=== PATIENT | female | born 1935 | race Caucasian/White ===

== ENCOUNTER 2017-04-27 21:58 | Emergency (ER) | payer MEDICARE, BC ==
[2017-04-27] MEDS ORDERED: Lidocaine 1% 20 ML MDV ONE (22:03)
[2017-04-27] MEDS ORDERED: Lidocaine 1% 20 ML MDV INJECT ONE (22:06)
[2017-04-27] MEDS ORDERED: Bacitracin Oint 1 GM U/D Packet TOP ONE (22:06)
[2017-04-27] MEDS ORDERED: Diphtheria,Pertussis(Acell),Tetanus Vaccine 0.5 ML Syringe IM ONE (22:08)
--- NOTE | 2017-04-27 22:13 | EDM.PDOC ---
ED HPI GENERAL MEDICAL PROBLEM - General Chief Complaint: Laceration Stated Complaint: LACERATION/BLEEDING RT INDEX FINGER Time Seen by Provider: 04/27/17 22:09 - History of Present Illness INITIAL COMMENTS - FREE TEXT/NARRATIVE: HISTORY AND PHYSICAL: History of present illness: Patient's age 82-year-old white female sensory concern of lacerations of the second digit of her right hand that occurred when she is washing dishes and a glass broke she denies update tetanus denies any other concern Review of systems: As per history of present illness and below otherwise all systems reviewed and negative. Past medical history: As per history of present illness and as reviewed below otherwise noncontributory. Surgical history: As per history of present illness and as reviewed below otherwise noncontributory. Social history: No reported history of drug or alcohol abuse. Family history: As per history of present illness and as reviewed below otherwise noncontributory. Physical exam: HEENT: Atraumatic, normocephalic, pupils reactive, negative for conjunctival pallor or scleral icterus, mucous membranes moist, throat clear, neck supple, nontender, trachea midline. Lungs: Clear to auscultation, breath sounds equal bilaterally, chest nontender. Heart: S1S2, regular, negative for clicks, rubs, or JVD. Abdomen: Soft, nondistended, nontender. Negative for masses or hepatosplenomegaly. Negative for costovertebral tenderness. Pelvis: Stable nontender. Genitourinary: Deferred. Rectal: Deferred. Extremities: Patient has approximately 2.5 cm moderate of laceration over the dorsal aspect of the second digit of her right hand is no tendon involvement CMS neurovascular is unremarkable Neuro: Awake, alert, oriented. Cranial nerves II through XII unremarkable. Cerebellum unremarkable. Motor and sensory unremarkable throughout. Exam nonfocal. Diagnostics: None Therapeutics: Patient was anesthetized 1% lidocaine without epinephrine irrigated Ori-Soft 0.9 normal saline prepped and draped in sterile manner her 2.5 cm laceration was closed with 4-0 nylon interrupted sutures bacitracin Tubegauz dressing was applied Impression: #1 acute right hand injury second digit ( laceration) Definitive disposition and diagnosis as appropriate pending reevaluation and review of above. ED ROS GENERAL - Review of Systems Review Of Systems: ROS reveals no pertinent complaints other than HPI. ED EXAM, SKIN/RASH Exam: See Below (Dictation) Course - Orders/Labs/Meds Orders: Active Orders 24 hr Category Date Time Status Vaccines to be Administered [RC] PER UNIT ROUTINE Care 04/27/17 22:08 Active Meds: Medications Discontinued Medications Generic Name Dose Route Start Last Admin Trade Name Skylar PRN Reason Stop Dose Admin Bacitracin 1 dose 04/27/17 22:06 Bacitracin Oint 1 Gm TOP 04/27/17 22:07 ONETIME ONE Diphtheria/Tetanus/Acell Pertussis 0.5 ml 04/27/17 22:08 Adacel IM 04/27/17 22:09 .ONCE ONE Lidocaine HCl Confirm 04/27/17 22:03 Xylocaine 1% Administered 04/27/17 22:04 Dose 20 ml .ROUTE .STK-MED ONE Lidocaine HCl 20 ml 04/27/17 22:06 Xylocaine 1% INJECT 04/27/17 22:07 ONETIME ONE Departure - Departure Time of Disposition: 22:12 Disposition: Home, Self-Care 01 Condition: Good Clinical Impression: Laceration - Discharge Information Referrals: PCP,None [Primary Care Provider] - Additional Instructions: The following information is given to patients seen in the emergency department who are being discharged to home. This information is to outline your options for follow-up care. We provide all patients seen in our emergency department with a follow-up referral. The need for follow-up, as well as the timing and circumstances, are variable depending upon the specifics of your emergency department visit. If you don't have a primary care physician on staff, we will provide you with a referral. We always advise you to contact your personal physician following an emergency department visit to inform them of the circumstance of the visit and for follow-up with them and/or the need for any referrals to a consulting specialist. The emergency department will also refer you to a specialist when appropriate. This referral assures that you have the opportunity for followup care with a specialist. All of these measure are taken in an effort to provide you with optimal care, which includes your followup. Under all circumstances we always encourage you to contact your private physician who remains a resource for coordinating your care. When calling for followup care, please make the office aware that this follow-up is from your recent emergency room visit. If for any reason you are refused follow-up, please contact the [facility] emergency department at and asked to speak to the emergency department charge nurse. Follow-up primary medical doctor 1-2 days for wound check and blood pressure recheck suture removal 10-14 days return as needed as discussed - My Orders Last 24 Hours: My Active Orders 04/27/17 22:08 Vaccines to be Administered [RC] PER UNIT ROUTINE - Assessment/Plan Last 24 Hours: My Active Orders 04/27/17 22:08 Vaccines to be Administered [RC] PER UNIT ROUTINE
[2017-04-27 22:48] VITALS: BP 190/79
== END 2017-04-27 22:44 | disposition home or self-care (01) ==
LOC: MW.ED 21:58
DX: S61.210A Laceration without foreign body of right index finger without damage to nail, initial encounter (principal); W25.XXXA Contact with sharp glass, initial encounter; Z23 Encounter for immunization
CPT/HCPCS: 12001; 90471; 90715; 99282; 99283-25

== ENCOUNTER 2017-05-12 11:13 | Emergency (ER) | payer MEDICARE, BC ==
[2017-05-12 11:28] VITALS: BP 115/70
--- NOTE | 2017-05-12 19:35 | EDM.PDOC ---
ED HPI GENERAL MEDICAL PROBLEM - General Stated Complaint: STITCHES REMOVED Time Seen by Provider: 05/12/17 11:17 - History of Present Illness INITIAL COMMENTS - FREE TEXT/NARRATIVE: HISTORY AND PHYSICAL: Patient is a nursing encounter seen for suture removal did not want medical evaluation so I did not see this patient. No further documentation is indicated - Related Data Allergies Allergy/AdvReac Type Severity Reaction Status Date / Time No Known Allergies Allergy Verified 04/27/17 22:15 Home Meds: Home Meds Aspirin [[place] Aspirin] 81 mg PO DAILY 04/27/17 [History] Calcium Carbonate [Calcium] 1,200 mg PO DAILY 04/27/17 [History] Clopidogrel [Plavix] 75 mg PO DAILY 04/27/17 [History] Fish Oil/[place]-3 Fatty Acids [Fish Oil 1,000 MG] 1 cap PO DAILY 04/27/17 [ History] Levothyroxine [Synthroid] 100 mcg PO DAILY 04/27/17 [History] Lutein 20 mg PO DAILY 04/27/17 [History] Metoprolol Succinate 100 mg PO DAILY 04/27/17 [History] Multivitamin/Iron/Folic Acid [Centrum Adults Tablet] 1 tab PO DAILY 04/27/17 [ History] Potassium Chloride [Klor-Con 8] 24 meq PO DAILY 04/27/17 [History] Rosuvastatin [Crestor] 20 mg PO ASDIRECTED 04/27/17 [History] Simvastatin [Zocor] 20 mg PO DAILY 04/27/17 [History] Triamterene/Hydrochlorothiazid [Triamterene-HCTZ 37.5-25 MG] 1 tab PO DAILY 07/03 [History] amLODIPine [Norvasc] 5 mg PO DAILY 04/27/17 [History] traMADol HCl [Tramadol HCl] 50 mg PO ASDIRECTED PRN 04/27/17 [History] Past Medical History 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 History: 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, 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, Hypertension Endocrine/Metabolic History: Reports: Hypothyroidism - Infectious Disease History Infectious Disease History: Reports: Chicken Pox, Measles, Mumps Social & Family History - Family History Family Medical History: Noncontributory - Tobacco Use Smoking Status *Q: Never Smoker - Caffeine Use Caffeine Use: Reports: None - Recreational Drug Use Recreational Drug Use: No ED ROS GENERAL - Review of Systems Review Of Systems: See Below (History of present illness) ED EXAM, GENERAL - Physical Exam Exam: See Below (History of present illness) Course - Vital Signs Last Recorded V/S: Last Vital Signs Temp 36.8 C 05/12/17 11:24 Pulse 78 05/12/17 11:24 Resp 16 05/12/17 11:24 BP 115/70 05/12/17 11:24 Pulse Ox 98 05/12/17 11:24 Departure - Departure Time of Disposition: 11:25 Disposition: Home, Self-Care 01 Clinical Impression: Visit for suture removal - Discharge Information Referrals: PCP,Unknown [Primary Care Provider] -
== END 2017-05-12 11:28 | disposition home or self-care (01) ==
LOC: MW.ED 11:13
DX: Z53.21 Procedure and treatment not carried out due to patient leaving prior to being seen by health care provider (principal)

== ENCOUNTER 2017-12-05 17:08 | Emergency (ER) | payer MEDICARE, BC ==
--- NOTE | 2017-12-05 17:23 | EDM.PDOC ---
ED HPI GENERAL MEDICAL PROBLEM - General Chief Complaint: Lower Extremity Injury/Pain Stated Complaint: PT HAS BLOOD CLOT IN LT LEG Time Seen by Provider: 12/05/17 17:21 - History of Present Illness INITIAL COMMENTS - FREE TEXT/NARRATIVE: HISTORY AND PHYSICAL: History of present illness: Patient's 82-year-old female with history of prior venous thromboembolism who presents with a concern of left leg discomfort and possible DVT she denies trauma shortness of breath nausea vomiting or any other complaint. Review of systems: As per history of present illness and below otherwise all systems reviewed and negative. Past medical history: As per history of present illness and as reviewed below otherwise noncontributory. Surgical history: As per history of present illness and as reviewed below otherwise noncontributory. Social history: No reported history of drug or alcohol abuse. Family history: As per history of present illness and as reviewed below otherwise noncontributory. Physical exam: HEENT: Atraumatic, normocephalic, pupils reactive, negative for conjunctival pallor or scleral icterus, mucous membranes moist, throat clear, neck supple, nontender, trachea midline. Lungs: Clear to auscultation, breath sounds equal bilaterally, chest nontender. Heart: S1S2, regular, negative for clicks, rubs, or JVD. Abdomen: Soft, nondistended, nontender. Negative for masses or hepatosplenomegaly. Negative for costovertebral tenderness. Pelvis: Stable nontender. Genitourinary: Deferred. Rectal: Deferred. Extremities: Atraumatic, negative for cords or calf pain. Neurovascular unremarkable. Neuro: Awake, alert, oriented. Cranial nerves II through XII unremarkable. Cerebellum unremarkable. Motor and sensory unremarkable throughout. Exam nonfocal. Diagnostics: Venous Doppler left lower extremity Therapeutics: None Impression: #1 medical screening exam rule out deep venous thrombosis Definitive disposition and diagnosis as appropriate pending reevaluation and review of above. - Related Data Allergies Allergy/AdvReac Type Severity Reaction Status Date / Time No Known Allergies Allergy Verified 12/05/17 17:22 Home Meds: Home Meds Aspirin [[place] Aspirin] 81 mg PO DAILY 04/27/17 [History] Calcium Carbonate [Calcium] 1,200 mg PO DAILY 04/27/17 [History] Clopidogrel [Plavix] 75 mg PO DAILY 04/27/17 [History] Fish Oil/[place]-3 Fatty Acids [Fish Oil 1,000 MG] 1 cap PO DAILY 04/27/17 [ History] Levothyroxine [Synthroid] 100 mcg PO DAILY 04/27/17 [History] Lutein 20 mg PO DAILY 04/27/17 [History] Metoprolol Succinate 100 mg PO DAILY 04/27/17 [History] Multivitamin/Iron/Folic Acid [Centrum Adults Tablet] 1 tab PO DAILY 04/27/17 [ History] Potassium Chloride [Klor-Con 8] 24 meq PO DAILY 04/27/17 [History] Rosuvastatin [Crestor] 20 mg PO ASDIRECTED 04/27/17 [History] Simvastatin [Zocor] 20 mg PO DAILY 04/27/17 [History] Triamterene/Hydrochlorothiazid [Triamterene-HCTZ 37.5-25 MG] 1 tab PO DAILY 07/03 [History] amLODIPine [Norvasc] 5 mg PO DAILY 04/27/17 [History] traMADol HCl [Tramadol HCl] 50 mg PO ASDIRECTED PRN 04/27/17 [History] Past Medical History 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 History: 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, 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, Hypertension Endocrine/Metabolic History: Reports: Hypothyroidism - Infectious Disease History Infectious Disease History: Reports: Chicken Pox, Measles, Mumps Social & Family History - Family History Family Medical History: Noncontributory - Tobacco Use Smoking Status *Q: Never Smoker - Caffeine Use Caffeine Use: Reports: None - Recreational Drug Use Recreational Drug Use: No Review of Systems - Review of Systems Review Of Systems: ROS reveals no pertinent complaints other than HPI. ED EXAM, GENERAL - Physical Exam Exam: See Below (See dictation) Course - Vital Signs Last Recorded V/S: Last Vital Signs Temp 36.8 C 12/05/17 17:18 Pulse 66 12/05/17 17:18 Resp 18 12/05/17 17:18 BP 171/90 H 12/05/17 17:18 Pulse Ox 95 12/05/17 17:18 - Orders/Labs/Meds Orders: Active Orders 24 hr Category Date Time Status Venous Doppler Lwr Ext Lt [US] Stat Exams 12/05/17 17:23 Taken Departure - Departure Time of Disposition: 18:22 Disposition: Home, Self-Care 01 Condition: Good Clinical Impression: Leg pain - Discharge Information Referrals: PCP,None [Primary Care Provider] - Forms: ED Department Discharge Additional Instructions: The following information is given to patients seen in the emergency department who are being discharged to home. This information is to outline your options for follow-up care. We provide all patients seen in our emergency department with a follow-up referral. The need for follow-up, as well as the timing and circumstances, are variable depending upon the specifics of your emergency department visit. If you don't have a primary care physician on staff, we will provide you with a referral. We always advise you to contact your personal physician following an emergency department visit to inform them of the circumstance of the visit and for follow-up with them and/or the need for any referrals to a consulting specialist. The emergency department will also refer you to a specialist when appropriate. This referral assures that you have the opportunity for followup care with a specialist. All of these measure are taken in an effort to provide you with optimal care, which includes your followup. Under all circumstances we always encourage you to contact your private physician who remains a resource for coordinating your care. When calling for followup care, please make the office aware that this follow-up is from your recent emergency room visit. If for any reason you are refused follow-up, please contact the [facility] emergency department at and asked to speak to the emergency department charge nurse. Follow-up private medical doctor Thursday continue current medications return as needed as discussed - My Orders Last 24 Hours: My Active Orders 12/05/17 17:23 Venous Doppler Lwr Ext Lt [US] Stat - Assessment/Plan Last 24 Hours: My Active Orders 12/05/17 17:23 Venous Doppler Lwr Ext Lt [US] Stat
[2017-12-05 20:35] VITALS: BP 162/97
--- NOTE | 2017-12-07 13:00 | US ---
EXAM DATE: 12/05/17 PATIENT'S AGE: 82 Patient: CESAR FELIZ Facility: [place], [place] Site . Site : [id number] Study: US Extremity Left [id number] 6:18:29 PM Ordering Physician: Doctor Kumar Final Report: INDICATION: PAIN LEFT KNEE AREA TECHNIQUE: Left lower extremity venous ultrasound with grayscale, color and spectral Doppler, and compression views. Duplex images of the contralateral common femoral vein were also obtained. FINDINGS: The left common femoral, femoral, proximal deep femoral, greater saphenous, and visualized calf veins are patent and negative for DVT. IMPRESSION: Left leg negative for DVT. Dictated by: Saroj David MD @ 12/05/2017 18:29:54 (Electronic Signature) Report Signed by Proxy. [email or web address]
== END 2017-12-05 18:40 | disposition home or self-care (01) ==
LOC: MW.ED 17:08
DX: M79.605 Pain in left leg (principal); I10 Essential (primary) hypertension; E78.00 Pure hypercholesterolemia, unspecified; E03.9 Hypothyroidism, unspecified; Z79.899 Other long term (current) drug therapy; Z79.82 Long term (current) use of aspirin
CPT/HCPCS: 93971-26-LT; 93971-LT; 99283-25

== ENCOUNTER 2018-08-26 07:06 | Emergency (ER) | payer MEDICARE, BC ==
[2018-08-26] MEDS ORDERED: Albuterol/Ipratropium 3.0-0.5 MG/3 ML Neb Soln NEB ONE (07:13)
[2018-08-26] MEDS ORDERED: Sodium Chloride 0.9% 10 ML Syringe FLUSH PRN (07:13)
[2018-08-26] MEDS ORDERED: Sodium Chloride 0.9% 2.5 ML Syringe FLUSH PRN (07:13)
--- NOTE | 2018-08-26 07:20 | EDM.PDOC ---
ED HPI GENERAL MEDICAL PROBLEM - General Chief Complaint: Respiratory Problem Stated Complaint: HARD TIME BREATHING Time Seen by Provider: 08/26/18 07:06 Source of Information: Reports: Patient History Limitations: Reports: No Limitations - History of Present Illness INITIAL COMMENTS - FREE TEXT/NARRATIVE: History of present illness: []Patient has had difficulty breathing for a week and a half, she denies any chest pain, cough, fevers, chills or recent flu symptoms. Patient had a blood clot in November of last year is currently on blood thinners. Patient complains of bilateral chronic leg pain with no new symptoms or swelling. Patient had an ultrasound-guided breast biopsy done 3 days ago[address] Patient saw Dr. Bender yesterday and she states she had a chest x-ray but did not need any medications or prescriptions. He scheduled her for pulmonary function tests next week. Review of systems: As per history of present illness and below otherwise all systems reviewed and negative. Past medical history: As per history of present illness and as reviewed below otherwise noncontributory. Surgical history: As per history of present illness and as reviewed below otherwise noncontributory. Social history: No reported history of drug or alcohol abuse. Family history: As per history of present illness and as reviewed below otherwise noncontributory. Physical exam: General: Well developed, well nourished in mild respiratory distress HEENT: Atraumatic, normocephalic, pupils reactive, negative for conjunctival pallor or scleral icterus, mucous membranes moist, throat clear, neck supple, nontender, trachea midline. Lungs: Rhonchi bilaterally to auscultation, breath sounds equal bilaterally, chest nontender. Heart: S1S2, regular, negative for clicks, rubs, or JVD. Peripheral edema Abdomen: NABS, Soft, nondistended, nontender. Negative for masses or hepatosplenomegaly. Negative for costovertebral tenderness. Pelvis: Stable nontender. Genitourinary: Deferred. Rectal: Deferred. Extremities: Atraumatic, negative for cords or calf pain. Neurovascular unremarkable. Neuro: Awake, alert, oriented. Cranial nerves II through XII unremarkable. Cerebellum unremarkable. Motor and sensory unremarkable throughout. Exam nonfocal. Skin:warm and dry Diagnostics: EKG, chest x-ray, CBC, comp, troponin, BNP, coags him a blood cultures, influenza Therapeutics: O2, Diltiazem bolus 2 followed by drip, aspirin ED Course: Symptoms improved with oxygen Dr. Nascimento accepts patient [facility] Impression: Atrial fibrillation with RVR right sided pneumonia and bilateral pleural effusions, positive troponin Prescriptions: None Plan: Transfer to [facility] Definitive disposition and diagnosis as appropriate pending reevaluation and review of above. generalized body aches Pain Score (Numeric/FACES): 6 - Related Data Allergies Allergy/AdvReac Type Severity Reaction Status Date / Time No Known Allergies Allergy Verified 08/26/18 07:14 Home Meds: Home Meds Calcium Carbonate [Calcium] 1,200 mg PO DAILY 04/27/17 [History] Clopidogrel [Plavix] 75 mg PO DAILY 04/27/17 [History] Levothyroxine [Synthroid] 100 mcg PO DAILY 04/27/17 [History] Lutein 20 mg PO DAILY 04/27/17 [History] Metoprolol Succinate 100 mg PO DAILY 04/27/17 [History] Multivitamin/Iron/Folic Acid [Centrum Adults Tablet] 1 tab PO DAILY 04/27/17 [ History] Potassium Chloride [Klor-Con 8] 24 meq PO DAILY 04/27/17 [History] Rosuvastatin [Crestor] 20 mg PO DAILY 04/27/17 [History] Simvastatin [Zocor] 20 mg PO DAILY 04/27/17 [History] Triamterene/Hydrochlorothiazid [Triamterene-HCTZ 37.5-25 MG] 1 tab PO DAILY 07/03 [History] amLODIPine [Norvasc] 5 mg PO DAILY 04/27/17 [History] Acetaminophen with Codeine [Tylenol with Codeine #3 Tablet] 1 tab PO BID PRN 06/04 [History] Past Medical History 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 History: 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, 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 ED EXAM, GENERAL - Physical Exam Exam: See Below (History of present illness) Course - Vital Signs Last Recorded V/S: Last Vital Signs Temp 98.5 F 08/26/18 08:23 Pulse 115 H 08/26/18 08:23 Resp 20 08/26/18 08:23 BP 137/57 L 08/26/18 08:23 Pulse Ox 90 L 08/26/18 08:23 - Orders/Labs/Meds Orders: Active Orders 24 hr Category Date Time Status Cardiac Monitoring [RC] . DIRECTED Care 08/26/18 07:41 Active EKG Documentation Completion [RC] STAT Care 08/26/18 07:12 Active Oxygen Therapy, ED [RC] ASDIRECTED Care 08/26/18 07:41 Active RT Aerosol Therapy [RC] ASDIRECTED Care 08/26/18 07:13 Inactive Chest 1V Frontal [CR] Stat Exams 08/26/18 07:12 Taken CULTURE BLOOD [BC] Stat Lab 08/26/18 08:12 Received CULTURE BLOOD [BC] Stat Lab 08/26/18 08:22 Received INFLUENZA A+B AG SCREEN [RM] Stat Lab 08/26/18 08:07 Received Aspirin Med 08/26/18 08:45 Once 324 mg PO ONETIME ONE Diltiazem [Cardizem] 100 mg Med 08/26/18 08:45 Active Sodium Chloride 0.9% [Normal Saline] 100 ml IV ONETIME Sodium Chloride 0.9% [Saline Flush] Med 08/26/18 07:13 Active 10 ml FLUSH ASDIRECTED PRN Sodium Chloride 0.9% [Saline Flush] Med 08/26/18 07:13 Active 2.5 ml FLUSH ASDIRECTED PRN Blood Culture x2 Reflex Set [OM.PC] Stat Oth 08/26/18 08:01 Ordered Saline Lock Insert [OM.PC] Stat Oth 08/26/18 07:12 Ordered Medication Orders Diltiazem HCl 100 mg/ Sodium (Chloride) 100 mls @ 5 mls/hr IV ONETIME YAKELIN; Protocol Sodium Chloride (Saline Flush) 10 ml FLUSH ASDIRECTED PRN PRN Reason: Keep Vein Open Last Admin: 08/26/18 07:54 Dose: 10 ml Sodium Chloride (Saline Flush) 2.5 ml FLUSH ASDIRECTED PRN PRN Reason: Keep Vein Open Last Admin: 08/26/18 07:55 Dose: 2.5 ml Labs: Laboratory Tests 0108/26/18 08/26/18 Range/Units 07:25 07:25 07:25 WBC 17.28 H (4.0-11.0) K/uL RBC 4.12 L (4.30-5.90) M/uL Hgb 12.3 (12.0-16.0) g/dL Hct 38.5 (36.0-46.0) % MCV 93.4 (80.0-98.0) fL MCH 29.9 (27.0-32.0) pg MCHC 31.9 (31.0-37.0) g/dL RDW Std Deviation 43.6 (28.0-62.0) fl RDW Coeff of Erickson 13 (11.0-15.0) % Plt Count 259 (150-400) K/uL MPV 10.60 (7.40-12.00) fL Neut % (Auto) 89.0 H (48.0-80.0) % Lymph % (Auto) 5.2 L (16.0-40.0) % [place] % (Auto) 5.6 (0.0-15.0) % Eos % (Auto) 0.1 (0.0-7.0) % Baso % (Auto) 0.1 (0.0-1.5) % Neut # (Auto) 15.4 H (1.4-5.7) K/uL Lymph # (Auto) 0.9 (0.6-2.4) K/uL [place] # (Auto) 1.0 H (0.0-0.8) K/uL Eos # (Auto) 0.0 (0.0-0.7) K/uL Baso # (Auto) 0.0 (0.0-0.1) K/uL Nucleated RBC % 0.0 /100WBC Nucleated RBCs # 0 K/uL INR APTT (18.6-31.3) SEC Sodium 139 (136-145) mmol/L Potassium 3.6 (3.5-5.1) mmol/L Chloride 104 (98-107) mmol/L Carbon Dioxide 22.6 (21.0-32.0) mmol/L BUN 34 H (7.0-18.0) mg/dL Creatinine 1.4 H (0.6-1.0) mg/dL Est Cr Clr Drug Dosing 25.83 mL/min Estimated GFR (MDRD) 35.8 ml/min Glucose 195 H (74-106) mg/dL Calcium 9.5 (8.5-10.1) mg/dL Total Bilirubin 0.9 (0.2-1.0) mg/dL AST 31 (15-37) IU/L ALT 43 (14-63) IU/L Alkaline Phosphatase 77 (46-116) U/L Troponin I 2.358 H* (0.000-0.056) ng/mL B-Natriuretic Peptide (<100) PG/ML Total Protein 7.6 (6.4-8.2) g/dL Albumin 3.2 L (3.4-5.0) g/dL Globulin 4.4 H (2.6-4.0) g/dL Albumin/Globulin Ratio 0.7 L (0.9-1.6) 08/26/18 08/26/18 Range/Units 07:25 07:25 WBC (4.0-11.0) K/uL RBC (4.30-5.90) M/uL Hgb (12.0-16.0) g/dL Hct (36.0-46.0) % MCV (80.0-98.0) fL MCH (27.0-32.0) pg MCHC (31.0-37.0) g/dL RDW Std Deviation (28.0-62.0) fl RDW Coeff of Erickson (11.0-15.0) % Plt Count (150-400) K/uL MPV (7.40-12.00) fL Neut % (Auto) (48.0-80.0) % Lymph % (Auto) (16.0-40.0) % [place] % (Auto) (0.0-15.0) % Eos % (Auto) (0.0-7.0) % Baso % (Auto) (0.0-1.5) % Neut # (Auto) (1.4-5.7) K/uL Lymph # (Auto) (0.6-2.4) K/uL Sharkey # (Auto) (0.0-0.8) K/uL Eos # (Auto) (0.0-0.7) K/uL Baso # (Auto) (0.0-0.1) K/uL Nucleated RBC % /100WBC Nucleated RBCs # K/uL INR 1.14 APTT 22.6 (18.6-31.3) SEC Sodium (136-145) mmol/L Potassium (3.5-5.1) mmol/L Chloride (98-107) mmol/L Carbon Dioxide (21.0-32.0) mmol/L BUN (7.0-18.0) mg/dL Creatinine (0.6-1.0) mg/dL Est Cr Clr Drug Dosing mL/min Estimated GFR (MDRD) ml/min Glucose (74-106) mg/dL Calcium (8.5-10.1) mg/dL Total Bilirubin (0.2-1.0) mg/dL AST (15-37) IU/L ALT (14-63) IU/L Alkaline Phosphatase (46-116) U/L Troponin I (0.000-0.056) ng/mL B-Natriuretic Peptide 1408 H (<100) PG/ML Total Protein (6.4-8.2) g/dL Albumin (3.4-5.0) g/dL Globulin (2.6-4.0) g/dL Albumin/Globulin Ratio (0.9-1.6) Meds: Medications Generic Name Dose Route Start Last Admin Trade Name Freq PRN Reason Stop Dose Admin Diltiazem HCl 100 mg/ Sodium 100 mls @ 5 mls/hr 08/26/18 08:45 Chloride IV ONETIME YAKELIN Protocol 5 MG/HR Sodium Chloride 10 ml 08/26/18 07:13 08/26/18 07:54 Saline Flush FLUSH 10 ml ASDIRECTED PRN Administration Keep Vein Open Sodium Chloride 2.5 ml 08/26/18 07:13 08/26/18 07:55 Saline Flush FLUSH 2.5 ml ASDIRECTED PRN Administration Keep Vein Open Discontinued Medications Generic Name Dose Route Start Last Admin Trade Name Freq PRN Reason Stop Dose Admin Albuterol/Ipratropium 3 ml 08/26/18 07:13 Duoneb 3.0-0.5 Mg/3 Ml NEB 08/26/18 07:14 ONETIME ONE Diltiazem HCl 20 mg 08/26/18 07:26 08/26/18 07:29 Diltiazem IVPUSH 08/26/18 07:27 20 mg ONETIME ONE Administration Diltiazem HCl 20 mg 08/26/18 07:48 08/26/18 07:54 Diltiazem IVPUSH 08/26/18 07:49 20 mg ONETIME ONE Administration Diltiazem HCl Confirm 08/26/18 07:51 08/26/18 07:54 Diltiazem Administered 08/26/18 07:52 Not Given Dose 25 mg .ROUTE .STK-MED ONE Ceftriaxone Sodium/Dextrose 1 50 mls @ 100 mls/hr 08/26/18 08:02 gm/ Premix IV 08/26/18 08:31 ONETIME ONE Diltiazem HCl 125 mg/ Sodium 125 mls @ 5 mls/hr 08/26/18 08:45 Chloride IV NOW YAKELIN Protocol 5 MG/HR Departure - Departure Time of Disposition: 08:49 Disposition: DC/Tfer to Acute Hospital 02 Condition: Good Clinical Impression: Atrial fibrillation with RVR, Non-STEMI (non-ST elevated myocardial infarction) , Bilateral pleural effusion - Discharge Information Referrals: Kali Bender MD [Primary Care Provider] - Forms: ED Department Discharge - My Orders Last 24 Hours: My Active Orders 08/26/18 07:12 EKG Documentation Completion [RC] STAT Chest 1V Frontal [CR] Stat Saline Lock Insert [OM.PC] Stat 08/26/18 07:13 RT Aerosol Therapy [RC] ASDIRECTED Sodium Chloride 0.9% [Saline Flush] 10 ml FLUSH ASDIRECTED PRN Sodium Chloride 0.9% [Saline Flush] 2.5 ml FLUSH ASDIRECTED PRN 08/26/18 07:41 Cardiac Monitoring [RC] . DIRECTED Oxygen Therapy, ED [RC] ASDIRECTED 08/26/18 08:01 Blood Culture x2 Reflex Set [OM.PC] Stat 08/26/18 08:07 INFLUENZA A+B AG SCREEN [RM] Stat 08/26/18 08:12 CULTURE BLOOD [BC] Stat 08/26/18 08:22 CULTURE BLOOD [BC] Stat 08/26/18 08:45 Aspirin 324 mg PO ONETIME ONE Diltiazem [Cardizem] 100 mg Sodium Chloride 0.9% [Normal Saline] 100 ml IV ONETIME - Assessment/Plan Last 24 Hours: My Active Orders 08/26/18 07:12 EKG Documentation Completion [RC] STAT Chest 1V Frontal [CR] Stat Saline Lock Insert [OM.PC] Stat 08/26/18 07:13 RT Aerosol Therapy [RC] ASDIRECTED Sodium Chloride 0.9% [Saline Flush] 10 ml FLUSH ASDIRECTED PRN Sodium Chloride 0.9% [Saline Flush] 2.5 ml FLUSH ASDIRECTED PRN 08/26/18 07:41 Cardiac Monitoring [RC] . DIRECTED Oxygen Therapy, ED [RC] ASDIRECTED 08/26/18 08:01 Blood Culture x2 Reflex Set [OM.PC] Stat 08/26/18 08:07 INFLUENZA A+B AG SCREEN [RM] Stat 08/26/18 08:12 CULTURE BLOOD [BC] Stat 08/26/18 08:22 CULTURE BLOOD [BC] Stat 08/26/18 08:45 Aspirin 324 mg PO ONETIME ONE Diltiazem [Cardizem] 100 mg Sodium Chloride 0.9% [Normal Saline] 100 ml IV ONETIME
[2018-08-26] MEDS ORDERED: Diltiazem 25 MG/5 ML SDV IVPUSH ONE ×2 (07:26→07:48)
[2018-08-26] MEDS ORDERED: Diltiazem 25 MG/5 ML SDV ONE (07:51)
[2018-08-26] MEDS ORDERED: cefTRIAXone 1 GM in Premix Bag 1 BAG IV ONE (08:02)
[2018-08-26] MEDS ORDERED: Diltiazem 100 MG in Sodium Chloride 0.9% 100 ML IV SCH (08:45)
[2018-08-26] MEDS ORDERED: Aspirin 81 MG Tab.Chew PO ONE (08:45)
[2018-08-26] MEDS ORDERED: Diltiazem 125 MG in Sodium Chloride 0.9% 100 ML IV SCH (08:45)
[2018-08-26 09:12] VITALS: BP 132/81
--- NOTE | 2018-08-26 14:21 | CR ---
EXAM DATE: 08/26/18 PATIENT'S AGE: 83 Patient: CESAR FELIZ Facility: [place], [place] Site . Site : [id number] Study: XRay Chest [id number]/10/2019 7:29:48 AM Ordering Physician: Pedro Banerjee Final Report: INDICATION: Chest pain. TECHNIQUE: AP portable chest x-ray. FINDINGS: Heart size is normal. The thoracic aorta is densely calcified. The distal aortic arch appears ectatic or dilated. Patient rotated markedly to the left. Small bilateral pleural effusions. Patchy infiltrates and opacity in the right lung varies from hazy to nodular. Mild infiltrate and atelectasis in the left lower lung. Chest otherwise unremarkable. Dictated by Braden Morelnad MD @ Aug 26 2018 7:56AM (Electronic Signature) Report Signed by Proxy. [facility]
== END 2018-08-26 09:40 ==
LOC: MW.ED 07:06
DX: I21.4 Non-ST elevation (NSTEMI) myocardial infarction (principal); J18.9 Pneumonia, unspecified organism; I48.91 Unspecified atrial fibrillation; I10 Essential (primary) hypertension; J90 Pleural effusion, not elsewhere classified; I25.10 Atherosclerotic heart disease of native coronary artery without angina pectoris; E03.9 Hypothyroidism, unspecified; Z79.899 Other long term (current) drug therapy
CPT/HCPCS: 71045; 80053; 83880; 84484; 85025; 85610; 85730; 87040; 87804; 93005; 96365; 96376; 99285; A9270; J0696; J3490; J7030

== ENCOUNTER 2018-09-16 20:45 | Inpatient (IN) | payer MEDICARE, BC ==
--- NOTE | 2018-09-16 20:52 | EDM.PDOC ---
ED HPI GENERAL MEDICAL PROBLEM - General Stated Complaint: PT HAS DIFFICULTY BREATHING Time Seen by Provider: 09/16/18 20:51 Source of Information: Reports: Patient - History of Present Illness INITIAL COMMENTS - FREE TEXT/NARRATIVE: HISTORY AND PHYSICAL: History of present illness: [Patient with COPD home oxygen dependent presents with shortness of breath dyspnea Generally requires 2 L of nasal cannula oxygen or she is hypoxic in the 80s on 2 L requires 4 L to maintain 90% No fever nausea vomiting chills sweats no chest pain headache dizziness palpitation no bowel or urine symptoms ] Review of systems: As per history of present illness and below otherwise all systems reviewed and negative. Past medical history: As per history of present illness and as reviewed below otherwise noncontributory. Surgical history: As per history of present illness and as reviewed below otherwise noncontributory. Social history: No reported history of drug or alcohol abuse. Family history: As per history of present illness and as reviewed below otherwise noncontributory. Physical exam: HEENT: Atraumatic, normocephalic, pupils reactive, negative for conjunctival pallor or scleral icterus, mucous membranes moist, throat clear, neck supple, nontender, trachea midline. Lungs: Clear to auscultation, breath sounds equal bilaterally, chest nontender. Heart: S1S2, regular, negative for clicks, rubs, or JVD. Abdomen: Soft, nondistended, nontender. Negative for masses or hepatosplenomegaly. Negative for costovertebral tenderness. Pelvis: Stable nontender. Genitourinary: Deferred. Rectal: Deferred. Extremities: Atraumatic, negative for cords or calf pain. Neurovascular unremarkable. Neuro: Awake, alert, oriented. Cranial nerves II through XII unremarkable. Cerebellum unremarkable. Motor and sensory unremarkable throughout. Exam nonfocal. Diagnostics: []CBC CMP UA troponin BN peptide EKG Chest 1 view Therapeutics: [] normal saline Solu-Medrol 125 mg IV DuoNeb 1 g Rocephin 500 mg azithromycin Patient admitted to Dr. Power Impression: Hypoxia Pneumonia Bilateral pleural effusions [] short of breath Definitive disposition and diagnosis as appropriate pending reevaluation and review of above. generalized Pain Score (Numeric/FACES): 7 - Related Data Allergies Allergy/AdvReac Type Severity Reaction Status Date / Time No Known Allergies Allergy Verified 09/16/18 21:01 Home Meds: Home Meds Calcium Carbonate [Calcium] 1,200 mg PO DAILY 04/27/17 [History] Clopidogrel [Plavix] 75 mg PO QAM 04/27/17 [History] Levothyroxine [Synthroid] 100 mcg PO QAM 04/27/17 [History] Lutein 20 mg PO DAILY 04/27/17 [History] Metoprolol Succinate 100 mg PO DAILY 04/27/17 [History] Multivitamin/Iron/Folic Acid [Centrum Adults Tablet] 1 tab PO DAILY 04/27/17 [ History] Potassium Chloride [Klor-Con 8] 8 meq PO TID 04/27/17 [History] Rosuvastatin [Crestor] 20 mg PO DAILY 04/27/17 [History] Triamterene/Hydrochlorothiazid [Triamterene-HCTZ 37.5-25 MG] 25 - 37.5 mg PO QPM 04/27/17 [History] amLODIPine [Norvasc] 5 mg PO QPM 04/27/17 [History] Acetaminophen with Codeine [Tylenol with Codeine #3 Tablet] 1 tab PO BID PRN 06/04 [History] Apixaban [Eliquis] 2.5 mg PO QAM 09/16/18 [History] Diltiazem HCl [Cartia Xt] 180 mg PO DAILY 09/16/18 [History] Furosemide 20 mg PO BID 09/16/18 [History] Lisinopril 10 mg PO DAILY 09/16/18 [History] Past Medical History 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 History: 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, 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, 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: Musculoskeletal History: Reports: Arthritis Psychiatric History: Reports: Anxiety, Depression Endocrine/Metabolic History: Reports: Hypothyroidism - Infectious Disease History Infectious Disease History: Reports: Chicken Pox, Measles, Mumps - Past Surgical History Oncologic Surgical History: Reports: Biopsy of Breast Social & Family History - Family History Family Medical History: Noncontributory - Caffeine Use Caffeine Use: Reports: None ED ROS GENERAL - Review of Systems Review Of Systems: See Below ED EXAM, GENERAL - Physical Exam Exam: See Below Course - Vital Signs Last Recorded V/S: Last Vital Signs Temp 97 F 09/16/18 20:49 Pulse 74 09/16/18 21:53 Resp 20 09/16/18 21:53 BP 139/54 L 09/16/18 21:53 Pulse Ox 94 L 09/16/18 21:53 - Orders/Labs/Meds Orders: Active Orders 24 hr Category Date Time Status EKG Documentation Completion [RC] STAT Care 09/16/18 20:53 Active RT Aerosol Therapy [RC] ASDIRECTED Care 09/16/18 20:53 Active Chest 1V Frontal [CR] Stat Exams 09/16/18 20:53 Taken B-TYPE NATRIURETIC PEPTIDE,BNP [CHEM] Stat Lab 09/16/18 21:20 Received UA RFX MIHAELA AND CULT IF INDIC [URIN] Stat Lab 09/16/18 20:53 Ordered Azithromycin [Zithromax] 500 mg Med 09/16/18 22:04 Active Sodium Chloride 0.9% [Normal Saline] 250 ml IV ONETIME Sodium Chloride 0.9% [Normal Saline] 1,000 ml Med 09/16/18 21:00 Active IV STAT Medication Orders Sodium Chloride (Normal Saline) 1,000 mls @ 125 mls/hr IV STAT YAKELIN Last Admin: 09/16/18 21:21 Dose: 125 mls/hr Azithromycin 500 mg/ Sodium (Chloride) 250 mls @ 250 mls/hr IV ONETIME ONE Stop: 09/16/18 23:03 Labs: Laboratory Tests 09/16/18 09/16/18 09/16/18 Range/Units 21:20 21:20 21:20 WBC 13.90 H (4.0-11.0) K/uL RBC 3.75 L (4.30-5.90) M/uL Hgb 11.4 L (12.0-16.0) g/dL Hct 35.8 L (36.0-46.0) % MCV 95.5 (80.0-98.0) fL MCH 30.4 (27.0-32.0) pg MCHC 31.8 (31.0-37.0) g/dL RDW Std Deviation 51.2 (28.0-62.0) fl RDW Coeff of Erickson 15 (11.0-15.0) % Plt Count 304 (150-400) K/uL MPV 10.60 (7.40-12.00) fL Neut % (Auto) 82.0 H (48.0-80.0) % Lymph % (Auto) 10.1 L (16.0-40.0) % [place] % (Auto) 6.9 (0.0-15.0) % Eos % (Auto) 0.6 (0.0-7.0) % Baso % (Auto) 0.4 (0.0-1.5) % Neut # (Auto) 11.4 H (1.4-5.7) K/uL Lymph # (Auto) 1.4 (0.6-2.4) K/uL [place] # (Auto) 1.0 H (0.0-0.8) K/uL Eos # (Auto) 0.1 (0.0-0.7) K/uL Baso # (Auto) 0.1 (0.0-0.1) K/uL Nucleated RBC % 0.0 /100WBC Nucleated RBCs # 0 K/uL INR 1.12 Sodium 141 (136-145) mmol/L Potassium 4.5 (3.5-5.1) mmol/L Chloride 104 (98-107) mmol/L Carbon Dioxide 26.6 (21.0-32.0) mmol/L BUN 37 H (7.0-18.0) mg/dL Creatinine 2.0 H (0.6-1.0) mg/dL Est Cr Clr Drug Dosing 18.08 mL/min Estimated GFR (MDRD) 23.7 ml/min Glucose 152 H (74-106) mg/dL Calcium 9.6 (8.5-10.1) mg/dL Total Bilirubin 0.7 (0.2-1.0) mg/dL AST 26 (15-37) IU/L ALT 30 (14-63) IU/L Alkaline Phosphatase 86 (46-116) U/L Troponin I 0.066 H* (0.000-0.056) ng/mL Total Protein 7.4 (6.4-8.2) g/dL Albumin 3.1 L (3.4-5.0) g/dL Globulin 4.3 H (2.6-4.0) g/dL Albumin/Globulin Ratio 0.7 L (0.9-1.6) Meds: Medications Generic Name Dose Route Start Last Admin Trade Name Freq PRN Reason Stop Dose Admin Sodium Chloride 1,000 mls @ 125 mls/hr 09/16/18 21:00 09/16/18 21:21 Normal Saline IV 125 mls/hr STAT YAKELIN Administration Azithromycin 500 mg/ Sodium 250 mls @ 250 mls/hr 09/16/18 22:04 Chloride IV 09/16/18 23:03 ONETIME ONE Discontinued Medications Generic Name Dose Route Start Last Admin Trade Name Skylar PRN Reason Stop Dose Admin Albuterol/Ipratropium 3 ml 09/16/18 20:53 09/16/18 21:06 Duoneb 3.0-0.5 Mg/3 Ml NEB 09/16/18 20:54 3 ml ONETIME ONE Administration Ceftriaxone Sodium 1 gm 09/16/18 22:04 Rocephin IM 09/16/18 22:05 ONETIME ONE Methylprednisolone Sodium Succinate 125 mg 09/16/18 20:53 09/16/18 21:22 Solu-Medrol IVPUSH 09/16/18 20:54 125 mg ONETIME ONE Administration Departure - Departure Time of Disposition: 22:10 Disposition: Admitted As Inpatient 65 Condition: Fair Clinical Impression: Pneumonia - Discharge Information - My Orders Last 24 Hours: My Active Orders 09/16/18 20:53 EKG Documentation Completion [RC] STAT RT Aerosol Therapy [RC] ASDIRECTED Chest 1V Frontal [CR] Stat UA RFX MIHAELA AND CULT IF INDIC [URIN] Stat 09/16/18 21:00 Sodium Chloride 0.9% [Normal Saline] 1,000 ml IV STAT 09/16/18 21:20 B-TYPE NATRIURETIC PEPTIDE,BNP [CHEM] Stat 09/16/18 22:04 Azithromycin [Zithromax] 500 mg Sodium Chloride 0.9% [Normal Saline] 250 ml IV ONETIME - Assessment/Plan Last 24 Hours: My Active Orders 09/16/18 20:53 EKG Documentation Completion [RC] STAT RT Aerosol Therapy [RC] ASDIRECTED Chest 1V Frontal [CR] Stat UA RFX MIHAELA AND CULT IF INDIC [URIN] Stat 09/16/18 21:00 Sodium Chloride 0.9% [Normal Saline] 1,000 ml IV STAT 09/16/18 21:20 B-TYPE NATRIURETIC PEPTIDE,BNP [CHEM] Stat 09/16/18 22:04 Azithromycin [Zithromax] 500 mg Sodium Chloride 0.9% [Normal Saline] 250 ml IV ONETIME
[2018-09-16] MEDS ORDERED: methylPREDNISolone Sodium Succinate 125 MG/2 ML SDV IVPUSH ONE (20:53)
[2018-09-16] MEDS ORDERED: Albuterol/Ipratropium 3.0-0.5 MG/3 ML Neb Soln NEB ONE (20:53)
[2018-09-16] MEDS ORDERED: Sodium Chloride 0.9% 1,000 ML IV SCH (21:00)
[2018-09-16] MEDS ORDERED: Azithromycin 500 MG in Sodium Chloride 0.9% 250 ML IV ONE (22:04)
[2018-09-16] MEDS ORDERED: cefTRIAXone 1 GM Vial IM ONE (22:04)
--- NOTE | 2018-09-16 22:11 | CR ---
Indication: SOB Technique: Chest 1 view Comparison: 08/26/2018 Findings/Impression: 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 and mediastinum: Stable cardiomediastinal silhouette. Lungs and pleural space: Persistent pleural effusions, increased on the left. Increased left basilar consolidation. Persistent interstitial opacities, right greater than left, with interval decrease in the right perihilar region and focal increased in the right upper lobe. Bones and soft tissues: An ovoid density projecting over the left abdomen. Stable osseous structures. Dictated by Shakir Vasquez MD @ 09/16/2018 10:10:34 PM Dictated by: Shakir Vasquez MD @ 09/16/2018 22:10:42 (Electronically Signed)
[2018-09-16] MEDS ORDERED: cefTRIAXone 1 GM in Sodium Chloride 0.9% 50 ML IV ONE (22:14)
[2018-09-16] MEDS ORDERED: Levofloxacin/Dextrose 5%-Water 500 MG in Premix Bag 1 BAG IV ONE (22:31)
[2018-09-16] MEDS ORDERED: oxyCODONE 5 MG Tab PO PRN (22:55)
[2018-09-16] MEDS ORDERED: Acetaminophen 325 MG Tab PO PRN (22:55)
[2018-09-17] MEDS ORDERED: Morphine 2 MG/ML Syringe IVPUSH PRN (03:54)
[2018-09-17] MEDS: Nitroglycerin 0.2 MG/HR Transdermal Patch TRDERM ONE ×2 (04:00→04:11)
[2018-09-17] MEDS: methylPREDNISolone Sodium Succinate 125 MG/2 ML SDV IVPUSH SCH ×3 (04:01→20:04)
[2018-09-17] MEDS ORDERED: Nitroglycerin 2% Oint 1 GM UD Packet TOP ONE (04:10)
--- NOTE | 2018-09-17 07:27 | PCM.HP ---
H&P History of Present Illness - General Date of Service: 09/17/18 Admit Problem/Dx: Admission Diagnosis/Problem Admission Diagnosis/Problem Pneumonia Source of Information: Patient, Family, Old Records History Limitations: Reports: No Limitations - History of Present Illness Initial Comments - Free Text/Narative: The patient is an 83-year-old lady who presented to the emergency department late yesterday evening secondary to worsening shortness of breath. The patient is oxygen dependent and she uses 2 L of oxygen during the daytime and 3 L of oxygen at night. The patient also had last week been discharged from [facility] secondary to pneumonia with pleural effusion. The patient says that she has not been feeling well for at least the past month. In the emergency department the patient had been on high-dose oxygen via nasal cannula and had been unable to keep her saturations above 90%. The patient has denied any pain. She has no cough and has not been productive of sputum. The patient reports that when she was last in the hospital she had approximately 200 mL of fluid withdrawn from her left lung field. The patient also has denied fever or chills. She's had no nausea or vomiting. The patient also has denied any chest pain however, she said that last night she was having an episode of squeezing feeling in her heart. No radiation of pain. She's had no specific aggravating or relieving factors. The patient also has been complaining of weakness and fatigue for the past month. Onset of Symptoms: Reports: Gradual Duration of Symptoms: Reports: Week(s): Location: Reports: Chest Quality: Reports: Ache Severity: Mild Improves with: Reports: None Worsens with: Reports: None Context: Reports: Other (Previous hospitalization within 1 month) generalized Pain Score (Numeric/FACES): 7 - Related Data Allergies/Adverse Reactions: Allergies Allergy/AdvReac Type Severity Reaction Status Date / Time No Known Allergies Allergy Verified 09/16/18 21:01 Home Medications: Home Meds Calcium Carbonate [Calcium] 1,200 mg PO DAILY 04/27/17 [History] Clopidogrel [Plavix] 75 mg PO QAM 04/27/17 [History] Levothyroxine [Synthroid] 100 mcg PO QAM 04/27/17 [History] Lutein 20 mg PO DAILY 04/27/17 [History] Metoprolol Succinate 100 mg PO DAILY 04/27/17 [History] Multivitamin/Iron/Folic Acid [Centrum Adults Tablet] 1 tab PO DAILY 04/27/17 [ History] Potassium Chloride [Klor-Con 8] 8 meq PO TID 04/27/17 [History] Rosuvastatin [Crestor] 20 mg PO DAILY 04/27/17 [History] Triamterene/Hydrochlorothiazid [Triamterene-HCTZ 37.5-25 MG] 25 - 37.5 mg PO QPM 04/27/17 [History] amLODIPine [Norvasc] 5 mg PO QPM 04/27/17 [History] Acetaminophen with Codeine [Tylenol with Codeine #3 Tablet] 1 tab PO BID PRN 06/04 [History] Apixaban [Eliquis] 2.5 mg PO QAM 09/16/18 [History] Diltiazem HCl [Cartia Xt] 180 mg PO DAILY 09/16/18 [History] Furosemide 20 mg PO BID 09/16/18 [History] Lisinopril 10 mg PO DAILY 09/16/18 [History] Past Medical History HEENT History: Reports: Impaired Vision, Other (See Below) Other HEENT History: wears glasses 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 History: 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, Heart Failure, 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, Hypertension, Stents Other 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 History: leaky valve, clogged arteries Respiratory History: Reports: COPD, Other (See Below) Other Respiratory History: on 02 at home (2liters in AM, 3liters in pm); pneumonia 3 weeks ago Gastrointestinal History: Reports: None Genitourinary History: Reports: None 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: Musculoskeletal History: Reports: Arthritis Neurological History: Reports: Other (See Below) Other Neuro History: small stroke 3 weeks ago Psychiatric History: Reports: None Endocrine/Metabolic History: Reports: Hypothyroidism Hematologic History: Reports: None Immunologic History: Reports: None Oncologic (Cancer) History: Reports: None Dermatologic History: Reports: None - Infectious Disease History Infectious Disease History: Reports: Chicken Pox, Measles, Mumps, Shingles - Past Surgical History HEENT Surgical History: Reports: Cataract Surgery 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 Surgical History: Reports: None Respiratory Surgical History: Reports: Thoracentesis GI Surgical History: Reports: Appendectomy Female Surgical History: Reports: None Endocrine Surgical History: Reports: None Neurological Surgical History: Reports: None Musculoskeletal Surgical History: Reports: None Oncologic Surgical History: Reports: Biopsy of Breast Social & Family History - Family History Family Medical History: Noncontributory - Tobacco Use Smoking Status *Q: Former Smoker Years of Tobacco use: 40 Used Tobacco, but Quit: Yes Month/Year Tobacco Last Used: 20 yrs ago Second Hand Smoke Exposure: No - Caffeine Use Caffeine Use: Reports: Coffee - Recreational Drug Use Recreational Drug Use: No - Living Situation & Occupation Living situation: Reports: , with Significant Other Occupation: Retired H&P Review of Systems - Review of Systems: Review Of Systems: See Below General: Reports: No Symptoms HEENT: Reports: Glasses Pulmonary: Reports: Shortness of Breath, Wheezing 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: Reports: Chest Pain, Dyspnea on Exertion Gastrointestinal: Reports: No Symptoms Genitourinary: Reports: No Symptoms Musculoskeletal: Reports: No Symptoms Psychiatric: Reports: No Symptoms Neurological: Reports: No Symptoms Hematologic/Lymphatic: Reports: No Symptoms Immunologic: Reports: No Symptoms Exam - Exam Exam: See Below - Vital Signs Vital Signs: Last Vital Signs Temp 36.1 C 09/16/18 20:49 Pulse 78 09/17/18 04:00 Resp 20 09/17/18 04:00 BP 127/56 L 09/17/18 04:00 Pulse Ox 89 L 09/17/18 04:00 Weight: 58.377 kg - Exam Quality Assessment: Supplemental Oxygen General: Alert, Oriented, Cooperative HEENT: Conjunctiva Clear, EACs Clear, EOMI, Nares Patent, PERRLA. No: Mucosa Moist & [place] (Dry) Neck: Supple, Trachea Midline Lungs: Normal Respiratory Effort, Decreased Breath Sounds (Left lower lobe), Crackles (Predominantly left lower lobe). No: Clear to Auscultation 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: Regular Rate, Irregular Rhythm, Diastolic Murmur (History of mitral regurgitation). No: Regular Rhythm GI/Abdominal Exam: Normal Bowel Sounds, Soft, Non-Tender, No Distention. No: Guarding, Rigid, Rebound (Female) Exam: Deferred Rectal (Female) Exam: Deferred Back Exam: No: Normal Inspection (Kyphosis) Extremities: Normal Inspection, Non-Tender, No Pedal Edema. No: Normal Range of Motion (Age-related changes) Skin: Warm, Dry, Intact Neurological: Cranial Nerves Intact Psychiatric: Alert, Normal Affect, Normal Mood - Patient Data Lab Results Last 24 hrs: Laboratory Results - last 24 hr 0109/16/18 09/16/18 Range/Units 21:20 21:20 21:20 WBC 13.90 H (4.0-11.0) K/uL RBC 3.75 L (4.30-5.90) M/uL Hgb 11.4 L (12.0-16.0) g/dL Hct 35.8 L (36.0-46.0) % MCV 95.5 (80.0-98.0) fL MCH 30.4 (27.0-32.0) pg MCHC 31.8 (31.0-37.0) g/dL RDW Std Deviation 51.2 (28.0-62.0) fl RDW Coeff of Erickson 15 (11.0-15.0) % Plt Count 304 (150-400) K/uL MPV 10.60 (7.40-12.00) fL Neut % (Auto) 82.0 H (48.0-80.0) % Lymph % (Auto) 10.1 L (16.0-40.0) % [place] % (Auto) 6.9 (0.0-15.0) % Eos % (Auto) 0.6 (0.0-7.0) % Baso % (Auto) 0.4 (0.0-1.5) % Neut # (Auto) 11.4 H (1.4-5.7) K/uL Lymph # (Auto) 1.4 (0.6-2.4) K/uL [place] # (Auto) 1.0 H (0.0-0.8) K/uL Eos # (Auto) 0.1 (0.0-0.7) K/uL Baso # (Auto) 0.1 (0.0-0.1) K/uL Nucleated RBC % 0.0 /100WBC Nucleated RBCs # 0 K/uL INR 1.12 Sodium 141 (136-145) mmol/L Potassium 4.5 (3.5-5.1) mmol/L Chloride 104 (98-107) mmol/L Carbon Dioxide 26.6 (21.0-32.0) mmol/L BUN 37 H (7.0-18.0) mg/dL Creatinine 2.0 H (0.6-1.0) mg/dL Est Cr Clr Drug Dosing 18.08 mL/min Estimated GFR (MDRD) 23.7 ml/min Glucose 152 H (74-106) mg/dL Calcium 9.6 (8.5-10.1) mg/dL Total Bilirubin 0.7 (0.2-1.0) mg/dL AST 26 (15-37) IU/L ALT 30 (14-63) IU/L Alkaline Phosphatase 86 (46-116) U/L Troponin I 0.066 H* (0.000-0.056) ng/mL B-Natriuretic Peptide (<100) PG/ML Total Protein 7.4 (6.4-8.2) g/dL Albumin 3.1 L (3.4-5.0) g/dL Globulin 4.3 H (2.6-4.0) g/dL Albumin/Globulin Ratio 0.7 L (0.9-1.6) Urine Color Urine Appearance Urine pH (5.0-8.0) Ur Specific [place] (1.001-1.035) Urine Protein (NEGATIVE) mg/dL Urine Glucose (UA) (NEGATIVE) mg/dL Urine Ketones (NEGATIVE) mg/dL Urine Occult Blood (NEGATIVE) Urine Nitrite (NEGATIVE) Urine Bilirubin (NEGATIVE) Urine Urobilinogen (<2.0) EU/dL Ur Leukocyte Esterase (NEGATIVE) Urine RBC (0-2/HPF) Urine WBC (0-5/HPF) Ur Epithelial Cells (NONE-FEW) Urine Bacteria (NEGATIVE) Urine Mucus (NONE-MOD) Urine Yeast 09/16/18 09/17/18 09/17/18 Range/Units 21:20 03:05 03:30 WBC (4.0-11.0) K/uL RBC (4.30-5.90) M/uL Hgb (12.0-16.0) g/dL Hct (36.0-46.0) % MCV (80.0-98.0) fL MCH (27.0-32.0) pg MCHC (31.0-37.0) g/dL RDW Std Deviation (28.0-62.0) fl RDW Coeff of Erickson (11.0-15.0) % Plt Count (150-400) K/uL MPV (7.40-12.00) fL Neut % (Auto) (48.0-80.0) % Lymph % (Auto) (16.0-40.0) % [place] % (Auto) (0.0-15.0) % Eos % (Auto) (0.0-7.0) % Baso % (Auto) (0.0-1.5) % Neut # (Auto) (1.4-5.7) K/uL Lymph # (Auto) (0.6-2.4) K/uL [place] # (Auto) (0.0-0.8) K/uL Eos # (Auto) (0.0-0.7) K/uL Baso # (Auto) (0.0-0.1) K/uL Nucleated RBC % /100WBC Nucleated RBCs # K/uL INR Sodium (136-145) mmol/L Potassium (3.5-5.1) mmol/L Chloride (98-107) mmol/L Carbon Dioxide (21.0-32.0) mmol/L BUN (7.0-18.0) mg/dL Creatinine (0.6-1.0) mg/dL Est Cr Clr Drug Dosing mL/min Estimated GFR (MDRD) ml/min Glucose (74-106) mg/dL Calcium (8.5-10.1) mg/dL Total Bilirubin (0.2-1.0) mg/dL AST (15-37) IU/L ALT (14-63) IU/L Alkaline Phosphatase (46-116) U/L Troponin I 0.066 H* (0.000-0.056) ng/mL B-Natriuretic Peptide 854 H (<100) PG/ML Total Protein (6.4-8.2) g/dL Albumin (3.4-5.0) g/dL Globulin (2.6-4.0) g/dL Albumin/Globulin Ratio (0.9-1.6) Urine Color YELLOW Urine Appearance CLEAR Urine pH 5.5 (5.0-8.0) Ur Specific [place] 1.025 (1.001-1.035) Urine Protein NEGATIVE (NEGATIVE) mg/dL Urine Glucose (UA) NEGATIVE (NEGATIVE) mg/dL Urine Ketones NEGATIVE (NEGATIVE) mg/dL Urine Occult Blood NEGATIVE (NEGATIVE) Urine Nitrite NEGATIVE (NEGATIVE) Urine Bilirubin NEGATIVE (NEGATIVE) Urine Urobilinogen 0.2 (<2.0) EU/dL Ur Leukocyte Esterase TRACE H (NEGATIVE) Urine RBC NONE SEEN (0-2/HPF) Urine WBC 8-11 (0-5/HPF) Ur Epithelial Cells FEW (NONE-FEW) Urine Bacteria RARE (NEGATIVE) Urine Mucus LIGHT (NONE-MOD) Urine Yeast FEW 09/17/18 09/17/18 Range/Units 05:10 05:10 WBC 9.57 (4.0-11.0) K/uL RBC 3.74 L (4.30-5.90) M/uL Hgb 11.0 L (12.0-16.0) g/dL Hct 35.6 L (36.0-46.0) % MCV 95.2 (80.0-98.0) fL MCH 29.4 (27.0-32.0) pg MCHC 30.9 L (31.0-37.0) g/dL RDW Std Deviation 50.6 (28.0-62.0) fl RDW Coeff of Erickson 15 (11.0-15.0) % Plt Count 285 (150-400) K/uL MPV 10.90 (7.40-12.00) fL Neut % (Auto) 96.6 H (48.0-80.0) % Lymph % (Auto) 2.7 L (16.0-40.0) % [place] % (Auto) 0.6 (0.0-15.0) % Eos % (Auto) 0.0 (0.0-7.0) % Baso % (Auto) 0.1 (0.0-1.5) % Neut # (Auto) 9.2 H (1.4-5.7) K/uL Lymph # (Auto) 0.3 L (0.6-2.4) K/uL [place] # (Auto) 0.1 (0.0-0.8) K/uL Eos # (Auto) 0.0 (0.0-0.7) K/uL Baso # (Auto) 0.0 (0.0-0.1) K/uL Nucleated RBC % 0.0 /100WBC Nucleated RBCs # 0 K/uL INR Sodium 142 (136-145) mmol/L Potassium 4.4 (3.5-5.1) mmol/L Chloride 105 (98-107) mmol/L Carbon Dioxide 27.2 (21.0-32.0) mmol/L BUN 37 H (7.0-18.0) mg/dL Creatinine 1.8 H (0.6-1.0) mg/dL Est Cr Clr Drug Dosing 20.09 mL/min Estimated GFR (MDRD) 26.8 ml/min Glucose 176 H (74-106) mg/dL Calcium 9.1 (8.5-10.1) mg/dL Total Bilirubin (0.2-1.0) mg/dL AST (15-37) IU/L ALT (14-63) IU/L Alkaline Phosphatase (46-116) U/L Troponin I (0.000-0.056) ng/mL B-Natriuretic Peptide (<100) PG/ML Total Protein (6.4-8.2) g/dL Albumin (3.4-5.0) g/dL Globulin (2.6-4.0) g/dL Albumin/Globulin Ratio (0.9-1.6) Urine Color Urine Appearance Urine pH (5.0-8.0) Ur Specific [place] (1.001-1.035) Urine Protein (NEGATIVE) mg/dL Urine Glucose (UA) (NEGATIVE) mg/dL Urine Ketones (NEGATIVE) mg/dL Urine Occult Blood (NEGATIVE) Urine Nitrite (NEGATIVE) Urine Bilirubin (NEGATIVE) Urine Urobilinogen (<2.0) EU/dL Ur Leukocyte Esterase (NEGATIVE) Urine RBC (0-2/HPF) Urine WBC (0-5/HPF) Ur Epithelial Cells (NONE-FEW) Urine Bacteria (NEGATIVE) Urine Mucus (NONE-MOD) Urine Yeast Result Diagrams: 09/17/18 05:10 09/17/18 05:10 Barry Results Last 24 hrs: Microbiology 09/16/18 21:15 Influenza Type A Antigen Screen - Final Nasopharyngeal Swab NEGATIVE INFLUENZA A VIRUS AG Influenza Type B Antigen Screen - Final NEGATIVE INFLUENZA B VIRUS AG - Problem List (1) Pneumonia SNOMED Code(s): 855391579 ICD Code: J18.9 - PNEUMONIA, UNSPECIFIED ORGANISM Status: Acute Priority : High Current Visit: Yes Qualifiers: Pneumonia type: due to unspecified organism Laterality: left Lung location: lower lobe of lung Qualified Code(s): J18.1 - Lobar pneumonia, unspecified organism (2) Chronic anticoagulation SNOMED Code(s): 169868378 ICD Code: Z79.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 ANTICOAGULANTS Status: Chronic Priority: High Current Visit: Yes (3) Chronic kidney disease (CKD), stage III (moderate) SNOMED Code(s): 634119370 ICD Code: N18.3 - CHRONIC KIDNEY DISEASE, STAGE 3 (MODERATE) Status: Chronic Priority: High Current Visit: Yes (4) Fatigue SNOMED Code(s): 78317508 ICD Code: R53.83 - OTHER FATIGUE Status: Chronic Priority: Medium Current Visit: Yes Qualifiers: Fatigue type: due to excessive exertion Encounter type: initial encounter Qualified Code(s): T73.3XXA - Exhaustion due to excessive exertion, initial encounter (5) Mitral valve regurgitation SNOMED Code(s): 82936298 ICD Code: I34.0 - NONRHEUMATIC MITRAL (VALVE) INSUFFICIENCY Status: Chronic Priority: High Current Visit: Yes Qualifiers: Cardiac valve disease etiology: nonrheumatic Qualified Code(s): I34.0 - Nonrheumatic mitral (valve) insufficiency (6) Troponin level elevated SNOMED Code(s): 456212741, 735234879, 979214449 ICD Code: R74.8 - ABNORMAL LEVELS OF OTHER SERUM ENZYMES Status: Acute Priority: High Current Visit: Yes (7) Atrial fibrillation with RVR SNOMED Code(s): 572677609219393 ICD Code: I48.91 - UNSPECIFIED ATRIAL FIBRILLATION Status: Chronic Priority: High Current Visit: Yes Problem List Initiated/Reviewed/Updated: Yes Orders Last 24hrs: Active Orders 24 hr Category Date Time Status Admission Status [Patient Status] [ADT] Stat ADT 09/16/18 22:11 Active RT Aerosol Therapy [RC] ASDIRECTED Care 09/16/18 20:53 Active RT Aerosol Therapy [RC] ASDIRECTED Care 09/16/18 22:54 Active Telemetry Monitoring [Cardiac Monitoring] [RC] Q8H Care 09/16/18 23:02 Active Regular Diet [DIET] Diet 09/17/18 Breakfast Active CULTURE BLOOD [BC] Stat Lab 09/16/18 22:30 Received CULTURE BLOOD [BC] Stat Lab 09/16/18 22:43 Received CULTURE URINE [RM] Stat Lab 09/17/18 03:30 Received TROPONIN I [CHEM] Routine Lab 09/17/18 09:20 Ordered Acetaminophen [Tylenol] Med 09/16/18 22:55 Active 650 mg PO Q4H PRN Albuterol/Ipratropium [DuoNeb 3.0-0.5 MG/3 ML] Med 09/16/18 22:54 Active 3 ml NEB Q4HRRT PRN Morphine Med 09/17/18 03:54 Active 1 mg IVPUSH Q2H PRN Sodium Chloride 0.9% [Normal Saline] 1,000 ml Med 09/16/18 23:00 Active IV ASDIRECTED methylPREDNISolone Sod Succ [Solu-MEDROL] Med 09/17/18 04:00 Active 125 mg IVPUSH Q8H oxyCODONE Med 09/16/18 22:55 Active 5 mg PO Q4H PRN Blood Culture x2 Reflex Set [OM.PC] Stat Oth 09/16/18 22:17 Ordered Medication Orders Acetaminophen (Tylenol) 650 mg PO Q4H PRN PRN Reason: Pain (mild 1-3) Albuterol/Ipratropium (Duoneb 3.0-0.5 Mg/3 Ml) 3 ml NEB Q4HRRT PRN PRN Reason: Shortness of Breath Sodium Chloride (Normal Saline) 1,000 mls @ 75 mls/hr IV ASDIRECTED YAKELIN Methylprednisolone Sodium Succinate (Solu-Medrol) 125 mg IVPUSH Q8H [facility] Last Admin: 09/17/18 04:01 Dose: 125 mg Morphine Sulfate (Morphine) 1 mg IVPUSH Q2H PRN PRN Reason: Pain (severe 7-10) Oxycodone HCl (Oxycodone) 5 mg PO Q4H PRN PRN Reason: Pain (severe 7-10) Assessment/Plan Comment:: The patient is an 83-year-old lady who had been admitted to acute hospitalization secondary to left lower lobe pneumonia with left-sided pleural effusion. I have requested for the records from [facility] with regards to her CT scan as well as analysis of the pleural fluid. The pleural fluid is likely parapneumonic however neoplastic process should be excluded. Also because of the patient's history of recent hospitalization for pneumonia the patient will be treated as hospital-acquired pneumonia. I've ordered Zosyn and vancomycin with pharmacy to dose considering the patient's stage III chronic kidney disease. The patient will have her renal function monitored closely. The patient also has been encouraged to ambulate. I've ordered repeat chest x-ray in 2 days to ascertain the chronicity of the left-sided pleural effusion. The patient does not need to have DVT prophylaxis at this time as she has been chronically taking Xarleto and this will be continued. The patient has been encouraged to ambulate. A review of records from her previous hospitalization will reveal if a another CT scan of her chest is indicated. The patient will be watched very closely for contrast nephropathy. I suspect that the patient will be appropriate for discharge home in 1-2 days. The patient has refused any idea of rehabilitation and she does have a good support system at home. Home health will be a consideration secondary to her deconditioned status. Repeat laboratory studies have been ordered for the morning.
[2018-09-17] MEDS ORDERED: Acetaminophen/Codeine 300-30 MG Tab PO PRN (08:10)
[2018-09-17] MEDS ORDERED: Docusate Sodium 100 MG Cap PO PRN (08:14)
[2018-09-17] MEDS: Furosemide 20 MG Tab PO SCH ×2 (09:29→20:05)
[2018-09-17] MEDS: Diltiazem 180 MG Cap.CD PO SCH (09:29)
[2018-09-17] MEDS: Lisinopril 10 MG Tab PO SCH (09:29)
[2018-09-17] MEDS: Metoprolol Succinate 100 MG Tab.ER PO SCH (09:30)
[2018-09-17] MEDS: Clopidogrel 75 MG Tab PO SCH (09:36)
[2018-09-17] MEDS: Apixaban 2.5 MG Tab PO SCH (09:36)
[2018-09-17] MEDS: Rosuvastatin 10 MG Tab PO SCH (09:36)
[2018-09-17] MEDS: Levothyroxine 100 MCG Tab PO SCH (09:46)
[2018-09-17] MEDS: Piperacillin/Tazobactam 2.25 GM in Sodium Chloride 0.9% 50 ML IV SCH ×2 (09:47→17:32)
[2018-09-17] MEDS: Sodium Chloride 0.9% 1,000 ML IV SCH (10:30)
[2018-09-17] MEDS ORDERED: Potassium Chloride 8 MEQ Tab.ER PO SCH (14:00)
[2018-09-17] MEDS: Potassium Chloride 8 MEQ Tab.ER PO SCH (17:33)
[2018-09-17] MEDS: Hydrochlorothiazide/Triamterene 25-37.5 Tab PO SCH (17:37)
[2018-09-17] MEDS: amLODIPine 5 MG Tab PO SCH (17:37)
[2018-09-17] MEDS: Albuterol/Ipratropium 3.0-0.5 MG/3 ML Neb Soln NEB PRN (21:27)
[2018-09-18] MEDS: Temazepam 15 MG Cap PO PRN ×2 (01:57→22:21)
[2018-09-18] MEDS: Piperacillin/Tazobactam 2.25 GM in Sodium Chloride 0.9% 50 ML IV SCH ×3 (01:58→17:34)
[2018-09-18] MEDS: Sodium Chloride 0.9% 1,000 ML IV SCH (01:58)
[2018-09-18] MEDS: methylPREDNISolone Sodium Succinate 125 MG/2 ML SDV IVPUSH SCH ×3 (03:47→20:48)
[2018-09-18] MEDS: Levothyroxine 100 MCG Tab PO SCH (06:40)
--- NOTE | 2018-09-18 07:49 | PCM.PN ---
- General Info Date of Service: 09/18/18 Admission Dx/Problem (Free Text): Admission Diagnosis/Problem Admission Diagnosis/Problem Pneumonia Subjective Update: The patient is a 83-year-old lady who had been admitted yesterday secondary to worsening shortness of breath. The patient had also been within the last week discharged from [facility] in [place] secondary to pneumonia. The patient says that she is doing somewhat better today. Her blood pressure has remained on the low side and her antihypertensive medications have been held. The patient has no pain. She had been tolerating diet. She has no other complaints today. She does however feels that she is too weak to go home. Functional Status: Reports: Pain Controlled, Tolerating Diet - Review of Systems General: Reports: Weakness, Fatigue HEENT: Reports: No Symptoms Pulmonary: Reports: Shortness of Breath 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: Reports: No Symptoms Gastrointestinal: Reports: No Symptoms Genitourinary: Reports: No Symptoms Musculoskeletal: Reports: No Symptoms Skin: Reports: No Symptoms Neurological: Reports: No Symptoms Psychiatric: Reports: No Symptoms - Patient Data Vitals - Most Recent: Last Vital Signs Temp 36.2 C 09/18/18 07:42 Pulse 99 09/18/18 07:42 Resp 20 09/18/18 07:42 BP 92/55 L 09/18/18 07:42 Pulse Ox 93 L 09/18/18 07:42 Weight - Most Recent: 58.377 kg I&O - Last 24 Hours: Intake & Output 09/17/18 09/18/18 09/18/18 22:59 06:59 14:59 Intake Total 500 400 Output Total 325 750 Balance 175 -350 Lab Results Last 24 Hours: Laboratory Results - last 24 hr 09/17/18 09/18/18 09/18/18 Range/Units 09:20 05:42 05:42 WBC 15.91 H (4.0-11.0) K/uL RBC 3.22 L (4.30-5.90) M/uL Hgb 9.6 L (12.0-16.0) g/dL Hct 30.6 L (36.0-46.0) % MCV 95.0 (80.0-98.0) fL MCH 29.8 (27.0-32.0) pg MCHC 31.4 (31.0-37.0) g/dL RDW Std Deviation 51.4 (28.0-62.0) fl RDW Coeff of Erickson 15 (11.0-15.0) % Plt Count 234 (150-400) K/uL MPV 10.50 (7.40-12.00) fL Neut % (Auto) 95.0 H (48.0-80.0) % Lymph % (Auto) 1.9 L (16.0-40.0) % [place] % (Auto) 3.0 (0.0-15.0) % Eos % (Auto) 0.0 (0.0-7.0) % Baso % (Auto) 0.1 (0.0-1.5) % Neut # (Auto) 15.1 H (1.4-5.7) K/uL Lymph # (Auto) 0.3 L (0.6-2.4) K/uL [place] # (Auto) 0.5 (0.0-0.8) K/uL Eos # (Auto) 0.0 (0.0-0.7) K/uL Baso # (Auto) 0.0 (0.0-0.1) K/uL Nucleated RBC % 0.0 /100WBC Nucleated RBCs # 0 K/uL Sodium 145 (136-145) mmol/L Potassium 3.9 (3.5-5.1) mmol/L Chloride 109 H (98-107) mmol/L Carbon Dioxide 24.3 (21.0-32.0) mmol/L BUN 38 H (7.0-18.0) mg/dL Creatinine 1.9 H (0.6-1.0) mg/dL Est Cr Clr Drug Dosing 19.03 mL/min Estimated GFR (MDRD) 25.2 ml/min Glucose 188 H (74-106) mg/dL Calcium 8.5 (8.5-10.1) mg/dL Troponin I 0.057 H (0.000-0.056) ng/mL Barry Results Last 24 Hours: Microbiology 09/16/18 22:43 Aerobic Blood Culture - Preliminary Blood - Venous - Lab Draw NO GROWTH AFTER 1 DAY Anaerobic Blood Culture - Preliminary NO GROWTH AFTER 1 DAY 09/16/18 22:30 Aerobic Blood Culture - Preliminary Blood - Venous NO GROWTH AFTER 1 DAY Anaerobic Blood Culture - Preliminary NO GROWTH AFTER 1 DAY Med Orders - Current: Current Medications Acetaminophen (Tylenol) 650 mg PO Q4H PRN PRN Reason: Pain (mild 1-3) Acetaminophen/Codeine Phosphate (Tylenol With Codeine No.3 300mg/30mg) 1 tab PO BID PRN PRN Reason: Pain Albuterol/Ipratropium (Duoneb 3.0-0.5 Mg/3 Ml) 3 ml NEB Q4HRRT PRN PRN Reason: Shortness of Breath Last Admin: 09/17/18 21:27 Dose: 3 ml Amlodipine Besylate (Norvasc) 5 mg PO QPM [facility] Last Admin: 09/17/18 17:37 Dose: Not Given Apixaban (Eliquis) 2.5 mg PO QAM [facility] Last Admin: 09/17/18 09:36 Dose: 2.5 mg Clopidogrel Bisulfate (Plavix) 75 mg PO QAM [facility] Last Admin: 09/17/18 09:36 Dose: 75 mg Diltiazem HCl (Cardizem Cd) 180 mg PO DAILY [facility] Last Admin: 09/17/18 09:29 Dose: Not Given Docusate Sodium (Colace) 100 mg PO BID PRN PRN Reason: Constipation Furosemide (Lasix) 20 mg PO BID [facility] Last Admin: 09/17/18 20:05 Dose: Not Given Sodium Chloride (Normal Saline) 1,000 mls @ 75 mls/hr IV ASDIRECTED [facility] Last Admin: 09/18/18 01:58 Dose: 75 mls/hr Piperacillin Sod/Tazobactam (Sod 2.25 gm/ Sodium Chloride) 50 mls @ 100 mls/hr IV Q8H [facility] Last Admin: 09/18/18 01:58 Dose: 100 mls/hr Vancomycin HCl 0.75 gm/ Sodium (Chloride) 250 mls @ 166.667 mls/hr IV Q24H [facility] Last Admin: 09/17/18 10:28 Dose: 166.667 mls/hr Levothyroxine Sodium (Synthroid) 100 mcg PO ACBREAKFAST [facility] Last Admin: 09/18/18 06:40 Dose: 100 mcg Lisinopril (Prinivil) 10 mg PO DAILY [facility] Last Admin: 09/17/18 09:29 Dose: Not Given Methylprednisolone Sodium Succinate (Solu-Medrol) 125 mg IVPUSH Q8H [facility] Last Admin: 09/18/18 03:47 Dose: 125 mg Metoprolol Succinate (Toprol Xl) 100 mg PO DAILY [facility] Last Admin: 09/17/18 09:30 Dose: Not Given Morphine Sulfate (Morphine) 1 mg IVPUSH Q2H PRN PRN Reason: Pain (severe 7-10) Oxycodone HCl (Oxycodone) 5 mg PO Q4H PRN PRN Reason: Pain (severe 7-10) Potassium Chloride (Klor-Con 8) 8 meq PO TIDMEALS [facility] Last Admin: 09/17/18 17:33 Dose: 8 meq Rosuvastatin Calcium (Crestor) 20 mg PO DAILY [facility] Last Admin: 09/17/18 09:36 Dose: 20 mg Temazepam (Restoril) 15 mg PO BEDTIME PRN PRN Reason: Sleep Last Admin: 09/18/18 01:57 Dose: 15 mg Triamterene/HCTZ (Maxzide 25-37.5 Mg) 1 each PO QPM [facility] Last Admin: 09/17/18 17:37 Dose: Not Given Discontinued Medications Albuterol/Ipratropium (Duoneb 3.0-0.5 Mg/3 Ml) 3 ml NEB ONETIME ONE Stop: 09/16/18 20:54 Last Admin: 09/16/18 21:06 Dose: 3 ml Ceftriaxone Sodium (Rocephin) 1 gm IM ONETIME ONE Stop: 09/16/18 22:05 Last Admin: 09/16/18 22:16 Dose: Not Given Sodium Chloride (Normal Saline) 1,000 mls @ 125 mls/hr IV STAT [facility] Last Admin: 09/16/18 21:21 Dose: 125 mls/hr Azithromycin 500 mg/ Sodium (Chloride) 250 mls @ 250 mls/hr IV ONETIME ONE Stop: 09/16/18 23:03 Last Admin: 09/16/18 22:34 Dose: Not Given Ceftriaxone Sodium 1 gm/ (Sodium Chloride) 50 mls @ 100 mls/hr IV ONETIME ONE Stop: 09/16/18 22:43 Last Admin: 09/16/18 22:34 Dose: Not Given Levofloxacin/Dextrose 500 mg/ (Premix) 100 mls @ 100 mls/hr IV ONETIME ONE Stop: 09/16/18 23:30 Last Admin: 09/16/18 22:51 Dose: 100 mls/hr Methylprednisolone Sodium Succinate (Solu-Medrol) 125 mg IVPUSH ONETIME ONE Stop: 09/16/18 20:54 Last Admin: 09/16/18 21:22 Dose: 125 mg Nitroglycerin (Nitro-Dur 0.2 Mg/Hr) 0.2 mg TRDERM ONETIME ONE Stop: 09/17/18 03:55 Last Admin: 09/17/18 04:11 Dose: Not Given Nitroglycerin (Nitro-Bid 2%) 1 gm TOP ONETIME ONE Stop: 09/17/18 04:11 Last Admin: 09/17/18 04:18 Dose: 1 gm Potassium Chloride (Klor-Con 8) 8 meq PO TID [facility]AK[facility]IN Last Admin: 09/17/18 13:54 Dose: Not Given Vancomycin HCl (Pharmacy To Dose - Vancomycin) 1 dose .XX ASDIRECTED ONE Stop: 09/17/18 09:16 Last Admin: 09/17/18 09:49 Dose: Not Given - Exam Quality Assessment: Supplemental Oxygen General: Alert, Oriented, Cooperative, No Acute Distress HEENT: Pupils Equal, Pupils Reactive, EOMI Neck: Supple, Trachea Midline, No JVD Lungs: Decreased Breath Sounds, Rales (Bibasilar) 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: Regular Rate, Regular Rhythm GI/Abdominal Exam: Normal Bowel Sounds, Soft, Non-Tender, No Distention (Female) Exam: Deferred Back Exam: Normal Inspection (Kyphosis) Extremities: Normal Inspection, No Pedal Edema Skin: Warm, Dry, Ecchymosis (Bilateral lower extremity ecchymosis and chronic skin changes) Neurological: No New Focal Deficit Psy/Mental Status: Alert, Normal Affect, Normal Mood - Problem List & Annotations (1) Pneumonia SNOMED Code(s): 069242127 Code(s): J18.9 - PNEUMONIA, UNSPECIFIED ORGANISM Status: Acute Priority: High Current Visit: Yes Qualifiers: Pneumonia type: due to unspecified organism Laterality: left Lung location: lower lobe of lung Qualified Code(s): J18.1 - Lobar pneumonia, unspecified organism (2) Chronic anticoagulation SNOMED Code(s): 729458931 Code(s): Z79.01 - 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 SUPERINTENDENT (CURRENT) USE OF ANTICOAGULANTS Status: Chronic Priority: High Current Visit: Yes (3) Chronic kidney disease (CKD), stage III (moderate) SNOMED Code(s): 406327233 Code(s): N18.3 - CHRONIC KIDNEY DISEASE, STAGE 3 (MODERATE) Status: Chronic Priority: High Current Visit: Yes (4) Fatigue SNOMED Code(s): 13727373 Code(s): R53.83 - OTHER FATIGUE Status: Chronic Priority: Medium Current Visit: Yes Qualifiers: Fatigue type: due to excessive exertion Encounter type: initial encounter Qualified Code(s): T73.3XXA - Exhaustion due to excessive exertion, initial encounter (5) Mitral valve regurgitation SNOMED Code(s): 41663373 Code(s): I34.0 - NONRHEUMATIC MITRAL (VALVE) INSUFFICIENCY Status: Chronic Priority: High Current Visit: Yes Qualifiers: Cardiac valve disease etiology: nonrheumatic Qualified Code(s): I34.0 - Nonrheumatic mitral (valve) insufficiency (6) Troponin level elevated SNOMED Code(s): 200150574, 627778610, 577703882 Code(s): R74.8 - ABNORMAL LEVELS OF OTHER SERUM ENZYMES Status: Acute Priority: High Current Visit: Yes (7) Atrial fibrillation with RVR SNOMED Code(s): 521446488680270 Code(s): I48.91 - UNSPECIFIED ATRIAL FIBRILLATION Status: Chronic Priority: High Current Visit: Yes - Problem List Review Problem List Initiated/Reviewed/Updated: Yes - My Orders Last 24 Hours: My Active Orders 09/17/18 07:39 Communication Order [RC] Q12H 09/17/18 08:10 Acetaminophen/Codeine [Tylenol with Codeine No.3 300MG/30MG] 1 tab PO BID PRN 09/17/18 08:14 Oxygen Therapy [RC] PRN Up With Assistance [RC] ASDIRECTED Vital Signs [RC] Q4H Docusate Sodium [Colace] 100 mg PO BID PRN Temazepam [Restoril] 15 mg PO BEDTIME PRN VTE Mechanical Contraindications [AST] Per Unit Routine VTE Pharmacological Contraindications [AST] Per Unit Routine Resuscitation Status Routine 09/17/18 09:00 Apixaban [Eliquis] 2.5 mg PO QAM Clopidogrel [Plavix] 75 mg PO QAM Diltiazem [Cardizem CD] 180 mg PO DAILY Furosemide [Lasix] 20 mg PO BID Lisinopril [Prinivil] 10 mg PO DAILY Metoprolol Succinate [Toprol XL] 100 mg PO DAILY Rosuvastatin [Crestor] 20 mg PO DAILY 09/17/18 09:15 Piperacillin/Tazobactam [Zosyn] 2.25 gm Sodium Chloride 0.9% [Normal Saline] 50 ml IV Q8H 09/17/18 09:30 Consult to Home Health [CONS] Routine Consult to Occupational Therapy [OT Evaluation and Treatment] [CONS] Routine PT Evaluation and Treatment [CONS] Routine 09/17/18 09:35 Levothyroxine [Synthroid] 100 mcg PO ACBREAKFAST 09/17/18 10:30 Vancomycin 0.75 gm Sodium Chloride 0.9% [Normal Saline] 250 ml IV Q24H 09/17/18 17:30 Potassium Chloride [Klor-Con 8] 8 meq PO TIDMEALS 09/17/18 18:00 HCTZ/Triamterene [Maxzide 25-37.5 MG] 1 each PO QPM amLODIPine [Norvasc] 5 mg PO QPM 09/19/18 08:14 Chest 1V Frontal [CR] Routine 09/20/18 09:30 VANCOMYCIN TROUGH [CHEM] Timed - Plan Plan:: The patient is an 83-year-old lady who had been admitted to acute hospitalization secondary to left lower lobe pneumonia with left-sided pleural effusion. I have requested for the records from [place] with regards to her CT scan as well as analysis of the pleural fluid. The pleural fluid is likely parapneumonic however neoplastic process should be excluded. Also because of the patient's history of recent hospitalization for pneumonia the patient will be treated as hospital-acquired pneumonia. I've ordered Zosyn and vancomycin with pharmacy to dose considering the patient's stage III chronic kidney disease. The patient will have her renal function monitored closely. The patient also has been encouraged to ambulate. I've ordered repeat chest x-ray in 2 days to ascertain the chronicity of the left-sided pleural effusion. The patient does not need to have DVT prophylaxis at this time as she has been chronically taking Xarleto and this will be continued. The patient has been encouraged to ambulate. A review of records from her previous hospitalization will reveal if a another CT scan of her chest is indicated. The patient will be watched very closely for contrast nephropathy. I suspect that the patient will be appropriate for discharge home in 1-2 days. The patient has refused any idea of rehabilitation and she does have a good support system at home. Home health will be a consideration secondary to her deconditioned status. Repeat laboratory studies have been ordered for the morning. The patient is an 83-year-old lady who had been admitted to acute hospitalization. She does have remaining left-sided pulmonary effusion records were requested from [facility] and they have not been received as yet. We' ll continue to treat the patient aggressively with dual antibiotic coverage for hospital-acquired pneumonia as the patient was discharged last week from acute hospitalization. The patient Zosyn and vancomycin have been renally dosed secondary to her known chronic kidney disease. I've ordered repeat laboratory studies in the morning. The patient has been recommended to continue to ambulate as tolerated. She should be appropriate for discharge in 1-2 days.
[2018-09-18] MEDS: Potassium Chloride 8 MEQ Tab.ER PO SCH ×3 (08:48→18:56)
[2018-09-18] MEDS: Rosuvastatin 10 MG Tab PO SCH (08:48)
[2018-09-18] MEDS: Apixaban 2.5 MG Tab PO SCH (08:48)
[2018-09-18] MEDS: Clopidogrel 75 MG Tab PO SCH (08:48)
[2018-09-18] MEDS: Diltiazem 180 MG Cap.CD PO SCH (08:48)
[2018-09-18] MEDS: Furosemide 20 MG Tab PO SCH ×2 (08:54→20:51)
[2018-09-18] MEDS: Metoprolol Succinate 100 MG Tab.ER PO SCH (08:54)
[2018-09-18] MEDS: Lisinopril 10 MG Tab PO SCH (08:54)
[2018-09-18] MEDS: amLODIPine 5 MG Tab PO SCH (17:39)
[2018-09-18] MEDS: Hydrochlorothiazide/Triamterene 25-37.5 Tab PO SCH (17:39)
[2018-09-19] MEDS: Piperacillin/Tazobactam 2.25 GM in Sodium Chloride 0.9% 50 ML IV SCH ×3 (01:07→17:19)
[2018-09-19] MEDS: methylPREDNISolone Sodium Succinate 125 MG/2 ML SDV IVPUSH SCH ×3 (03:05→20:49)
[2018-09-19] MEDS: Albuterol/Ipratropium 3.0-0.5 MG/3 ML Neb Soln NEB PRN ×2 (04:18→22:59)
[2018-09-19] MEDS: Levothyroxine 100 MCG Tab PO SCH (06:30)
--- NOTE | 2018-09-19 06:45 | PCM.PN ---
- General Info Date of Service: 09/19/18 Admission Dx/Problem (Free Text): Admission Diagnosis/Problem Admission Diagnosis/Problem Pneumonia Subjective Update: The patient is an 83-year-old lady who was admitted initially secondary to hypoxia, pneumonia and shortness of breath. Today says that her breathing is somewhat worse today. She however has had been tolerating diet. The patient has denied any fever or chills. Cultures are currently pending. Influenza was negative. Functional Status: Reports: Pain Controlled, Tolerating Diet - Review of Systems General: Reports: Weakness, Fatigue HEENT: Reports: No Symptoms Pulmonary: Reports: Shortness of Breath, Wheezing 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: Reports: No Symptoms Gastrointestinal: Reports: No Symptoms Genitourinary: Reports: No Symptoms Musculoskeletal: Reports: No Symptoms Skin: Reports: No Symptoms Neurological: Reports: No Symptoms Psychiatric: Reports: No Symptoms - Patient Data Vitals - Most Recent: Last Vital Signs Temp 36.1 C 09/19/18 04:00 Pulse 110 H 09/19/18 04:00 Resp 18 09/19/18 04:00 BP 125/76 09/19/18 04:00 Pulse Ox 92 L 09/19/18 06:00 Weight - Most Recent: 58.377 kg I&O - Last 24 Hours: Intake & Output 09/18/18 09/18/18 09/19/18 14:59 22:59 06:59 Intake Total 1579 Output Total 600 Balance 979 Barry Results Last 24 Hours: Microbiology 09/16/18 22:43 Aerobic Blood Culture - Preliminary Blood - Venous - Lab Draw NO GROWTH AFTER 2 DAYS Anaerobic Blood Culture - Preliminary NO GROWTH AFTER 2 DAYS 09/16/18 22:30 Aerobic Blood Culture - Preliminary Blood - Venous NO GROWTH AFTER 2 DAYS Anaerobic Blood Culture - Preliminary NO GROWTH AFTER 2 DAYS Med Orders - Current: Current Medications Acetaminophen (Tylenol) 650 mg PO Q4H PRN PRN Reason: Pain (mild 1-3) Acetaminophen/Codeine Phosphate (Tylenol With Codeine No.3 300mg/30mg) 1 tab PO BID PRN PRN Reason: Pain Albuterol/Ipratropium (Duoneb 3.0-0.5 Mg/3 Ml) 3 ml NEB Q4HRRT PRN PRN Reason: Shortness of Breath Last Admin: 09/19/18 04:18 Dose: 3 ml Amlodipine Besylate (Norvasc) 5 mg PO QPM [facility] Last Admin: 09/18/18 17:39 Dose: Not Given Apixaban (Eliquis) 2.5 mg PO QAM [facility] Last Admin: 09/18/18 08:48 Dose: 2.5 mg Clopidogrel Bisulfate (Plavix) 75 mg PO QAM [facility] Last Admin: 09/18/18 08:48 Dose: 75 mg Diltiazem HCl (Cardizem Cd) 180 mg PO DAILY [facility] Last Admin: 09/18/18 08:48 Dose: 180 mg Docusate Sodium (Colace) 100 mg PO BID PRN PRN Reason: Constipation Furosemide (Lasix) 20 mg PO BID [facility] Last Admin: 09/18/18 20:51 Dose: Not Given Sodium Chloride (Normal Saline) 1,000 mls @ 75 mls/hr IV ASDIRECTED [facility] Last Admin: 09/18/18 01:58 Dose: 75 mls/hr Piperacillin Sod/Tazobactam (Sod 2.25 gm/ Sodium Chloride) 50 mls @ 100 mls/hr IV Q8H [facility] Last Admin: 09/19/18 01:07 Dose: 100 mls/hr Vancomycin HCl 0.75 gm/ Sodium (Chloride) 250 mls @ 166.667 mls/hr IV Q24H [facility] Last Admin: 09/18/18 11:54 Dose: 166.667 mls/hr Levothyroxine Sodium (Synthroid) 100 mcg PO ACBREAKFAST [facility] Last Admin: 09/19/18 06:30 Dose: 100 mcg Lisinopril (Prinivil) 10 mg PO DAILY [facility] Last Admin: 09/18/18 08:54 Dose: Not Given Methylprednisolone Sodium Succinate (Solu-Medrol) 125 mg IVPUSH Q8H [facility] Last Admin: 09/19/18 03:05 Dose: 125 mg Metoprolol Succinate (Toprol Xl) 100 mg PO DAILY [facility] Last Admin: 09/18/18 08:54 Dose: Not Given Morphine Sulfate (Morphine) 1 mg IVPUSH Q2H PRN PRN Reason: Pain (severe 7-10) Oxycodone HCl (Oxycodone) 5 mg PO Q4H PRN PRN Reason: Pain (severe 7-10) Potassium Chloride (Klor-Con 8) 8 meq PO TIDMEALS [facility] Last Admin: 09/18/18 18:56 Dose: 8 meq Rosuvastatin Calcium (Crestor) 20 mg PO DAILY [facility] Last Admin: 09/18/18 08:48 Dose: 20 mg Temazepam (Restoril) 15 mg PO BEDTIME PRN PRN Reason: Sleep Last Admin: 09/18/18 22:21 Dose: 15 mg Triamterene/HCTZ (Maxzide 25-37.5 Mg) 1 each PO QPM [facility] Last Admin: 09/18/18 17:39 Dose: Not Given Discontinued Medications Albuterol/Ipratropium (Duoneb 3.0-0.5 Mg/3 Ml) 3 ml NEB ONETIME ONE Stop: 09/16/18 20:54 Last Admin: 09/16/18 21:06 Dose: 3 ml Ceftriaxone Sodium (Rocephin) 1 gm IM ONETIME ONE Stop: 09/16/18 22:05 Last Admin: 09/16/18 22:16 Dose: Not Given Sodium Chloride (Normal Saline) 1,000 mls @ 125 mls/hr IV STAT [facility]AK[facility]IN Last Admin: 09/16/18 21:21 Dose: 125 mls/hr Azithromycin 500 mg/ Sodium (Chloride) 250 mls @ 250 mls/hr IV ONETIME ONE Stop: 09/16/18 23:03 Last Admin: 09/16/18 22:34 Dose: Not Given Ceftriaxone Sodium 1 gm/ (Sodium Chloride) 50 mls @ 100 mls/hr IV ONETIME ONE Stop: 09/16/18 22:43 Last Admin: 09/16/18 22:34 Dose: Not Given Levofloxacin/Dextrose 500 mg/ (Premix) 100 mls @ 100 mls/hr IV ONETIME ONE Stop: 09/16/18 23:30 Last Admin: 09/16/18 22:51 Dose: 100 mls/hr Methylprednisolone Sodium Succinate (Solu-Medrol) 125 mg IVPUSH ONETIME ONE Stop: 09/16/18 20:54 Last Admin: 09/16/18 21:22 Dose: 125 mg Nitroglycerin (Nitro-Dur 0.2 Mg/Hr) 0.2 mg TRDERM ONETIME ONE Stop: 09/17/18 03:55 Last Admin: 09/17/18 04:11 Dose: Not Given Nitroglycerin (Nitro-Bid 2%) 1 gm TOP ONETIME ONE Stop: 09/17/18 04:11 Last Admin: 09/17/18 04:18 Dose: 1 gm Potassium Chloride (Klor-Con 8) 8 meq PO TID YAKELIN Last Admin: 09/17/18 13:54 Dose: Not Given Vancomycin HCl (Pharmacy To Dose - Vancomycin) 1 dose .XX ASDIRECTED ONE Stop: 09/17/18 09:16 Last Admin: 09/17/18 09:49 Dose: Not Given - Exam Quality Assessment: Supplemental Oxygen General: Alert, Oriented, Cooperative HEENT: Pupils Equal, Pupils Reactive Neck: Supple, Trachea Midline Lungs: Decreased Breath Sounds, Crackles, Rales. No: Clear to Auscultation 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: Regular Rate, Irregular Rhythm, Murmurs GI/Abdominal Exam: Normal Bowel Sounds, Soft, Non-Tender, No Distention (Female) Exam: Deferred Back Exam: Normal Inspection (Kyphosis) Extremities: Normal Inspection, No Pedal Edema Skin: Warm, Dry, Intact Neurological: No New Focal Deficit Psy/Mental Status: Alert, Normal Affect, Normal Mood - Problem List & Annotations (1) Pneumonia SNOMED Code(s): 317032371 Code(s): J18.9 - PNEUMONIA, UNSPECIFIED ORGANISM Status: Acute Priority: High Current Visit: Yes Qualifiers: Pneumonia type: due to unspecified organism Laterality: left Lung location: lower lobe of lung Qualified Code(s): J18.1 - Lobar pneumonia, unspecified organism (2) Chronic anticoagulation SNOMED Code(s): 328919914 Code(s): Z79.01 - CORRECTION (CURRENT) USE OF ANTICOAGULANTS Status: Chronic Priority: High Current Visit: Yes (3) Chronic kidney disease (CKD), stage III (moderate) SNOMED Code(s): 873887985 Code(s): N18.3 - CHRONIC KIDNEY DISEASE, STAGE 3 (MODERATE) Status: Chronic Priority: High Current Visit: Yes (4) Fatigue SNOMED Code(s): 20685387 Code(s): R53.83 - OTHER FATIGUE Status: Chronic Priority: Medium Current Visit: Yes Qualifiers: Fatigue type: due to excessive exertion Encounter type: initial encounter Qualified Code(s): T73.3XXA - Exhaustion due to excessive exertion, initial encounter (5) Mitral valve regurgitation SNOMED Code(s): 00015608 Code(s): I34.0 - NONRHEUMATIC MITRAL (VALVE) INSUFFICIENCY Status: Chronic Priority: High Current Visit: Yes Qualifiers: Cardiac valve disease etiology: nonrheumatic Qualified Code(s): I34.0 - Nonrheumatic mitral (valve) insufficiency (6) Troponin level elevated SNOMED Code(s): 828081589, 419677543, 089876717 Code(s): R74.8 - ABNORMAL LEVELS OF OTHER SERUM ENZYMES Status: Acute Priority: High Current Visit: Yes (7) Atrial fibrillation with RVR SNOMED Code(s): 931993265442447 Code(s): I48.91 - UNSPECIFIED ATRIAL FIBRILLATION Status: Chronic Priority: High Current Visit: Yes - Problem List Review Problem List Initiated/Reviewed/Updated: Yes - My Orders Last 24 Hours: My Active Orders 09/19/18 08:14 Chest 1V Frontal [CR] Routine 09/20/18 09:30 VANCOMYCIN TROUGH [CHEM] Timed - Plan Plan:: The patient is an 83-year-old lady who had been admitted to acute hospitalization secondary to left lower lobe pneumonia with left-sided pleural effusion. I have requested for the records from [place] with regards to her CT scan as well as analysis of the pleural fluid. The pleural fluid is likely parapneumonic however neoplastic process should be excluded. Also because of the patient's history of recent hospitalization for pneumonia the patient will be treated as hospital-acquired pneumonia. I've ordered Zosyn and vancomycin with pharmacy to dose considering the patient's stage III chronic kidney disease. The patient will have her renal function monitored closely. The patient also has been encouraged to ambulate. I've ordered repeat chest x-ray in 2 days to ascertain the chronicity of the left-sided pleural effusion. The patient does not need to have DVT prophylaxis at this time as she has been chronically taking Xarleto and this will be continued. The patient has been encouraged to ambulate. A review of records from her previous hospitalization will reveal if a another CT scan of her chest is indicated. The patient will be watched very closely for contrast nephropathy. I suspect that the patient will be appropriate for discharge home in 1-2 days. The patient has refused any idea of rehabilitation and she does have a good support system at home. Home health will be a consideration secondary to her deconditioned status. Repeat laboratory studies have been ordered for the morning. The patient is an 83-year-old lady who had been admitted to acute hospitalization. She does have remaining left-sided pulmonary effusion records were requested from [facility] and they have not been received as yet. We' ll continue to treat the patient aggressively with dual antibiotic coverage for hospital-acquired pneumonia as the patient was discharged last week from acute hospitalization. The patient Zosyn and vancomycin have been renally dosed secondary to her known chronic kidney disease. I've ordered repeat laboratory studies in the morning. The patient has been recommended to continue to ambulate as tolerated. She should be appropriate for discharge in 1-2 days. The patient is an 83-year-old lady who had been admitted to acute hospitalization after her discharge from acute hospitalization last week. She has had left-sided pleural effusion. The patient has not required at this time thoracentesis. Because of her recent hospitalization at a tertiary care center she will be treated for hospital-acquired pneumonia. Her Zosyn and vancomycin will continue to be renally dosed. This is secondary to her chronic kidney disease. She is also anticoagulated chronically with Xarelto secondary to her atrial fibrillation. This will be continued. She does not need DVT prophylaxis. The patient has been recommended to continue to ambulate as she can. Repeat laboratory studies have been ordered. The patient should be appropriate for discharge in 1-2 days. A repeat chest x-ray have been ordered and this did show some signs of pulmonary congestion and she had been given one-time dose of Lasix 20 mg IV and her normal saline has been discontinued secondary to her oral consumption and this is been saline locked.
--- NOTE | 2018-09-19 08:36 | CR ---
Indication: Pleural effusion/pneumonia. Technique: A single AP portable view of the chest was obtained. Comparison: September 16, 2018. Findings: The heart is enlarged. A left lower lobe atelectasis and or infiltrate is identified. Small bilateral pleural effusions are identified, greater on the right than the left. No pneumothorax is seen. Impression: Essentially stable chest x-ray Dictated by Hodan Malloy MD @ Sep 19 2018 8:33AM Signed by Dr. Hodan Malloy @ Sep 19 2018 8:33AM
[2018-09-19] MEDS: Lisinopril 10 MG Tab PO SCH (08:40)
[2018-09-19] MEDS: Potassium Chloride 8 MEQ Tab.ER PO SCH ×3 (08:40→17:21)
[2018-09-19] MEDS: Rosuvastatin 10 MG Tab PO SCH (08:40)
[2018-09-19] MEDS: Apixaban 2.5 MG Tab PO SCH (08:40)
[2018-09-19] MEDS: Metoprolol Succinate 100 MG Tab.ER PO SCH (08:41)
[2018-09-19] MEDS: Diltiazem 180 MG Cap.CD PO SCH (08:41)
[2018-09-19] MEDS: Furosemide 20 MG Tab PO SCH ×2 (08:41→20:49)
[2018-09-19] MEDS: Clopidogrel 75 MG Tab PO SCH (08:41)
[2018-09-19] MEDS: Sodium Chloride 0.9% 1,000 ML IV SCH (08:54)
[2018-09-19] MEDS ORDERED: Furosemide 40 MG/4 ML VIAL IVPUSH ONE (10:00)
[2018-09-19] MEDS: Hydrochlorothiazide/Triamterene 25-37.5 Tab PO SCH (17:19)
[2018-09-19] MEDS: amLODIPine 5 MG Tab PO SCH (17:19)
[2018-09-19] MEDS: Temazepam 15 MG Cap PO PRN (22:59)
[2018-09-20] MEDS: Piperacillin/Tazobactam 2.25 GM in Sodium Chloride 0.9% 50 ML IV SCH ×3 (00:36→18:17)
--- NOTE | 2018-09-20 01:25 | CR ---
INDICATION: Hypoxia TECHNIQUE: Chest 1 views COMPARISON: Chest x-ray 09/19/2018 FINDINGS: 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 and mediastinum: Cardiomegaly with atherosclerotic calcification. Lungs and pleural spaces: Small bilateral pleural effusions with pulmonary cephalization and bilateral interstitial and alveolar opacities, greater centrally. Bones and soft tissues: No significant findings. IMPRESSION: Cardiomegaly with bilateral interstitial and alveolar opacities consistent with pulmonary edema with small bilateral pleural effusions. Compared to the study of 1 day prior, the pulmonary edema pattern is moderately worsened. Dictated by Frank Farris MD @ Sep 20 2018 1:22AM Signed by Dr. Frank Farris @ Sep 20 2018 1:24AM
[2018-09-20] MEDS ORDERED: Furosemide 20 MG/2 ML VIAL IVPUSH ONE ×2 (01:29→16:10)
[2018-09-20] MEDS ORDERED: Furosemide 20 MG/2 ML VIAL ONE (01:31)
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
[2018-09-20] MEDS: Albuterol/Ipratropium 3.0-0.5 MG/3 ML Neb Soln NEB SCH ×5 (06:01→21:24)
--- NOTE | 2018-09-20 06:37 | PCM.PN ---
- General Info Date of Service: 09/20/18 Admission Dx/Problem (Free Text): Admission Diagnosis/Problem Admission Diagnosis/Problem Pneumonia Subjective Update: The patient is an 83-year-old lady originally was admitted for pneumonia and she went into respiratory distress several hours ago and had been placed on BiPAP and transition to intensive care unit. The patient had been given 20 mg of Lasix. Today she appears to be more comfortable. Her family is with her. Functional Status: Reports: Pain Controlled - Review of Systems General: Reports: Weakness, Fatigue HEENT: Reports: No Symptoms Pulmonary: Reports: Shortness of Breath, Wheezing 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: Reports: No Symptoms Gastrointestinal: Reports: No Symptoms Genitourinary: Reports: No Symptoms Musculoskeletal: Reports: No Symptoms Skin: Reports: No Symptoms Neurological: Reports: Confusion Psychiatric: Reports: No Symptoms - Patient Data Vitals - Most Recent: Last Vital Signs Temp 36.9 C 09/20/18 04:00 Pulse 95 09/20/18 06:00 Resp 32 H 09/20/18 06:00 BP 112/63 09/20/18 06:00 Pulse Ox 91 L 09/20/18 06:20 Weight - Most Recent: 58.377 kg I&O - Last 24 Hours: Intake & Output 09/19/18 09/19/18 09/20/18 14:59 22:59 06:59 Intake Total 900 150 Output Total 1350 600 Balance -450 -450 Lab Results Last 24 Hours: Laboratory Results - last 24 hr 09/20/18 09/20/18 09/20/18 Range/Units 01:45 02:45 03:28 WBC 20.50 H (4.0-11.0) K/uL RBC 3.60 L (4.30-5.90) M/uL Hgb 10.9 L (12.0-16.0) g/dL Hct 35.9 L (36.0-46.0) % MCV 99.7 H (80.0-98.0) fL MCH 30.3 (27.0-32.0) pg MCHC 30.4 L (31.0-37.0) g/dL RDW Std Deviation 56.7 (28.0-62.0) fl RDW Coeff of Erickson 16 H (11.0-15.0) % Plt Count 324 (150-400) K/uL MPV 10.90 (7.40-12.00) fL Neut % (Auto) 94.6 H (48.0-80.0) % Lymph % (Auto) 4.5 L (16.0-40.0) % Ellis % (Auto) 0.9 (0.0-15.0) % Eos % (Auto) 0.0 (0.0-7.0) % Baso % (Auto) 0.0 (0.0-1.5) % Neut # (Auto) 19.4 H (1.4-5.7) K/uL Lymph # (Auto) 0.9 (0.6-2.4) K/uL Ellis # (Auto) 0.2 (0.0-0.8) K/uL Eos # (Auto) 0.0 (0.0-0.7) K/uL Baso # (Auto) 0.0 (0.0-0.1) K/uL Nucleated RBC % 0.0 /100WBC Nucleated RBCs # 0 K/uL ABG pH 7.038 L* 7.143 L* (7.35-7.45) ABG pCO2 82 H 61 H (35-45) mmHG ABG pO2 47 L 71 L (75-100) mmHG ABG HCO3 22 21 L (22-26) mEq/L ABG Total CO2 22.4 20.5 ABG Base Excess -9.6 L -8.4 L (-2.0-2.0) Sodium (136-145) mmol/L Potassium (3.5-5.1) mmol/L Chloride (98-107) mmol/L Carbon Dioxide (21.0-32.0) mmol/L BUN (7.0-18.0) mg/dL Creatinine (0.6-1.0) mg/dL Est Cr Clr Drug Dosing mL/min Estimated GFR (MDRD) ml/min Glucose (74-106) mg/dL Calcium (8.5-10.1) mg/dL Troponin I (0.000-0.056) ng/mL 09/20/18 09/20/18 09/20/18 Range/Units 03:28 03:28 06:18 WBC (4.0-11.0) K/uL RBC (4.30-5.90) M/uL Hgb (12.0-16.0) g/dL Hct (36.0-46.0) % MCV (80.0-98.0) fL MCH (27.0-32.0) pg MCHC (31.0-37.0) g/dL RDW Std Deviation (28.0-62.0) fl RDW Coeff of Erickson (11.0-15.0) % Plt Count (150-400) K/uL MPV (7.40-12.00) fL Neut % (Auto) (48.0-80.0) % Lymph % (Auto) (16.0-40.0) % Ellis % (Auto) (0.0-15.0) % Eos % (Auto) (0.0-7.0) % Baso % (Auto) (0.0-1.5) % Neut # (Auto) (1.4-5.7) K/uL Lymph # (Auto) (0.6-2.4) K/uL Ellis # (Auto) (0.0-0.8) K/uL Eos # (Auto) (0.0-0.7) K/uL Baso # (Auto) (0.0-0.1) K/uL Nucleated RBC % /100WBC Nucleated RBCs # K/uL ABG pH 7.314 L (7.35-7.45) ABG pCO2 43 (35-45) mmHG ABG pO2 69 L (75-100) mmHG ABG HCO3 22 (22-26) mEq/L ABG Total CO2 20.6 ABG Base Excess -4.2 L (-2.0-2.0) Sodium 144 (136-145) mmol/L Potassium 4.8 (3.5-5.1) mmol/L Chloride 108 H (98-107) mmol/L Carbon Dioxide 21.1 (21.0-32.0) mmol/L BUN 48 H (7.0-18.0) mg/dL Creatinine 2.2 H (0.6-1.0) mg/dL Est Cr Clr Drug Dosing 16.44 mL/min Estimated GFR (MDRD) 21.3 ml/min Glucose 405 H (74-106) mg/dL Calcium 8.4 L (8.5-10.1) mg/dL Troponin I 0.189 H* (0.000-0.056) ng/mL Barry Results Last 24 Hours: Microbiology 09/16/18 22:43 Aerobic Blood Culture - Preliminary Blood - Venous - Lab Draw NO GROWTH AFTER 3 DAYS Anaerobic Blood Culture - Preliminary NO GROWTH AFTER 3 DAYS 09/16/18 22:30 Aerobic Blood Culture - Preliminary Blood - Venous NO GROWTH AFTER 3 DAYS Anaerobic Blood Culture - Preliminary NO GROWTH AFTER 3 DAYS 09/17/18 03:30 Urine Culture - Final Urine, Clean Catch MIXED JAN >100,000 CFU/ML Med Orders - Current: Current Medications Acetaminophen (Tylenol) 650 mg PO Q4H PRN PRN Reason: Pain (mild 1-3) Acetaminophen/Codeine Phosphate (Tylenol With Codeine No.3 300mg/30mg) 1 tab PO BID PRN PRN Reason: Pain Albuterol/Ipratropium (Duoneb 3.0-0.5 Mg/3 Ml) 3 ml NEB Q4HRRT [facility] Last Admin: 09/20/18 06:01 Dose: 3 ml Amlodipine Besylate (Norvasc) 5 mg PO QPM [facility] Last Admin: 09/19/18 17:19 Dose: 5 mg Apixaban (Eliquis) 2.5 mg PO QAM [facility] Last Admin: 09/19/18 08:40 Dose: 2.5 mg Clopidogrel Bisulfate (Plavix) 75 mg PO QAM [facility] Last Admin: 09/19/18 08:41 Dose: 75 mg Diltiazem HCl (Cardizem Cd) 180 mg PO DAILY [facility] Last Admin: 09/19/18 08:41 Dose: 180 mg Docusate Sodium (Colace) 100 mg PO BID PRN PRN Reason: Constipation Furosemide (Lasix) 20 mg IVPUSH BIDDIURETIC [facility] Piperacillin Sod/Tazobactam (Sod 2.25 gm/ Sodium Chloride) 50 mls @ 100 mls/hr IV Q8H [facility] Last Admin: 09/20/18 00:36 Dose: 100 mls/hr Vancomycin HCl 0.75 gm/ Sodium (Chloride) 250 mls @ 166.667 mls/hr IV Q24H [facility] Last Admin: 09/19/18 09:49 Dose: 166.667 mls/hr Insulin Aspart (Novolog) 0 unit SUBCUT Q4H [facility]; Protocol Levothyroxine Sodium (Synthroid) 100 mcg PO ACBREAKFAST [facility] Last Admin: 09/19/18 06:30 Dose: 100 mcg Methylprednisolone Sodium Succinate (Solu-Medrol) 60 mg IVPUSH Q8H [facility] Metoprolol Succinate (Toprol Xl) 100 mg PO DAILY [facility] Last Admin: 09/19/18 08:41 Dose: 100 mg Morphine Sulfate (Morphine) 1 mg IVPUSH Q2H PRN PRN Reason: Pain (severe 7-10) Oxycodone HCl (Oxycodone) 5 mg PO Q4H PRN PRN Reason: Pain (severe 7-10) Potassium Chloride (Klor-Con 8) 8 meq PO TIDMEALS [facility] Last Admin: 09/19/18 17:21 Dose: 8 meq Rosuvastatin Calcium (Crestor) 20 mg PO DAILY [facility] Last Admin: 09/19/18 08:40 Dose: 20 mg Temazepam (Restoril) 15 mg PO BEDTIME PRN PRN Reason: Sleep Last Admin: 09/19/18 22:59 Dose: 15 mg Discontinued Medications Albuterol/Ipratropium (Duoneb 3.0-0.5 Mg/3 Ml) 3 ml NEB ONETIME ONE Stop: 09/16/18 20:54 Last Admin: 09/16/18 21:06 Dose: 3 ml Albuterol/Ipratropium (Duoneb 3.0-0.5 Mg/3 Ml) 3 ml NEB Q4HRRT PRN PRN Reason: Shortness of Breath Last Admin: 09/19/18 22:59 Dose: 3 ml Ceftriaxone Sodium (Rocephin) 1 gm IM ONETIME ONE Stop: 09/16/18 22:05 Last Admin: 09/16/18 22:16 Dose: Not Given Furosemide (Lasix) 20 mg PO BID [facility] Last Admin: 09/19/18 20:49 Dose: 20 mg Furosemide (Lasix) 20 mg IVPUSH NOW ONE Stop: 09/19/18 10:01 Last Admin: 09/19/18 09:49 Dose: 20 mg Furosemide (Lasix) 20 mg IVPUSH NOW ONE Stop: 09/20/18 01:30 Last Admin: 09/20/18 02:06 Dose: Not Given Furosemide (Lasix) Confirm Administered Dose 20 mg .ROUTE .STK-MED ONE Stop: 09/20/18 01:32 Last Admin: 09/20/18 01:37 Dose: 20 mg Sodium Chloride (Normal Saline) 1,000 mls @ 125 mls/hr IV STAT [facility] Last Admin: 09/16/18 21:21 Dose: 125 mls/hr Azithromycin 500 mg/ Sodium (Chloride) 250 mls @ 250 mls/hr IV ONETIME ONE Stop: 09/16/18 23:03 Last Admin: 09/16/18 22:34 Dose: Not Given Ceftriaxone Sodium 1 gm/ (Sodium Chloride) 50 mls @ 100 mls/hr IV ONETIME ONE Stop: 09/16/18 22:43 Last Admin: 09/16/18 22:34 Dose: Not Given Levofloxacin/Dextrose 500 mg/ (Premix) 100 mls @ 100 mls/hr IV ONETIME ONE Stop: 09/16/18 23:30 Last Admin: 09/16/18 22:51 Dose: 100 mls/hr Sodium Chloride (Normal Saline) 1,000 mls @ 75 mls/hr IV ASDIRECTED [facility] Last Admin: 09/19/18 08:54 Dose: 75 mls/hr Lisinopril (Prinivil) 10 mg PO DAILY [facility] Last Admin: 09/19/18 08:40 Dose: 10 mg Methylprednisolone Sodium Succinate (Solu-Medrol) 125 mg IVPUSH ONETIME ONE Stop: 09/16/18 20:54 Last Admin: 09/16/18 21:22 Dose: 125 mg Methylprednisolone Sodium Succinate (Solu-Medrol) 125 mg IVPUSH Q8H [facility] Last Admin: 09/19/18 20:49 Dose: 125 mg Nitroglycerin (Nitro-Dur 0.2 Mg/Hr) 0.2 mg TRDERM ONETIME ONE Stop: 09/17/18 03:55 Last Admin: 09/17/18 04:11 Dose: Not Given Nitroglycerin (Nitro-Bid 2%) 1 gm TOP ONETIME ONE Stop: 09/17/18 04:11 Last Admin: 09/17/18 04:18 Dose: 1 gm Potassium Chloride (Klor-Con 8) 8 meq PO TID [facility] Last Admin: 09/17/18 13:54 Dose: Not Given Triamterene/HCTZ (Maxzide 25-37.5 Mg) 1 each PO QPM [facility] Last Admin: 09/19/18 17:19 Dose: 1 each Vancomycin HCl (Pharmacy To Dose - Vancomycin) 1 dose .XX ASDIRECTED ONE Stop: 09/17/18 09:16 Last Admin: 09/17/18 09:49 Dose: Not Given - Exam Quality Assessment: Supplemental Oxygen (Currently on BiPAP, FiO2 of 75) General: Alert, Cooperative. No: Oriented HEENT: Pupils Equal, Pupils Reactive Neck: Supple, Trachea Midline Lungs: Decreased Breath Sounds, Crackles, Rales (Scattered throughout). No: Normal Respiratory Effort (Hyperventilation, improved) 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: Regular Rate. No: Regular Rhythm GI/Abdominal Exam: Normal Bowel Sounds, Soft, No Distention (Female) Exam: Deferred Back Exam: Normal Inspection (Kyphosis) Extremities: Normal Inspection, No Pedal Edema. No: Normal Range of Motion (Age -related changes) Skin: Warm, Dry, Intact Neurological: No New Focal Deficit Psy/Mental Status: Alert - Problem List & Annotations (1) Acute respiratory failure with hypoxia SNOMED Code(s): 73323771, 640704475 Code(s): J96.01 - ACUTE RESPIRATORY FAILURE WITH HYPOXIA Status: Acute Priority: High Current Visit: Yes (2) Pneumonia SNOMED Code(s): 027237032 Code(s): J18.9 - PNEUMONIA, UNSPECIFIED ORGANISM Status: Acute Priority: High Current Visit: Yes Qualifiers: Pneumonia type: due to unspecified organism Laterality: left Lung location: lower lobe of lung Qualified Code(s): J18.1 - Lobar pneumonia, unspecified organism (3) Chronic anticoagulation SNOMED Code(s): 120599166 Code(s): Z79.01 - [employer] (CURRENT) USE OF ANTICOAGULANTS Status: Chronic Priority: High Current Visit: Yes (4) Chronic kidney disease (CKD), stage III (moderate) SNOMED Code(s): 077494037 Code(s): N18.3 - CHRONIC KIDNEY DISEASE, STAGE 3 (MODERATE) Status: Chronic Priority: High Current Visit: Yes (5) Fatigue SNOMED Code(s): 95206138 Code(s): R53.83 - OTHER FATIGUE Status: Chronic Priority: Medium Current Visit: Yes Qualifiers: Fatigue type: due to excessive exertion Encounter type: initial encounter Qualified Code(s): T73.3XXA - Exhaustion due to excessive exertion, initial encounter (6) Mitral valve regurgitation SNOMED Code(s): 51934879 Code(s): I34.0 - NONRHEUMATIC MITRAL (VALVE) INSUFFICIENCY Status: Chronic Priority: High Current Visit: Yes Qualifiers: Cardiac valve disease etiology: nonrheumatic Qualified Code(s): I34.0 - Nonrheumatic mitral (valve) insufficiency (7) Troponin level elevated SNOMED Code(s): 666107506, 823327921, 798789302 Code(s): R74.8 - ABNORMAL LEVELS OF OTHER SERUM ENZYMES Status: Acute Priority: High Current Visit: Yes (8) Atrial fibrillation with RVR SNOMED Code(s): 488962606879880 Code(s): I48.91 - UNSPECIFIED ATRIAL FIBRILLATION Status: Chronic Priority: High Current Visit: Yes - Problem List Review Problem List Initiated/Reviewed/Updated: Yes - My Orders Last 24 Hours: My Active Orders 09/20/18 02:28 Urinary Catheter Assessment [RC] ASDIRECTED 09/20/18 02:30 Perez Catheter Insertion [Insert Urinary Catheter] [OM.PC] Q24H 09/20/18 03:30 Transfer Patient (Change bed) [ADT] Routine 09/20/18 09:30 VANCOMYCIN TROUGH [CHEM] Routine - Plan Plan:: The patient is an 83-year-old lady who had been admitted to acute hospitalization secondary to left lower lobe pneumonia with left-sided pleural effusion. I have requested for the records from [facility] with regards to her CT scan as well as analysis of the pleural fluid. The pleural fluid is likely parapneumonic however neoplastic process should be excluded. Also because of the patient's history of recent hospitalization for pneumonia the patient will be treated as hospital-acquired pneumonia. I've ordered Zosyn and vancomycin with pharmacy to dose considering the patient's stage III chronic kidney disease. The patient will have her renal function monitored closely. The patient also has been encouraged to ambulate. I've ordered repeat chest x-ray in 2 days to ascertain the chronicity of the left-sided pleural effusion. The patient does not need to have DVT prophylaxis at this time as she has been chronically taking Xarleto and this will be continued. The patient has been encouraged to ambulate. A review of records from her previous hospitalization will reveal if a another CT scan of her chest is indicated. The patient will be watched very closely for contrast nephropathy. I suspect that the patient will be appropriate for discharge home in 1-2 days. The patient has refused any idea of rehabilitation and she does have a good support system at home. Home health will be a consideration secondary to her deconditioned status. Repeat laboratory studies have been ordered for the morning. The patient is an 83-year-old lady who had been admitted to acute hospitalization. She does have remaining left-sided pulmonary effusion records were requested from [facility] and they have not been received as yet. We' ll continue to treat the patient aggressively with dual antibiotic coverage for hospital-acquired pneumonia as the patient was discharged last week from acute hospitalization. The patient Zosyn and vancomycin have been renally dosed secondary to her known chronic kidney disease. I've ordered repeat laboratory studies in the morning. The patient has been recommended to continue to ambulate as tolerated. She should be appropriate for discharge in 1-2 days. The patient is an 83-year-old lady who had been admitted to acute hospitalization after her discharge from acute hospitalization last week. She has had left-sided pleural effusion. The patient has not required at this time thoracentesis. Because of her recent hospitalization at a tertiary care center she will be treated for hospital-acquired pneumonia. Her Zosyn and vancomycin will continue to be renally dosed. This is secondary to her chronic kidney disease. She is also anticoagulated chronically with Xarelto secondary to her atrial fibrillation. This will be continued. She does not need DVT prophylaxis. The patient has been recommended to continue to ambulate as she can. Repeat laboratory studies have been ordered. The patient should be appropriate for discharge in 1-2 days. A repeat chest x-ray have been ordered and this did show some signs of pulmonary congestion and she had been given one-time dose of Lasix 20 mg IV and her normal saline has been discontinued secondary to her oral consumption and this is been saline locked. The patient is a 83-year-old lady who had worsening of her symptoms yesterday evening which had resulted in her transfer to ICU and placed on BiPAP. The patient has been tolerating her BiPAP mask and has improved her oxygenation with an FiO2 of 75. Reported that the patient continue on the current settings and keep her oxygen saturations between 90 and 92%. The patient will also be continued on Zosyn and vancomycin to be renally dosed secondary to her chronic kidney disease. She is being currently treated as hospital-acquired pneumonia secondary to her recent discharge from tertiary care center. The patient will be weaned from BiPAP as soon as possible. She is currently on Xarelto secondary to her atrial fibrillation and this will be continued. She does not require DVT prophylaxis. A single troponin was also ordered and this came back elevated at 0.189 and 2.477 respectively. This indicates an increase in her previous numbers. This is likely secondary to her tachycardia as well as her respiratory event. Regardless we'll continue to follow. The patient's blood gases also improved her pH from 7.1 up to 7.3 and her PaO2 has remained stable but low. Repeat blood gases a been ordered.
[2018-09-20] MEDS: Insulin Aspart 100 Units/ML 3 ML Pen SUBCUT SCH ×5 (06:53→21:45)
[2018-09-20] MEDS: methylPREDNISolone Sodium Succinate 125 MG/2 ML SDV IVPUSH SCH ×3 (06:54→21:45)
[2018-09-20] MEDS: Diltiazem 180 MG Cap.CD PO SCH (08:45)
[2018-09-20] MEDS: Furosemide 20 MG/2 ML VIAL IVPUSH SCH ×2 (08:45→13:38)
[2018-09-20] MEDS: Clopidogrel 75 MG Tab PO SCH (08:45)
[2018-09-20] MEDS: Rosuvastatin 10 MG Tab PO SCH (08:45)
[2018-09-20] MEDS: Apixaban 2.5 MG Tab PO SCH (08:45)
[2018-09-20] MEDS: Levothyroxine 100 MCG Tab PO SCH (08:45)
[2018-09-20] MEDS: Metoprolol Succinate 100 MG Tab.ER PO SCH (08:46)
[2018-09-20] MEDS: Potassium Chloride 8 MEQ Tab.ER PO SCH ×3 (08:47→18:32)
[2018-09-20] MEDS: amLODIPine 5 MG Tab PO SCH (18:15)
[2018-09-21] MEDS: Piperacillin/Tazobactam 2.25 GM in Sodium Chloride 0.9% 50 ML IV SCH ×3 (00:25→17:09)
[2018-09-21] MEDS: Albuterol/Ipratropium 3.0-0.5 MG/3 ML Neb Soln NEB SCH ×6 (02:09→21:51)
[2018-09-21] MEDS: Insulin Aspart 100 Units/ML 3 ML Pen SUBCUT SCH ×6 (02:12→22:36)
[2018-09-21] MEDS: methylPREDNISolone Sodium Succinate 125 MG/2 ML SDV IVPUSH SCH ×3 (06:05→22:32)
[2018-09-21] MEDS: Levothyroxine 100 MCG Tab PO SCH (06:34)
[2018-09-21] MEDS: Furosemide 20 MG/2 ML VIAL IVPUSH SCH ×2 (08:05→13:30)
[2018-09-21] MEDS: Potassium Chloride 8 MEQ Tab.ER PO SCH ×3 (08:05→17:10)
--- NOTE | 2018-09-21 08:20 | PCM.PN ---
- General Info Date of Service: 09/21/18 Admission Dx/Problem (Free Text): Admission Diagnosis/Problem Admission Diagnosis/Problem Pneumonia Subjective Update: The patient is an 83-year-old lady who was originally admitted to acute hospitalization secondary to hospital-acquired pneumonia. The patient had been moved to the intensive care unit secondary to acute respiratory failure. The patient required BiPAP treatment in order to help maintain oxygen saturations. Today the patient is off of BiPAP and she has improved and she feels better today. The patient has denied any fever or chills. She's had no nausea or vomiting. Functional Status: Reports: Pain Controlled, Tolerating Diet - Review of Systems General: Reports: Weakness, Fatigue HEENT: Reports: No Symptoms Pulmonary: Reports: Shortness of Breath 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: Reports: No Symptoms Gastrointestinal: Reports: No Symptoms Genitourinary: Reports: No Symptoms Musculoskeletal: Reports: No Symptoms Skin: Reports: No Symptoms Neurological: Reports: No Symptoms Psychiatric: Reports: No Symptoms - Patient Data Vitals - Most Recent: Last Vital Signs Temp 37 C 09/21/18 08:00 Pulse 112 H 09/21/18 08:00 Resp 20 09/21/18 08:00 BP 137/79 09/21/18 08:00 Pulse Ox 94 L 09/21/18 08:00 Weight - Most Recent: 61.099 kg I&O - Last 24 Hours: Intake & Output 09/20/18 09/21/18 09/21/18 22:59 06:59 14:59 Intake Total 1000 300 Output Total 1175 650 Balance -175 -350 Lab Results Last 24 Hours: Laboratory Results - last 24 hr 09/20/18 09/20/18 09/20/18 Range/Units 06:43 07:44 09:55 WBC (4.0-11.0) K/uL RBC (4.30-5.90) M/uL Hgb (12.0-16.0) g/dL Hct (36.0-46.0) % MCV (80.0-98.0) fL MCH (27.0-32.0) pg MCHC (31.0-37.0) g/dL RDW Std Deviation (28.0-62.0) fl RDW Coeff of Erickson (11.0-15.0) % Plt Count (150-400) K/uL MPV (7.40-12.00) fL Neut % (Auto) (48.0-80.0) % Lymph % (Auto) (16.0-40.0) % [place] % (Auto) (0.0-15.0) % Eos % (Auto) (0.0-7.0) % Baso % (Auto) (0.0-1.5) % Neut # (Auto) (1.4-5.7) K/uL Lymph # (Auto) (0.6-2.4) K/uL [place] # (Auto) (0.0-0.8) K/uL Eos # (Auto) (0.0-0.7) K/uL Baso # (Auto) (0.0-0.1) K/uL Nucleated RBC % /100WBC Nucleated RBCs # K/uL Sodium (136-145) mmol/L Potassium (3.5-5.1) mmol/L Chloride (98-107) mmol/L Carbon Dioxide (21.0-32.0) mmol/L BUN (7.0-18.0) mg/dL Creatinine (0.6-1.0) mg/dL Est Cr Clr Drug Dosing mL/min Estimated GFR (MDRD) ml/min Glucose (74-106) mg/dL POC Glucose 245 H 174 H (60-110) mg/dL Calcium (8.5-10.1) mg/dL Total Bilirubin (0.2-1.0) mg/dL AST (15-37) IU/L ALT (14-63) IU/L Alkaline Phosphatase (46-116) U/L Troponin I 0.477 H* (0.000-0.056) ng/mL Total Protein (6.4-8.2) g/dL Albumin (3.4-5.0) g/dL Globulin (2.6-4.0) g/dL Albumin/Globulin Ratio (0.9-1.6) Vancomycin Trough (5.0-10.0) ug/mL 09/20/18 09/20/18 09/20/18 Range/Units 10:00 12:16 13:33 WBC (4.0-11.0) K/uL RBC (4.30-5.90) M/uL Hgb (12.0-16.0) g/dL Hct (36.0-46.0) % MCV (80.0-98.0) fL MCH (27.0-32.0) pg MCHC (31.0-37.0) g/dL RDW Std Deviation (28.0-62.0) fl RDW Coeff of Erickson (11.0-15.0) % Plt Count (150-400) K/uL MPV (7.40-12.00) fL Neut % (Auto) (48.0-80.0) % Lymph % (Auto) (16.0-40.0) % [place] % (Auto) (0.0-15.0) % Eos % (Auto) (0.0-7.0) % Baso % (Auto) (0.0-1.5) % Neut # (Auto) (1.4-5.7) K/uL Lymph # (Auto) (0.6-2.4) K/uL [place] # (Auto) (0.0-0.8) K/uL Eos # (Auto) (0.0-0.7) K/uL Baso # (Auto) (0.0-0.1) K/uL Nucleated RBC % /100WBC Nucleated RBCs # K/uL Sodium (136-145) mmol/L Potassium (3.5-5.1) mmol/L Chloride (98-107) mmol/L Carbon Dioxide (21.0-32.0) mmol/L BUN (7.0-18.0) mg/dL Creatinine (0.6-1.0) mg/dL Est Cr Clr Drug Dosing mL/min Estimated GFR (MDRD) ml/min Glucose (74-106) mg/dL POC Glucose 188 H (60-110) mg/dL Calcium (8.5-10.1) mg/dL Total Bilirubin (0.2-1.0) mg/dL AST (15-37) IU/L ALT (14-63) IU/L Alkaline Phosphatase (46-116) U/L Troponin I 0.530 H* (0.000-0.056) ng/mL Total Protein (6.4-8.2) g/dL Albumin (3.4-5.0) g/dL Globulin (2.6-4.0) g/dL Albumin/Globulin Ratio (0.9-1.6) Vancomycin Trough 13.3 H (5.0-10.0) ug/mL 09/20/18 09/20/18 09/21/18 Range/Units 18:27 21:43 02:12 WBC (4.0-11.0) K/uL RBC (4.30-5.90) M/uL Hgb (12.0-16.0) g/dL Hct (36.0-46.0) % MCV (80.0-98.0) fL MCH (27.0-32.0) pg MCHC (31.0-37.0) g/dL RDW Std Deviation (28.0-62.0) fl RDW Coeff of Erickson (11.0-15.0) % Plt Count (150-400) K/uL MPV (7.40-12.00) fL Neut % (Auto) (48.0-80.0) % Lymph % (Auto) (16.0-40.0) % [place] % (Auto) (0.0-15.0) % Eos % (Auto) (0.0-7.0) % Baso % (Auto) (0.0-1.5) % Neut # (Auto) (1.4-5.7) K/uL Lymph # (Auto) (0.6-2.4) K/uL [place] # (Auto) (0.0-0.8) K/uL Eos # (Auto) (0.0-0.7) K/uL Baso # (Auto) (0.0-0.1) K/uL Nucleated RBC % /100WBC Nucleated RBCs # K/uL Sodium (136-145) mmol/L Potassium (3.5-5.1) mmol/L Chloride (98-107) mmol/L Carbon Dioxide (21.0-32.0) mmol/L BUN (7.0-18.0) mg/dL Creatinine (0.6-1.0) mg/dL Est Cr Clr Drug Dosing mL/min Estimated GFR (MDRD) ml/min Glucose (74-106) mg/dL POC Glucose 223 H 188 H 188 H (60-110) mg/dL Calcium (8.5-10.1) mg/dL Total Bilirubin (0.2-1.0) mg/dL AST (15-37) IU/L ALT (14-63) IU/L Alkaline Phosphatase (46-116) U/L Troponin I (0.000-0.056) ng/mL Total Protein (6.4-8.2) g/dL Albumin (3.4-5.0) g/dL Globulin (2.6-4.0) g/dL Albumin/Globulin Ratio (0.9-1.6) Vancomycin Trough (5.0-10.0) ug/mL 09/21/18 09/21/18 09/21/18 Range/Units 04:53 04:53 06:03 WBC 10.71 (4.0-11.0) K/uL RBC 3.23 L (4.30-5.90) M/uL Hgb 9.7 L (12.0-16.0) g/dL Hct 30.7 L (36.0-46.0) % MCV 95.0 (80.0-98.0) fL MCH 30.0 (27.0-32.0) pg MCHC 31.6 (31.0-37.0) g/dL RDW Std Deviation 52.2 (28.0-62.0) fl RDW Coeff of Erickson 15 (11.0-15.0) % Plt Count 213 (150-400) K/uL MPV 10.80 (7.40-12.00) fL Neut % (Auto) 94.3 H (48.0-80.0) % Lymph % (Auto) 2.2 L (16.0-40.0) % [place] % (Auto) 3.5 (0.0-15.0) % Eos % (Auto) 0.0 (0.0-7.0) % Baso % (Auto) 0.0 (0.0-1.5) % Neut # (Auto) 10.1 H (1.4-5.7) K/uL Lymph # (Auto) 0.2 L (0.6-2.4) K/uL [place] # (Auto) 0.4 (0.0-0.8) K/uL Eos # (Auto) 0.0 (0.0-0.7) K/uL Baso # (Auto) 0.0 (0.0-0.1) K/uL Nucleated RBC % 0.2 /100WBC Nucleated RBCs # 0 K/uL Sodium 147 H (136-145) mmol/L Potassium 3.2 L (3.5-5.1) mmol/L Chloride 110 H (98-107) mmol/L Carbon Dioxide 26.9 (21.0-32.0) mmol/L BUN 53 H (7.0-18.0) mg/dL Creatinine 2.1 H (0.6-1.0) mg/dL Est Cr Clr Drug Dosing 17.22 mL/min Estimated GFR (MDRD) 22.4 ml/min Glucose 205 H (74-106) mg/dL POC Glucose 187 H (60-110) mg/dL Calcium 8.5 (8.5-10.1) mg/dL Total Bilirubin 0.6 (0.2-1.0) mg/dL AST 33 (15-37) IU/L ALT 58 (14-63) IU/L Alkaline Phosphatase 74 (46-116) U/L Troponin I (0.000-0.056) ng/mL Total Protein 5.6 L (6.4-8.2) g/dL Albumin 2.5 L (3.4-5.0) g/dL Globulin 3.1 (2.6-4.0) g/dL Albumin/Globulin Ratio 0.8 L (0.9-1.6) Vancomycin Trough (5.0-10.0) ug/mL Barry Results Last 24 Hours: Microbiology 09/16/18 22:43 Aerobic Blood Culture - Preliminary Blood - Venous - Lab Draw NO GROWTH AFTER 4 DAYS Anaerobic Blood Culture - Preliminary NO GROWTH AFTER 4 DAYS 09/16/18 22:30 Aerobic Blood Culture - Preliminary Blood - Venous NO GROWTH AFTER 4 DAYS Anaerobic Blood Culture - Preliminary NO GROWTH AFTER 4 DAYS Med Orders - Current: Current Medications Acetaminophen (Tylenol) 650 mg PO Q4H PRN PRN Reason: Pain (mild 1-3) Acetaminophen/Codeine Phosphate (Tylenol With Codeine No.3 300mg/30mg) 1 tab PO BID PRN PRN Reason: Pain Albuterol/Ipratropium (Duoneb 3.0-0.5 Mg/3 Ml) 3 ml NEB Q4HRRT YAKELIN Last Admin: 09/21/18 06:12 Dose: 3 ml Amlodipine Besylate (Norvasc) 5 mg PO QPM [facility] Last Admin: 09/20/18 18:15 Dose: 5 mg Apixaban (Eliquis) 2.5 mg PO QAM [facility] Last Admin: 09/20/18 08:45 Dose: 2.5 mg Clopidogrel Bisulfate (Plavix) 75 mg PO QAM [facility] Last Admin: 09/20/18 08:45 Dose: 75 mg Diltiazem HCl (Cardizem Cd) 180 mg PO DAILY [facility] Last Admin: 09/20/18 08:45 Dose: 180 mg Docusate Sodium (Colace) 100 mg PO BID PRN PRN Reason: Constipation Furosemide (Lasix) 20 mg IVPUSH BIDDIURETIC [facility] Last Admin: 09/21/18 08:05 Dose: 20 mg Piperacillin Sod/Tazobactam (Sod 2.25 gm/ Sodium Chloride) 50 mls @ 100 mls/hr IV Q8H [facility] Last Admin: 09/21/18 00:25 Dose: 100 mls/hr Vancomycin HCl 1 gm/ Sodium (Chloride) 250 mls @ 166.667 mls/hr IV Q24H [facility] Last Admin: 09/20/18 11:09 Dose: 166.667 mls/hr Insulin Aspart (Novolog) 0 unit SUBCUT Q4H [facility]; Protocol Last Admin: 09/21/18 06:09 Dose: 1 unit Levothyroxine Sodium (Synthroid) 100 mcg PO ACBREAKFAST [facility] Last Admin: 09/21/18 06:34 Dose: 100 mcg Methylprednisolone Sodium Succinate (Solu-Medrol) 60 mg IVPUSH Q8H [facility] Last Admin: 09/21/18 06:05 Dose: 60 mg Metoprolol Succinate (Toprol Xl) 100 mg PO DAILY [facility] Last Admin: 09/20/18 08:46 Dose: 100 mg Morphine Sulfate (Morphine) 1 mg IVPUSH Q2H PRN PRN Reason: Pain (severe 7-10) Oxycodone HCl (Oxycodone) 5 mg PO Q4H PRN PRN Reason: Pain (severe 7-10) Potassium Chloride (Klor-Con 8) 8 meq PO TIDMEALS [facility] Last Admin: 09/21/18 08:05 Dose: 8 meq Rosuvastatin Calcium (Crestor) 20 mg PO DAILY [facility] Last Admin: 09/20/18 08:45 Dose: 20 mg Temazepam (Restoril) 15 mg PO BEDTIME PRN PRN Reason: Sleep Last Admin: 09/19/18 22:59 Dose: 15 mg Discontinued Medications Albuterol/Ipratropium (Duoneb 3.0-0.5 Mg/3 Ml) 3 ml NEB ONETIME ONE Stop: 09/16/18 20:54 Last Admin: 09/16/18 21:06 Dose: 3 ml Albuterol/Ipratropium (Duoneb 3.0-0.5 Mg/3 Ml) 3 ml NEB Q4HRRT PRN PRN Reason: Shortness of Breath Last Admin: 09/19/18 22:59 Dose: 3 ml Ceftriaxone Sodium (Rocephin) 1 gm IM ONETIME ONE Stop: 09/16/18 22:05 Last Admin: 09/16/18 22:16 Dose: Not Given Furosemide (Lasix) 20 mg PO BID [facility] Last Admin: 09/19/18 20:49 Dose: 20 mg Furosemide (Lasix) 20 mg IVPUSH NOW ONE Stop: 09/19/18 10:01 Last Admin: 09/19/18 09:49 Dose: 20 mg Furosemide (Lasix) 20 mg IVPUSH NOW ONE Stop: 09/20/18 01:30 Last Admin: 09/20/18 02:06 Dose: Not Given Furosemide (Lasix) Confirm Administered Dose 20 mg .ROUTE .STK-MED ONE Stop: 09/20/18 01:32 Last Admin: 09/20/18 01:37 Dose: 20 mg Sodium Chloride (Normal Saline) 1,000 mls @ 125 mls/hr IV STAT [facility] Last Admin: 09/16/18 21:21 Dose: 125 mls/hr Azithromycin 500 mg/ Sodium (Chloride) 250 mls @ 250 mls/hr IV ONETIME ONE Stop: 09/16/18 23:03 Last Admin: 09/16/18 22:34 Dose: Not Given Ceftriaxone Sodium 1 gm/ (Sodium Chloride) 50 mls @ 100 mls/hr IV ONETIME ONE Stop: 09/16/18 22:43 Last Admin: 09/16/18 22:34 Dose: Not Given Levofloxacin/Dextrose 500 mg/ (Premix) 100 mls @ 100 mls/hr IV ONETIME ONE Stop: 09/16/18 23:30 Last Admin: 09/16/18 22:51 Dose: 100 mls/hr Sodium Chloride (Normal Saline) 1,000 mls @ 75 mls/hr IV ASDIRECTED [facility] Last Admin: 09/19/18 08:54 Dose: 75 mls/hr Vancomycin HCl 0.75 gm/ Sodium (Chloride) 250 mls @ 166.667 mls/hr IV Q24H [facility] Last Admin: 09/20/18 10:55 Dose: Not Given Lisinopril (Prinivil) 10 mg PO DAILY [facility] Last Admin: 09/19/18 08:40 Dose: 10 mg Methylprednisolone Sodium Succinate (Solu-Medrol) 125 mg IVPUSH ONETIME ONE Stop: 09/16/18 20:54 Last Admin: 09/16/18 21:22 Dose: 125 mg Methylprednisolone Sodium Succinate (Solu-Medrol) 125 mg IVPUSH Q8H [facility] Last Admin: 09/19/18 20:49 Dose: 125 mg Nitroglycerin (Nitro-Dur 0.2 Mg/Hr) 0.2 mg TRDERM ONETIME ONE Stop: 09/17/18 03:55 Last Admin: 09/17/18 04:11 Dose: Not Given Nitroglycerin (Nitro-Bid 2%) 1 gm TOP ONETIME ONE Stop: 09/17/18 04:11 Last Admin: 09/17/18 04:18 Dose: 1 gm Potassium Chloride (Klor-Con 8) 8 meq PO TID [facility] Last Admin: 09/17/18 13:54 Dose: Not Given Triamterene/HCTZ (Maxzide 25-37.5 Mg) 1 each PO QPM [facility] Last Admin: 09/19/18 17:19 Dose: 1 each Vancomycin HCl (Pharmacy To Dose - Vancomycin) 1 dose .XX ASDIRECTED ONE Stop: 09/17/18 09:16 Last Admin: 09/17/18 09:49 Dose: Not Given - Exam Quality Assessment: Supplemental Oxygen General: Alert, Oriented, Cooperative HEENT: Pupils Equal, Pupils Reactive Neck: Supple, Trachea Midline Lungs: Normal Respiratory Effort, Rales (Bibasilar) 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: Regular Rate, Irregular Rhythm, Murmurs GI/Abdominal Exam: Normal Bowel Sounds, Soft, Non-Tender, No Distention (Female) Exam: Deferred Back Exam: Normal Inspection (for given age), Full Range of Motion Extremities: Normal Inspection, No Pedal Edema Skin: Warm, Dry, Intact Neurological: No New Focal Deficit Psy/Mental Status: Alert, Normal Affect, Normal Mood - Problem List & Annotations (1) Acute respiratory failure with hypoxia SNOMED Code(s): 33419207, 135135949 Code(s): J96.01 - ACUTE RESPIRATORY FAILURE WITH HYPOXIA Status: Acute Priority: High Current Visit: Yes (2) Pneumonia SNOMED Code(s): 457568199 Code(s): J18.9 - PNEUMONIA, UNSPECIFIED ORGANISM Status: Acute Priority: High Current Visit: Yes Qualifiers: Pneumonia type: due to unspecified organism Laterality: left Lung location: lower lobe of lung Qualified Code(s): J18.1 - Lobar pneumonia, unspecified organism (3) Chronic anticoagulation SNOMED Code(s): 150711000 Code(s): Z79.01 - SLURRY BLENDER (CURRENT) USE OF ANTICOAGULANTS Status: Chronic Priority: High Current Visit: Yes (4) Chronic kidney disease (CKD), stage III (moderate) SNOMED Code(s): 445279481 Code(s): N18.3 - CHRONIC KIDNEY DISEASE, STAGE 3 (MODERATE) Status: Chronic Priority: High Current Visit: Yes (5) Fatigue SNOMED Code(s): 98844811 Code(s): R53.83 - OTHER FATIGUE Status: Chronic Priority: Medium Current Visit: Yes Qualifiers: Fatigue type: due to excessive exertion Encounter type: initial encounter Qualified Code(s): T73.3XXA - Exhaustion due to excessive exertion, initial encounter (6) Mitral valve regurgitation SNOMED Code(s): 64246771 Code(s): I34.0 - NONRHEUMATIC MITRAL (VALVE) INSUFFICIENCY Status: Chronic Priority: High Current Visit: Yes Qualifiers: Cardiac valve disease etiology: nonrheumatic Qualified Code(s): I34.0 - Nonrheumatic mitral (valve) insufficiency (7) Troponin level elevated SNOMED Code(s): 722043908, 528011589, 354078675 Code(s): R74.8 - ABNORMAL LEVELS OF OTHER SERUM ENZYMES Status: Acute Priority: High Current Visit: Yes (8) Atrial fibrillation with RVR SNOMED Code(s): 713760846159231 Code(s): I48.91 - UNSPECIFIED ATRIAL FIBRILLATION Status: Chronic Priority: High Current Visit: Yes - Problem List Review Problem List Initiated/Reviewed/Updated: Yes - My Orders Last 24 Hours: My Active Orders 09/20/18 11:00 Vancomycin [Vancocin] 1 gm Sodium Chloride 0.9% [Normal Saline] 250 ml IV Q24H 09/23/18 10:00 VANCOMYCIN TROUGH [CHEM] Timed - Plan Plan:: The patient is an 83-year-old lady who had been admitted to acute hospitalization secondary to left lower lobe pneumonia with left-sided pleural effusion. I have requested for the records from [place] with regards to her CT scan as well as analysis of the pleural fluid. The pleural fluid is likely parapneumonic however neoplastic process should be excluded. Also because of the patient's history of recent hospitalization for pneumonia the patient will be treated as hospital-acquired pneumonia. I've ordered Zosyn and vancomycin with pharmacy to dose considering the patient's stage III chronic kidney disease. The patient will have her renal function monitored closely. The patient also has been encouraged to ambulate. I've ordered repeat chest x-ray in 2 days to ascertain the chronicity of the left-sided pleural effusion. The patient does not need to have DVT prophylaxis at this time as she has been chronically taking Xarleto and this will be continued. The patient has been encouraged to ambulate. A review of records from her previous hospitalization will reveal if a another CT scan of her chest is indicated. The patient will be watched very closely for contrast nephropathy. I suspect that the patient will be appropriate for discharge home in 1-2 days. The patient has refused any idea of rehabilitation and she does have a good support system at home. Home health will be a consideration secondary to her deconditioned status. Repeat laboratory studies have been ordered for the morning. The patient is an 83-year-old lady who had been admitted to acute hospitalization. She does have remaining left-sided pulmonary effusion records were requested from [facility] and they have not been received as yet. We' ll continue to treat the patient aggressively with dual antibiotic coverage for hospital-acquired pneumonia as the patient was discharged last week from acute hospitalization. The patient Zosyn and vancomycin have been renally dosed secondary to her known chronic kidney disease. I've ordered repeat laboratory studies in the morning. The patient has been recommended to continue to ambulate as tolerated. She should be appropriate for discharge in 1-2 days. The patient is an 83-year-old lady who had been admitted to acute hospitalization after her discharge from acute hospitalization last week. She has had left-sided pleural effusion. The patient has not required at this time thoracentesis. Because of her recent hospitalization at a tertiary care center she will be treated for hospital-acquired pneumonia. Her Zosyn and vancomycin will continue to be renally dosed. This is secondary to her chronic kidney disease. She is also anticoagulated chronically with Xarelto secondary to her atrial fibrillation. This will be continued. She does not need DVT prophylaxis. The patient has been recommended to continue to ambulate as she can. Repeat laboratory studies have been ordered. The patient should be appropriate for discharge in 1-2 days. A repeat chest x-ray have been ordered and this did show some signs of pulmonary congestion and she had been given one-time dose of Lasix 20 mg IV and her normal saline has been discontinued secondary to her oral consumption and this is been saline locked. The patient is a 83-year-old lady who had worsening of her symptoms yesterday evening which had resulted in her transfer to ICU and placed on BiPAP. The patient has been tolerating her BiPAP mask and has improved her oxygenation with an FiO2 of 75. Reported that the patient continue on the current settings and keep her oxygen saturations between 90 and 92%. The patient will also be continued on Zosyn and vancomycin to be renally dosed secondary to her chronic kidney disease. She is being currently treated as hospital-acquired pneumonia secondary to her recent discharge from tertiary care center. The patient will be weaned from BiPAP as soon as possible. She is currently on Xarelto secondary to her atrial fibrillation and this will be continued. She does not require DVT prophylaxis. A single troponin was also ordered and this came back elevated at 0.189 and 2.477 respectively. This indicates an increase in her previous numbers. This is likely secondary to her tachycardia as well as her respiratory event. Regardless we'll continue to follow. The patient's blood gases also improved her pH from 7.1 up to 7.3 and her PaO2 has remained stable but low. Repeat blood gases a been ordered. The patient is an 83-year-old lady who is still in ICU secondary to acute respiratory failure. This is improved. She is currently on nasal cannula for delivery of oxygen to keep her saturations between 90 and 92%. The patient is also being followed by eICU physician with regards to her antibiotics and chronic kidney disease. The patient's electrolytes have indicated that the patient is somewhat dehydrated but this needs to be carefully balance between her respiratory status and her renal function. The patient did have an increase in her overall troponins likely secondary to her respiratory failure. She is currently on Xarelto secondary to atrial fibrillation and this will be continued. It should also be noted that yesterday plan had indicated that she had a rise in her troponins up to 2.477. This was an error. The result was 0.477. I've ordered repeat troponin. The patient has been encouraged to ambulate. I've ordered repeat laboratory testing for the morning.
[2018-09-21] MEDS: Apixaban 2.5 MG Tab PO SCH (08:33)
[2018-09-21] MEDS: Metoprolol Succinate 100 MG Tab.ER PO SCH (08:33)
[2018-09-21] MEDS: Clopidogrel 75 MG Tab PO SCH (08:33)
[2018-09-21] MEDS: Rosuvastatin 10 MG Tab PO SCH (08:33)
[2018-09-21] MEDS: Diltiazem 180 MG Cap.CD PO SCH (08:34)
[2018-09-21] MEDS: amLODIPine 5 MG Tab PO SCH (17:11)
[2018-09-22] MEDS: Insulin Aspart 100 Units/ML 3 ML Pen SUBCUT SCH ×5 (02:00→18:41)
[2018-09-22] MEDS: Albuterol/Ipratropium 3.0-0.5 MG/3 ML Neb Soln NEB SCH ×3 (02:00→10:51)
[2018-09-22] MEDS: Piperacillin/Tazobactam 2.25 GM in Sodium Chloride 0.9% 50 ML IV SCH ×3 (02:00→18:33)
[2018-09-22] MEDS: methylPREDNISolone Sodium Succinate 125 MG/2 ML SDV IVPUSH SCH ×3 (06:26→21:04)
[2018-09-22] MEDS: Levothyroxine 100 MCG Tab PO SCH (06:30)
[2018-09-22] MEDS: Metoprolol Succinate 100 MG Tab.ER PO SCH (09:22)
[2018-09-22] MEDS: Clopidogrel 75 MG Tab PO SCH (09:23)
[2018-09-22] MEDS: Diltiazem 180 MG Cap.CD PO SCH (09:23)
[2018-09-22] MEDS: Apixaban 2.5 MG Tab PO SCH (09:24)
[2018-09-22] MEDS: Rosuvastatin 10 MG Tab PO SCH (09:24)
[2018-09-22] MEDS: Potassium Chloride 8 MEQ Tab.ER PO SCH ×3 (09:24→18:32)
--- NOTE | 2018-09-22 09:58 | PCM.PN ---
- General Info Date of Service: 09/22/18 Admission Dx/Problem (Free Text): Admission Diagnosis/Problem Admission Diagnosis/Problem Pneumonia Subjective Update: The patient is an 83-year-old lady who had been admitted to acute hospitalization on September 17, 2018. This is secondary to hospital-acquired pneumonia. The patient had been recently downgraded from the intensive care unit secondary to respiratory distress. The patient says that she is doing well. She has no pain. No chest pain. He has been eating breakfast. The patient says that her breathing has improved. The patient has denied any dizziness or lightheadedness. Functional Status: Reports: Pain Controlled, Tolerating Diet - Review of Systems General: Reports: No Symptoms HEENT: Reports: No Symptoms Pulmonary: Reports: Shortness of Breath 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: Reports: No Symptoms Gastrointestinal: Reports: No Symptoms Genitourinary: Reports: No Symptoms Musculoskeletal: Reports: No Symptoms Skin: Reports: No Symptoms Neurological: Reports: No Symptoms Psychiatric: Reports: No Symptoms - Patient Data Vitals - Most Recent: Last Vital Signs Temp 37 C 09/22/18 09:00 Pulse 123 H 09/22/18 09:22 Resp 20 09/22/18 09:00 BP 140/63 09/22/18 09:22 Pulse Ox 97 09/22/18 09:00 Weight - Most Recent: 61.2 kg I&O - Last 24 Hours: Intake & Output 09/21/18 09/22/18 09/22/18 22:59 06:59 14:59 Intake Total 100 320 Output Total 350 700 Balance -250 -380 Lab Results Last 24 Hours: Laboratory Results - last 24 hr 09/21/18 09/21/18 09/21/18 Range/Units 10:05 10:26 14:52 POC Glucose 280 H 199 H (60-110) mg/dL Troponin I 0.322 H* (0.000-0.056) ng/mL 09/21/18 09/21/18 09/21/18 Range/Units 17:20 18:32 22:36 POC Glucose 220 H 271 H 199 H (60-110) mg/dL Troponin I (0.000-0.056) ng/mL 09/22/18 Range/Units 02:08 POC Glucose 187 H (60-110) mg/dL Troponin I (0.000-0.056) ng/mL Barry Results Last 24 Hours: Microbiology 09/16/18 22:43 Aerobic Blood Culture - Final Blood - Venous - Lab Draw NO GROWTH AFTER 5 DAYS Anaerobic Blood Culture - Final NO GROWTH AFTER 5 DAYS 09/16/18 22:30 Aerobic Blood Culture - Final Blood - Venous NO GROWTH AFTER 5 DAYS Anaerobic Blood Culture - Final NO GROWTH AFTER 5 DAYS Med Orders - Current: Current Medications Acetaminophen (Tylenol) 650 mg PO Q4H PRN PRN Reason: Pain (mild 1-3) Acetaminophen/Codeine Phosphate (Tylenol With Codeine No.3 300mg/30mg) 1 tab PO BID PRN PRN Reason: Pain Albuterol/Ipratropium (Duoneb 3.0-0.5 Mg/3 Ml) 3 ml NEB Q4HRRT [facility] Last Admin: 09/22/18 06:33 Dose: 3 ml Amlodipine Besylate (Norvasc) 5 mg PO QPM [facility] Last Admin: 09/21/18 17:11 Dose: 5 mg Apixaban (Eliquis) 2.5 mg PO QAM [facility] Last Admin: 09/22/18 09:24 Dose: 2.5 mg Clopidogrel Bisulfate (Plavix) 75 mg PO QAM [facility] Last Admin: 09/22/18 09:23 Dose: 75 mg Diltiazem HCl (Cardizem Cd) 180 mg PO DAILY [facility] Last Admin: 09/22/18 09:23 Dose: 180 mg Docusate Sodium (Colace) 100 mg PO BID PRN PRN Reason: Constipation Furosemide (Lasix) 20 mg IVPUSH BIDDIURETIC [facility] Last Admin: 09/21/18 13:30 Dose: 20 mg Piperacillin Sod/Tazobactam (Sod 2.25 gm/ Sodium Chloride) 50 mls @ 100 mls/hr IV Q8H [facility] Last Admin: 09/22/18 02:00 Dose: 100 mls/hr Vancomycin HCl 1 gm/ Sodium (Chloride) 250 mls @ 166.667 mls/hr IV Q24H [facility] Last Admin: 09/21/18 10:46 Dose: 166.667 mls/hr Insulin Aspart (Novolog) 0 unit SUBCUT Q4H [facility]; Protocol Last Admin: 09/22/18 06:30 Dose: 2 unit Levothyroxine Sodium (Synthroid) 100 mcg PO ACBREAKFAST [facility] Last Admin: 09/22/18 06:30 Dose: 100 mcg Methylprednisolone Sodium Succinate (Solu-Medrol) 60 mg IVPUSH Q8H [facility] Last Admin: 09/22/18 06:26 Dose: 60 mg Metoprolol Succinate (Toprol Xl) 100 mg PO DAILY [facility] Last Admin: 09/22/18 09:22 Dose: 100 mg Morphine Sulfate (Morphine) 1 mg IVPUSH Q2H PRN PRN Reason: Pain (severe 7-10) Oxycodone HCl (Oxycodone) 5 mg PO Q4H PRN PRN Reason: Pain (severe 7-10) Potassium Chloride (Klor-Con 8) 8 meq PO TIDMEALS [facility] Last Admin: 09/22/18 09:24 Dose: 8 meq Rosuvastatin Calcium (Crestor) 20 mg PO DAILY [facility] Last Admin: 09/22/18 09:24 Dose: 20 mg Temazepam (Restoril) 15 mg PO BEDTIME PRN PRN Reason: Sleep Last Admin: 09/19/18 22:59 Dose: 15 mg Discontinued Medications Albuterol/Ipratropium (Duoneb 3.0-0.5 Mg/3 Ml) 3 ml NEB ONETIME ONE Stop: 09/16/18 20:54 Last Admin: 09/16/18 21:06 Dose: 3 ml Albuterol/Ipratropium (Duoneb 3.0-0.5 Mg/3 Ml) 3 ml NEB Q4HRRT PRN PRN Reason: Shortness of Breath Last Admin: 09/19/18 22:59 Dose: 3 ml Ceftriaxone Sodium (Rocephin) 1 gm IM ONETIME ONE Stop: 09/16/18 22:05 Last Admin: 09/16/18 22:16 Dose: Not Given Furosemide (Lasix) 20 mg PO BID [facility] Last Admin: 09/19/18 20:49 Dose: 20 mg Furosemide (Lasix) 20 mg IVPUSH NOW ONE Stop: 09/19/18 10:01 Last Admin: 09/19/18 09:49 Dose: 20 mg Furosemide (Lasix) 20 mg IVPUSH NOW ONE Stop: 09/20/18 01:30 Last Admin: 09/20/18 02:06 Dose: Not Given Furosemide (Lasix) Confirm Administered Dose 20 mg .ROUTE .STK-MED ONE Stop: 09/20/18 01:32 Last Admin: 09/20/18 01:37 Dose: 20 mg Sodium Chloride (Normal Saline) 1,000 mls @ 125 mls/hr IV STAT [facility] Last Admin: 09/16/18 21:21 Dose: 125 mls/hr Azithromycin 500 mg/ Sodium (Chloride) 250 mls @ 250 mls/hr IV ONETIME ONE Stop: 09/16/18 23:03 Last Admin: 09/16/18 22:34 Dose: Not Given Ceftriaxone Sodium 1 gm/ (Sodium Chloride) 50 mls @ 100 mls/hr IV ONETIME ONE Stop: 09/16/18 22:43 Last Admin: 09/16/18 22:34 Dose: Not Given Levofloxacin/Dextrose 500 mg/ (Premix) 100 mls @ 100 mls/hr IV ONETIME ONE Stop: 09/16/18 23:30 Last Admin: 09/16/18 22:51 Dose: 100 mls/hr Sodium Chloride (Normal Saline) 1,000 mls @ 75 mls/hr IV ASDIRECTED [facility] Last Admin: 09/19/18 08:54 Dose: 75 mls/hr Vancomycin HCl 0.75 gm/ Sodium (Chloride) 250 mls @ 166.667 mls/hr IV Q24H [facility] Last Admin: 09/20/18 10:55 Dose: Not Given Lisinopril (Prinivil) 10 mg PO DAILY [facility] Last Admin: 09/19/18 08:40 Dose: 10 mg Methylprednisolone Sodium Succinate (Solu-Medrol) 125 mg IVPUSH ONETIME ONE Stop: 09/16/18 20:54 Last Admin: 09/16/18 21:22 Dose: 125 mg Methylprednisolone Sodium Succinate (Solu-Medrol) 125 mg IVPUSH Q8H [facility] Last Admin: 09/19/18 20:49 Dose: 125 mg Nitroglycerin (Nitro-Dur 0.2 Mg/Hr) 0.2 mg TRDERM ONETIME ONE Stop: 09/17/18 03:55 Last Admin: 09/17/18 04:11 Dose: Not Given Nitroglycerin (Nitro-Bid 2%) 1 gm TOP ONETIME ONE Stop: 09/17/18 04:11 Last Admin: 09/17/18 04:18 Dose: 1 gm Potassium Chloride (Klor-Con 8) 8 meq PO TID [facility] Last Admin: 09/17/18 13:54 Dose: Not Given Triamterene/HCTZ (Maxzide 25-37.5 Mg) 1 each PO QPM [facility] Last Admin: 09/19/18 17:19 Dose: 1 each Vancomycin HCl (Pharmacy To Dose - Vancomycin) 1 dose .XX ASDIRECTED ONE Stop: 09/17/18 09:16 Last Admin: 09/17/18 09:49 Dose: Not Given - Exam Quality Assessment: Supplemental Oxygen General: Alert, Oriented, Cooperative, No Acute Distress HEENT: Pupils Equal, Pupils Reactive, EOMI Neck: Supple, Trachea Midline, JVD Lungs: Crackles (Bibasilar) 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: Regular Rate, Irregular Rhythm, Murmurs (Grade 3/6 holosystolic) GI/Abdominal Exam: Normal Bowel Sounds, Soft, No Distention (Female) Exam: Deferred Back Exam: Normal Inspection (Kyphosis, appropriate for age), Full Range of Motion Extremities: Normal Inspection, No Pedal Edema Skin: Warm, Dry, Intact Neurological: No New Focal Deficit Psy/Mental Status: Alert, Normal Affect, Normal Mood - Problem List & Annotations (1) Acute respiratory failure with hypoxia SNOMED Code(s): 23031429, 839791344 Code(s): J96.01 - ACUTE RESPIRATORY FAILURE WITH HYPOXIA Status: Acute Priority: High Current Visit: Yes Annotation/Comment:: Improved (2) Pneumonia SNOMED Code(s): 812900352 Code(s): J18.9 - PNEUMONIA, UNSPECIFIED ORGANISM Status: Acute Priority: High Current Visit: Yes Qualifiers: Pneumonia type: due to unspecified organism Laterality: left Lung location: lower lobe of lung Qualified Code(s): J18.1 - Lobar pneumonia, unspecified organism (3) Chronic anticoagulation SNOMED Code(s): 317941892 Code(s): Z79.01 - PHOTOGRAPHIC REPRODUCTION TECHNICIAN (CURRENT) USE OF ANTICOAGULANTS Status: Chronic Priority: High Current Visit: Yes (4) Chronic kidney disease (CKD), stage III (moderate) SNOMED Code(s): 834758564 Code(s): N18.3 - CHRONIC KIDNEY DISEASE, STAGE 3 (MODERATE) Status: Chronic Priority: High Current Visit: Yes (5) Fatigue SNOMED Code(s): 10157937 Code(s): R53.83 - OTHER FATIGUE Status: Chronic Priority: Medium Current Visit: Yes Qualifiers: Fatigue type: due to excessive exertion Encounter type: initial encounter Qualified Code(s): T73.3XXA - Exhaustion due to excessive exertion, initial encounter (6) Mitral valve regurgitation SNOMED Code(s): 50026665 Code(s): I34.0 - NONRHEUMATIC MITRAL (VALVE) INSUFFICIENCY Status: Chronic Priority: High Current Visit: Yes Qualifiers: Cardiac valve disease etiology: nonrheumatic Qualified Code(s): I34.0 - Nonrheumatic mitral (valve) insufficiency (7) Troponin level elevated SNOMED Code(s): 650193020, 723510515, 313669689 Code(s): R74.8 - ABNORMAL LEVELS OF OTHER SERUM ENZYMES Status: Acute Priority: High Current Visit: Yes (8) Atrial fibrillation with RVR SNOMED Code(s): 805346142292662 Code(s): I48.91 - UNSPECIFIED ATRIAL FIBRILLATION Status: Chronic Priority: High Current Visit: Yes - Problem List Review Problem List Initiated/Reviewed/Updated: Yes - My Orders Last 24 Hours: My Active Orders 09/21/18 13:24 Transfer Patient (Change bed) [ADT] Routine 09/21/18 13:48 Telemetry Monitoring [Cardiac Monitoring] [RC] Q8H 09/22/18 07:45 Consult to Occupational Therapy [OT Evaluation and Treatment] [CONS] Routine PT Evaluation and Treatment [CONS] Routine 09/22/18 09:31 Consult to Physician [CONS] Routine 09/22/18 09:32 Notify Provider Consults [RC] ASDIRECTED 09/23/18 10:00 VANCOMYCIN TROUGH [CHEM] Timed - Plan Plan:: The patient is an 83-year-old lady who had been admitted to acute hospitalization and she has been treated for hospital-acquired pneumonia secondary [facility]. The patient has been recently out of ICU. She's been on nasal cannula and her oxygen replacement will be continued at his current rate to help keep her saturations above 90%. I did submit a consult for cardiology, , and have discussed case with him with regards to the patient's elevated troponins. Secondary to the patient's pneumonia as well as her respiratory distress is felt that this was likely due to demand ischemia. He also has reviewed her 2-D echocardiogram. The patient has also been advised to follow-up with assessment services manager upon discharge for now. The patient's Lasix has been increased to 40 mg secondary to her chronic kidney disease. Overall the patient has improved somewhat today. She has been encouraged to ambulate. The patient will have laboratory studies done tomorrow. The patient is also currently taking Xarelto and this will be continued. The patient should be appropriate for discharge and perhaps 1-2 days. She also has been continued on her current diet.
[2018-09-22] MEDS: Furosemide 20 MG/2 ML VIAL IVPUSH SCH ×2 (10:33→13:22)
[2018-09-22] MEDS ORDERED: LORazepam 0.5 MG Tab PO ONE (15:05)
[2018-09-22] MEDS ORDERED: Furosemide 40 MG/4 ML VIAL IVPUSH ONE (15:56)
[2018-09-22] MEDS ORDERED: Furosemide 20 MG/2 ML VIAL IVPUSH ONE (16:30)
[2018-09-22] MEDS: amLODIPine 5 MG Tab PO SCH (18:32)
[2018-09-23] MEDS: Piperacillin/Tazobactam 2.25 GM in Sodium Chloride 0.9% 50 ML IV SCH ×3 (00:39→17:22)
[2018-09-23] MEDS: methylPREDNISolone Sodium Succinate 125 MG/2 ML SDV IVPUSH SCH ×3 (06:43→22:30)
[2018-09-23] MEDS: Levothyroxine 100 MCG Tab PO SCH (06:43)
[2018-09-23] MEDS: Insulin Aspart 100 Units/ML 3 ML Pen SUBCUT SCH ×3 (06:52→17:43)
[2018-09-23] MEDS ORDERED: LORazepam 0.5 MG Tab PO PRN (07:59)
[2018-09-23] MEDS: Potassium Chloride 8 MEQ Tab.ER PO SCH ×3 (08:21→17:57)
[2018-09-23] MEDS: Metoprolol Succinate 100 MG Tab.ER PO SCH (08:22)
[2018-09-23] MEDS: Rosuvastatin 10 MG Tab PO SCH (08:22)
[2018-09-23] MEDS: Clopidogrel 75 MG Tab PO SCH (08:23)
[2018-09-23] MEDS: Diltiazem 180 MG Cap.CD PO SCH (08:23)
--- NOTE | 2018-09-23 08:48 | CONS ---
DATE OF CONSULTATION: 09/22/2018 DATE OF : 1935 PRIMARY CARE PHYSICIAN: Kali Bender M.D. REASON FOR CONSULTATION: Troponin elevation. HISTORY OF PRESENT ILLNESS: This is an 83-year-old female with an extensive cardiac history with a history of CAD, status post remote LAD PCI, history of peripheral vascular disease with bilateral occlusion of SFA and history of rt femoral-popliteal bypass in the past, dyslipidemia, and hypertension. She presented to the hospital at this time because of her shortness of breath. She came into the emergency room on August 26, 2018, because of increasing shortness of breath, but no chest pain, no palpitation, no fever, no coughing, and at that time in the emergency room, she was found to have an atrial fibrillation RVR with a heart rate of 130s, and there was ST depression noted in V4 to V6. Troponin, was elevated 2.3 with Cr of 1.4. There was also pneumonia on the right side and with a high white count, leukocytosis. With multiple problems at that time and troponin elevation and given the history of CAD, she was transferred out to [place] for further management. At [facility] (120 miles away from our hospital, patient home [facility]), she was noted to have bilateral pneumonia with impending sepsis, and then she was admitted in the ICU and she was requiring the BiPAP treatment and the pressor. IV antibiotic was started. However, the first troponin was 2.35 and then trending down to 1.9 and cardiology service was consulted. Initially it was thought due to severe sepsis with hypoxic respiratory failure and bilateral pneumonia, possibly demand ischemia. Echocardiogram also was done over there on August 26, 2018, which shows severe LV diastolic dysfunction with restrictive filling pattern, as well as ejection fraction at the low normal range, like 45-50%chava , and with inferior basal wall hypokinesis, as well as severe eccentric mitral valve regurgitation, moderate to severe tricuspid regurgitation, estimated RVSP of 55 mmHg, and moderate aortic regurgitation. Due to the multiple valve problems, she had a transesophageal echocardiogram done on September 06, 2018 during the same admission. At that time, it was also done with left heart catheterization as well. The ANGEL showed possibly mildly reduced LV systolic dysfunction at 45% to 50% with mild concentric hypertrophy, and also the tricuspid valve showed [id number] tricuspid regurg and mitral valve noted to be severe posterior/central directed eccentric, with wide vena contracta, indicative of severe MR. with the severe dilated left atrium, and it was thought possibly chronic severe mitral valve regurgitation, possibly from ischemic etiology from history of CAD. She also had the left heart catheterization and right heart catheterization done at the same time noted. The left heart catheterization did show mild ostial stenosis, 20% of left main and the left anterior descending arteries. The proximal stent LAD is patent and the left circumflex is small, nondominant with a 30% mid circumflex lesion, and the RCA large dominant with mild luminal irregularity. No significant stenosis at that time. They also checked LVEDP, which is 9 mm, which is normal. The final conclusion was that the patient needed to be discussed with a thoracic surgeon, who thought that she may not be a good surgical candidate, so the mitral valve clip was introduced to them, but the patient wanted to recover and to be stronger before she can travel to a larger facility like [facility] or [facility] in [place] for the mitral valve clip consideration. Due to the large pleural effusion, she got therapeutic thoracentesis as well, and it was noted the cell count was not concerning. However, one of the pleural fluid culture came back showing gram-positive cocci, possibly Strep viridans. There was a conversation with the Infectious doctor, and they thought it could be the contamination, so she was discharged home. SHe was noted to have PAfib, MRI brain was doen showed subacute stroke even though she is not symtpomatic. She was discharged home on September 11. However, she came back to the hospital because of increasing shortness of breath again on September 16. Initially she was started with BiPAP, however, finally she was downgraded to the nasal cannula and she clinically looked improved. She has still been treated for healthcare-associated pneumonia with IV antibiotics though. When she was discharged from [place], her creatinine was around 1.2 to 1.6, but when she got admitted here again on the , her creatinine came back to 2.0 and currently is hanging between 1.8 to 2.2. She was also found to have mild leukocytosis with a white count of 13 as well. Her platelet count is still normal, but currently her white count seems to be improving, and today her white count is 10. The only symptom that she expresses is only shortness of breath. She cannot really lie flat, but she denies fever, coughing, or any mucus. She was also was found to have possibly subacute infarct from MRI brain when she was there in [place], and she also was found to have an atrial fibrillation which seemed to be intermittent or paroxysmal atrial fibrillation as well. MEDICATIONS: Upon reviewing her current medication when she was in the hospital now, she is on: 1. Eliquis 2.5. 2. Amlodipine 5. 3. Diltiazem 180 once a day. 4. Levothyroxine 100 mcg p.o. once a day. 5. Toprol-XL 100 mg once a day. 6. She also was started on prednisone 60 mg IV q.8 hours. 7. Crestor 20 mg once a day. 8. She also was given the Lasix 20 mg this morning. 9. Vancomycin also IV. 10.Zosyn. 11.She was also on Plavix 75 mg once a day. I did not have the complete discharge summary from the [facility]. The information that I found is from the [facility] website, which is only partial record that was available for me to review. PAST MEDICAL HISTORY: Includin. Peripheral vascular disease and claudication. 2. CAD, status post LAD stent, unknown duration. 3. Hypothyroidism. 4. Hypertension. 5. Polymyalgia rheumatica. PAST SURGICAL HISTORY: 1. Cardiac surgery. 2. Left breast mole removal. 3. LAD with PCI. 4. Right femoral-popliteal bypass x2. FAMILY HISTORY: Mother had a history of pancreatic cancer. Father had a history of dementia. SOCIAL HISTORY: Former smoker. Denied drinking alcohol. Does not do any recreational drugs. CURRENT MEDICATIONS: While at the current hospitalization, as mentioned above. ALLERGIES: She is allergic to Lipitor and Levaquin. CURRENT PHYSICAL EXAMINATION: VITAL SIGNS: Her blood pressure was running around 90/50 to 140/60, the heart rate is about like 60 to 109, O2 saturation is currently around 95% on 0.5 to 1 L, and respirations are 18 to 20, but the temperature was 36.6. HEENT: Mouth is dry. No jaundice. JVD is positive while sitting. HEART: Pansystolic murmur, totally irregular. LUNGS: Crackles bilaterally, decreased breath sounds bilaterally. ABDOMEN: Soft, nontender. Bowel sounds present. No hepatosplenomegaly. No rebound tenderness. EXTREMITIES: Legs have trace edema, very trace. LABORATORY INVESTIGATION: Current CBC shows white count is 10.71 and hematocrit of 30, hemoglobin of 9.7, platelets 213,000. Chemistry: Sodium 147, potassium 3.2, chloride 110, bicarb 26, BUN 53, creatinine is 2. Her creatinine level when she was discharged from [place] was 1.2 to 1.6, and troponin was 0.3. BNP when she was coming here was 854, as compared to the last number was 1400, which is improving. Echocardiogram showed LV ejection fraction possibly of 58%, and she does have mild to moderate tricuspid regurgitation, mild aortic regurgitation, and moderate to severe mitral regurgitation. EKG on September 17, 2018, shows sinus rhythm, heart rate of 78, QRS duration 95, but on September 20, 2018, showed atrial fibrillation, heart rate is ranging between 96 to 113, QRS duration still ranging between 90 to 135. Chest x-ray on September 20 is severe bilateral pulmonary congestion. ASSESSMENT AND PLAN: This is an 83-year-old female with history of coronary artery disease, LAD PCI stent, bilateral peripheral vascular disease, status post right femoral- popliteal bypass, history of hyperlipidemia, former smoker, and hypertension, who presented to the hospital at this time with shortness of breath, possibly from decompensated heart failure, as well as healthcare-associated pneumonia. She is being treated for both conditions, as well as severe mitral regurgitation and paroxysmal atrial fibrillation, acute on top of chronic kidney disease. I would increase the Lasix to 40 IV twice a day. I think partly she probably is in decompensated heart failure, possibly from severe mitral valve regurgitation. It seems she had a pretty extensive workup when she was admitted in [place] and seems like she already had an MRI done, which showed possible subacute stroke in the past, and PFT also was done and a coronary angiogram also was done that showed [id number] CAD. No stent was placed, and a transesophageal echocardiogram confirmed severe mitral regurgitation. All of these finding I got from the website of [facility], but the whole discharge summary and information we are still waiting from the [facility]. Most likely, she would need the mitral valve intervention eventually, but currently I would probably treat her for healthcare-associated pneumonia for now, as well as the heart failure. I will do the Lasix 40 IV in the morning and 60 IV in the evening, and see how she does with the urine output, and we need to follow her creatinine closely. We will also check her BMP again in the morning. I do not think the troponin elevation was from acute coronary syndrome. She does not appear to have significant coronary artery disease from the recent coronary angiogram. I will try to get the images to be pushed to our hospital to review for the transesophageal echocardiogram and transthoracic echocardiogram, as well as the coronary angiogram. Her atrial fibrillation seemed to be valvular atrial fibrillation. I would recommend to transition from the Eliquis to the warfarin. We will continue aspirin and Plavix for now, as I do not know when was the last stent, and she is also on amlodipine 5 mg, diltiazem 180, Toprol-XL 100 mg once a day, Crestor 20 mg once a day, and I do not have the discharge medication from [facility], so it is very difficult to know what she was discharged with when she was discharged from the [facility]. GREY PINEDA /[id number]
--- NOTE | 2018-09-23 09:24 | PCM.PN ---
- General Info Date of Service: 09/23/18 Admission Dx/Problem (Free Text): Admission Diagnosis/Problem Admission Diagnosis/Problem Pneumonia, HAP Subjective Update: The patient is an 83-year-old lady who had been admitted to acute hospitalization on September 17, 2018. The patient had been recently downgraded from the intensive care unit secondary to respiratory distress. She has improved overall. The patient says that she is doing well. She has no pain. No chest pain. She has been eating breakfast. The patient says that her breathing has improved. She says that she still feels weak and fatigued. Functional Status: Reports: Pain Controlled, Tolerating Diet - Review of Systems General: Reports: Weakness, Fatigue HEENT: Reports: No Symptoms Pulmonary: Reports: Shortness of Breath 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: Reports: No Symptoms Gastrointestinal: Reports: No Symptoms Genitourinary: Reports: No Symptoms Musculoskeletal: Reports: No Symptoms Skin: Reports: No Symptoms Neurological: Reports: No Symptoms Psychiatric: Reports: No Symptoms - Patient Data Vitals - Most Recent: Last Vital Signs Temp 37.1 C 09/23/18 08:00 Pulse 97 09/23/18 08:22 Resp 20 09/23/18 08:00 BP 123/63 09/23/18 08:22 Pulse Ox 98 09/23/18 08:00 Weight - Most Recent: 58.377 kg I&O - Last 24 Hours: Intake & Output 09/22/18 09/23/18 09/23/18 22:59 06:59 14:59 Intake Total 450 50 Output Total 1400 Balance -950 50 Lab Results Last 24 Hours: Laboratory Results - last 24 hr 09/22/18 09/22/18 09/22/18 Range/Units 06:23 10:42 17:12 WBC (4.0-11.0) K/uL RBC (4.30-5.90) M/uL Hgb (12.0-16.0) g/dL Hct (36.0-46.0) % MCV (80.0-98.0) fL MCH (27.0-32.0) pg MCHC (31.0-37.0) g/dL RDW Std Deviation (28.0-62.0) fl RDW Coeff of [place]ks[place] (11.0-15.0) % Plt Count (150-400) K/uL MPV (7.40-12.00) fL Neut % (Auto) (48.0-80.0) % Lymph % (Auto) (16.0-40.0) % [place] % (Auto) (0.0-15.0) % Eos % (Auto) (0.0-7.0) % Baso % (Auto) (0.0-1.5) % Neut # (Auto) (1.4-5.7) K/uL Lymph # (Auto) (0.6-2.4) K/uL [place] # (Auto) (0.0-0.8) K/uL Eos # (Auto) (0.0-0.7) K/uL Baso # (Auto) (0.0-0.1) K/uL Nucleated RBC % /100WBC Nucleated RBCs # K/uL INR Sodium (136-145) mmol/L Potassium (3.5-5.1) mmol/L Chloride (98-107) mmol/L Carbon Dioxide (21.0-32.0) mmol/L BUN (7.0-18.0) mg/dL Creatinine (0.6-1.0) mg/dL Est Cr Clr Drug Dosing mL/min Estimated GFR (MDRD) ml/min Glucose (74-106) mg/dL POC Glucose 206 H 264 H 219 H (60-110) mg/dL Calcium (8.5-10.1) mg/dL B-Natriuretic Peptide (<100) PG/ML 09/22/18 09/23/18 09/23/18 Range/Units 21:00 05:05 05:05 WBC 11.73 H (4.0-11.0) K/uL RBC 3.43 L (4.30-5.90) M/uL Hgb 10.1 L (12.0-16.0) g/dL Hct 32.3 L (36.0-46.0) % MCV 94.2 (80.0-98.0) fL MCH 29.4 (27.0-32.0) pg MCHC 31.3 (31.0-37.0) g/dL RDW Std Deviation 51.7 (28.0-62.0) fl RDW Coeff of Ericks[place] 15 (11.0-15.0) % Plt Count 235 (150-400) K/uL MPV 11.10 (7.40-12.00) fL Neut % (Auto) 93.7 H (48.0-80.0) % Lymph % (Auto) 2.0 L (16.0-40.0) % [place] % (Auto) 4.2 (0.0-15.0) % Eos % (Auto) 0.0 (0.0-7.0) % Baso % (Auto) 0.1 (0.0-1.5) % Neut # (Auto) 11.0 H (1.4-5.7) K/uL Lymph # (Auto) 0.2 L (0.6-2.4) K/uL [place] # (Auto) 0.5 (0.0-0.8) K/uL Eos # (Auto) 0.0 (0.0-0.7) K/uL Baso # (Auto) 0.0 (0.0-0.1) K/uL Nucleated RBC % 0.4 /100WBC Nucleated RBCs # 0 K/uL INR Sodium (136-145) mmol/L Potassium (3.5-5.1) mmol/L Chloride (98-107) mmol/L Carbon Dioxide (21.0-32.0) mmol/L BUN (7.0-18.0) mg/dL Creatinine (0.6-1.0) mg/dL Est Cr Clr Drug Dosing mL/min Estimated GFR (MDRD) ml/min Glucose (74-106) mg/dL POC Glucose 176 H (60-110) mg/dL Calcium (8.5-10.1) mg/dL B-Natriuretic Peptide 1650 H (<100) PG/ML 09/23/18 09/23/18 Range/Units 05:05 07:50 WBC (4.0-11.0) K/uL RBC (4.30-5.90) M/uL Hgb (12.0-16.0) g/dL Hct (36.0-46.0) % MCV (80.0-98.0) fL MCH (27.0-32.0) pg MCHC (31.0-37.0) g/dL RDW Std Deviation (28.0-62.0) fl RDW Coeff of Ericks[place] (11.0-15.0) % Plt Count (150-400) K/uL MPV (7.40-12.00) fL Neut % (Auto) (48.0-80.0) % Lymph % (Auto) (16.0-40.0) % [place] % (Auto) (0.0-15.0) % Eos % (Auto) (0.0-7.0) % Baso % (Auto) (0.0-1.5) % Neut # (Auto) (1.4-5.7) K/uL Lymph # (Auto) (0.6-2.4) K/uL [place] # (Auto) (0.0-0.8) K/uL Eos # (Auto) (0.0-0.7) K/uL Baso # (Auto) (0.0-0.1) K/uL Nucleated RBC % /100WBC Nucleated RBCs # K/uL INR 1.22 Sodium 146 H (136-145) mmol/L Potassium 2.4 L* (3.5-5.1) mmol/L Chloride 103 (98-107) mmol/L Carbon Dioxide 30.2 (21.0-32.0) mmol/L BUN 54 H (7.0-18.0) mg/dL Creatinine 1.8 H (0.6-1.0) mg/dL Est Cr Clr Drug Dosing 20.24 mL/min Estimated GFR (MDRD) 26.8 ml/min Glucose 201 H (74-106) mg/dL POC Glucose (60-110) mg/dL Calcium 8.6 (8.5-10.1) mg/dL B-Natriuretic Peptide (<100) PG/ML Med Orders - Current: Current Medications Acetaminophen (Tylenol) 650 mg PO Q4H PRN PRN Reason: Pain (mild 1-3) Acetaminophen/Codeine Phosphate (Tylenol With Codeine No.3 300mg/30mg) 1 tab PO BID PRN PRN Reason: Pain Last Admin: 09/22/18 21:06 Dose: 1 tab Albuterol/Ipratropium (Duoneb 3.0-0.5 Mg/3 Ml) 3 ml NEB Q4HRRT PRN PRN Reason: Shortness of Breath Clopidogrel Bisulfate (Plavix) 75 mg PO QAM [facility] Last Admin: 09/23/18 08:23 Dose: 75 mg Diltiazem HCl (Cardizem Cd) 180 mg PO DAILY [facility] Last Admin: 09/23/18 08:23 Dose: 180 mg Docusate Sodium (Colace) 100 mg PO BID PRN PRN Reason: Constipation Last Admin: 09/22/18 21:06 Dose: 100 mg Piperacillin Sod/Tazobactam (Sod 2.25 gm/ Sodium Chloride) 50 mls @ 100 mls/hr IV Q8H [facility] Last Admin: 09/23/18 08:25 Dose: 100 mls/hr Vancomycin HCl 1 gm/ Sodium (Chloride) 250 mls @ 166.667 mls/hr IV Q24H [facility] Last Admin: 09/22/18 11:23 Dose: 166.667 mls/hr Potassium Chloride/Dextrose/Sod Cl (D5 1/2 Ns W/ 40 Meq/L Kcl) 1,000 mls @ 75 mls/hr IV ASDIRECTED [facility] Insulin Aspart (Novolog) 0 unit SUBCUT TIDAC [facility]; Protocol Last Admin: 09/23/18 06:52 Dose: 2 units Levothyroxine Sodium (Synthroid) 100 mcg PO ACBREAKFAST [facility] Last Admin: 09/23/18 06:43 Dose: 100 mcg Lorazepam (Ativan) 0.5 mg PO Q6H PRN PRN Reason: Anxiety Methylprednisolone Sodium Succinate (Solu-Medrol) 60 mg IVPUSH Q8H [facility] Last Admin: 09/23/18 06:43 Dose: 60 mg Metoprolol Succinate (Toprol Xl) 100 mg PO DAILY [facility] Last Admin: 09/23/18 08:22 Dose: 100 mg Morphine Sulfate (Morphine) 1 mg IVPUSH Q2H PRN PRN Reason: Pain (severe 7-10) Oxycodone HCl (Oxycodone) 5 mg PO Q4H PRN PRN Reason: Pain (severe 7-10) Potassium Chloride (Klor-Con 8) 8 meq PO TIDMEALS [facility] Last Admin: 09/23/18 08:21 Dose: 8 meq Rosuvastatin Calcium (Crestor) 20 mg PO DAILY [facility] Last Admin: 09/23/18 08:22 Dose: 20 mg Temazepam (Restoril) 15 mg PO BEDTIME PRN PRN Reason: Sleep Last Admin: 09/19/18 22:59 Dose: 15 mg Discontinued Medications Albuterol/Ipratropium (Duoneb 3.0-0.5 Mg/3 Ml) 3 ml NEB ONETIME ONE Stop: 09/16/18 20:54 Last Admin: 09/16/18 21:06 Dose: 3 ml Albuterol/Ipratropium (Duoneb 3.0-0.5 Mg/3 Ml) 3 ml NEB Q4HRRT PRN PRN Reason: Shortness of Breath Last Admin: 09/19/18 22:59 Dose: 3 ml Albuterol/Ipratropium (Duoneb 3.0-0.5 Mg/3 Ml) 3 ml NEB Q4HRRT [facility] Last Admin: 09/22/18 10:51 Dose: Not Given Amlodipine Besylate (Norvasc) 5 mg PO QPM [facility] Last Admin: 09/22/18 18:32 Dose: 5 mg Apixaban (Eliquis) 2.5 mg PO QAM [facility] Last Admin: 09/22/18 09:24 Dose: 2.5 mg Ceftriaxone Sodium (Rocephin) 1 gm IM ONETIME ONE Stop: 09/16/18 22:05 Last Admin: 09/16/18 22:16 Dose: Not Given Furosemide (Lasix) 20 mg PO BID [facility] Last Admin: 09/19/18 20:49 Dose: 20 mg Furosemide (Lasix) 20 mg IVPUSH NOW ONE Stop: 09/19/18 10:01 Last Admin: 09/19/18 09:49 Dose: 20 mg Furosemide (Lasix) 20 mg IVPUSH NOW ONE Stop: 09/20/18 01:30 Last Admin: 09/20/18 02:06 Dose: Not Given Furosemide (Lasix) Confirm Administered Dose 20 mg .ROUTE .STK-MED ONE Stop: 09/20/18 01:32 Last Admin: 09/20/18 01:37 Dose: 20 mg Furosemide (Lasix) 20 mg IVPUSH BIDDIURETIC [facility] Last Admin: 09/22/18 13:22 Dose: 20 mg Furosemide (Lasix) 40 mg IVPUSH NOW ONE Stop: 09/22/18 15:57 Last Admin: 09/22/18 16:07 Dose: Not Given Furosemide (Lasix) 60 mg IVPUSH ONETIME ONE Stop: 09/20/18 16:11 Furosemide (Lasix) 60 mg IVPUSH ONETIME ONE Stop: 09/22/18 16:31 Last Admin: 09/22/18 16:41 Dose: 60 mg Sodium Chloride (Normal Saline) 1,000 mls @ 125 mls/hr IV STAT [facility] Last Admin: 09/16/18 21:21 Dose: 125 mls/hr Azithromycin 500 mg/ Sodium (Chloride) 250 mls @ 250 mls/hr IV ONETIME ONE Stop: 09/16/18 23:03 Last Admin: 09/16/18 22:34 Dose: Not Given Ceftriaxone Sodium 1 gm/ (Sodium Chloride) 50 mls @ 100 mls/hr IV ONETIME ONE Stop: 09/16/18 22:43 Last Admin: 09/16/18 22:34 Dose: Not Given Levofloxacin/Dextrose 500 mg/ (Premix) 100 mls @ 100 mls/hr IV ONETIME ONE Stop: 09/16/18 23:30 Last Admin: 09/16/18 22:51 Dose: 100 mls/hr Sodium Chloride (Normal Saline) 1,000 mls @ 75 mls/hr IV ASDIRECTED [facility] Last Admin: 09/19/18 08:54 Dose: 75 mls/hr Vancomycin HCl 0.75 gm/ Sodium (Chloride) 250 mls @ 166.667 mls/hr IV Q24H [facility] Last Admin: 09/20/18 10:55 Dose: Not Given Insulin Aspart (Novolog) 0 unit SUBCUT Q4H [facility]; Protocol Last Admin: 09/22/18 10:46 Dose: 3 unit Lisinopril (Prinivil) 10 mg PO DAILY [facility] Last Admin: 09/19/18 08:40 Dose: 10 mg Lorazepam (Ativan) 0.5 mg PO ONETIME ONE Stop: 09/22/18 15:06 Methylprednisolone Sodium Succinate (Solu-Medrol) 125 mg IVPUSH ONETIME ONE Stop: 09/16/18 20:54 Last Admin: 09/16/18 21:22 Dose: 125 mg Methylprednisolone Sodium Succinate (Solu-Medrol) 125 mg IVPUSH Q8H [facility] Last Admin: 09/19/18 20:49 Dose: 125 mg Nitroglycerin (Nitro-Dur 0.2 Mg/Hr) 0.2 mg TRDERM ONETIME ONE Stop: 09/17/18 03:55 Last Admin: 09/17/18 04:11 Dose: Not Given Nitroglycerin (Nitro-Bid 2%) 1 gm TOP ONETIME ONE Stop: 09/17/18 04:11 Last Admin: 09/17/18 04:18 Dose: 1 gm Potassium Chloride (Klor-Con 8) 8 meq PO TID [facility] Last Admin: 09/17/18 13:54 Dose: Not Given Triamterene/HCTZ (Maxzide 25-37.5 Mg) 1 each PO QPM [facility] Last Admin: 09/19/18 17:19 Dose: 1 each Vancomycin HCl (Pharmacy To Dose - Vancomycin) 1 dose .XX ASDIRECTED ONE Stop: 09/17/18 09:16 Last Admin: 09/17/18 09:49 Dose: Not Given - Exam Quality Assessment: Supplemental Oxygen General: Alert, Oriented, Cooperative, No Acute Distress HEENT: Pupils Equal, Pupils Reactive, EOMI Neck: Supple, Trachea Midline, JVD Lungs: Normal Respiratory Effort, Decreased Breath Sounds, Rales 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: Regular Rate, Irregular Rhythm, Murmurs (3-6 holosystolic) GI/Abdominal Exam: Normal Bowel Sounds, Soft, No Distention (Female) Exam: Deferred Back Exam: Normal Inspection (Appropriate for age, kyphosis), Full Range of Motion Extremities: Normal Inspection, Normal Range of Motion, No Pedal Edema Skin: Warm, Dry, Intact, Ecchymosis (Bilateral shins) Neurological: No New Focal Deficit Psy/Mental Status: Alert, Normal Affect, Normal Mood - Problem List & Annotations (1) Acute respiratory failure with hypoxia SNOMED Code(s): 98936753, 140438903 Code(s): J96.01 - ACUTE RESPIRATORY FAILURE WITH HYPOXIA Status: Acute Priority: High Current Visit: Yes Annotation/Comment:: Improved (2) Pneumonia SNOMED Code(s): 051127683 Code(s): J18.9 - PNEUMONIA, UNSPECIFIED ORGANISM Status: Acute Priority: High Current Visit: Yes Qualifiers: Pneumonia type: due to unspecified organism Laterality: left Lung location: lower lobe of lung Qualified Code(s): J18.1 - Lobar pneumonia, unspecified organism (3) Chronic anticoagulation SNOMED Code(s): 200309354 Code(s): Z79.01 - SHELTER (CURRENT) USE OF ANTICOAGULANTS Status: Chronic Priority: High Current Visit: Yes (4) Chronic kidney disease (CKD), stage III (moderate) SNOMED Code(s): 177508002 Code(s): N18.3 - CHRONIC KIDNEY DISEASE, STAGE 3 (MODERATE) Status: Chronic Priority: High Current Visit: Yes (5) Fatigue SNOMED Code(s): 27949991 Code(s): R53.83 - OTHER FATIGUE Status: Chronic Priority: Medium Current Visit: Yes Qualifiers: Fatigue type: due to excessive exertion Encounter type: initial encounter Qualified Code(s): T73.3XXA - Exhaustion due to excessive exertion, initial encounter (6) Mitral valve regurgitation SNOMED Code(s): 07236163 Code(s): I34.0 - NONRHEUMATIC MITRAL (VALVE) INSUFFICIENCY Status: Chronic Priority: High Current Visit: Yes Qualifiers: Cardiac valve disease etiology: nonrheumatic Qualified Code(s): I34.0 - Nonrheumatic mitral (valve) insufficiency (7) Troponin level elevated SNOMED Code(s): 520669681, 872100309, 772564270 Code(s): R74.8 - ABNORMAL LEVELS OF OTHER SERUM ENZYMES Status: Acute Priority: High Current Visit: Yes (8) Atrial fibrillation with RVR SNOMED Code(s): 397504327868151 Code(s): I48.91 - UNSPECIFIED ATRIAL FIBRILLATION Status: Chronic Priority: High Current Visit: Yes - Problem List Review Problem List Initiated/Reviewed/Updated: Yes - My Orders Last 24 Hours: My Active Orders 09/22/18 09:31 Consult to Physician [CONS] Routine 09/22/18 09:32 Notify Provider Consults [RC] ASDIRECTED 09/22/18 10:45 Blood Glucose Check, Bedside [RC] TIDAC 09/22/18 11:30 Insulin Aspart [NovoLOG] See Protocol SUBCUT TIDAC 09/23/18 06:30 D5 1/2 NS w/ 40 mEq/L KCl 1,000 ml IV ASDIRECTED 09/23/18 07:59 LORazepam [Ativan] 0.5 mg PO Q6H PRN 09/23/18 10:00 VANCOMYCIN TROUGH [CHEM] Routine - Plan Plan:: The patient is an 83-year-old lady who was doing much better today. She originally had been admitted to acute hospitalization secondary to hospital- acquired pneumonia. The patient also has been followed by breakfast supervisor, , and it was felt that her troponins elevated do not require further follow-up. The patient has also been noted to have severe mitral valve regurgitation and is has been evident in her physical examination. The patient will be kept on telemetry to monitor her heart rate and rhythm. The patient will also be kept on oxygen to keep her saturations above 90%. We'll continue with patient on her current antibiotics for at least 1-2 days. Lasix will also be continued to help with pulmonary edema. We'll monitor her creatinine for signs of dehydration associated with the use of Lasix. Patient was also noted to be hypokalemic this morning and this was replaced with 40 mEq of potassium IV. Repeat laboratory studies have been ordered for this patient.
--- NOTE | 2018-09-23 09:52 | CR ---
EXAMINATION: Two-view chest (PA and Lateral views). HISTORY: CHF. Comparison: 09/20/2018. FINDINGS: The trachea is midline. The cardiomediastinal silhouette is within normal limits. Small left pleural effusion and likely a minimal right pleural effusion. Chronic interstitial prominence. Aortic calcifications are noted. Osseous structures appear osteopenic. IMPRESSION: 1. Small left and minimal right pleural effusion. 2. Chronic interstitial prominence.
[2018-09-23] MEDS: D5 1/2 NS w/ 40 mEq/L KCl 1,000 ML IV SCH (10:11)
[2018-09-23] MEDS ORDERED: Furosemide 40 MG/4 ML VIAL IVPUSH ONE (10:12)
--- NOTE | 2018-09-23 13:20 | ECHO ---
EXAM DATE: 09/16/18 PATIENT'S AGE: 83 The echocardiogram report can be seen in this patient's EMR (Electronic Medical Record) in the Reports section. The report has also been scanned into PACs. AJ
[2018-09-23] MEDS ORDERED: Potassium Chloride 20 MEQ Tab.ER PO ONE (16:11)
[2018-09-23] MEDS ORDERED: Furosemide 100 MG/10 ML SDV IVPUSH ONE (17:15)
[2018-09-23] MEDS: Temazepam 15 MG Cap PO PRN (22:28)
[2018-09-24] MEDS: Piperacillin/Tazobactam 2.25 GM in Sodium Chloride 0.9% 50 ML IV SCH ×3 (01:11→18:31)
[2018-09-24] MEDS: Levothyroxine 100 MCG Tab PO SCH (06:34)
[2018-09-24] MEDS: methylPREDNISolone Sodium Succinate 125 MG/2 ML SDV IVPUSH SCH ×3 (06:34→22:35)
[2018-09-24] MEDS: D5 1/2 NS w/ 40 mEq/L KCl 1,000 ML IV SCH (07:00)
[2018-09-24] MEDS: Insulin Aspart 100 Units/ML 3 ML Pen SUBCUT SCH ×3 (08:16→18:24)
[2018-09-24] MEDS: Rosuvastatin 10 MG Tab PO SCH (08:29)
[2018-09-24] MEDS: Metoprolol Succinate 100 MG Tab.ER PO SCH (08:29)
[2018-09-24] MEDS: Potassium Chloride 8 MEQ Tab.ER PO SCH ×2 (08:29→12:28)
[2018-09-24] MEDS: Diltiazem 180 MG Cap.CD PO SCH (08:30)
[2018-09-24] MEDS: Clopidogrel 75 MG Tab PO SCH (08:30)
[2018-09-24] MEDS ORDERED: Furosemide 100 MG/10 ML SDV IVPUSH ONE (09:14)
--- NOTE | 2018-09-24 12:03 | PCM.PN ---
- General Info Date of Service: 09/24/18 Admission Dx/Problem (Free Text): Admission Diagnosis/Problem Admission Diagnosis/Problem Pneumonia, HAP Subjective Update: The patient is an 83-year-old lady who had been admitted to hospitalization secondary to concern for hospital-acquired pneumonia. Prior to admission the patient was discharged from [facility] with a diagnosis of pneumonia. The patient had several days in the intensive care unit on BiPAP and today the patient is doing better. She says that she has been feeling weak and fatigued and she is very concerned about going home to early. Her breathing is improved. She has been tolerating her diet. She has no other complaints today. Functional Status: Reports: Pain Controlled, Tolerating Diet - Review of Systems General: Reports: Weakness, Fatigue HEENT: Reports: No Symptoms Pulmonary: Reports: No Symptoms 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: Reports: No Symptoms Gastrointestinal: Reports: No Symptoms Genitourinary: Reports: No Symptoms Musculoskeletal: Reports: No Symptoms Skin: Reports: No Symptoms Neurological: Reports: No Symptoms Psychiatric: Reports: No Symptoms - Patient Data Vitals - Most Recent: Last Vital Signs Temp 36.8 C 09/24/18 08:00 Pulse 103 H 09/24/18 08:29 Resp 19 09/24/18 08:00 BP 121/65 09/24/18 08:29 Pulse Ox 99 09/24/18 08:00 Weight - Most Recent: 59.602 kg I&O - Last 24 Hours: Intake & Output 09/23/18 09/24/18 09/24/18 22:59 06:59 14:59 Intake Total 1184 250 50 Output Total 1300 900 Balance -116 -650 50 Lab Results Last 24 Hours: Laboratory Results - last 24 hr 09/23/18 09/23/18 09/24/18 Range/Units 13:08 17:09 04:40 WBC 12.24 H (4.0-11.0) K/uL RBC 3.34 L (4.30-5.90) M/uL Hgb 9.7 L (12.0-16.0) g/dL Hct 31.6 L (36.0-46.0) % MCV 94.6 (80.0-98.0) fL MCH 29.0 (27.0-32.0) pg MCHC 30.7 L (31.0-37.0) g/dL RDW Std Deviation 51.3 (28.0-62.0) fl RDW Coeff of Erickson 15 (11.0-15.0) % Plt Count 220 (150-400) K/uL MPV 10.90 (7.40-12.00) fL Neut % (Auto) 94.7 H (48.0-80.0) % Lymph % (Auto) 1.6 L (16.0-40.0) % [place] % (Auto) 3.7 (0.0-15.0) % Eos % (Auto) 0.0 (0.0-7.0) % Baso % (Auto) 0.0 (0.0-1.5) % Neut # (Auto) 11.6 H (1.4-5.7) K/uL Lymph # (Auto) 0.2 L (0.6-2.4) K/uL [place] # (Auto) 0.5 (0.0-0.8) K/uL Eos # (Auto) 0.0 (0.0-0.7) K/uL Baso # (Auto) 0.0 (0.0-0.1) K/uL Nucleated RBC % 0.2 /100WBC Nucleated RBCs # 0 K/uL INR Sodium (136-145) mmol/L Potassium 2.6 L (3.5-5.1) mmol/L Chloride (98-107) mmol/L Carbon Dioxide (21.0-32.0) mmol/L BUN (7.0-18.0) mg/dL Creatinine (0.6-1.0) mg/dL Est Cr Clr Drug Dosing mL/min Estimated GFR (MDRD) ml/min Glucose (74-106) mg/dL POC Glucose 199 H (60-110) mg/dL Calcium (8.5-10.1) mg/dL 09/24/18 09/24/18 09/24/18 Range/Units 04:40 06:45 09:31 WBC (4.0-11.0) K/uL RBC (4.30-5.90) M/uL Hgb (12.0-16.0) g/dL Hct (36.0-46.0) % MCV (80.0-98.0) fL MCH (27.0-32.0) pg MCHC (31.0-37.0) g/dL RDW Std Deviation (28.0-62.0) fl RDW Coeff of Erickson (11.0-15.0) % Plt Count (150-400) K/uL MPV (7.40-12.00) fL Neut % (Auto) (48.0-80.0) % Lymph % (Auto) (16.0-40.0) % [place] % (Auto) (0.0-15.0) % Eos % (Auto) (0.0-7.0) % Baso % (Auto) (0.0-1.5) % Neut # (Auto) (1.4-5.7) K/uL Lymph # (Auto) (0.6-2.4) K/uL [place] # (Auto) (0.0-0.8) K/uL Eos # (Auto) (0.0-0.7) K/uL Baso # (Auto) (0.0-0.1) K/uL Nucleated RBC % /100WBC Nucleated RBCs # K/uL INR 1.20 Sodium 143 (136-145) mmol/L Potassium 2.6 L (3.5-5.1) mmol/L Chloride 102 (98-107) mmol/L Carbon Dioxide 33.9 H (21.0-32.0) mmol/L BUN 52 H (7.0-18.0) mg/dL Creatinine 1.8 H (0.6-1.0) mg/dL Est Cr Clr Drug Dosing 20.24 mL/min Estimated GFR (MDRD) 26.8 ml/min Glucose 252 H (74-106) mg/dL POC Glucose 259 H (60-110) mg/dL Calcium 8.0 L (8.5-10.1) mg/dL 09/24/18 Range/Units 11:32 WBC (4.0-11.0) K/uL RBC (4.30-5.90) M/uL Hgb (12.0-16.0) g/dL Hct (36.0-46.0) % MCV (80.0-98.0) fL MCH (27.0-32.0) pg MCHC (31.0-37.0) g/dL RDW Std Deviation (28.0-62.0) fl RDW Coeff of Erickson (11.0-15.0) % Plt Count (150-400) K/uL MPV (7.40-12.00) fL Neut % (Auto) (48.0-80.0) % Lymph % (Auto) (16.0-40.0) % [place] % (Auto) (0.0-15.0) % Eos % (Auto) (0.0-7.0) % Baso % (Auto) (0.0-1.5) % Neut # (Auto) (1.4-5.7) K/uL Lymph # (Auto) (0.6-2.4) K/uL [place] # (Auto) (0.0-0.8) K/uL Eos # (Auto) (0.0-0.7) K/uL Baso # (Auto) (0.0-0.1) K/uL Nucleated RBC % /100WBC Nucleated RBCs # K/uL INR Sodium (136-145) mmol/L Potassium (3.5-5.1) mmol/L Chloride (98-107) mmol/L Carbon Dioxide (21.0-32.0) mmol/L BUN (7.0-18.0) mg/dL Creatinine (0.6-1.0) mg/dL Est Cr Clr Drug Dosing mL/min Estimated GFR (MDRD) ml/min Glucose (74-106) mg/dL POC Glucose 230 H (60-110) mg/dL Calcium (8.5-10.1) mg/dL Med Orders - Current: Current Medications Acetaminophen (Tylenol) 650 mg PO Q4H PRN PRN Reason: Pain (mild 1-3) Acetaminophen/Codeine Phosphate (Tylenol With Codeine No.3 300mg/30mg) 1 tab PO BID PRN PRN Reason: Pain Last Admin: 09/22/18 21:06 Dose: 1 tab Albuterol/Ipratropium (Duoneb 3.0-0.5 Mg/3 Ml) 3 ml NEB Q4HRRT PRN PRN Reason: Shortness of Breath Diltiazem HCl (Cardizem Cd) 180 mg PO DAILY YAKELIN Last Admin: 09/24/18 08:30 Dose: 180 mg Docusate Sodium (Colace) 100 mg PO BID PRN PRN Reason: Constipation Last Admin: 09/22/18 21:06 Dose: 100 mg Piperacillin Sod/Tazobactam (Sod 2.25 gm/ Sodium Chloride) 50 mls @ 100 mls/hr IV Q8H [facility] Last Admin: 09/24/18 08:35 Dose: 100 mls/hr Vancomycin HCl 1 gm/ Sodium (Chloride) 250 mls @ 166.667 mls/hr IV Q24H [facility] Last Admin: 09/22/18 11:23 Dose: 166.667 mls/hr Potassium Chloride/Dextrose/Sod Cl (D5 1/2 Ns W/ 40 Meq/L Kcl) 1,000 mls @ 75 mls/hr IV ASDIRECTED [facility] Last Admin: 09/24/18 07:00 Dose: 75 mls/hr Vancomycin HCl 0.75 gm/ Sodium (Chloride) 250 mls @ 166.667 mls/hr IV Q24H [facility] Last Admin: 09/23/18 12:03 Dose: 166.667 mls/hr Insulin Aspart (Novolog) 0 unit SUBCUT TIDAC [facility]; Protocol Last Admin: 09/24/18 08:16 Dose: 3 units Levothyroxine Sodium (Synthroid) 100 mcg PO ACBREAKFAST [facility] Last Admin: 09/24/18 06:34 Dose: 100 mcg Lorazepam (Ativan) 0.5 mg PO Q6H PRN PRN Reason: Anxiety Methylprednisolone Sodium Succinate (Solu-Medrol) 60 mg IVPUSH Q8H [facility] Last Admin: 09/24/18 06:34 Dose: 60 mg Metoprolol Succinate (Toprol Xl) 100 mg PO DAILY [facility] Last Admin: 09/24/18 08:29 Dose: 100 mg Morphine Sulfate (Morphine) 1 mg IVPUSH Q2H PRN PRN Reason: Pain (severe 7-10) Oxycodone HCl (Oxycodone) 5 mg PO Q4H PRN PRN Reason: Pain (severe 7-10) Potassium Chloride (Klor-Con 8) 8 meq PO TIDMEALS [facility] Last Admin: 09/24/18 08:29 Dose: 8 meq Rosuvastatin Calcium (Crestor) 20 mg PO DAILY [facility] Last Admin: 09/24/18 08:29 Dose: 20 mg Temazepam (Restoril) 15 mg PO BEDTIME PRN PRN Reason: Sleep Last Admin: 09/23/18 22:28 Dose: 15 mg Warfarin Sodium (Coumadin) 5 mg PO DAILY@1400 [facility] Discontinued Medications Albuterol/Ipratropium (Duoneb 3.0-0.5 Mg/3 Ml) 3 ml NEB ONETIME ONE Stop: 09/16/18 20:54 Last Admin: 09/16/18 21:06 Dose: 3 ml Albuterol/Ipratropium (Duoneb 3.0-0.5 Mg/3 Ml) 3 ml NEB Q4HRRT PRN PRN Reason: Shortness of Breath Last Admin: 09/19/18 22:59 Dose: 3 ml Albuterol/Ipratropium (Duoneb 3.0-0.5 Mg/3 Ml) 3 ml NEB Q4HRRT [facility] Last Admin: 09/22/18 10:51 Dose: Not Given Amlodipine Besylate (Norvasc) 5 mg PO QPM [facility] Last Admin: 09/22/18 18:32 Dose: 5 mg Apixaban ([facility]is) [facility] Last Admin: 09/22/18 09:24 Dose: 2.5 mg Ceftriaxone Sodium (Rocephin) 1 gm IM ONETIME ONE Stop: 09/16/18 22:05 Last Admin: 09/16/18 22:16 Dose: Not Given Clopidogrel Bisulfate (Plavix) 75 mg PO QAM [facility] Last Admin: 09/24/18 08:30 Dose: 75 mg Furosemide (Lasix) 20 mg PO BID [facility] Last Admin: 09/19/18 20:49 Dose: 20 mg Furosemide (Lasix) 20 mg IVPUSH NOW ONE Stop: 09/19/18 10:01 Last Admin: 09/19/18 09:49 Dose: 20 mg Furosemide (Lasix) 20 mg IVPUSH NOW ONE Stop: 09/20/18 01:30 Last Admin: 09/20/18 02:06 Dose: Not Given Furosemide (Lasix) Confirm Administered Dose 20 mg .ROUTE .STK-MED ONE Stop: 09/20/18 01:32 Last Admin: 09/20/18 01:37 Dose: 20 mg Furosemide (Lasix) 20 mg IVPUSH BIDDIURETIC [facility] Last Admin: 09/22/18 13:22 Dose: 20 mg Furosemide (Lasix) 40 mg IVPUSH NOW ONE Stop: 09/22/18 15:57 Last Admin: 09/22/18 16:07 Dose: Not Given Furosemide (Lasix) 60 mg IVPUSH ONETIME ONE Stop: 09/20/18 16:11 Furosemide (Lasix) 60 mg IVPUSH ONETIME ONE Stop: 09/22/18 16:31 Last Admin: 09/22/18 16:41 Dose: 60 mg Furosemide (Lasix) 60 mg IVPUSH NOW ONE Stop: 09/23/18 10:13 Last Admin: 09/23/18 11:36 Dose: 60 mg Furosemide (Lasix) 60 mg IVPUSH NOW ONE Stop: 09/23/18 17:16 Last Admin: 09/23/18 18:27 Dose: 60 mg Furosemide (Lasix) 60 mg IVPUSH NOW ONE Stop: 09/24/18 09:15 Last Admin: 09/24/18 11:07 Dose: 60 mg Sodium Chloride (Normal Saline) 1,000 mls @ 125 mls/hr IV STAT [facility] Last Admin: 09/16/18 21:21 Dose: 125 mls/hr Azithromycin 500 mg/ Sodium (Chloride) 250 mls @ 250 mls/hr IV ONETIME ONE Stop: 09/16/18 23:03 Last Admin: 09/16/18 22:34 Dose: Not Given Ceftriaxone Sodium 1 gm/ (Sodium Chloride) 50 mls @ 100 mls/hr IV ONETIME ONE Stop: 09/16/18 22:43 Last Admin: 09/16/18 22:34 Dose: Not Given Levofloxacin/Dextrose 500 mg/ (Premix) 100 mls @ 100 mls/hr IV ONETIME ONE Stop: 09/16/18 23:30 Last Admin: 09/16/18 22:51 Dose: 100 mls/hr Sodium Chloride (Normal Saline) 1,000 mls @ 75 mls/hr IV ASDIRECTED [facility] Last Admin: 09/19/18 08:54 Dose: 75 mls/hr Vancomycin HCl 0.75 gm/ Sodium (Chloride) 250 mls @ 166.667 mls/hr IV Q24H [facility] Last Admin: 09/20/18 10:55 Dose: Not Given Insulin Aspart (Novolog) 0 unit SUBCUT Q4H [facility]; Protocol Last Admin: 09/22/18 10:46 Dose: 3 unit Lisinopril (Prinivil) 10 mg PO DAILY [facility] Last Admin: 09/19/18 08:40 Dose: 10 mg Lorazepam (Ativan) 0.5 mg PO ONETIME ONE Stop: 09/22/18 15:06 Last Admin: 09/23/18 10:12 Dose: Not Given Methylprednisolone Sodium Succinate (Solu-Medrol) 125 mg IVPUSH ONETIME ONE Stop: 09/16/18 20:54 Last Admin: 09/16/18 21:22 Dose: 125 mg Methylprednisolone Sodium Succinate (Solu-Medrol) 125 mg IVPUSH Q8H [facility] Last Admin: 09/19/18 20:49 Dose: 125 mg Nitroglycerin (Nitro-Dur 0.2 Mg/Hr) 0.2 mg TRDERM ONETIME ONE Stop: 09/17/18 03:55 Last Admin: 09/17/18 04:11 Dose: Not Given Nitroglycerin (Nitro-Bid 2%) 1 gm TOP ONETIME ONE Stop: 09/17/18 04:11 Last Admin: 09/17/18 04:18 Dose: 1 gm Potassium Chloride (Klor-Con 8) 8 meq PO TID [facility] Last Admin: 09/17/18 13:54 Dose: Not Given Potassium Chloride (Klor-Con M20) 20 meq PO ONETIME ONE Stop: 09/23/18 16:12 Last Admin: 09/23/18 16:58 Dose: 20 meq Triamterene/HCTZ (Maxzide 25-37.5 Mg) 1 each PO QPM [facility] Last Admin: 09/19/18 17:19 Dose: 1 each Vancomycin HCl (Pharmacy To Dose - Vancomycin) 1 dose .XX ASDIRECTED ONE Stop: 09/17/18 09:16 Last Admin: 09/17/18 09:49 Dose: Not Given - Exam Quality Assessment: Supplemental Oxygen General: Alert, Oriented, Cooperative, No Acute Distress HEENT: Pupils Equal, Pupils Reactive, EOMI Neck: Supple, Trachea Midline, JVD Lungs: Decreased Breath Sounds, Rales (bibasilar) 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: Regular Rate, Irregular Rhythm, Murmurs GI/Abdominal Exam: Normal Bowel Sounds, Soft, Non-Tender, No Distention (Female) Exam: Deferred Back Exam: Normal Inspection (Appropriate for age) Extremities: Normal Inspection, No Pedal Edema Skin: Warm, Dry, Intact Neurological: No New Focal Deficit Psy/Mental Status: Alert, Normal Affect, Normal Mood - Problem List & Annotations (1) Acute respiratory failure with hypoxia SNOMED Code(s): 97852793, 166750637 Code(s): J96.01 - ACUTE RESPIRATORY FAILURE WITH HYPOXIA Status: Acute Priority: High Current Visit: Yes Annotation/Comment:: Improved (2) Hyperglycemia SNOMED Code(s): 05038139 Code(s): R73.9 - HYPERGLYCEMIA, UNSPECIFIED Status: Acute Priority: High Current Visit: Yes (3) Pneumonia SNOMED Code(s): 297179701 Code(s): J18.9 - PNEUMONIA, UNSPECIFIED ORGANISM Status: Acute Priority: High Current Visit: Yes Qualifiers: Pneumonia type: due to unspecified organism Laterality: left Lung location: lower lobe of lung Qualified Code(s): J18.1 - Lobar pneumonia, unspecified organism (4) Chronic anticoagulation SNOMED Code(s): 018136926 Code(s): Z79.01 - INTERMEDIATE (CURRENT) USE OF ANTICOAGULANTS Status: Chronic Priority: High Current Visit: Yes (5) Chronic kidney disease (CKD), stage III (moderate) SNOMED Code(s): 960170629 Code(s): N18.3 - CHRONIC KIDNEY DISEASE, STAGE 3 (MODERATE) Status: Chronic Priority: High Current Visit: Yes (6) Fatigue SNOMED Code(s): 73530509 Code(s): R53.83 - OTHER FATIGUE Status: Chronic Priority: Medium Current Visit: Yes Qualifiers: Fatigue type: due to excessive exertion Encounter type: initial encounter Qualified Code(s): T73.3XXA - Exhaustion due to excessive exertion, initial encounter (7) Mitral valve regurgitation SNOMED Code(s): 71863259 Code(s): I34.0 - NONRHEUMATIC MITRAL (VALVE) INSUFFICIENCY Status: Chronic Priority: High Current Visit: Yes Qualifiers: Cardiac valve disease etiology: nonrheumatic Qualified Code(s): I34.0 - Nonrheumatic mitral (valve) insufficiency (8) Troponin level elevated SNOMED Code(s): 349296790, 889666717, 205071815 Code(s): R74.8 - ABNORMAL LEVELS OF OTHER SERUM ENZYMES Status: Acute Priority: High Current Visit: Yes (9) Atrial fibrillation with RVR SNOMED Code(s): 350025766609475 Code(s): I48.91 - UNSPECIFIED ATRIAL FIBRILLATION Status: Chronic Priority: High Current Visit: Yes - Problem List Review Problem List Initiated/Reviewed/Updated: Yes - My Orders Last 24 Hours: My Active Orders 09/23/18 11:15 Vancomycin 0.75 gm Sodium Chloride 0.9% [Normal Saline] 250 ml IV Q24H 09/24/18 Breakfast Regular Diet [DIET] 09/25/18 10:00 VANCOMYCIN TROUGH [CHEM] Routine - Plan Plan:: The patient is an 83-year-old lady who was doing much better today. She originally had been admitted to acute hospitalization secondary to hospital- acquired pneumonia. The patient also has been followed by counter professional, , and it was felt that her troponins elevated do not require further follow-up. The patient has also been noted to have severe mitral valve regurgitation and is has been evident in her physical examination. The patient will be kept on telemetry to monitor her heart rate and rhythm. The patient will also be kept on oxygen to keep her saturations above 90%. We'll continue with patient on her current antibiotics for at least 1-2 days. Lasix will also be continued to help with pulmonary edema. We'll monitor her creatinine for signs of dehydration associated with the use of Lasix. Patient was also noted to be hypokalemic this morning and this was replaced with 40 mEq of potassium IV. Repeat laboratory studies have been ordered for this patient. The patient is an 83-year-old lady who is doing better today. I suspect that some of the patient's concern with regards to going home is due to her stent in the ICU while on BiPAP. The patient is also being followed by cardiology. She's been noted to have severe mitral valve regurgitation is noted on her 2-D echocardiogram. Scout Leaser is felt that her troponins do not require further workup at this time. Patient had been offered valve replacement in tertiary care center however they thought that the patient may been too high risk for prospective surgery. We'll continue with medical treatment. Patient is doing better with the use of diuretics and these will be continued at home. The patient is also been noted to have marked episodes of hyperglycemia without a previous history of diabetes mellitus. Hemoglobin A1c has been ordered. The patient will also have her CBC monitored for hemoglobin drops below 7.0 g/dL which may require transfusion. This is secondary to the patient's chronic kidney disease. Also the patient's potassium be monitored and replaced as necessary. We'll keep the patient on oxygen to keep her saturations above 90%. I suspect that the patient should be appropriate for discharge with home health in 1-2 days.
[2018-09-24 13:04] LABS: HEMOGLOBIN A1C 6.6 % (4.5-6.2)
[2018-09-24] MEDS ORDERED: Furosemide 40 MG/4 ML VIAL IVPUSH ONE (17:03)
[2018-09-24] MEDS ORDERED: Aspirin 81 MG Tab.Chew PO SCH (17:30)
[2018-09-24] MEDS: Potassium Chloride 20 MEQ Tab.ER PO SCH ×2 (18:28→22:35)
[2018-09-25] MEDS: Piperacillin/Tazobactam 2.25 GM in Sodium Chloride 0.9% 50 ML IV SCH ×3 (01:47→17:32)
[2018-09-25] MEDS: Levothyroxine 100 MCG Tab PO SCH (07:00)
[2018-09-25] MEDS: Insulin Aspart 100 Units/ML 3 ML Pen SUBCUT SCH ×3 (08:01→18:27)
[2018-09-25] MEDS: Rosuvastatin 10 MG Tab PO SCH (08:07)
[2018-09-25] MEDS: Aspirin 81 MG Tab.Chew PO SCH (08:08)
[2018-09-25] MEDS: Metoprolol Succinate 100 MG Tab.ER PO SCH (08:08)
[2018-09-25] MEDS: Diltiazem 180 MG Cap.CD PO SCH (08:09)
--- NOTE | 2018-09-25 12:05 | PCM.PN ---
- General Info Date of Service: 09/25/18 Admission Dx/Problem (Free Text): Admission Diagnosis/Problem Admission Diagnosis/Problem Pneumonia, HAP Subjective Update: The patient is an 83-year-old lady who has been hospitalized secondary to hospital-acquired pneumonia. She is also been evaluated by cardiology and found to have severe mitral valve regurgitation and she has been on Lasix for diuresis. The patient is still feeling very weak. She does not feel like she is appropriate to go home. The patient says that she has not walked very much. She is still somewhat short of breath. Functional Status: Reports: Pain Controlled, Tolerating Diet - Review of Systems General: Reports: Weakness, Fatigue HEENT: Reports: No Symptoms Pulmonary: Reports: Shortness of Breath 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: Reports: No Symptoms Gastrointestinal: Reports: No Symptoms Genitourinary: Reports: No Symptoms Musculoskeletal: Reports: No Symptoms Skin: Reports: No Symptoms Neurological: Reports: No Symptoms Psychiatric: Reports: No Symptoms - Patient Data Vitals - Most Recent: Last Vital Signs Temp 36.6 C 09/25/18 08:00 Pulse 99 09/25/18 08:08 Resp 19 09/25/18 08:00 BP 122/64 09/25/18 08:08 Pulse Ox 96 09/25/18 08:00 Weight - Most Recent: 58.786 kg I&O - Last 24 Hours: Intake & Output 09/24/18 09/25/18 09/25/18 22:59 06:59 14:59 Intake Total 1797 341 50 Output Total 1500 1000 Balance 297 -659 50 Lab Results Last 24 Hours: Laboratory Results - last 24 hr 09/24/18 09/24/18 09/25/18 Range/Units 04:40 16:45 05:46 WBC 15.11 H (4.0-11.0) K/uL RBC 3.45 L (4.30-5.90) M/uL Hgb 10.3 L (12.0-16.0) g/dL Hct 32.7 L (36.0-46.0) % MCV 94.8 (80.0-98.0) fL MCH 29.9 (27.0-32.0) pg MCHC 31.5 (31.0-37.0) g/dL RDW Std Deviation 51.5 (28.0-62.0) fl RDW Coeff of Erickson 15 (11.0-15.0) % Plt Count 223 (150-400) K/uL MPV 11.30 (7.40-12.00) fL Neut % (Auto) 93.6 H (48.0-80.0) % Lymph % (Auto) 4.8 L (16.0-40.0) % [place] % (Auto) 1.5 (0.0-15.0) % Eos % (Auto) 0.0 (0.0-7.0) % Baso % (Auto) 0.1 (0.0-1.5) % Neut # (Auto) 14.1 H (1.4-5.7) K/uL Lymph # (Auto) 0.7 (0.6-2.4) K/uL [place] # (Auto) 0.2 (0.0-0.8) K/uL Eos # (Auto) 0.0 (0.0-0.7) K/uL Baso # (Auto) 0.0 (0.0-0.1) K/uL Nucleated RBC % 0.0 /100WBC Nucleated RBCs # 0 K/uL INR Sodium (136-145) mmol/L Potassium (3.5-5.1) mmol/L Chloride (98-107) mmol/L Carbon Dioxide (21.0-32.0) mmol/L BUN (7.0-18.0) mg/dL Creatinine (0.6-1.0) mg/dL Est Cr Clr Drug Dosing mL/min Estimated GFR (MDRD) ml/min Glucose (74-106) mg/dL POC Glucose 209 H (60-110) mg/dL Hemoglobin A1c 6.6 H (4.5-6.2) % Calcium (8.5-10.1) mg/dL B-Natriuretic Peptide (<100) PG/ML Vancomycin Trough (5.0-10.0) ug/mL 09/25/18 09/25/18 09/25/18 Range/Units 05:46 05:46 09:12 WBC (4.0-11.0) K/uL RBC (4.30-5.90) M/uL Hgb (12.0-16.0) g/dL Hct (36.0-46.0) % MCV (80.0-98.0) fL MCH (27.0-32.0) pg MCHC (31.0-37.0) g/dL RDW Std Deviation (28.0-62.0) fl RDW Coeff of Erickson (11.0-15.0) % Plt Count (150-400) K/uL MPV (7.40-12.00) fL Neut % (Auto) (48.0-80.0) % Lymph % (Auto) (16.0-40.0) % [place] % (Auto) (0.0-15.0) % Eos % (Auto) (0.0-7.0) % Baso % (Auto) (0.0-1.5) % Neut # (Auto) (1.4-5.7) K/uL Lymph # (Auto) (0.6-2.4) K/uL [place] # (Auto) (0.0-0.8) K/uL Eos # (Auto) (0.0-0.7) K/uL Baso # (Auto) (0.0-0.1) K/uL Nucleated RBC % /100WBC Nucleated RBCs # K/uL INR Sodium 146 H (136-145) mmol/L Potassium 3.4 L (3.5-5.1) mmol/L Chloride 103 (98-107) mmol/L Carbon Dioxide 33.0 H (21.0-32.0) mmol/L BUN 53 H (7.0-18.0) mg/dL Creatinine 1.8 H (0.6-1.0) mg/dL Est Cr Clr Drug Dosing 20.24 mL/min Estimated GFR (MDRD) 26.8 ml/min Glucose 206 H (74-106) mg/dL POC Glucose (60-110) mg/dL Hemoglobin A1c (4.5-6.2) % Calcium 8.2 L (8.5-10.1) mg/dL B-Natriuretic Peptide 1525 H (<100) PG/ML Vancomycin Trough 27.6 H (5.0-10.0) ug/mL 09/25/18 Range/Units 09:12 WBC (4.0-11.0) K/uL RBC (4.30-5.90) M/uL Hgb (12.0-16.0) g/dL Hct (36.0-46.0) % MCV (80.0-98.0) fL MCH (27.0-32.0) pg MCHC (31.0-37.0) g/dL RDW Std Deviation (28.0-62.0) fl RDW Coeff of Erickson (11.0-15.0) % Plt Count (150-400) K/uL MPV (7.40-12.00) fL Neut % (Auto) (48.0-80.0) % Lymph % (Auto) (16.0-40.0) % [place] % (Auto) (0.0-15.0) % Eos % (Auto) (0.0-7.0) % Baso % (Auto) (0.0-1.5) % Neut # (Auto) (1.4-5.7) K/uL Lymph # (Auto) (0.6-2.4) K/uL [place] # (Auto) (0.0-0.8) K/uL Eos # (Auto) (0.0-0.7) K/uL Baso # (Auto) (0.0-0.1) K/uL Nucleated RBC % /100WBC Nucleated RBCs # K/uL INR 1.17 Sodium (136-145) mmol/L Potassium (3.5-5.1) mmol/L Chloride (98-107) mmol/L Carbon Dioxide (21.0-32.0) mmol/L BUN (7.0-18.0) mg/dL Creatinine (0.6-1.0) mg/dL Est Cr Clr Drug Dosing mL/min Estimated GFR (MDRD) ml/min Glucose (74-106) mg/dL POC Glucose (60-110) mg/dL Hemoglobin A1c (4.5-6.2) % Calcium (8.5-10.1) mg/dL B-Natriuretic Peptide (<100) PG/ML Vancomycin Trough (5.0-10.0) ug/mL Med Orders - Current: Current Medications Acetaminophen (Tylenol) 650 mg PO Q4H PRN PRN Reason: Pain (mild 1-3) Acetaminophen/Codeine Phosphate (Tylenol With Codeine No.3 300mg/30mg) 1 tab PO BID PRN PRN Reason: Pain Last Admin: 09/22/18 21:06 Dose: 1 tab Albuterol/Ipratropium (Duoneb 3.0-0.5 Mg/3 Ml) 3 ml NEB Q4HRRT PRN PRN Reason: Shortness of Breath Aspirin (Aspirin) 81 mg PO DAILY [facility] [place] Last Admin: 09/25/18 08:08 Dose: 81 mg Diltiazem HCl (Cardizem Cd) 180 mg PO DAILY [facility] [place] Last Admin: 09/25/18 08:09 Dose: 180 mg Docusate Sodium (Colace) 100 mg PO BID PRN PRN Reason: Constipation Last Admin: 09/22/18 21:06 Dose: 100 mg Furosemide (Lasix) 60 mg IVPUSH BID [facility] [place] Piperacillin Sod/Tazobactam (Sod 2.25 gm/ Sodium Chloride) 50 mls @ 100 mls/hr IV Q8H [facility] [place] Last Admin: 09/25/18 08:19 Dose: 100 mls/hr Vancomycin HCl 0.75 gm/ Sodium (Chloride) 250 mls @ 166.667 mls/hr IV Q24H [facility] [place] Last Admin: 09/24/18 12:33 Dose: 166.667 mls/hr Insulin Aspart (Novolog) 0 unit SUBCUT TIDAC [facility] [place]; Protocol Last Admin: 09/25/18 08:01 Dose: 2 units Levothyroxine Sodium (Synthroid) 100 mcg PO ACBREAKFAST [facility] [place] Last Admin: 09/25/18 07:00 Dose: 100 mcg Lorazepam (Ativan) 0.5 mg PO Q6H PRN PRN Reason: Anxiety Metoprolol Tartrate (Lopressor) 50 mg PO TID [facility] [place] Morphine Sulfate (Morphine) 1 mg IVPUSH Q2H PRN PRN Reason: Pain (severe 7-10) Oxycodone HCl (Oxycodone) 5 mg PO Q4H PRN PRN Reason: Pain (severe 7-10) Potassium Chloride (Klor-Con M20) 40 meq PO BID [facility] [place] Stop: 09/25/18 21:01 Rosuvastatin Calcium (Crestor) 20 mg PO DAILY [facility] [place] Last Admin: 09/25/18 08:07 Dose: 20 mg Temazepam (Restoril) 15 mg PO BEDTIME PRN PRN Reason: Sleep Last Admin: 09/23/18 22:28 Dose: 15 mg Warfarin Sodium (Coumadin) 5 mg PO DAILY@1400 [facility] [place] Warfarin Sodium (Coumadin) 5 mg PO ONETIME ONE Stop: 09/25/18 14:01 Discontinued Medications Albuterol/Ipratropium (Duoneb 3.0-0.5 Mg/3 Ml) 3 ml NEB ONETIME ONE Stop: 09/16/18 20:54 Last Admin: 09/16/18 21:06 Dose: 3 ml Albuterol/Ipratropium (Duoneb 3.0-0.5 Mg/3 Ml) 3 ml NEB Q4HRRT PRN PRN Reason: Shortness of Breath Last Admin: 09/19/18 22:59 Dose: 3 ml Albuterol/Ipratropium (Duoneb 3.0-0.5 Mg/3 Ml) 3 ml NEB Q4HRRT [facility] [place] Last Admin: 09/22/18 10:51 Dose: Not Given Amlodipine Besylate (Norvasc) 5 mg PO QPM [facility] [place] Last Admin: 09/22/18 18:32 Dose: 5 mg Apixaban ([facility]is) [facility] Admin: 09/22/18 09:24 Dose: 2.5 mg Aspirin (Aspirin) 81 mg PO DAILY [facility] [place] Ceftriaxone Sodium (Rocephin) 1 gm IM ONETIME ONE Stop: 09/16/18 22:05 Last Admin: 09/16/18 22:16 Dose: Not Given Clopidogrel Bisulfate (Plavix) 75 mg PO QAM [facility] [place] Last Admin: 09/24/18 08:30 Dose: 75 mg Furosemide (Lasix) 20 mg PO BID [facility] [place] Last Admin: 09/19/18 20:49 Dose: 20 mg Furosemide (Lasix) 20 mg IVPUSH NOW ONE Stop: 09/19/18 10:01 Last Admin: 09/19/18 09:49 Dose: 20 mg Furosemide (Lasix) 20 mg IVPUSH NOW ONE Stop: 09/20/18 01:30 Last Admin: 09/20/18 02:06 Dose: Not Given Furosemide (Lasix) Confirm Administered Dose 20 mg .ROUTE .STK-MED ONE Stop: 09/20/18 01:32 Last Admin: 09/20/18 01:37 Dose: 20 mg Furosemide (Lasix) 20 mg IVPUSH BIDDIURETIC [facility] [place] Last Admin: 09/22/18 13:22 Dose: 20 mg Furosemide (Lasix) 40 mg IVPUSH NOW ONE Stop: 09/22/18 15:57 Last Admin: 09/22/18 16:07 Dose: Not Given Furosemide (Lasix) 60 mg IVPUSH ONETIME ONE Stop: 09/20/18 16:11 Furosemide (Lasix) 60 mg IVPUSH ONETIME ONE Stop: 09/22/18 16:31 Last Admin: 09/22/18 16:41 Dose: 60 mg Furosemide (Lasix) 60 mg IVPUSH NOW ONE Stop: 09/23/18 10:13 Last Admin: 09/23/18 11:36 Dose: 60 mg Furosemide (Lasix) 60 mg IVPUSH NOW ONE Stop: 09/23/18 17:16 Last Admin: 09/23/18 18:27 Dose: 60 mg Furosemide (Lasix) 60 mg IVPUSH NOW ONE Stop: 09/24/18 09:15 Last Admin: 09/24/18 11:07 Dose: 60 mg Furosemide (Lasix) 60 mg IVPUSH NOW ONE Stop: 09/24/18 17:04 Last Admin: 09/24/18 18:31 Dose: 60 mg Sodium Chloride (Normal Saline) 1,000 mls @ 125 mls/hr IV STAT [facility] [place] Last Admin: 09/16/18 21:21 Dose: 125 mls/hr Azithromycin 500 mg/ Sodium (Chloride) 250 mls @ 250 mls/hr IV ONETIME ONE Stop: 09/16/18 23:03 Last Admin: 09/16/18 22:34 Dose: Not Given Ceftriaxone Sodium 1 gm/ (Sodium Chloride) 50 mls @ 100 mls/hr IV ONETIME ONE Stop: 09/16/18 22:43 Last Admin: 09/16/18 22:34 Dose: Not Given Levofloxacin/Dextrose 500 mg/ (Premix) 100 mls @ 100 mls/hr IV ONETIME ONE Stop: 09/16/18 23:30 Last Admin: 09/16/18 22:51 Dose: 100 mls/hr Sodium Chloride (Normal Saline) 1,000 mls @ 75 mls/hr IV ASDIRECTED [facility] [place] Last Admin: 09/19/18 08:54 Dose: 75 mls/hr Vancomycin HCl 0.75 gm/ Sodium (Chloride) 250 mls @ 166.667 mls/hr IV Q24H [facility] [place] Last Admin: 09/20/18 10:55 Dose: Not Given Vancomycin HCl 1 gm/ Sodium (Chloride) 250 mls @ 166.667 mls/hr IV Q24H [facility] [place] Last Admin: 09/22/18 11:23 Dose: 166.667 mls/hr Potassium Chloride/Dextrose/Sod Cl (D5 1/2 Ns W/ 40 Meq/L Kcl) 1,000 mls @ 75 mls/hr IV ASDIRECTED [facility] [place] Last Admin: 09/24/18 07:00 Dose: 75 mls/hr Insulin Aspart (Novolog) 0 unit SUBCUT Q4H [facility] [place]; Protocol Last Admin: 09/22/18 10:46 Dose: 3 unit Lisinopril (Prinivil) 10 mg PO DAILY [facility] [place] Last Admin: 09/19/18 08:40 Dose: 10 mg Lorazepam (Ativan) 0.5 mg PO ONETIME ONE Stop: 09/22/18 15:06 Last Admin: 09/23/18 10:12 Dose: Not Given Methylprednisolone Sodium Succinate (Solu-Medrol) 125 mg IVPUSH ONETIME ONE Stop: 09/16/18 20:54 Last Admin: 09/16/18 21:22 Dose: 125 mg Methylprednisolone Sodium Succinate (Solu-Medrol) 125 mg IVPUSH Q8H [facility] [place] Last Admin: 09/19/18 20:49 Dose: 125 mg Methylprednisolone Sodium Succinate (Solu-Medrol) 60 mg IVPUSH Q8H [facility] [place] Last Admin: 09/24/18 22:35 Dose: 60 mg Metoprolol Succinate (Toprol Xl) 100 mg PO DAILY [facility] [place] Last Admin: 09/25/18 08:08 Dose: 100 mg Nitroglycerin (Nitro-Dur 0.2 Mg/Hr) 0.2 mg TRDERM ONETIME ONE Stop: 09/17/18 03:55 Last Admin: 09/17/18 04:11 Dose: Not Given Nitroglycerin (Nitro-Bid 2%) 1 gm TOP ONETIME ONE Stop: 09/17/18 04:11 Last Admin: 09/17/18 04:18 Dose: 1 gm Potassium Chloride (Klor-Con 8) 8 meq PO TID [facility] [place] Last Admin: 09/17/18 13:54 Dose: Not Given Potassium Chloride (Klor-Con 8) 8 meq PO TIDMEALS [facility] [place] Last Admin: 09/24/18 12:28 Dose: 8 meq Potassium Chloride (Klor-Con M20) 20 meq PO ONETIME ONE Stop: 09/23/18 16:12 Last Admin: 09/23/18 16:58 Dose: 20 meq Potassium Chloride (Klor-Con M20) 40 meq PO Q6H [facility] [place] Stop: 09/24/18 23:16 Last Admin: 09/24/18 22:35 Dose: 40 meq Triamterene/HCTZ (Maxzide 25-37.5 Mg) 1 each PO QPM [facility] [place] Last Admin: 09/19/18 17:19 Dose: 1 each Vancomycin HCl (Pharmacy To Dose - Vancomycin) 1 dose .XX ASDIRECTED ONE Stop: 09/17/18 09:16 Last Admin: 09/17/18 09:49 Dose: Not Given - Exam Quality Assessment: No: Supplemental Oxygen General: Alert, Oriented, Cooperative, No Acute Distress HEENT: Pupils Equal, Pupils Reactive Neck: Supple, Trachea Midline, JVD Lungs: Clear to Auscultation, Normal Respiratory Effort 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: Irregular Rhythm, Murmurs GI/Abdominal Exam: Normal Bowel Sounds, Soft, Non-Tender, No Distention (Female) Exam: Deferred Back Exam: No: Normal Inspection (Kyphosis) Extremities: Normal Inspection (Age-related changes), No Pedal Edema Skin: Warm, Dry, Intact Neurological: No New Focal Deficit Psy/Mental Status: Alert, Normal Affect - Problem List & Annotations (1) Acute respiratory failure with hypoxia SNOMED Code(s): 94435055, 196752052 Code(s): J96.01 - ACUTE RESPIRATORY FAILURE WITH HYPOXIA Status: Acute Priority: High Current Visit: Yes Annotation/Comment:: Improved (2) Hyperglycemia SNOMED Code(s): 17541314 Code(s): R73.9 - HYPERGLYCEMIA, UNSPECIFIED Status: Acute Priority: High Current Visit: Yes (3) Pneumonia SNOMED Code(s): 434396504 Code(s): J18.9 - PNEUMONIA, UNSPECIFIED ORGANISM Status: Acute Priority: High Current Visit: Yes Qualifiers: Pneumonia type: due to unspecified organism Laterality: left Lung location: lower lobe of lung Qualified Code(s): J18.1 - Lobar pneumonia, unspecified organism (4) Chronic anticoagulation SNOMED Code(s): 041811612 Code(s): Z79.01 - FANS CLERK (CURRENT) USE OF ANTICOAGULANTS Status: Chronic Priority: High Current Visit: Yes (5) Chronic kidney disease (CKD), stage III (moderate) SNOMED Code(s): 165934751 Code(s): N18.3 - CHRONIC KIDNEY DISEASE, STAGE 3 (MODERATE) Status: Chronic Priority: High Current Visit: Yes (6) Fatigue SNOMED Code(s): 89517513 Code(s): R53.83 - OTHER FATIGUE Status: Chronic Priority: Medium Current Visit: Yes Qualifiers: Fatigue type: due to excessive exertion Encounter type: initial encounter Qualified Code(s): T73.3XXA - Exhaustion due to excessive exertion, initial encounter (7) Mitral valve regurgitation SNOMED Code(s): 65323067 Code(s): I34.0 - NONRHEUMATIC MITRAL (VALVE) INSUFFICIENCY Status: Chronic Priority: High Current Visit: Yes Qualifiers: Cardiac valve disease etiology: nonrheumatic Qualified Code(s): I34.0 - Nonrheumatic mitral (valve) insufficiency Annotation/Comment:: Severe mitral regurgitation (8) Troponin level elevated SNOMED Code(s): 644645193, 631611169, 059898412 Code(s): R74.8 - ABNORMAL LEVELS OF OTHER SERUM ENZYMES Status: Acute Priority: High Current Visit: Yes (9) Atrial fibrillation with RVR SNOMED Code(s): 573002223564708 Code(s): I48.91 - UNSPECIFIED ATRIAL FIBRILLATION Status: Chronic Priority: High Current Visit: Yes - Problem List Review Problem List Initiated/Reviewed/Updated: Yes - My Orders Last 24 Hours: My Active Orders 09/25/18 14:00 Warfarin [Coumadin] 5 mg PO ONETIME ONE 09/26/18 10:00 VANCOMYCIN TROUGH [CHEM] Routine - Plan Plan:: The patient is an 83-year-old lady who was doing much better today. She originally had been admitted to acute hospitalization secondary to hospital- acquired pneumonia. The patient also has been followed by director hair, , and it was felt that her troponins elevated do not require further follow-up. The patient has also been noted to have severe mitral valve regurgitation and is has been evident in her physical examination. The patient will be kept on telemetry to monitor her heart rate and rhythm. The patient will also be kept on oxygen to keep her saturations above 90%. We'll continue with patient on her current antibiotics for at least 1-2 days. Lasix will also be continued to help with pulmonary edema. We'll monitor her creatinine for signs of dehydration associated with the use of Lasix. Patient was also noted to be hypokalemic this morning and this was replaced with 40 mEq of potassium IV. Repeat laboratory studies have been ordered for this patient. The patient is an 83-year-old lady who is doing better today. I suspect that some of the patient's concern with regards to going home is due to her stent in the ICU while on BiPAP. The patient is also being followed by cardiology. She's been noted to have severe mitral valve regurgitation is noted on her 2-D echocardiogram. [employer] is felt that her troponins do not require further workup at this time. Patient had been offered valve replacement in tertiary care center however they thought that the patient may been too high risk for prospective surgery. We'll continue with medical treatment. Patient is doing better with the use of diuretics and these will be continued at home. The patient is also been noted to have marked episodes of hyperglycemia without a previous history of diabetes mellitus. Hemoglobin A1c has been ordered. The patient will also have her CBC monitored for hemoglobin drops below 7.0 g/dL which may require transfusion. This is secondary to the patient's chronic kidney disease. Also the patient's potassium be monitored and replaced as necessary. We'll keep the patient on oxygen to keep her saturations above 90%. I suspect that the patient should be appropriate for discharge with home health in 1-2 days. The patient is an 83-year-old lady who is done somewhat better today but she is not wanting to go home due to the fact that she feels very weak. The patient does have some concerns because of her recent ICU admission. Cardiology has seen the patient. He is assess her mitral valve regurgitation as severe. The patient will continue to be diuresis. She has been recommended to continue ambulating as necessary. We'll also continue to monitor the patient's potassium and replace it as necessary. She'll be retained in hospitalization for at least 1-2 days and cardiology has suggested that she might be a candidate for high risk surgery at [facility] in order to replace the mitral valve. We'll keep the patient on a ADA diet. Also continue Accu-Cheks for now.
[2018-09-25] MEDS: Furosemide 100 MG/10 ML SDV IVPUSH SCH ×2 (12:42→21:14)
[2018-09-25] MEDS: Potassium Chloride 20 MEQ Tab.ER PO SCH ×2 (12:52→21:14)
[2018-09-25] MEDS ORDERED: Warfarin 5 MG Tab PO ONE (14:00)
[2018-09-25] MEDS: Metoprolol Tartrate 50 MG Tab PO SCH ×2 (14:08→21:14)
[2018-09-25] MEDS: Warfarin 5 MG Tab PO SCH (14:09)
[2018-09-26] MEDS: Piperacillin/Tazobactam 2.25 GM in Sodium Chloride 0.9% 50 ML IV SCH (00:34)
[2018-09-26] MEDS: Albuterol/Ipratropium 3.0-0.5 MG/3 ML Neb Soln NEB PRN (04:08)
[2018-09-26] MEDS: Levothyroxine 100 MCG Tab PO SCH (07:41)
[2018-09-26] MEDS: Metoprolol Tartrate 50 MG Tab PO SCH ×3 (07:41→21:48)
[2018-09-26] MEDS: Insulin Aspart 100 Units/ML 3 ML Pen SUBCUT SCH ×3 (08:03→17:37)
--- NOTE | 2018-09-26 08:46 | PCM.PN ---
- General Info Date of Service: 09/26/18 Admission Dx/Problem (Free Text): Admission Diagnosis/Problem Admission Diagnosis/Problem Pneumonia, HAP Subjective Update: The patient is an 83-year-old lady who had been admitted to acute hospitalization on September 17, 2018 out of concern for hospital-acquired pneumonia. The patient also has been evaluated by cardiology with regards to severe mitral valve regurgitation. Today the patient says that she still feels very weak. She also felt somewhat short of breath overnight. The patient has been tolerating her diet well. Patient family are with her. The patient also had been complaining of diarrhea overnight. Functional Status: Reports: Pain Controlled, Tolerating Diet - Review of Systems General: Reports: Weakness, Fatigue, Malaise HEENT: Reports: No Symptoms Pulmonary: Reports: Shortness of Breath 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: Reports: No Symptoms Gastrointestinal: Reports: Diarrhea. Denies: Abdominal Pain Genitourinary: Reports: No Symptoms Musculoskeletal: Reports: No Symptoms Skin: Reports: Bruising, Other (Bleeding lesion left lower leg) Neurological: Reports: No Symptoms Psychiatric: Reports: No Symptoms - Patient Data Vitals - Most Recent: Last Vital Signs Temp 36.2 C 09/26/18 07:42 Pulse 106 H 09/26/18 07:42 Resp 16 09/26/18 07:42 BP 127/67 09/26/18 07:42 Pulse Ox 88 L 09/26/18 07:42 Weight - Most Recent: 58.423 kg I&O - Last 24 Hours: Intake & Output 09/25/18 09/26/18 09/26/18 22:59 06:59 14:59 Intake Total 1360 500 Output Total 1000 875 Balance 360 -375 Lab Results Last 24 Hours: Laboratory Results - last 24 hr 09/25/18 09/25/18 09/25/18 Range/Units 06:18 09:12 09:12 WBC (4.0-11.0) K/uL RBC (4.30-5.90) M/uL Hgb (12.0-16.0) g/dL Hct (36.0-46.0) % MCV (80.0-98.0) fL MCH (27.0-32.0) pg MCHC (31.0-37.0) g/dL RDW Std Deviation (28.0-62.0) fl RDW Coeff of Erickson (11.0-15.0) % Plt Count (150-400) K/uL MPV (7.40-12.00) fL Add Manual Diff Neutrophils % (Manual) (48.0-80.0) % Band Neutrophils % % Lymphocytes % (Manual) (16.0-40.0) % Monocytes % (Manual) (0.0-15.0) % Nucleated RBC % /100WBC Absolute Seg Neuts (1.4-5.7) Band Neutrophils # Lymphocytes # (Manual) (0.6-2.4) Monocytes # (Manual) (0.0-0.8) Nucleated RBCs # K/uL INR 1.17 Sodium (136-145) mmol/L Potassium (3.5-5.1) mmol/L Chloride (98-107) mmol/L Carbon Dioxide (21.0-32.0) mmol/L BUN (7.0-18.0) mg/dL Creatinine (0.6-1.0) mg/dL Est Cr Clr Drug Dosing mL/min Estimated GFR (MDRD) ml/min Glucose (74-106) mg/dL POC Glucose 201 H (60-110) mg/dL Calcium (8.5-10.1) mg/dL B-Natriuretic Peptide (<100) PG/ML Vancomycin Trough 27.6 H (5.0-10.0) ug/mL 09/25/18 09/25/18 09/26/18 Range/Units 12:04 16:21 05:39 WBC 23.12 H (4.0-11.0) K/uL RBC 3.58 L (4.30-5.90) M/uL Hgb 10.6 L (12.0-16.0) g/dL Hct 33.6 L (36.0-46.0) % MCV 93.9 (80.0-98.0) fL MCH 29.6 (27.0-32.0) pg MCHC 31.5 (31.0-37.0) g/dL RDW Std Deviation 50.8 (28.0-62.0) fl RDW Coeff of Erickson 15 (11.0-15.0) % Plt Count 221 (150-400) K/uL MPV 10.80 (7.40-12.00) fL Add Manual Diff YES Neutrophils % (Manual) 88 H (48.0-80.0) % Band Neutrophils % 1 % Lymphocytes % (Manual) 5 L (16.0-40.0) % Monocytes % (Manual) 6 (0.0-15.0) % Nucleated RBC % 0.0 /100WBC Absolute Seg Neuts 20.3 H (1.4-5.7) Band Neutrophils # 0.2 Lymphocytes # (Manual) 1.2 (0.6-2.4) Monocytes # (Manual) 1.4 H (0.0-0.8) Nucleated RBCs # 0 K/uL INR Sodium (136-145) mmol/L Potassium (3.5-5.1) mmol/L Chloride (98-107) mmol/L Carbon Dioxide (21.0-32.0) mmol/L BUN (7.0-18.0) mg/dL Creatinine (0.6-1.0) mg/dL Est Cr Clr Drug Dosing mL/min Estimated GFR (MDRD) ml/min Glucose (74-106) mg/dL POC Glucose 242 H 202 H (60-110) mg/dL Calcium (8.5-10.1) mg/dL B-Natriuretic Peptide (<100) PG/ML Vancomycin Trough (5.0-10.0) ug/mL 09/26/18 09/26/18 09/26/18 Range/Units 05:39 05:39 05:39 WBC (4.0-11.0) K/uL RBC (4.30-5.90) M/uL Hgb (12.0-16.0) g/dL Hct (36.0-46.0) % MCV (80.0-98.0) fL MCH (27.0-32.0) pg MCHC (31.0-37.0) g/dL RDW Std Deviation (28.0-62.0) fl RDW Coeff of Erickson (11.0-15.0) % Plt Count (150-400) K/uL MPV (7.40-12.00) fL Add Manual Diff Neutrophils % (Manual) (48.0-80.0) % Band Neutrophils % % Lymphocytes % (Manual) (16.0-40.0) % Monocytes % (Manual) (0.0-15.0) % Nucleated RBC % /100WBC Absolute Seg Neuts (1.4-5.7) Band Neutrophils # Lymphocytes # (Manual) (0.6-2.4) Monocytes # (Manual) (0.0-0.8) Nucleated RBCs # K/uL INR 1.31 Sodium 143 (136-145) mmol/L Potassium 3.2 L (3.5-5.1) mmol/L Chloride 102 (98-107) mmol/L Carbon Dioxide 29.7 (21.0-32.0) mmol/L BUN 58 H (7.0-18.0) mg/dL Creatinine 1.7 H (0.6-1.0) mg/dL Est Cr Clr Drug Dosing 21.43 mL/min Estimated GFR (MDRD) 28.6 ml/min Glucose 174 H (74-106) mg/dL POC Glucose (60-110) mg/dL Calcium 7.9 L (8.5-10.1) mg/dL B-Natriuretic Peptide 1634 H (<100) PG/ML Vancomycin Trough (5.0-10.0) ug/mL 09/26/18 Range/Units 07:40 WBC (4.0-11.0) K/uL RBC (4.30-5.90) M/uL Hgb (12.0-16.0) g/dL Hct (36.0-46.0) % MCV (80.0-98.0) fL MCH (27.0-32.0) pg MCHC (31.0-37.0) g/dL RDW Std Deviation (28.0-62.0) fl RDW Coeff of Erickson (11.0-15.0) % Plt Count (150-400) K/uL MPV (7.40-12.00) fL Add Manual Diff Neutrophils % (Manual) (48.0-80.0) % Band Neutrophils % % Lymphocytes % (Manual) (16.0-40.0) % Monocytes % (Manual) (0.0-15.0) % Nucleated RBC % /100WBC Absolute Seg Neuts (1.4-5.7) Band Neutrophils # Lymphocytes # (Manual) (0.6-2.4) Monocytes # (Manual) (0.0-0.8) Nucleated RBCs # K/uL INR Sodium (136-145) mmol/L Potassium (3.5-5.1) mmol/L Chloride (98-107) mmol/L Carbon Dioxide (21.0-32.0) mmol/L BUN (7.0-18.0) mg/dL Creatinine (0.6-1.0) mg/dL Est Cr Clr Drug Dosing mL/min Estimated GFR (MDRD) ml/min Glucose (74-106) mg/dL POC Glucose 177 H (60-110) mg/dL Calcium (8.5-10.1) mg/dL B-Natriuretic Peptide (<100) PG/ML Vancomycin Trough (5.0-10.0) ug/mL Med Orders - Current: Current Medications Acetaminophen (Tylenol) 650 mg PO Q4H PRN PRN Reason: Pain (mild 1-3) Acetaminophen/Codeine Phosphate (Tylenol With Codeine No.3 300mg/30mg) 1 tab PO BID PRN PRN Reason: Pain Last Admin: 09/22/18 21:06 Dose: 1 tab Albuterol/Ipratropium (Duoneb 3.0-0.5 Mg/3 Ml) 3 ml NEB Q4HRRT PRN PRN Reason: Shortness of Breath Last Admin: 09/26/18 04:08 Dose: 3 ml Aspirin (Aspirin) 81 mg PO DAILY [facility] Last Admin: 09/25/18 08:08 Dose: 81 mg Diltiazem HCl (Cardizem Cd) 180 mg PO DAILY [facility] Last Admin: 09/25/18 08:09 Dose: 180 mg Docusate Sodium (Colace) 100 mg PO BID PRN PRN Reason: Constipation Last Admin: 09/22/18 21:06 Dose: 100 mg Furosemide (Lasix) 60 mg IVPUSH BIDDIURETIC YAKELIN Vancomycin HCl 0.75 gm/ Sodium (Chloride) 250 mls @ 166.667 mls/hr IV Q24H [facility] Last Admin: 09/25/18 12:58 Dose: 166.667 mls/hr Meropenem 1 gm/ Sodium (Chloride) 100 mls @ 200 mls/hr IV Q8H [facility] Insulin Aspart (Novolog) 0 unit SUBCUT TIDAC [facility]; Protocol Last Admin: 09/26/18 08:03 Dose: 1 units Levothyroxine Sodium (Synthroid) 100 mcg PO ACBREAKFAST [facility] Last Admin: 09/26/18 07:41 Dose: 100 mcg Lorazepam (Ativan) 0.5 mg PO Q6H PRN PRN Reason: Anxiety Metoprolol Tartrate (Lopressor) 50 mg PO TID [facility] Last Admin: 09/26/18 07:41 Dose: 50 mg Morphine Sulfate (Morphine) 1 mg IVPUSH Q2H PRN PRN Reason: Pain (severe 7-10) Oxycodone HCl (Oxycodone) 5 mg PO Q4H PRN PRN Reason: Pain (severe 7-10) Rosuvastatin Calcium (Crestor) 20 mg PO DAILY [facility] Last Admin: 09/25/18 08:07 Dose: 20 mg Temazepam (Restoril) 15 mg PO BEDTIME PRN PRN Reason: Sleep Last Admin: 09/23/18 22:28 Dose: 15 mg Warfarin Sodium (Coumadin) 5 mg PO DAILY@1400 [facility] Last Admin: 09/25/18 14:09 Dose: 5 mg Warfarin Sodium (Coumadin) 2.5 mg PO ONETIME@1400 ONE Stop: 09/26/18 14:01 Discontinued Medications Albuterol/Ipratropium (Duoneb 3.0-0.5 Mg/3 Ml) 3 ml NEB ONETIME ONE Stop: 09/16/18 20:54 Last Admin: 09/16/18 21:06 Dose: 3 ml Albuterol/Ipratropium (Duoneb 3.0-0.5 Mg/3 Ml) 3 ml NEB Q4HRRT PRN PRN Reason: Shortness of Breath Last Admin: 09/19/18 22:59 Dose: 3 ml Albuterol/Ipratropium (Duoneb 3.0-0.5 Mg/3 Ml) 3 ml NEB Q4HRRT [facility] Last Admin: 09/22/18 10:51 Dose: Not Given Amlodipine Besylate (Norvasc) 5 mg PO QPM [facility] Last Admin: 09/22/18 18:32 Dose: 5 mg Apixaban (Eliquis) 2.5 mg PO QAM [facility] Last Admin: 09/22/18 09:24 Dose: 2.5 mg Aspirin (Aspirin) 81 mg PO DAILY [facility] Ceftriaxone Sodium (Rocephin) 1 gm IM ONETIME ONE Stop: 09/16/18 22:05 Last Admin: 09/16/18 22:16 Dose: Not Given Clopidogrel Bisulfate (Plavix) 75 mg PO QAM [facility] Last Admin: 09/24/18 08:30 Dose: 75 mg Furosemide (Lasix) 20 mg PO BID [facility] Last Admin: 09/19/18 20:49 Dose: 20 mg Furosemide (Lasix) 20 mg IVPUSH NOW ONE Stop: 09/19/18 10:01 Last Admin: 09/19/18 09:49 Dose: 20 mg Furosemide (Lasix) 20 mg IVPUSH NOW ONE Stop: 09/20/18 01:30 Last Admin: 09/20/18 02:06 Dose: Not Given Furosemide (Lasix) Confirm Administered Dose 20 mg .ROUTE .STK-MED ONE Stop: 09/20/18 01:32 Last Admin: 09/20/18 01:37 Dose: 20 mg Furosemide (Lasix) 20 mg IVPUSH BIDDIURETIC [facility] Last Admin: 09/22/18 13:22 Dose: 20 mg Furosemide (Lasix) 40 mg IVPUSH NOW ONE Stop: 09/22/18 15:57 Last Admin: 09/22/18 16:07 Dose: Not Given Furosemide (Lasix) 60 mg IVPUSH ONETIME ONE Stop: 09/20/18 16:11 Furosemide (Lasix) 60 mg IVPUSH ONETIME ONE Stop: 09/22/18 16:31 Last Admin: 09/22/18 16:41 Dose: 60 mg Furosemide (Lasix) 60 mg IVPUSH NOW ONE Stop: 09/23/18 10:13 Last Admin: 09/23/18 11:36 Dose: 60 mg Furosemide (Lasix) 60 mg IVPUSH NOW ONE Stop: 09/23/18 17:16 Last Admin: 09/23/18 18:27 Dose: 60 mg Furosemide (Lasix) 60 mg IVPUSH NOW ONE Stop: 09/24/18 09:15 Last Admin: 09/24/18 11:07 Dose: 60 mg Furosemide (Lasix) 60 mg IVPUSH NOW ONE Stop: 09/24/18 17:04 Last Admin: 09/24/18 18:31 Dose: 60 mg Furosemide (Lasix) 60 mg IVPUSH BID [facility] Last Admin: 09/25/18 21:14 Dose: 60 mg Sodium Chloride (Normal Saline) 1,000 mls @ 125 mls/hr IV STAT [facility] Last Admin: 09/16/18 21:21 Dose: 125 mls/hr Azithromycin 500 mg/ Sodium (Chloride) 250 mls @ 250 mls/hr IV ONETIME ONE Stop: 09/16/18 23:03 Last Admin: 09/16/18 22:34 Dose: Not Given Ceftriaxone Sodium 1 gm/ (Sodium Chloride) 50 mls @ 100 mls/hr IV ONETIME ONE Stop: 09/16/18 22:43 Last Admin: 09/16/18 22:34 Dose: Not Given Levofloxacin/Dextrose 500 mg/ (Premix) 100 mls @ 100 mls/hr IV ONETIME ONE Stop: 09/16/18 23:30 Last Admin: 09/16/18 22:51 Dose: 100 mls/hr Sodium Chloride (Normal Saline) 1,000 mls @ 75 mls/hr IV ASDIRECTED [facility] Last Admin: 09/19/18 08:54 Dose: 75 mls/hr Piperacillin Sod/Tazobactam (Sod 2.25 gm/ Sodium Chloride) 50 mls @ 100 mls/hr IV Q8H [facility] Last Admin: 09/26/18 00:34 Dose: 100 mls/hr Vancomycin HCl 0.75 gm/ Sodium (Chloride) 250 mls @ 166.667 mls/hr IV Q24H [facility] Last Admin: 09/20/18 10:55 Dose: Not Given Vancomycin HCl 1 gm/ Sodium (Chloride) 250 mls @ 166.667 mls/hr IV Q24H [facility] Last Admin: 09/22/18 11:23 Dose: 166.667 mls/hr Potassium Chloride/Dextrose/Sod Cl (D5 1/2 Ns W/ 40 Meq/L Kcl) 1,000 mls @ 75 mls/hr IV ASDIRECTED [facility] Last Admin: 09/24/18 07:00 Dose: 75 mls/hr Insulin Aspart (Novolog) 0 unit SUBCUT Q4H [facility]; Protocol Last Admin: 09/22/18 10:46 Dose: 3 unit Lisinopril (Prinivil) 10 mg PO DAILY [facility] Last Admin: 09/19/18 08:40 Dose: 10 mg Lorazepam (Ativan) 0.5 mg PO ONETIME ONE Stop: 09/22/18 15:06 Last Admin: 09/23/18 10:12 Dose: Not Given Methylprednisolone Sodium Succinate (Solu-Medrol) 125 mg IVPUSH ONETIME ONE Stop: 09/16/18 20:54 Last Admin: 09/16/18 21:22 Dose: 125 mg Methylprednisolone Sodium Succinate (Solu-Medrol) 125 mg IVPUSH Q8H [facility] Last Admin: 09/19/18 20:49 Dose: 125 mg Methylprednisolone Sodium Succinate (Solu-Medrol) 60 mg IVPUSH Q8H [facility] Last Admin: 09/24/18 22:35 Dose: 60 mg Metoprolol Succinate (Toprol Xl) 100 mg PO DAILY [facility] Last Admin: 09/25/18 08:08 Dose: 100 mg Nitroglycerin (Nitro-Dur 0.2 Mg/Hr) 0.2 mg TRDERM ONETIME ONE Stop: 09/17/18 03:55 Last Admin: 09/17/18 04:11 Dose: Not Given Nitroglycerin (Nitro-Bid 2%) 1 gm TOP ONETIME ONE Stop: 09/17/18 04:11 Last Admin: 09/17/18 04:18 Dose: 1 gm Potassium Chloride (Klor-Con 8) 8 meq PO TID [facility] Last Admin: 09/17/18 13:54 Dose: Not Given Potassium Chloride (Klor-Con 8) 8 meq PO TIDMEALS [facility] Last Admin: 09/24/18 12:28 Dose: 8 meq Potassium Chloride (Klor-Con M20) 20 meq PO ONETIME ONE Stop: 09/23/18 16:12 Last Admin: 09/23/18 16:58 Dose: 20 meq Potassium Chloride (Klor-Con M20) 40 meq PO Q6H [facility] Stop: 09/24/18 23:16 Last Admin: 09/24/18 22:35 Dose: 40 meq Potassium Chloride (Klor-Con M20) 40 meq PO BID [facility] Stop: 09/25/18 21:01 Last Admin: 09/25/18 21:14 Dose: 40 meq Triamterene/HCTZ (Maxzide 25-37.5 Mg) 1 each PO QPM [facility] Last Admin: 09/19/18 17:19 Dose: 1 each Vancomycin HCl (Pharmacy To Dose - Vancomycin) 1 dose .XX ASDIRECTED ONE Stop: 09/17/18 09:16 Last Admin: 09/17/18 09:49 Dose: Not Given Warfarin Sodium (Coumadin) 5 mg PO ONETIME ONE Stop: 09/25/18 14:01 Last Admin: 09/25/18 14:09 Dose: 5 mg - Exam Quality Assessment: Supplemental Oxygen General: Alert, Oriented, Cooperative, No Acute Distress HEENT: Pupils Equal, Pupils Reactive, EOMI Neck: Supple, Trachea Midline, JVD Lungs: Normal Respiratory Effort, Rales (Bibasilar) 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: Regular Rate, Irregular Rhythm, Murmurs GI/Abdominal Exam: Normal Bowel Sounds, Soft, Non-Tender, No Distention (Female) Exam: Deferred Back Exam: Normal Inspection (Kyphosis, age-appropriate) Extremities: Normal Inspection, Pedal Edema (+1) Skin: Warm, Dry, Ecchymosis (Bilateral), Other (Dressing clean and dry.) Neurological: No New Focal Deficit Psy/Mental Status: Alert, Normal Affect, Normal Mood - Problem List & Annotations (1) Acute respiratory failure with hypoxia SNOMED Code(s): 92762237, 857795536 Code(s): J96.01 - ACUTE RESPIRATORY FAILURE WITH HYPOXIA Status: Acute Priority: High Current Visit: Yes Annotation/Comment:: Improved (2) Pneumonia SNOMED Code(s): 489001862 Code(s): J18.9 - PNEUMONIA, UNSPECIFIED ORGANISM Status: Acute Priority: High Current Visit: Yes Qualifiers: Pneumonia type: due to unspecified organism Laterality: left Lung location: lower lobe of lung Qualified Code(s): J18.1 - Lobar pneumonia, unspecified organism (3) Chronic anticoagulation SNOMED Code(s): 010835812 Code(s): Z79.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 Status: Chronic Priority: High Current Visit: Yes (4) Chronic kidney disease (CKD), stage III (moderate) SNOMED Code(s): 000246613 Code(s): N18.3 - CHRONIC KIDNEY DISEASE, STAGE 3 (MODERATE) Status: Chronic Priority: High Current Visit: Yes (5) Fatigue SNOMED Code(s): 30344372 Code(s): R53.83 - OTHER FATIGUE Status: Chronic Priority: Medium Current Visit: Yes Qualifiers: Fatigue type: due to excessive exertion Encounter type: subsequent encounter Qualified Code(s): T73.3XXD - Exhaustion due to excessive exertion, subsequent encounter (6) Mitral valve regurgitation SNOMED Code(s): 05627218 Code(s): I34.0 - NONRHEUMATIC MITRAL (VALVE) INSUFFICIENCY Status: Chronic Priority: High Current Visit: Yes Qualifiers: Cardiac valve disease etiology: nonrheumatic Qualified Code(s): I34.0 - Nonrheumatic mitral (valve) insufficiency Annotation/Comment:: Severe mitral regurgitation (7) Troponin level elevated SNOMED Code(s): 903272284, 459182379, 489247520 Code(s): R74.8 - ABNORMAL LEVELS OF OTHER SERUM ENZYMES Status: Acute Priority: High Current Visit: Yes (8) Atrial fibrillation with RVR SNOMED Code(s): 750182030453421 Code(s): I48.91 - UNSPECIFIED ATRIAL FIBRILLATION Status: Chronic Priority: High Current Visit: Yes (9) Hyperglycemia SNOMED Code(s): 52177329 Code(s): R73.9 - HYPERGLYCEMIA, UNSPECIFIED Status: Acute Priority: High Current Visit: Yes (10) Anemia in stage 3 chronic kidney disease SNOMED Code(s): 682493442 Code(s): N18.3 - CHRONIC KIDNEY DISEASE, STAGE 3 (MODERATE); D63.1 - ANEMIA IN CHRONIC KIDNEY DISEASE Status: Chronic Priority: Medium Current Visit: Yes Annotation/Comment:: Consider transfusion if the patient's hemoglobin drops below 10.0 g/dL given the patient's cardiac disease. - Problem List Review Problem List Initiated/Reviewed/Updated: Yes - My Orders Last 24 Hours: My Active Orders 09/26/18 05:11 Chest 1V Frontal [CR] AM 09/26/18 08:45 Meropenem [Merrem] 1 gm Sodium Chloride 0.9% [Normal Saline] 100 ml IV Q8H 09/26/18 10:00 VANCOMYCIN TROUGH [CHEM] Routine - Plan Plan:: The patient is an 83-year-old lady who is doing about the same today. Both the patient and the patient's family think that she is not appropriate to go home today. Patient's white blood cell count has been elevated at 23,000 from 15,000 and I decided to change the patient's Zosyn to meropenem. She'll be continued on the vancomycin. I've ordered repeat CBC and basic metabolic panel to follow the patient's BUN/creatinine. The patient's creatinine today is 1.7 and this is likely her baseline. Also the patient has had some increasing in her BNP and she is currently on Lasix 60 mg IV twice a day and this will be continued for now. Input output shows slight fluid negative. Chest x-ray shows significant clearing of the perihilar edema. The patient's Coumadin levels will also be monitored. She is on chronic anticoagulation secondary to her atrial fibrillation. The patient also be kept on ADA diet. We'll continue Accu-Cheks for now. She has been encouraged to ambulate. Cardiology awaiting information regarding her severe mitral valve regurgitation.
[2018-09-26] MEDS: Furosemide 100 MG/10 ML SDV IVPUSH SCH ×2 (08:51→14:46)
[2018-09-26] MEDS: Rosuvastatin 10 MG Tab PO SCH (08:52)
[2018-09-26] MEDS: Diltiazem 180 MG Cap.CD PO SCH (08:52)
[2018-09-26] MEDS: Aspirin 81 MG Tab.Chew PO SCH (08:52)
[2018-09-26] MEDS: Meropenem 1 GM in Sodium Chloride 0.9% 100 ML IV SCH ×2 (09:02→17:37)
--- NOTE | 2018-09-26 09:24 | CR ---
CHEST 1 VIEW AP INDICATION: Follow-up pneumonia. COMPARISON: September 20, 2018 IMPRESSION: Clearing of central alveolar pulmonary edema pattern. FINDINGS: There is a left pleural effusion and smaller right basilar pleural effusion with cardiomegaly. Vascular prominence in the upper lung zones. No additional consolidation. Significant clearing of central alveolar perihilar pulmonary edema. No new consolidation. Dictated by Eladio Ying MD @ Sep 26 2018 9:21AM Signed by Dr. Eladio Ying @ Sep 26 2018 9:23AM
[2018-09-26] MEDS ORDERED: Warfarin 2.5 MG Tab PO ONE (14:00)
[2018-09-26] MEDS ORDERED: Potassium Chloride 20 MEQ Tab.ER PO ONE (14:16)
[2018-09-26] MEDS: Warfarin 5 MG Tab PO SCH (14:47)
[2018-09-26] MEDS ORDERED: Magnesium Sulfate/Water 1 GM in Premix Bag 1 BAG IV ONE (21:28)
[2018-09-27] MEDS: Meropenem 1 GM in Sodium Chloride 0.9% 100 ML IV SCH ×3 (00:52→21:02)
[2018-09-27] MEDS: Albuterol/Ipratropium 3.0-0.5 MG/3 ML Neb Soln NEB PRN ×2 (01:14→05:51)
[2018-09-27] MEDS: Metoprolol Tartrate 50 MG Tab PO SCH ×3 (06:42→21:03)
[2018-09-27] MEDS: Insulin Aspart 100 Units/ML 3 ML Pen SUBCUT SCH ×3 (06:42→17:42)
[2018-09-27] MEDS: Levothyroxine 100 MCG Tab PO SCH (06:42)
[2018-09-27] MEDS: Furosemide 100 MG/10 ML SDV IVPUSH SCH ×2 (08:29→13:23)
[2018-09-27] MEDS: Potassium Chloride 20 MEQ Tab.ER PO SCH ×3 (08:30→18:24)
[2018-09-27] MEDS: Rosuvastatin 10 MG Tab PO SCH (08:30)
[2018-09-27] MEDS: Aspirin 81 MG Tab.Chew PO SCH (08:30)
[2018-09-27] MEDS: Diltiazem 180 MG Cap.CD PO SCH (08:30)
--- NOTE | 2018-09-27 09:26 | PCM.PN ---
- General Info Date of Service: 09/27/18 Admission Dx/Problem (Free Text): Admission Diagnosis/Problem Admission Diagnosis/Problem Pneumonia, HCAP, CHF Subjective Update: Sithaley ryder in the chair. Feeling improved, but continues to have Orthopnea at night. No chest pain. Edeme to lower legs, with oozing wound to L lower posterior leg. draining serous fluid. No palpitations. Functional Status: Reports: Pain Controlled, Tolerating Diet, Ambulating, Urinating - Review of Systems General: Reports: Weakness (generalized) HEENT: Reports: No Symptoms. Denies: Headaches, Sore Throat Pulmonary: Reports: Shortness of Breath. Denies: Cough 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: Reports: Dyspnea on Exertion, Orthopnea. Denies: Chest Pain, Palpitations, Lightheadedness Gastrointestinal: Reports: No Symptoms. Denies: Abdominal Pain, Nausea, Vomiting Genitourinary: Reports: No Symptoms. Denies: Dysuria, Frequency, Burning Musculoskeletal: Reports: No Symptoms Skin: Reports: No Symptoms Neurological: Reports: No Symptoms Psychiatric: Reports: No Symptoms - Patient Data Vitals - Most Recent: Last Vital Signs Temp 97.6 F 09/27/18 07:36 Pulse 108 H 09/27/18 07:36 Resp 20 09/27/18 07:36 BP 135/59 L 09/27/18 07:36 Pulse Ox 91 L 09/27/18 07:36 Weight - Most Recent: 59.222 kg I&O - Last 24 Hours: Intake & Output 09/26/18 09/27/18 09/27/18 22:59 06:59 14:59 Intake Total 495 660 Output Total 1350 1050 Balance -855 -390 Lab Results Last 24 Hours: Laboratory Results - last 24 hr 09/26/18 09/26/18 09/26/18 Range/Units 10:00 10:04 12:52 WBC (4.0-11.0) K/uL RBC (4.30-5.90) M/uL Hgb (12.0-16.0) g/dL Hct (36.0-46.0) % MCV (80.0-98.0) fL MCH (27.0-32.0) pg MCHC (31.0-37.0) g/dL RDW Std Deviation (28.0-62.0) fl RDW Coeff of Erickson (11.0-15.0) % Plt Count (150-400) K/uL MPV (7.40-12.00) fL Neut % (Auto) (48.0-80.0) % Lymph % (Auto) (16.0-40.0) % Leslie % (Auto) (0.0-15.0) % Eos % (Auto) (0.0-7.0) % Baso % (Auto) (0.0-1.5) % Neut # (Auto) (1.4-5.7) K/uL Lymph # (Auto) (0.6-2.4) K/uL Leslie # (Auto) (0.0-0.8) K/uL Eos # (Auto) (0.0-0.7) K/uL Baso # (Auto) (0.0-0.1) K/uL Nucleated RBC % /100WBC Nucleated RBCs # K/uL INR Sodium (136-145) mmol/L Potassium (3.5-5.1) mmol/L Chloride (98-107) mmol/L Carbon Dioxide (21.0-32.0) mmol/L BUN (7.0-18.0) mg/dL Creatinine (0.6-1.0) mg/dL Est Cr Clr Drug Dosing mL/min Estimated GFR (MDRD) ml/min Glucose (74-106) mg/dL POC Glucose 245 H (60-110) mg/dL Calcium (8.5-10.1) mg/dL Magnesium 1.6 L (1.8-2.4) mg/dL Vancomycin Trough 25.7 H (5.0-10.0) ug/mL 09/26/18 09/27/18 09/27/18 Range/Units 16:18 06:15 06:15 WBC 22.71 H (4.0-11.0) K/uL RBC 3.61 L (4.30-5.90) M/uL Hgb 10.7 L (12.0-16.0) g/dL Hct 34.0 L (36.0-46.0) % MCV 94.2 (80.0-98.0) fL MCH 29.6 (27.0-32.0) pg MCHC 31.5 (31.0-37.0) g/dL RDW Std Deviation 50.7 (28.0-62.0) fl RDW Coeff of Erickson 15 (11.0-15.0) % Plt Count 186 (150-400) K/uL MPV 10.90 (7.40-12.00) fL Neut % (Auto) 93.6 H (48.0-80.0) % Lymph % (Auto) 3.2 L (16.0-40.0) % Leslie % (Auto) 3.0 (0.0-15.0) % Eos % (Auto) 0.1 (0.0-7.0) % Baso % (Auto) 0.1 (0.0-1.5) % Neut # (Auto) 21.3 H (1.4-5.7) K/uL Lymph # (Auto) 0.7 (0.6-2.4) K/uL Leslie # (Auto) 0.7 (0.0-0.8) K/uL Eos # (Auto) 0.0 (0.0-0.7) K/uL Baso # (Auto) 0.0 (0.0-0.1) K/uL Nucleated RBC % 0.0 /100WBC Nucleated RBCs # 0 K/uL INR 2.15 Sodium (136-145) mmol/L Potassium (3.5-5.1) mmol/L Chloride (98-107) mmol/L Carbon Dioxide (21.0-32.0) mmol/L BUN (7.0-18.0) mg/dL Creatinine (0.6-1.0) mg/dL Est Cr Clr Drug Dosing mL/min Estimated GFR (MDRD) ml/min Glucose (74-106) mg/dL POC Glucose 232 H (60-110) mg/dL Calcium (8.5-10.1) mg/dL Magnesium (1.8-2.4) mg/dL Vancomycin Trough (5.0-10.0) ug/mL 09/27/18 09/27/18 09/27/18 Range/Units 06:15 06:15 06:42 WBC (4.0-11.0) K/uL RBC (4.30-5.90) M/uL Hgb (12.0-16.0) g/dL Hct (36.0-46.0) % MCV (80.0-98.0) fL MCH (27.0-32.0) pg MCHC (31.0-37.0) g/dL RDW Std Deviation (28.0-62.0) fl RDW Coeff of Erickson (11.0-15.0) % Plt Count (150-400) K/uL MPV (7.40-12.00) fL Neut % (Auto) (48.0-80.0) % Lymph % (Auto) (16.0-40.0) % Leslie % (Auto) (0.0-15.0) % Eos % (Auto) (0.0-7.0) % Baso % (Auto) (0.0-1.5) % Neut # (Auto) (1.4-5.7) K/uL Lymph # (Auto) (0.6-2.4) K/uL Leslie # (Auto) (0.0-0.8) K/uL Eos # (Auto) (0.0-0.7) K/uL Baso # (Auto) (0.0-0.1) K/uL Nucleated RBC % /100WBC Nucleated RBCs # K/uL INR Sodium 142 (136-145) mmol/L Potassium 2.6 L (3.5-5.1) mmol/L Chloride 100 (98-107) mmol/L Carbon Dioxide 33.1 H (21.0-32.0) mmol/L BUN 49 H (7.0-18.0) mg/dL Creatinine 1.5 H (0.6-1.0) mg/dL Est Cr Clr Drug Dosing 24.28 mL/min Estimated GFR (MDRD) 33.1 ml/min Glucose 136 H (74-106) mg/dL POC Glucose 138 H (60-110) mg/dL Calcium 8.0 L (8.5-10.1) mg/dL Magnesium 1.9 (1.8-2.4) mg/dL Vancomycin Trough (5.0-10.0) ug/mL Med Orders - Current: Current Medications Acetaminophen (Tylenol) 650 mg PO Q4H PRN PRN Reason: Pain (mild 1-3) Acetaminophen/Codeine Phosphate (Tylenol With Codeine No.3 300mg/30mg) 1 tab PO BID PRN PRN Reason: Pain Last Admin: 09/22/18 21:06 Dose: 1 tab Albuterol/Ipratropium (Duoneb 3.0-0.5 Mg/3 Ml) 3 ml NEB Q4HRRT PRN PRN Reason: Shortness of Breath Last Admin: 09/27/18 05:51 Dose: 3 ml Aspirin (Aspirin) 81 mg PO DAILY [facility] Last Admin: 09/27/18 08:30 Dose: 81 mg Diltiazem HCl (Cardizem Cd) 180 mg PO DAILY [facility] Last Admin: 09/27/18 08:30 Dose: 180 mg Docusate Sodium (Colace) 100 mg PO BID PRN PRN Reason: Constipation Last Admin: 09/22/18 21:06 Dose: 100 mg Furosemide (Lasix) 60 mg IVPUSH BIDDIURETIC [facility] Last Admin: 09/27/18 08:29 Dose: 60 mg Vancomycin HCl 500 mg/ Sodium (Chloride) 100 mls @ 100 mls/hr IV Q24H [facility] Last Admin: 09/26/18 14:48 Dose: 100 mls/hr Meropenem 1 gm/ Sodium (Chloride) 100 mls @ 200 mls/hr IV Q12H [facility] Insulin Aspart (Novolog) 0 unit SUBCUT TIDAC [facility]; Protocol Last Admin: 09/27/18 06:42 Dose: Not Given Levothyroxine Sodium (Synthroid) 100 mcg PO ACBREAKFAST [facility] Last Admin: 09/27/18 06:42 Dose: 100 mcg Lorazepam (Ativan) 0.5 mg PO Q6H PRN PRN Reason: Anxiety Last Admin: 09/27/18 02:58 Dose: 0.5 mg Metoprolol Tartrate (Lopressor) 50 mg PO TID [facility] Last Admin: 09/27/18 06:42 Dose: 50 mg Potassium Chloride (Klor-Con M20) 40 meq PO TIDMEALS [facility] Last Admin: 09/27/18 08:30 Dose: 40 meq Rosuvastatin Calcium (Crestor) 20 mg PO DAILY [facility] Last Admin: 09/27/18 08:30 Dose: 20 mg Temazepam (Restoril) 15 mg PO BEDTIME PRN PRN Reason: Sleep Last Admin: 09/23/18 22:28 Dose: 15 mg Warfarin Sodium (Coumadin) 5 mg PO DAILY@1400 [facility] Last Admin: 09/26/18 14:47 Dose: 5 mg Discontinued Medications Albuterol/Ipratropium (Duoneb 3.0-0.5 Mg/3 Ml) 3 ml NEB ONETIME ONE Stop: 09/16/18 20:54 Last Admin: 09/16/18 21:06 Dose: 3 ml Albuterol/Ipratropium (Duoneb 3.0-0.5 Mg/3 Ml) 3 ml NEB Q4HRRT PRN PRN Reason: Shortness of Breath Last Admin: 09/19/18 22:59 Dose: 3 ml Albuterol/Ipratropium (Duoneb 3.0-0.5 Mg/3 Ml) 3 ml NEB Q4HRRT [facility] Last Admin: 09/22/18 10:51 Dose: Not Given Amlodipine Besylate (Norvasc) 5 mg PO QPM [facility] Last Admin: 09/22/18 18:32 Dose: 5 mg Apixaban ([facility]liquis) [facility] [place] Last Admin: 09/22/18 09:24 Dose: 2.5 mg Aspirin (Aspirin) 81 mg PO DAILY [facility] Ceftriaxone Sodium (Rocephin) 1 gm IM ONETIME ONE Stop: 09/16/18 22:05 Last Admin: 09/16/18 22:16 Dose: Not Given Clopidogrel Bisulfate (Plavix) [facility] [place] Last Admin: 09/24/18 08:30 Dose: 75 mg Furosemide (Lasix) 20 mg PO BID [facility] Last Admin: 09/19/18 20:49 Dose: 20 mg Furosemide (Lasix) 20 mg IVPUSH NOW ONE Stop: 09/19/18 10:01 Last Admin: 09/19/18 09:49 Dose: 20 mg Furosemide (Lasix) 20 mg IVPUSH NOW ONE Stop: 09/20/18 01:30 Last Admin: 09/20/18 02:06 Dose: Not Given Furosemide (Lasix) Confirm Administered Dose 20 mg .ROUTE .STK-MED ONE Stop: 09/20/18 01:32 Last Admin: 09/20/18 01:37 Dose: 20 mg Furosemide (Lasix) 20 mg IVPUSH BIDDIURETIC [facility] Last Admin: 09/22/18 13:22 Dose: 20 mg Furosemide (Lasix) 40 mg IVPUSH NOW ONE Stop: 09/22/18 15:57 Last Admin: 09/22/18 16:07 Dose: Not Given Furosemide (Lasix) 60 mg IVPUSH ONETIME ONE Stop: 09/20/18 16:11 Last Admin: 09/26/18 23:07 Dose: Not Given Furosemide (Lasix) 60 mg IVPUSH ONETIME ONE Stop: 09/22/18 16:31 Last Admin: 09/22/18 16:41 Dose: 60 mg Furosemide (Lasix) 60 mg IVPUSH NOW ONE Stop: 09/23/18 10:13 Last Admin: 09/23/18 11:36 Dose: 60 mg Furosemide (Lasix) 60 mg IVPUSH NOW ONE Stop: 09/23/18 17:16 Last Admin: 09/23/18 18:27 Dose: 60 mg Furosemide (Lasix) 60 mg IVPUSH NOW ONE Stop: 09/24/18 09:15 Last Admin: 09/24/18 11:07 Dose: 60 mg Furosemide (Lasix) 60 mg IVPUSH NOW ONE Stop: 09/24/18 17:04 Last Admin: 09/24/18 18:31 Dose: 60 mg Furosemide (Lasix) 60 mg IVPUSH BID [facility] Last Admin: 09/25/18 21:14 Dose: 60 mg Sodium Chloride (Normal Saline) 1,000 mls @ 125 mls/hr IV STAT [facility] Last Admin: 09/16/18 21:21 Dose: 125 mls/hr Azithromycin 500 mg/ Sodium (Chloride) 250 mls @ 250 mls/hr IV ONETIME ONE Stop: 09/16/18 23:03 Last Admin: 09/16/18 22:34 Dose: Not Given Ceftriaxone Sodium 1 gm/ (Sodium Chloride) 50 mls @ 100 mls/hr IV ONETIME ONE Stop: 09/16/18 22:43 Last Admin: 09/16/18 22:34 Dose: Not Given Levofloxacin/Dextrose 500 mg/ (Premix) 100 mls @ 100 mls/hr IV ONETIME ONE Stop: 09/16/18 23:30 Last Admin: 09/16/18 22:51 Dose: 100 mls/hr Sodium Chloride (Normal Saline) 1,000 mls @ 75 mls/hr IV ASDIRECTED [facility] Last Admin: 09/19/18 08:54 Dose: 75 mls/hr Piperacillin Sod/Tazobactam (Sod 2.25 gm/ Sodium Chloride) 50 mls @ 100 mls/hr IV Q8H [facility] Last Admin: 09/26/18 00:34 Dose: 100 mls/hr Vancomycin HCl 0.75 gm/ Sodium (Chloride) 250 mls @ 166.667 mls/hr IV Q24H [facility] Last Admin: 09/20/18 10:55 Dose: Not Given Vancomycin HCl 1 gm/ Sodium (Chloride) 250 mls @ 166.667 mls/hr IV Q24H [facility] Last Admin: 09/22/18 11:23 Dose: 166.667 mls/hr Potassium Chloride/Dextrose/Sod Cl (D5 1/2 Ns W/ 40 Meq/L Kcl) 1,000 mls @ 75 mls/hr IV ASDIRECTED [facility] Last Admin: 09/24/18 07:00 Dose: 75 mls/hr Vancomycin HCl 0.75 gm/ Sodium (Chloride) 250 mls @ 166.667 mls/hr IV Q24H [facility] Last Admin: 09/25/18 12:58 Dose: 166.667 mls/hr Meropenem 1 gm/ Sodium (Chloride) 100 mls @ 200 mls/hr IV Q8H [facility] Last Admin: 09/27/18 08:30 Dose: 200 mls/hr Magnesium Sulfate 1 gm/ Premix 25 mls @ 25 mls/hr IV ONETIME ONE Stop: 09/26/18 22:27 Last Admin: 09/26/18 21:53 Dose: 25 mls/hr Insulin Aspart (Novolog) 0 unit SUBCUT Q4H [facility]; Protocol Last Admin: 09/22/18 10:46 Dose: 3 unit Lisinopril (Prinivil) 10 mg PO DAILY [facility] Last Admin: 09/19/18 08:40 Dose: 10 mg Lorazepam (Ativan) 0.5 mg PO ONETIME ONE Stop: 09/22/18 15:06 Last Admin: 09/23/18 10:12 Dose: Not Given Methylprednisolone Sodium Succinate (Solu-Medrol) 125 mg IVPUSH ONETIME ONE Stop: 09/16/18 20:54 Last Admin: 09/16/18 21:22 Dose: 125 mg Methylprednisolone Sodium Succinate (Solu-Medrol) 125 mg IVPUSH Q8H [facility] Last Admin: 09/19/18 20:49 Dose: 125 mg Methylprednisolone Sodium Succinate (Solu-Medrol) 60 mg IVPUSH Q8H [facility] Last Admin: 09/24/18 22:35 Dose: 60 mg Metoprolol Succinate (Toprol Xl) 100 mg PO DAILY [facility] Last Admin: 09/25/18 08:08 Dose: 100 mg Morphine Sulfate (Morphine) 1 mg IVPUSH Q2H PRN PRN Reason: Pain (severe 7-10) Nitroglycerin (Nitro-Dur 0.2 Mg/Hr) 0.2 mg TRDERM ONETIME ONE Stop: 09/17/18 03:55 Last Admin: 09/17/18 04:11 Dose: Not Given Nitroglycerin (Nitro-Bid 2%) 1 gm TOP ONETIME ONE Stop: 09/17/18 04:11 Last Admin: 09/17/18 04:18 Dose: 1 gm Oxycodone HCl (Oxycodone) 5 mg PO Q4H PRN PRN Reason: Pain (severe 7-10) Potassium Chloride (Klor-Con 8) 8 meq PO TID [facility] Last Admin: 09/17/18 13:54 Dose: Not Given Potassium Chloride (Klor-Con 8) 8 meq PO TIDMEALS [facility] Last Admin: 09/24/18 12:28 Dose: 8 meq Potassium Chloride (Klor-Con M20) 20 meq PO ONETIME ONE Stop: 09/23/18 16:12 Last Admin: 09/23/18 16:58 Dose: 20 meq Potassium Chloride (Klor-Con M20) 40 meq PO Q6H [facility] Stop: 09/24/18 23:16 Last Admin: 09/24/18 22:35 Dose: 40 meq Potassium Chloride (Klor-Con M20) 40 meq PO BID [facility] Stop: 09/25/18 21:01 Last Admin: 09/25/18 21:14 Dose: 40 meq Potassium Chloride (Klor-Con M20) 20 meq PO ONETIME ONE Stop: 09/26/18 14:17 Last Admin: 09/26/18 14:48 Dose: 20 meq Triamterene/HCTZ (Maxzide 25-37.5 Mg) 1 each PO QPM [facility] Last Admin: 09/19/18 17:19 Dose: 1 each Vancomycin HCl (Pharmacy To Dose - Vancomycin) 1 dose .XX ASDIRECTED ONE Stop: 09/17/18 09:16 Last Admin: 09/17/18 09:49 Dose: Not Given Warfarin Sodium (Coumadin) 5 mg PO ONETIME ONE Stop: 09/25/18 14:01 Last Admin: 09/25/18 14:09 Dose: 5 mg Warfarin Sodium (Coumadin) 2.5 mg PO ONETIME@1400 ONE Stop: 09/26/18 14:01 Last Admin: 09/26/18 14:47 Dose: 2.5 mg - Exam Quality Assessment: Supplemental Oxygen, DVT Prophylaxis General: Alert, Oriented, Cooperative, No Acute Distress Neck: Supple, JVD Lungs: Normal Respiratory Effort, Decreased Breath Sounds, Crackles (bibasilar) 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: Regular Rate, Irregular Rhythm, Murmurs GI/Abdominal Exam: Normal Bowel Sounds, Soft, Non-Tender Extremities: Normal Range of Motion, Non-Tender, Pedal Edema (+2 pitting edema) Wound/Incisions: Drainage (wound to posterior LLextremity, oozing serous drainage, no Erythema or purulent drainage.). No: Erythema Neurological: No New Focal Deficit Psy/Mental Status: Alert, Normal Affect, Normal Mood - Problem List & Annotations (1) Acute respiratory failure with hypoxia SNOMED Code(s): 23204086, 540187402 Code(s): J96.01 - ACUTE RESPIRATORY FAILURE WITH HYPOXIA Status: Acute Priority: High Current Visit: Yes Annotation/Comment:: Improved (2) Heart failure SNOMED Code(s): 49675858 Code(s): I50.9 - HEART FAILURE, UNSPECIFIED Status: Acute Current Visit: Yes Qualifiers: Heart failure type: systolic Heart failure chronicity: acute on chronic Qualified Code(s): I50.23 - Acute on chronic systolic (congestive) heart failure (3) Bilateral pleural effusion SNOMED Code(s): 315054826 Code(s): J90 - PLEURAL EFFUSION, NOT ELSEWHERE CLASSIFIED Status: Acute Current Visit: No (4) Leukocytosis SNOMED Code(s): 417369286, 406922388 Code(s): D72.829 - ELEVATED WHITE BLOOD CELL COUNT, UNSPECIFIED Status: Acute Current Visit: Yes (5) HCAP (healthcare-associated pneumonia) SNOMED Code(s): 433286907 Code(s): J18.9 - PNEUMONIA, UNSPECIFIED ORGANISM Status: Acute Current Visit: Yes (6) Yxuis-do-yulnexj kidney injury SNOMED Code(s): 769837774 Code(s): N17.9 - ACUTE KIDNEY FAILURE, UNSPECIFIED; N18.9 - CHRONIC KIDNEY DISEASE, UNSPECIFIED Status: Acute Current Visit: Yes (7) CAD (coronary artery disease) SNOMED Code(s): 27117462 Code(s): I25.10 - ATHSCL HEART DISEASE OF [place] CORONARY ARTERY W/O ANG PCTRS Status: Chronic Current Visit: Yes (8) PVD (peripheral vascular disease) SNOMED Code(s): 040402038 Code(s): I73.9 - PERIPHERAL VASCULAR DISEASE, UNSPECIFIED Status: Chronic Current Visit: Yes (9) Dyslipidemia SNOMED Code(s): 365009579 Code(s): E78.5 - HYPERLIPIDEMIA, UNSPECIFIED Status: Chronic Current Visit: Yes (10) Afib SNOMED Code(s): 36762194 Code(s): I48.91 - UNSPECIFIED ATRIAL FIBRILLATION Status: Chronic Current Visit: Yes Qualifiers: Atrial fibrillation type: paroxysmal Qualified Code(s): I48.0 - Paroxysmal atrial fibrillation (11) Chronic anticoagulation SNOMED Code(s): 146359829 Code(s): Z79.01 - [facility] (CURRENT) USE OF ANTICOAGULANTS Status: Chronic Priority: High Current Visit: Yes (12) Chronic kidney disease (CKD), stage III (moderate) SNOMED Code(s): 745072176 Code(s): N18.3 - CHRONIC KIDNEY DISEASE, STAGE 3 (MODERATE) Status: Chronic Priority: High Current Visit: Yes (13) Mitral valve regurgitation SNOMED Code(s): 47711940 Code(s): I34.0 - NONRHEUMATIC MITRAL (VALVE) INSUFFICIENCY Status: Chronic Priority: High Current Visit: Yes Qualifiers: Cardiac valve disease etiology: nonrheumatic Qualified Code(s): I34.0 - Nonrheumatic mitral (valve) insufficiency Annotation/Comment:: Severe mitral regurgitation - Problem List Review Problem List Initiated/Reviewed/Updated: Yes - My Orders Last 24 Hours: My Active Orders 09/27/18 08:00 Potassium Chloride [Klor-Con M20] 40 meq PO TIDMEALS 09/27/18 08:01 UA W/MICROSCOPIC [URIN] Routine - Plan Plan:: This 83 year old female admitted with acute on chronic hypoxic respiratory failure, acute exacerbation of CHF, suspected HCAP and afib with RVR 1. Acute on chronic hypoxic respiratory failure: Improving, continues to be oxygen dependent. Like due to acute decompensated CHF. 2. CHF Exacerbation: Dr Garay consulted and saw patient today. CXR shows some improvement in central pulmonary edema, but some worsening in pleural effusion. Will Continue Lasix 60 mg IV BID. Supplementing Potassium today PO, will recheck this afternoon. Magnesium stable, 1.9. Will eventually need intervention, if patient wants, regarding severe mitral valve regurgitation. ECHo reveals 3. Leukocytosis: CXR reveals no consolidation, has been treat for suspected HCAP since admission. WBC continues to increase. May be related to steroid administration since admission. Will check UA and stool studies since patient is having diarrhea. Continue Meropenem and Vancomycin. No concerning skin problems. Non healing wound to LLE, is draining serous fluid, but no erythema or purulent drainage noted. 4. ROSELYN on CKD: Improving with diuresis, continue to monitor. 5. Afib: Stable, continue Diltiazem and Metoprolol 50 po TID. Monitor K and Mg. Continue Coumadin and monitor INR daily. 6. CAD: Stable, continue ASA, Plavix and Crestor. 7. HTN: Stable, holding BP meds while diuresing. Will monitor. 8. Elevated BS: A1c 6.6. Continue Novolog SSI in hospital. VTE prophylaxis: Coumadin Dispo: 2-3 days pending improvement.
[2018-09-27] MEDS: Warfarin 5 MG Tab PO SCH (13:23)
[2018-09-27] MEDS ORDERED: Potassium Chloride 20 MEQ Tab.ER PO ONE (14:55)
--- NOTE | 2018-09-27 20:56 | PCM.PN ---
- General Info Date of Service: 09/27/18 Admission Dx/Problem (Free Text): 83F hx PVD s/p rt fem pop bypass, with remote LAD PCI HTN HLP former smoker persistent afib, with subacute CVA on MRI back in 08/2018, with decompensated CHF with LVEF 45-50% with severe MR. with afib RVR HCAP ROSELYN on CKD Subjective Update: She felt the same. I informed her the referal to [facility] has been made, and contact info was given to patient family. CXR on 09/26/2018 worsening pleural effusion, with afib HR 90-100. O2 90-95 on O2 1-3 L, she responding to lasix 60 IV BID, on ASA/coumadin. Treated with Abx for HCAP Functional Status: Reports: Pain Controlled - Review of Systems General: Reports: Weakness HEENT: Reports: No Symptoms Pulmonary: Reports: Shortness of Breath 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: Reports: No Symptoms, Dyspnea on Exertion Gastrointestinal: Reports: No Symptoms Genitourinary: Reports: No Symptoms Musculoskeletal: Reports: No Symptoms - Patient Data Vitals - Most Recent: Last Vital Signs Temp 97.9 F 09/27/18 20:23 Pulse 87 09/27/18 20:23 Resp 18 09/27/18 20:23 BP 107/54 L 09/27/18 20:23 Pulse Ox 98 09/27/18 20:23 Weight - Most Recent: 130 lb 9 oz I&O - Last 24 Hours: Intake & Output 09/27/18 09/27/18 09/27/18 06:59 14:59 22:59 Intake Total 660 720 920 Output Total 1050 700 700 Balance -390 20 220 Lab Results Last 24 Hours: Laboratory Results - last 24 hr 09/27/18 09/27/18 09/27/18 Range/Units 06:15 06:15 06:15 WBC 22.71 H (4.0-11.0) K/uL RBC 3.61 L (4.30-5.90) M/uL Hgb 10.7 L (12.0-16.0) g/dL Hct 34.0 L (36.0-46.0) % MCV 94.2 (80.0-98.0) fL MCH 29.6 (27.0-32.0) pg MCHC 31.5 (31.0-37.0) g/dL RDW Std Deviation 50.7 (28.0-62.0) fl RDW Coeff of Erickson 15 (11.0-15.0) % Plt Count 186 (150-400) K/uL MPV 10.90 (7.40-12.00) fL Neut % (Auto) 93.6 H (48.0-80.0) % Lymph % (Auto) 3.2 L (16.0-40.0) % Quay % (Auto) 3.0 (0.0-15.0) % Eos % (Auto) 0.1 (0.0-7.0) % Baso % (Auto) 0.1 (0.0-1.5) % Neut # (Auto) 21.3 H (1.4-5.7) K/uL Lymph # (Auto) 0.7 (0.6-2.4) K/uL Quay # (Auto) 0.7 (0.0-0.8) K/uL Eos # (Auto) 0.0 (0.0-0.7) K/uL Baso # (Auto) 0.0 (0.0-0.1) K/uL Nucleated RBC % 0.0 /100WBC Nucleated RBCs # 0 K/uL INR 2.15 Sodium 142 (136-145) mmol/L Potassium 2.6 L (3.5-5.1) mmol/L Chloride 100 (98-107) mmol/L Carbon Dioxide 33.1 H (21.0-32.0) mmol/L BUN 49 H (7.0-18.0) mg/dL Creatinine 1.5 H (0.6-1.0) mg/dL Est Cr Clr Drug Dosing 24.28 mL/min Estimated GFR (MDRD) 33.1 ml/min Glucose 136 H (74-106) mg/dL POC Glucose (60-110) mg/dL Calcium 8.0 L (8.5-10.1) mg/dL Magnesium (1.8-2.4) mg/dL Urine Color Urine Appearance Urine pH (5.0-8.0) Ur Specific [place] (1.001-1.035) Urine Protein (NEGATIVE) mg/dL Urine Glucose (UA) (NEGATIVE) mg/dL Urine Ketones (NEGATIVE) mg/dL Urine Occult Blood (NEGATIVE) Urine Nitrite (NEGATIVE) Urine Bilirubin (NEGATIVE) Urine Urobilinogen (<2.0) EU/dL Ur Leukocyte Esterase (NEGATIVE) Urine RBC (0-2/HPF) Urine WBC (0-5/HPF) Ur Epithelial Cells (NONE-FEW) Urine Bacteria (NEGATIVE) Urine Yeast 09/27/18 09/27/18 09/27/18 Range/Units 06:15 06:42 11:38 WBC (4.0-11.0) K/uL RBC (4.30-5.90) M/uL Hgb (12.0-16.0) g/dL Hct (36.0-46.0) % MCV (80.0-98.0) fL MCH (27.0-32.0) pg MCHC (31.0-37.0) g/dL RDW Std Deviation (28.0-62.0) fl RDW Coeff of Erickson (11.0-15.0) % Plt Count (150-400) K/uL MPV (7.40-12.00) fL Neut % (Auto) (48.0-80.0) % Lymph % (Auto) (16.0-40.0) % Quay % (Auto) (0.0-15.0) % Eos % (Auto) (0.0-7.0) % Baso % (Auto) (0.0-1.5) % Neut # (Auto) (1.4-5.7) K/uL Lymph # (Auto) (0.6-2.4) K/uL Quay # (Auto) (0.0-0.8) K/uL Eos # (Auto) (0.0-0.7) K/uL Baso # (Auto) (0.0-0.1) K/uL Nucleated RBC % /100WBC Nucleated RBCs # K/uL INR Sodium (136-145) mmol/L Potassium (3.5-5.1) mmol/L Chloride (98-107) mmol/L Carbon Dioxide (21.0-32.0) mmol/L BUN (7.0-18.0) mg/dL Creatinine (0.6-1.0) mg/dL Est Cr Clr Drug Dosing mL/min Estimated GFR (MDRD) ml/min Glucose (74-106) mg/dL POC Glucose 138 H 199 H (60-110) mg/dL Calcium (8.5-10.1) mg/dL Magnesium 1.9 (1.8-2.4) mg/dL Urine Color Urine Appearance Urine pH (5.0-8.0) Ur Specific [place] (1.001-1.035) Urine Protein (NEGATIVE) mg/dL Urine Glucose (UA) (NEGATIVE) mg/dL Urine Ketones (NEGATIVE) mg/dL Urine Occult Blood (NEGATIVE) Urine Nitrite (NEGATIVE) Urine Bilirubin (NEGATIVE) Urine Urobilinogen (<2.0) EU/dL Ur Leukocyte Esterase (NEGATIVE) Urine RBC (0-2/HPF) Urine WBC (0-5/HPF) Ur Epithelial Cells (NONE-FEW) Urine Bacteria (NEGATIVE) Urine Yeast 09/27/18 09/27/18 09/27/18 Range/Units 14:05 16:06 16:55 WBC (4.0-11.0) K/uL RBC (4.30-5.90) M/uL Hgb (12.0-16.0) g/dL Hct (36.0-46.0) % MCV (80.0-98.0) fL MCH (27.0-32.0) pg MCHC (31.0-37.0) g/dL RDW Std Deviation (28.0-62.0) fl RDW Coeff of Erickson (11.0-15.0) % Plt Count (150-400) K/uL MPV (7.40-12.00) fL Neut % (Auto) (48.0-80.0) % Lymph % (Auto) (16.0-40.0) % Quay % (Auto) (0.0-15.0) % Eos % (Auto) (0.0-7.0) % Baso % (Auto) (0.0-1.5) % Neut # (Auto) (1.4-5.7) K/uL Lymph # (Auto) (0.6-2.4) K/uL [place] # (Auto) (0.0-0.8) K/uL Eos # (Auto) (0.0-0.7) K/uL Baso # (Auto) (0.0-0.1) K/uL Nucleated RBC % /100WBC Nucleated RBCs # K/uL INR Sodium (136-145) mmol/L Potassium 2.6 L (3.5-5.1) mmol/L Chloride (98-107) mmol/L Carbon Dioxide (21.0-32.0) mmol/L BUN (7.0-18.0) mg/dL Creatinine (0.6-1.0) mg/dL Est Cr Clr Drug Dosing mL/min Estimated GFR (MDRD) ml/min Glucose (74-106) mg/dL POC Glucose 203 H (60-110) mg/dL Calcium (8.5-10.1) mg/dL Magnesium (1.8-2.4) mg/dL Urine Color YELLOW Urine Appearance CLEAR Urine pH 6.0 (5.0-8.0) Ur Specific [place] 1.010 (1.001-1.035) Urine Protein NEGATIVE (NEGATIVE) mg/dL Urine Glucose (UA) NEGATIVE (NEGATIVE) mg/dL Urine Ketones NEGATIVE (NEGATIVE) mg/dL Urine Occult Blood SMALL H (NEGATIVE) Urine Nitrite NEGATIVE (NEGATIVE) Urine Bilirubin NEGATIVE (NEGATIVE) Urine Urobilinogen 0.2 (<2.0) EU/dL Ur Leukocyte Esterase TRACE H (NEGATIVE) Urine RBC 0-2 (0-2/HPF) Urine WBC 0-3 (0-5/HPF) Ur Epithelial Cells OCCASIONAL (NONE-FEW) Urine Bacteria FEW (NEGATIVE) Urine Yeast FEW Barry Results Last 24 Hours: Microbiology 09/27/18 17:15 Clostridium difficile Toxin A & B - Final Stool / Feces Negative for C.Diff Toxin/AG 09/27/18 17:15 Campylobacter Antigen Assay - Final Stool / Feces NEGATIVE [facility]AMPYLOBACTER AG Med Orders - Current: Current Medications Acetaminophen (Tylenol) 650 mg PO Q4H PRN PRN Reason: Pain (mild 1-3) Acetaminophen/Codeine Phosphate (Tylenol With Codeine No.3 300mg/30mg) 1 tab PO BID PRN PRN Reason: Pain Last Admin: 09/22/18 21:06 Dose: 1 tab Albuterol/Ipratropium (Duoneb 3.0-0.5 Mg/3 Ml) 3 ml NEB Q4HRRT PRN PRN Reason: Shortness of Breath Last Admin: 09/27/18 05:51 Dose: 3 ml Aspirin (Aspirin) 81 mg PO DAILY YAKELIN Last Admin: 09/27/18 08:30 Dose: 81 mg Diltiazem HCl (Cardizem Cd) 180 mg PO DAILY [facility] Last Admin: 09/27/18 08:30 Dose: 180 mg Docusate Sodium (Colace) 100 mg PO BID PRN PRN Reason: Constipation Last Admin: 09/22/18 21:06 Dose: 100 mg Furosemide (Lasix) 60 mg IVPUSH BIDDIURETIC [facility] Last Admin: 09/27/18 13:23 Dose: 60 mg Vancomycin HCl 500 mg/ Sodium (Chloride) 100 mls @ 100 mls/hr IV Q24H [facility] Last Admin: 09/27/18 13:21 Dose: 100 mls/hr Meropenem 1 gm/ Sodium (Chloride) 100 mls @ 200 mls/hr IV Q12H [facility] Insulin Aspart (Novolog) 0 unit SUBCUT TIDAC [facility]; Protocol Last Admin: 09/27/18 17:42 Dose: 2 units Levothyroxine Sodium (Synthroid) 100 mcg PO ACBREAKFAST [facility] Last Admin: 09/27/18 06:42 Dose: 100 mcg Lorazepam (Ativan) 0.5 mg PO Q6H PRN PRN Reason: Anxiety Last Admin: 09/27/18 02:58 Dose: 0.5 mg Metoprolol Tartrate (Lopressor) 50 mg PO TID [facility] Last Admin: 09/27/18 13:22 Dose: 50 mg Potassium Chloride (Klor-Con M20) 40 meq PO TIDMEALS [facility] Last Admin: 09/27/18 18:24 Dose: 40 meq Rosuvastatin Calcium (Crestor) 20 mg PO DAILY [facility] Last Admin: 09/27/18 08:30 Dose: 20 mg Temazepam (Restoril) 15 mg PO BEDTIME PRN PRN Reason: Sleep Last Admin: 09/23/18 22:28 Dose: 15 mg Warfarin Sodium (Coumadin) 5 mg PO DAILY@1400 [facility] Last Admin: 09/27/18 13:23 Dose: 5 mg Discontinued Medications Albuterol/Ipratropium (Duoneb 3.0-0.5 Mg/3 Ml) 3 ml NEB ONETIME ONE Stop: 09/16/18 20:54 Last Admin: 09/16/18 21:06 Dose: 3 ml Albuterol/Ipratropium (Duoneb 3.0-0.5 Mg/3 Ml) 3 ml NEB Q4HRRT PRN PRN Reason: Shortness of Breath Last Admin: 09/19/18 22:59 Dose: 3 ml Albuterol/Ipratropium (Duoneb 3.0-0.5 Mg/3 Ml) 3 ml NEB Q4HRRT [facility] Last Admin: 09/22/18 10:51 Dose: Not Given Amlodipine Besylate (Norvasc) 5 mg PO QPM [facility] Last Admin: 09/22/18 18:32 Dose: 5 mg Apixaban (Eliquis) 2.5 mg PO QAM [facility] Last Admin: 09/22/18 09:24 Dose: 2.5 mg Aspirin (Aspirin) 81 mg PO DAILY [facility] Ceftriaxone Sodium (Rocephin) 1 gm IM ONETIME ONE Stop: 09/16/18 22:05 Last Admin: 09/16/18 22:16 Dose: Not Given Clopidogrel Bisulfate (Plavix) 75 mg PO QAM [facility] Last Admin: 09/24/18 08:30 Dose: 75 mg Furosemide (Lasix) 20 mg PO BID [facility] Last Admin: 09/19/18 20:49 Dose: 20 mg Furosemide (Lasix) 20 mg IVPUSH NOW ONE Stop: 09/19/18 10:01 Last Admin: 09/19/18 09:49 Dose: 20 mg Furosemide (Lasix) 20 mg IVPUSH NOW ONE Stop: 09/20/18 01:30 Last Admin: 09/20/18 02:06 Dose: Not Given Furosemide (Lasix) Confirm Administered Dose 20 mg .ROUTE .STK-MED ONE Stop: 09/20/18 01:32 Last Admin: 09/20/18 01:37 Dose: 20 mg Furosemide (Lasix) 20 mg IVPUSH BIDDIURETIC [facility] Last Admin: 09/22/18 13:22 Dose: 20 mg Furosemide (Lasix) 40 mg IVPUSH NOW ONE Stop: 09/22/18 15:57 Last Admin: 09/22/18 16:07 Dose: Not Given Furosemide (Lasix) 60 mg IVPUSH ONETIME ONE Stop: 09/20/18 16:11 Last Admin: 09/26/18 23:07 Dose: Not Given Furosemide (Lasix) 60 mg IVPUSH ONETIME ONE Stop: 09/22/18 16:31 Last Admin: 09/22/18 16:41 Dose: 60 mg Furosemide (Lasix) 60 mg IVPUSH NOW ONE Stop: 09/23/18 10:13 Last Admin: 09/23/18 11:36 Dose: 60 mg Furosemide (Lasix) 60 mg IVPUSH NOW ONE Stop: 09/23/18 17:16 Last Admin: 09/23/18 18:27 Dose: 60 mg Furosemide (Lasix) 60 mg IVPUSH NOW ONE Stop: 09/24/18 09:15 Last Admin: 09/24/18 11:07 Dose: 60 mg Furosemide (Lasix) 60 mg IVPUSH NOW ONE Stop: 09/24/18 17:04 Last Admin: 09/24/18 18:31 Dose: 60 mg Furosemide (Lasix) 60 mg IVPUSH BID [facility] Last Admin: 09/25/18 21:14 Dose: 60 mg Sodium Chloride (Normal Saline) 1,000 mls @ 125 mls/hr IV STAT [facility] Last Admin: 09/16/18 21:21 Dose: 125 mls/hr Azithromycin 500 mg/ Sodium (Chloride) 250 mls @ 250 mls/hr IV ONETIME ONE Stop: 09/16/18 23:03 Last Admin: 09/16/18 22:34 Dose: Not Given Ceftriaxone Sodium 1 gm/ (Sodium Chloride) 50 mls @ 100 mls/hr IV ONETIME ONE Stop: 09/16/18 22:43 Last Admin: 09/16/18 22:34 Dose: Not Given Levofloxacin/Dextrose 500 mg/ (Premix) 100 mls @ 100 mls/hr IV ONETIME ONE Stop: 09/16/18 23:30 Last Admin: 09/16/18 22:51 Dose: 100 mls/hr Sodium Chloride (Normal Saline) 1,000 mls @ 75 mls/hr IV ASDIRECTED [facility] Last Admin: 09/19/18 08:54 Dose: 75 mls/hr Piperacillin Sod/Tazobactam (Sod 2.25 gm/ Sodium Chloride) 50 mls @ 100 mls/hr IV Q8H [facility] Last Admin: 09/26/18 00:34 Dose: 100 mls/hr Vancomycin HCl 0.75 gm/ Sodium (Chloride) 250 mls @ 166.667 mls/hr IV Q24H [facility] Last Admin: 09/20/18 10:55 Dose: Not Given Vancomycin HCl 1 gm/ Sodium (Chloride) 250 mls @ 166.667 mls/hr IV Q24H [facility] Last Admin: 09/22/18 11:23 Dose: 166.667 mls/hr Potassium Chloride/Dextrose/Sod Cl (D5 1/2 Ns W/ 40 Meq/L Kcl) 1,000 mls @ 75 mls/hr IV ASDIRECTED [facility] Last Admin: 09/24/18 07:00 Dose: 75 mls/hr Vancomycin HCl 0.75 gm/ Sodium (Chloride) 250 mls @ 166.667 mls/hr IV Q24H [facility] Last Admin: 09/25/18 12:58 Dose: 166.667 mls/hr Meropenem 1 gm/ Sodium (Chloride) 100 mls @ 200 mls/hr IV Q8H [facility] Last Admin: 09/27/18 08:30 Dose: 200 mls/hr Magnesium Sulfate 1 gm/ Premix 25 mls @ 25 mls/hr IV ONETIME ONE Stop: 09/26/18 22:27 Last Admin: 09/26/18 21:53 Dose: 25 mls/hr Potassium Chloride 40 meq/ (Sodium Chloride) 270 mls @ 62 mls/hr IV ASDIRECTED [facility] Stop: 09/27/18 19:37 Last Admin: 09/27/18 15:38 Dose: 62 mls/hr Insulin Aspart (Novolog) 0 unit SUBCUT Q4H [facility]; Protocol Last Admin: 09/22/18 10:46 Dose: 3 unit Lisinopril (Prinivil) 10 mg PO DAILY [facility] Last Admin: 09/19/18 08:40 Dose: 10 mg Lorazepam (Ativan) 0.5 mg PO ONETIME ONE Stop: 09/22/18 15:06 Last Admin: 09/23/18 10:12 Dose: Not Given Methylprednisolone Sodium Succinate (Solu-Medrol) 125 mg IVPUSH ONETIME ONE Stop: 09/16/18 20:54 Last Admin: 09/16/18 21:22 Dose: 125 mg Methylprednisolone Sodium Succinate (Solu-Medrol) 125 mg IVPUSH Q8H [facility] Last Admin: 09/19/18 20:49 Dose: 125 mg Methylprednisolone Sodium Succinate (Solu-Medrol) 60 mg IVPUSH Q8H [facility] Last Admin: 09/24/18 22:35 Dose: 60 mg Metoprolol Succinate (Toprol Xl) 100 mg PO DAILY [facility] Last Admin: 09/25/18 08:08 Dose: 100 mg Morphine Sulfate (Morphine) 1 mg IVPUSH Q2H PRN PRN Reason: Pain (severe 7-10) Nitroglycerin (Nitro-Dur 0.2 Mg/Hr) 0.2 mg TRDERM ONETIME ONE Stop: 09/17/18 03:55 Last Admin: 09/17/18 04:11 Dose: Not Given Nitroglycerin (Nitro-Bid 2%) 1 gm TOP ONETIME ONE Stop: 09/17/18 04:11 Last Admin: 09/17/18 04:18 Dose: 1 gm Oxycodone HCl (Oxycodone) 5 mg PO Q4H PRN PRN Reason: Pain (severe 7-10) Potassium Chloride (Klor-Con 8) 8 meq PO TID [facility] Last Admin: 09/17/18 13:54 Dose: Not Given Potassium Chloride (Klor-Con 8) 8 meq PO TIDMEALS [facility] Last Admin: 09/24/18 12:28 Dose: 8 meq Potassium Chloride (Klor-Con M20) 20 meq PO ONETIME ONE Stop: 09/23/18 16:12 Last Admin: 09/23/18 16:58 Dose: 20 meq Potassium Chloride (Klor-Con M20) 40 meq PO Q6H [facility] Stop: 09/24/18 23:16 Last Admin: 09/24/18 22:35 Dose: 40 meq Potassium Chloride (Klor-Con M20) 40 meq PO BID [facility] Stop: 09/25/18 21:01 Last Admin: 09/25/18 21:14 Dose: 40 meq Potassium Chloride (Klor-Con M20) 20 meq PO ONETIME ONE Stop: 09/26/18 14:17 Last Admin: 09/26/18 14:48 Dose: 20 meq Potassium Chloride (Klor-Con M20) 40 meq PO ONETIME ONE Stop: 09/27/18 14:56 Last Admin: 09/27/18 15:37 Dose: 40 meq Triamterene/HCTZ (Maxzide 25-37.5 Mg) 1 each PO QPM [facility] Last Admin: 09/19/18 17:19 Dose: 1 each Vancomycin HCl (Pharmacy To Dose - Vancomycin) 1 dose .XX ASDIRECTED ONE Stop: 09/17/18 09:16 Last Admin: 09/17/18 09:49 Dose: Not Given Warfarin Sodium (Coumadin) 5 mg PO ONETIME ONE Stop: 09/25/18 14:01 Last Admin: 09/25/18 14:09 Dose: 5 mg Warfarin Sodium (Coumadin) 2.5 mg PO ONETIME@1400 ONE Stop: 09/26/18 14:01 Last Admin: 09/26/18 14:47 Dose: 2.5 mg - Exam General: Alert, Oriented HEENT: Pupils Equal Neck: JVD Lungs: Rales, Rhonchi 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: Irregular Rhythm Extremities: Pedal Edema EKG INTERPRETATION Rhythm: A-Fib - Problem List Review Problem List Initiated/Reviewed/Updated: Yes - Plan Plan:: 83F hx PVD s/p rt fem pop bypass, with remote LAD PCI HTN HLP former smoker persistent afib, with subacute CVA on MRI back in 08/2018, with decompensated CHF with LVEF 45-50% with severe MR. with afib RVR HCAP RSOELYN on CKD 1. Acute on chronic hypoxic respiratory failure: acute decompensated CHF: LVEF 45-50% with uncorrected severe MR, seen by CTS in [place], not a surgical candidate. Recommendation MV clip in [facility]. I have discussed with interventionalist in [facility], all agreed that she is not good candidate. Referral to [facility] has been made. Recommended to patient follow up with [facility] in 2-3 weeks. 2. CHF Exacerbation: restrict PO intake to 1.5L, keep negative balance at least 500 cc. Continue lasix 60 IV BID 3. Leukocytosis: CXR reveals no consolidation, has been treat for suspected HCAP since admission. WBC continues to increase. May be related to steroid administration since admission. Will check UA and stool studies since patient is having diarrhea. Continue Meropenem and Vancomycin. No concerning skin problems. Non healing wound to LLE, is draining serous fluid, but no erythema or purulent drainage noted. 4. ROSELYN on CKD: Improving with diuresis, continue to monitor. could be cardiorenal component. 5. persistent Afib: rate 90-100 continue Diltiazem and Metoprolol 50 po TID. Monitor K and Mg. Continue Coumadin and monitor INR daily. 6. CAD: Stable, continue ASA, crestor, plavix stopped due to nose bleed while in the hospital 7. HTN: amlodipine was stopped due to dizziness with low normal BP while in the hospital. 8. Elevated BS: per hospitalist.
[2018-09-27] MEDS ORDERED: Furosemide 40 MG/4 ML VIAL IVPUSH ONE (21:35)
[2018-09-28] MEDS: Metoprolol Tartrate 50 MG Tab PO SCH ×3 (05:56→21:04)
[2018-09-28] MEDS: Insulin Aspart 100 Units/ML 3 ML Pen SUBCUT SCH (06:45)
[2018-09-28] MEDS: Levothyroxine 100 MCG Tab PO SCH (06:46)
--- NOTE | 2018-09-28 06:53 | CR ---
INDICATION: Shortness of breath COMPARISON: Portable chest dated 09/26/2018 TECHNIQUE: Portable chest performed at 6:09 a.m. FINDINGS: As compared to the exam performed 2 days prior there are persistent small bilateral pleural effusions. The heart remains enlarged. There is continued evidence of central pulmonary vascular congestion and the findings suggests interstitial edema. No new focal infiltrates are identified. IMPRESSION: Radiographic findings suggest interstitial pulmonary edema Dictated by uGillermo Chinchilla MD @ Sep 28 2018 6:49AM Signed by Dr. Guillermo Chinchilla @ Sep 28 2018 6:52AM
[2018-09-28] MEDS ORDERED: Magnesium Sulfate/Water 2 GM in Premix Bag 1 BAG IV ONE (07:56)
[2018-09-28] MEDS: Meropenem 1 GM in Sodium Chloride 0.9% 100 ML IV SCH ×2 (08:56→20:46)
[2018-09-28] MEDS: Furosemide 100 MG/10 ML SDV IVPUSH SCH ×3 (08:57→18:12)
[2018-09-28] MEDS: Potassium Chloride 20 MEQ Tab.ER PO SCH ×3 (09:08→18:11)
[2018-09-28] MEDS: Diltiazem 180 MG Cap.CD PO SCH (09:08)
[2018-09-28] MEDS: Aspirin 81 MG Tab.Chew PO SCH (09:08)
[2018-09-28] MEDS: Rosuvastatin 10 MG Tab PO SCH (09:09)
--- NOTE | 2018-09-28 09:42 | PCM.PN ---
- General Info Date of Service: 09/28/18 Admission Dx/Problem (Free Text): Decompensated HF, dyspnea Subjective Update: Continues to feel "blah" today. Was up urinating overnight after late evening Lasix. No overt dyspnea today. No chest pain. Functional Status: Reports: Pain Controlled, Tolerating Diet, Ambulating, Urinating - Review of Systems General: Reports: Weakness (generalized weakness), Malaise. Denies: Appetite ( poor) Pulmonary: Reports: Shortness of Breath (improving). Denies: Cough 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: Reports: Dyspnea on Exertion, Edema. Denies: Chest Pain Gastrointestinal: Reports: No Symptoms. Denies: Abdominal Pain, Nausea, Vomiting Genitourinary: Reports: No Symptoms. Denies: Dysuria, Frequency, Burning Musculoskeletal: Reports: No Symptoms Skin: Reports: No Symptoms Neurological: Reports: No Symptoms Psychiatric: Reports: No Symptoms - Patient Data Vitals - Most Recent: Last Vital Signs Temp 97.8 F 09/28/18 07:00 Pulse 87 09/28/18 07:00 Resp 18 09/28/18 07:00 BP 118/61 09/28/18 07:00 Pulse Ox 92 L 09/28/18 07:00 Weight - Most Recent: 58.287 kg I&O - Last 24 Hours: Intake & Output 09/27/18 09/28/18 09/28/18 22:59 06:59 14:59 Intake Total 920 500 Output Total 700 1400 Balance 220 -900 Lab Results Last 24 Hours: Laboratory Results - last 24 hr 09/27/18 09/27/18 09/27/18 Range/Units 11:38 14:05 16:06 WBC (4.0-11.0) K/uL RBC (4.30-5.90) M/uL Hgb (12.0-16.0) g/dL Hct (36.0-46.0) % MCV (80.0-98.0) fL MCH (27.0-32.0) pg MCHC (31.0-37.0) g/dL RDW Std Deviation (28.0-62.0) fl RDW Coeff of Ericks[place] (11.0-15.0) % Plt Count (150-400) K/uL MPV (7.40-12.00) fL Add Manual Diff Neutrophils % (Manual) (48.0-80.0) % Band Neutrophils % % Lymphocytes % (Manual) (16.0-40.0) % Monocytes % (Manual) (0.0-15.0) % Nucleated RBC % /100WBC Absolute Seg Neuts (1.4-5.7) Band Neutrophils # Lymphocytes # (Manual) (0.6-2.4) Monocytes # (Manual) (0.0-0.8) Nucleated RBCs # K/uL INR Sodium (136-145) mmol/L Potassium 2.6 L (3.5-5.1) mmol/L Chloride (98-107) mmol/L Carbon Dioxide (21.0-32.0) mmol/L BUN (7.0-18.0) mg/dL Creatinine (0.6-1.0) mg/dL Est Cr Clr Drug Dosing mL/min Estimated GFR (MDRD) ml/min Glucose (74-106) mg/dL POC Glucose 199 H 203 H (60-110) mg/dL Calcium (8.5-10.1) mg/dL Magnesium (1.8-2.4) mg/dL Urine Color Urine Appearance Urine pH (5.0-8.0) Ur Specific [place] (1.001-1.035) Urine Protein (NEGATIVE) mg/dL Urine Glucose (UA) (NEGATIVE) mg/dL Urine Ketones (NEGATIVE) mg/dL Urine Occult Blood (NEGATIVE) Urine Nitrite (NEGATIVE) Urine Bilirubin (NEGATIVE) Urine Urobilinogen (<2.0) EU/dL Ur Leukocyte Esterase (NEGATIVE) Urine RBC (0-2/HPF) Urine WBC (0-5/HPF) Ur Epithelial Cells (NONE-FEW) Urine Bacteria (NEGATIVE) Urine Yeast 09/27/18 09/28/18 09/28/18 Range/Units 16:55 06:00 06:15 WBC 20.97 H (4.0-11.0) K/uL RBC 3.63 L (4.30-5.90) M/uL Hgb 10.8 L (12.0-16.0) g/dL Hct 34.4 L (36.0-46.0) % MCV 94.8 (80.0-98.0) fL MCH 29.8 (27.0-32.0) pg MCHC 31.4 (31.0-37.0) g/dL RDW Std Deviation 52.5 (28.0-62.0) fl RDW Coeff of [place] 15 (11.0-15.0) % Plt Count 170 (150-400) K/uL MPV 10.90 (7.40-12.00) fL Add Manual Diff YES Neutrophils % (Manual) 94 H (48.0-80.0) % Band Neutrophils % 1 % Lymphocytes % (Manual) 3 L (16.0-40.0) % Monocytes % (Manual) 2 (0.0-15.0) % Nucleated RBC % 0.0 /100WBC Absolute Seg Neuts 19.7 H (1.4-5.7) Band Neutrophils # 0.2 Lymphocytes # (Manual) 0.6 (0.6-2.4) Monocytes # (Manual) 0.4 (0.0-0.8) Nucleated RBCs # 0 K/uL INR Sodium (136-145) mmol/L Potassium (3.5-5.1) mmol/L Chloride (98-107) mmol/L Carbon Dioxide (21.0-32.0) mmol/L BUN (7.0-18.0) mg/dL Creatinine (0.6-1.0) mg/dL Est Cr Clr Drug Dosing mL/min Estimated GFR (MDRD) ml/min Glucose (74-106) mg/dL POC Glucose 133 H (60-110) mg/dL Calcium (8.5-10.1) mg/dL Magnesium (1.8-2.4) mg/dL Urine Color YELLOW Urine Appearance CLEAR Urine pH 6.0 (5.0-8.0) Ur Specific [place] 1.010 (1.001-1.035) Urine Protein NEGATIVE (NEGATIVE) mg/dL Urine Glucose (UA) NEGATIVE (NEGATIVE) mg/dL Urine Ketones NEGATIVE (NEGATIVE) mg/dL Urine Occult Blood SMALL H (NEGATIVE) Urine Nitrite NEGATIVE (NEGATIVE) Urine Bilirubin NEGATIVE (NEGATIVE) Urine Urobilinogen 0.2 (<2.0) EU/dL Ur Leukocyte Esterase TRACE H (NEGATIVE) Urine RBC 0-2 (0-2/HPF) Urine WBC 0-3 (0-5/HPF) Ur Epithelial Cells OCCASIONAL (NONE-FEW) Urine Bacteria FEW (NEGATIVE) Urine Yeast FEW 02/12/19 02/12/19 Range/Units 06:15 06:15 WBC (4.0-11.0) K/uL RBC (4.30-5.90) M/uL Hgb (12.0-16.0) g/dL Hct (36.0-46.0) % MCV (80.0-98.0) fL MCH (27.0-32.0) pg MCHC (31.0-37.0) g/dL RDW Std Deviation (28.0-62.0) fl RDW Coeff of [place]ks[place] (11.0-15.0) % Plt Count (150-400) K/uL MPV (7.40-12.00) fL Add Manual Diff Neutrophils % (Manual) (48.0-80.0) % Band Neutrophils % % Lymphocytes % (Manual) (16.0-40.0) % Monocytes % (Manual) (0.0-15.0) % Nucleated RBC % /100WBC Absolute Seg Neuts (1.4-5.7) Band Neutrophils # Lymphocytes # (Manual) (0.6-2.4) Monocytes # (Manual) (0.0-0.8) Nucleated RBCs # K/uL INR 3.47 Sodium 142 (136-145) mmol/L Potassium 3.7 (3.5-5.1) mmol/L Chloride 101 (98-107) mmol/L Carbon Dioxide 34.2 H (21.0-32.0) mmol/L BUN 39 H (7.0-18.0) mg/dL Creatinine 1.4 H (0.6-1.0) mg/dL Est Cr Clr Drug Dosing 26.02 mL/min Estimated GFR (MDRD) 35.8 ml/min Glucose 129 H (74-106) mg/dL POC Glucose (60-110) mg/dL Calcium 8.0 L (8.5-10.1) mg/dL Magnesium 1.8 (1.8-2.4) mg/dL Urine Color Urine Appearance Urine pH (5.0-8.0) Ur Specific [place] (1.001-1.035) Urine Protein (NEGATIVE) mg/dL Urine Glucose (UA) (NEGATIVE) mg/dL Urine Ketones (NEGATIVE) mg/dL Urine Occult Blood (NEGATIVE) Urine Nitrite (NEGATIVE) Urine Bilirubin (NEGATIVE) Urine Urobilinogen (<2.0) EU/dL Ur Leukocyte Esterase (NEGATIVE) Urine RBC (0-2/HPF) Urine WBC (0-5/HPF) Ur Epithelial Cells (NONE-FEW) Urine Bacteria (NEGATIVE) Urine Yeast Barry Results Last 24 Hours: Microbiology 09/27/18 17:15 Clostridium difficile Toxin A & B - Final Stool / Feces Negative for C.Diff Toxin/AG 09/27/18 17:15 Campylobacter Antigen Assay - Final Stool / Feces NEGATIVE [facility]AMPYLOBACTER AG Med Orders - Current: Current Medications Acetaminophen (Tylenol) 650 mg PO Q4H PRN PRN Reason: Pain (mild 1-3) Acetaminophen/Codeine Phosphate (Tylenol With Codeine No.3 300mg/30mg) 1 tab PO BID PRN PRN Reason: Pain Last Admin: 09/22/18 21:06 Dose: 1 tab Albuterol/Ipratropium (Duoneb 3.0-0.5 Mg/3 Ml) 3 ml NEB Q4HRRT PRN PRN Reason: Shortness of Breath Last Admin: 09/27/18 05:51 Dose: 3 ml Aspirin (Aspirin) 81 mg PO DAILY [facility] Last Admin: 09/28/18 09:08 Dose: 81 mg Diltiazem HCl (Cardizem Cd) 180 mg PO DAILY [facility] Last Admin: 09/28/18 09:08 Dose: 180 mg Docusate Sodium (Colace) 100 mg PO BID PRN PRN Reason: Constipation Last Admin: 09/22/18 21:06 Dose: 100 mg Furosemide (Lasix) 60 mg IVPUSH TID@0600,1200,1800 [facility] Meropenem 1 gm/ Sodium (Chloride) 100 mls @ 200 mls/hr IV Q12H [facility] Last Admin: 09/28/18 08:56 Dose: 200 mls/hr Levothyroxine Sodium (Synthroid) 100 mcg PO ACBREAKFAST [facility] Last Admin: 09/28/18 06:46 Dose: 100 mcg Lorazepam (Ativan) 0.5 mg PO Q6H PRN PRN Reason: Anxiety Last Admin: 09/27/18 02:58 Dose: 0.5 mg Metoprolol Tartrate (Lopressor) 50 mg PO TID [facility] Last Admin: 09/28/18 05:56 Dose: 50 mg Potassium Chloride (Klor-Con M20) 40 meq PO TIDMEALS [facility] Last Admin: 09/28/18 09:08 Dose: 40 meq Rosuvastatin Calcium (Crestor) 20 mg PO MoWeFr@1200 [facility] Rosuvastatin Calcium (Crestor) 10 mg PO SuTuThSa@1200 [facility] Temazepam (Restoril) 15 mg PO BEDTIME PRN PRN Reason: Sleep Last Admin: 09/23/18 22:28 Dose: 15 mg Warfarin Sodium (Coumadin Ask) 1 each PO DAILY@1400 [facility] Discontinued Medications Albuterol/Ipratropium (Duoneb 3.0-0.5 Mg/3 Ml) 3 ml NEB ONETIME ONE Stop: 09/16/18 20:54 Last Admin: 09/16/18 21:06 Dose: 3 ml Albuterol/Ipratropium (Duoneb 3.0-0.5 Mg/3 Ml) 3 ml NEB Q4HRRT PRN PRN Reason: Shortness of Breath Last Admin: 09/19/18 22:59 Dose: 3 ml Albuterol/Ipratropium (Duoneb 3.0-0.5 Mg/3 Ml) 3 ml NEB Q4HRRT [facility] Last Admin: 09/22/18 10:51 Dose: Not Given Amlodipine Besylate (Norvasc) 5 mg PO QPM [facility] Last Admin: 09/22/18 18:32 Dose: 5 mg Apixaban (Eliquis) [facility] [place] Last Admin: 09/22/18 09:24 Dose: 2.5 mg Aspirin (Aspirin) 81 mg PO DAILY [facility] Ceftriaxone Sodium (Rocephin) 1 gm IM ONETIME ONE Stop: 09/16/18 22:05 Last Admin: 09/16/18 22:16 Dose: Not Given Clopidogrel Bisulfate (Plavix) 75 mg PO QAM [facility] Last Admin: 09/24/18 08:30 Dose: 75 mg Furosemide (Lasix) 20 mg PO BID [facility] Last Admin: 09/19/18 20:49 Dose: 20 mg Furosemide (Lasix) 20 mg IVPUSH NOW ONE Stop: 09/19/18 10:01 Last Admin: 09/19/18 09:49 Dose: 20 mg Furosemide (Lasix) 20 mg IVPUSH NOW ONE Stop: 09/20/18 01:30 Last Admin: 09/20/18 02:06 Dose: Not Given Furosemide (Lasix) Confirm Administered Dose 20 mg .ROUTE .STK-MED ONE Stop: 09/20/18 01:32 Last Admin: 09/20/18 01:37 Dose: 20 mg Furosemide (Lasix) 20 mg IVPUSH BIDDIURETIC YAKELIN Last Admin: 09/22/18 13:22 Dose: 20 mg Furosemide (Lasix) 40 mg IVPUSH NOW ONE Stop: 09/22/18 15:57 Last Admin: 09/22/18 16:07 Dose: Not Given Furosemide (Lasix) 60 mg IVPUSH ONETIME ONE Stop: 09/20/18 16:11 Last Admin: 09/26/18 23:07 Dose: Not Given Furosemide (Lasix) 60 mg IVPUSH ONETIME ONE Stop: 09/22/18 16:31 Last Admin: 09/22/18 16:41 Dose: 60 mg Furosemide (Lasix) 60 mg IVPUSH NOW ONE Stop: 09/23/18 10:13 Last Admin: 09/23/18 11:36 Dose: 60 mg Furosemide (Lasix) 60 mg IVPUSH NOW ONE Stop: 09/23/18 17:16 Last Admin: 09/23/18 18:27 Dose: 60 mg Furosemide (Lasix) 60 mg IVPUSH NOW ONE Stop: 09/24/18 09:15 Last Admin: 09/24/18 11:07 Dose: 60 mg Furosemide (Lasix) 60 mg IVPUSH NOW ONE Stop: 09/24/18 17:04 Last Admin: 09/24/18 18:31 Dose: 60 mg Furosemide (Lasix) 60 mg IVPUSH BID YAKELIN Last Admin: 09/25/18 21:14 Dose: 60 mg Furosemide (Lasix) 60 mg IVPUSH BIDDIURETIC YAKELIN Last Admin: 09/28/18 08:57 Dose: 60 mg Furosemide (Lasix) 40 mg IVPUSH NOW ONE Stop: 09/27/18 21:36 Last Admin: 09/27/18 21:46 Dose: 40 mg Sodium Chloride (Normal Saline) 1,000 mls @ 125 mls/hr IV STAT YAKELIN Last Admin: 09/16/18 21:21 Dose: 125 mls/hr Azithromycin 500 mg/ Sodium (Chloride) 250 mls @ 250 mls/hr IV ONETIME ONE Stop: 09/16/18 23:03 Last Admin: 09/16/18 22:34 Dose: Not Given Ceftriaxone Sodium 1 gm/ (Sodium Chloride) 50 mls @ 100 mls/hr IV ONETIME ONE Stop: 09/16/18 22:43 Last Admin: 09/16/18 22:34 Dose: Not Given Levofloxacin/Dextrose 500 mg/ (Premix) 100 mls @ 100 mls/hr IV ONETIME ONE Stop: 09/16/18 23:30 Last Admin: 09/16/18 22:51 Dose: 100 mls/hr Sodium Chloride (Normal Saline) 1,000 mls @ 75 mls/hr IV ASDIRECTED [facility] Last Admin: 09/19/18 08:54 Dose: 75 mls/hr Piperacillin Sod/Tazobactam (Sod 2.25 gm/ Sodium Chloride) 50 mls @ 100 mls/hr IV Q8H [facility] Last Admin: 09/26/18 00:34 Dose: 100 mls/hr Vancomycin HCl 0.75 gm/ Sodium (Chloride) 250 mls @ 166.667 mls/hr IV Q24H [facility] Last Admin: 09/20/18 10:55 Dose: Not Given Vancomycin HCl 1 gm/ Sodium (Chloride) 250 mls @ 166.667 mls/hr IV Q24H [facility] Last Admin: 09/22/18 11:23 Dose: 166.667 mls/hr Potassium Chloride/Dextrose/Sod Cl (D5 1/2 Ns W/ 40 Meq/L Kcl) 1,000 mls @ 75 mls/hr [facility] Last Admin: 09/24/18 07:00 Dose: 75 mls/hr Vancomycin HCl 0.75 gm/ Sodium (Chloride) 250 mls @ 166.667 mls/hr IV Q24H [facility] Last Admin: 09/25/18 12:58 Dose: 166.667 mls/hr Meropenem 1 gm/ Sodium (Chloride) 100 mls @ 200 mls/hr IV Q8H [facility] Last Admin: 09/27/18 08:30 Dose: 200 mls/hr Vancomycin HCl 500 mg/ Sodium (Chloride) 100 mls @ 100 mls/hr IV Q24H [facility] Last Admin: 09/27/18 13:21 Dose: 100 mls/hr Magnesium Sulfate 1 gm/ Premix 25 mls @ 25 mls/hr IV ONETIME ONE Stop: 09/26/18 22:27 Last Admin: 09/26/18 21:53 Dose: 25 mls/hr Potassium Chloride 40 meq/ (Sodium Chloride) 270 mls @ 62 mls/hr IV ASDIRECTED [facility] Stop: 09/27/18 19:37 Last Admin: 09/27/18 15:38 Dose: 62 mls/hr Magnesium Sulfate 2 gm/ Premix 50 mls @ 50 mls/hr IV ONETIME ONE Stop: 09/28/18 08:55 Insulin Aspart (Novolog) 0 unit SUBCUT Q4H [facility]; Protocol Last Admin: 09/22/18 10:46 Dose: 3 unit Insulin Aspart (Novolog) 0 unit SUBCUT TIDAC [facility]; Protocol Last Admin: 09/28/18 06:45 Dose: Not Given Lisinopril (Prinivil) 10 mg PO DAILY [facility] Last Admin: 09/19/18 08:40 Dose: 10 mg Lorazepam (Ativan) 0.5 mg PO ONETIME ONE Stop: 09/22/18 15:06 Last Admin: 09/23/18 10:12 Dose: Not Given Methylprednisolone Sodium Succinate (Solu-Medrol) 125 mg IVPUSH ONETIME ONE Stop: 09/16/18 20:54 Last Admin: 09/16/18 21:22 Dose: 125 mg Methylprednisolone Sodium Succinate (Solu-Medrol) 125 mg IVPUSH Q8H [facility] Last Admin: 09/19/18 20:49 Dose: 125 mg Methylprednisolone Sodium Succinate (Solu-Medrol) 60 mg IVPUSH Q8H [facility] Last Admin: 09/24/18 22:35 Dose: 60 mg Metoprolol Succinate (Toprol Xl) 100 mg PO DAILY [facility] Last Admin: 09/25/18 08:08 Dose: 100 mg Morphine Sulfate (Morphine) 1 mg IVPUSH Q2H PRN PRN Reason: Pain (severe 7-10) Nitroglycerin (Nitro-Dur 0.2 Mg/Hr) 0.2 mg TRDERM ONETIME ONE Stop: 09/17/18 03:55 Last Admin: 09/17/18 04:11 Dose: Not Given Nitroglycerin (Nitro-Bid 2%) 1 gm TOP ONETIME ONE Stop: 09/17/18 04:11 Last Admin: 09/17/18 04:18 Dose: 1 gm Oxycodone HCl (Oxycodone) 5 mg PO Q4H PRN PRN Reason: Pain (severe 7-10) Potassium Chloride (Klor-Con 8) 8 meq PO TID [facility] Last Admin: 09/17/18 13:54 Dose: Not Given Potassium Chloride (Klor-Con 8) 8 meq PO TIDMEALS [facility] Last Admin: 09/24/18 12:28 Dose: 8 meq Potassium Chloride (Klor-Con M20) 20 meq PO ONETIME ONE Stop: 09/23/18 16:12 Last Admin: 09/23/18 16:58 Dose: 20 meq Potassium Chloride (Klor-Con M20) 40 meq PO Q6H [facility] Stop: 09/24/18 23:16 Last Admin: 09/24/18 22:35 Dose: 40 meq Potassium Chloride (Klor-Con M20) 40 meq PO BID [facility] Stop: 09/25/18 21:01 Last Admin: 09/25/18 21:14 Dose: 40 meq Potassium Chloride (Klor-Con M20) 20 meq PO ONETIME ONE Stop: 09/26/18 14:17 Last Admin: 09/26/18 14:48 Dose: 20 meq Potassium Chloride (Klor-Con M20) 40 meq PO ONETIME ONE Stop: 09/27/18 14:56 Last Admin: 09/27/18 15:37 Dose: 40 meq Rosuvastatin Calcium (Crestor) 20 mg PO DAILY [facility] Last Admin: 09/28/18 09:09 Dose: Not Given Triamterene/HCTZ (Maxzide 25-37.5 Mg) 1 each PO QPM [facility] Last Admin: 09/19/18 17:19 Dose: 1 each Vancomycin HCl (Pharmacy To Dose - Vancomycin) 1 dose .XX ASDIRECTED ONE Stop: 09/17/18 09:16 Last Admin: 09/17/18 09:49 Dose: Not Given Warfarin Sodium (Coumadin) 5 mg PO DAILY@1400 [facility] Last Admin: 09/27/18 13:23 Dose: 5 mg Warfarin Sodium (Coumadin) 5 mg PO ONETIME ONE Stop: 09/25/18 14:01 Last Admin: 09/25/18 14:09 Dose: 5 mg Warfarin Sodium (Coumadin) 2.5 mg PO ONETIME@1400 ONE Stop: 09/26/18 14:01 Last Admin: 09/26/18 14:47 Dose: 2.5 mg - Exam Quality Assessment: Supplemental Oxygen, DVT Prophylaxis General: Alert, Oriented, Cooperative Neck: JVD Lungs: Decreased Breath Sounds (bibasilar, somewhat improved, with fine crackles ), Crackles 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: Regular Rate, Irregular Rhythm GI/Abdominal Exam: Normal Bowel Sounds, Soft, Non-Tender, No Organomegaly Extremities: Normal Range of Motion, Pedal Edema (+2 pitting edema. somewhat improved. ANGY hose to R leg) Wound/Incisions: Drainage (serous drainage from L lower leg wound, no purulent drainage). No: Erythema Neurological: No New Focal Deficit Psy/Mental Status: Alert, Normal Affect, Normal Mood - Problem List & Annotations (1) Acute respiratory failure with hypoxia SNOMED Code(s): 11991553, 410260565 Code(s): J96.01 - ACUTE RESPIRATORY FAILURE WITH HYPOXIA Status: Acute Priority: High Current Visit: Yes Annotation/Comment:: Improved (2) Heart failure SNOMED Code(s): 58113163 Code(s): I50.9 - HEART FAILURE, UNSPECIFIED Status: Acute Current Visit: Yes Qualifiers: Heart failure type: systolic Heart failure chronicity: acute on chronic Qualified Code(s): I50.23 - Acute on chronic systolic (congestive) heart failure (3) Bilateral pleural effusion SNOMED Code(s): 731409506 Code(s): J90 - PLEURAL EFFUSION, NOT ELSEWHERE CLASSIFIED Status: Acute Current Visit: No (4) Leukocytosis SNOMED Code(s): 003426778, 413731730 Code(s): D72.829 - ELEVATED WHITE BLOOD CELL COUNT, UNSPECIFIED Status: Acute Current Visit: Yes (5) HCAP (healthcare-associated pneumonia) SNOMED Code(s): 879576662 Code(s): J18.9 - PNEUMONIA, UNSPECIFIED ORGANISM Status: Acute Current Visit: Yes (6) [id number] kidney injury SNOMED Code(s): 359612593 Code(s): N17.9 - ACUTE KIDNEY FAILURE, UNSPECIFIED; N18.9 - CHRONIC KIDNEY DISEASE, UNSPECIFIED Status: Acute Current Visit: Yes (7) CAD (coronary artery disease) SNOMED Code(s): 75137336 Code(s): I25.10 - ATHSCL HEART DISEASE OF [place] CORONARY ARTERY W/O ANG PCTRS Status: Chronic Current Visit: Yes (8) PVD (peripheral vascular disease) SNOMED Code(s): 917815697 Code(s): I73.9 - PERIPHERAL VASCULAR DISEASE, UNSPECIFIED Status: Chronic Current Visit: Yes (9) Dyslipidemia SNOMED Code(s): 935028710 Code(s): E78.5 - HYPERLIPIDEMIA, UNSPECIFIED Status: Chronic Current Visit: Yes (10) Afib SNOMED Code(s): 16603088 Code(s): I48.91 - UNSPECIFIED ATRIAL FIBRILLATION Status: Chronic Current Visit: Yes Qualifiers: Atrial fibrillation type: paroxysmal Qualified Code(s): I48.0 - Paroxysmal atrial fibrillation (11) Chronic anticoagulation SNOMED Code(s): 548880050 Code(s): Z79.01 - MATHEMATICS TECHNICIAN (CURRENT) USE OF ANTICOAGULANTS Status: Chronic Priority: High Current Visit: Yes (12) Chronic kidney disease (CKD), stage III (moderate) SNOMED Code(s): 444890107 Code(s): N18.3 - CHRONIC KIDNEY DISEASE, STAGE 3 (MODERATE) Status: Chronic Priority: High Current Visit: Yes (13) Mitral valve regurgitation SNOMED Code(s): 62620885 Code(s): I34.0 - NONRHEUMATIC MITRAL (VALVE) INSUFFICIENCY Status: Chronic Priority: High Current Visit: Yes Qualifiers: Cardiac valve disease etiology: nonrheumatic Qualified Code(s): I34.0 - Nonrheumatic mitral (valve) insufficiency Annotation/Comment:: Severe mitral regurgitation - Problem List Review Problem List Initiated/Reviewed/Updated: Yes - My Orders Last 24 Hours: My Active Orders 09/27/18 09:30 Antiembolic Devices [RC] Q12HR ANGY Hose [Antiembolic Hose] [OM.PC] Routine 09/27/18 12:58 Intake and Output Strict [RC] Q12H 09/27/18 17:15 CULTURE STOOL + CAMPY+SHIGATOX [RM] Routine 09/28/18 12:00 Furosemide [Lasix] 60 mg IVPUSH TID@0600,1200,1800 09/28/18 14:00 POTASSIUM,K [CHEM] Routine 09/29/18 05:11 BASIC METABOLIC PANEL,BMP [CHEM] AM CBC WITH AUTO DIFF [HEME] AM INR,PT,PROTHROMBIN TIME [COAG] AM MAGNESIUM [CHEM] AM 09/30/18 05:11 BASIC METABOLIC PANEL,BMP [CHEM] AM CBC WITH AUTO DIFF [HEME] AM INR,PT,PROTHROMBIN TIME [COAG] AM MAGNESIUM [CHEM] AM 10/01/18 05:11 BASIC METABOLIC PANEL,BMP [CHEM] AM CBC WITH AUTO DIFF [HEME] AM INR,PT,PROTHROMBIN TIME [COAG] AM MAGNESIUM [CHEM] AM - Plan Plan:: 83F hx PVD s/p rt fem pop bypass, with remote LAD PCI HTN HLP former smoker persistent afib, with subacute CVA on MRI back in 08/2018, with decompensated CHF with LVEF 45-50% with severe MR. with afib RVR HCAP RO[place] on CKD 1. Acute on chronic hypoxic respiratory failure: secondary to acute decompensated CHF, treat as below. Continues to be oxygen dependent 2. Acute decompensated CHF Exacerbation:LVEF 45-50% with uncorrected severe MR restrict PO intake to 1.5L, keep negative balance at least 500 cc. Continue lasix 60 IV TID.. [place] CTS recommendation MV clip in [facility]. See Dr Garay consultation. 3. Leukocytosis: WBC improving, 20,000 today. UA negative as well as stools. . May be related to steroid administration since admission. Continue Meropenem and stop Vancomycin. 4. ROSELYN on CKD: Improving with diuresis, continue to monitor. 5. Persistent Afib: rate 90-100 continue Diltiazem and Metoprolol 50 po TID. Monitor K and Mg. Continue Coumadin and monitor INR daily, hold coumadin today, INR 3.47.. Potassium improved today continue management with supplementation. 6. CAD: Stable, continue ASA, Crestor 7. HTN: Stable. Holding Amlodipine. Monitor. 8. Elevated BS: Improving, likely secondary to steroid administration. Stop BS checks Novolog. VTE prophylaxis: Coumadin Dispo: 2-3 days pending improvement.
[2018-09-29] MEDS: Metoprolol Tartrate 50 MG Tab PO SCH ×3 (05:42→21:33)
[2018-09-29] MEDS: Furosemide 100 MG/10 ML SDV IVPUSH SCH ×3 (05:42→18:55)
[2018-09-29] MEDS: Levothyroxine 100 MCG Tab PO SCH (06:51)
--- NOTE | 2018-09-29 09:44 | PCM.PN ---
- General Info Date of Service: 09/29/18 Admission Dx/Problem (Free Text): Decompensated HF, dyspnea Subjective Update: Reports feeling a little better today. No chest pain. Shortness of breath improved. reports feeling anxious without oxygen, but sats seem to maintain when without oxygen. Peripheral edema improving as well. Functional Status: Reports: Pain Controlled, Tolerating Diet, Ambulating, Urinating - Review of Systems General: Reports: Weakness (generalized). Denies: Appetite (continues to be poor, but likes milk shakes.) HEENT: Reports: No Symptoms. Denies: Headaches, Sore Throat Pulmonary: Reports: Shortness of Breath (much improved). Denies: Cough 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: Reports: Edema. Denies: Chest Pain, Palpitations Gastrointestinal: Reports: No Symptoms. Denies: Abdominal Pain, Nausea, Vomiting Genitourinary: Reports: No Symptoms. Denies: Dysuria, Frequency, Burning Musculoskeletal: Reports: No Symptoms Skin: Reports: No Symptoms Neurological: Reports: No Symptoms Psychiatric: Reports: No Symptoms - Patient Data Vitals - Most Recent: Last Vital Signs Temp 98.3 F 09/29/18 04:55 Pulse 96 09/29/18 05:42 Resp 16 09/29/18 04:55 BP 120/57 L 09/29/18 05:42 Pulse Ox 96 09/29/18 04:55 Weight - Most Recent: 55.52 kg I&O - Last 24 Hours: Intake & Output 09/28/18 09/29/18 09/29/18 22:59 06:59 14:59 Intake Total 1000 550 Output Total 1300 1950 Balance -300 -1400 Lab Results Last 24 Hours: Laboratory Results - last 24 hr 09/28/18 09/28/18 09/29/18 Range/Units 14:16 16:03 05:23 WBC 19.19 H (4.0-11.0) K/uL RBC 3.61 L (4.30-5.90) M/uL Hgb 10.8 L (12.0-16.0) g/dL Hct 34.3 L (36.0-46.0) % MCV 95.0 (80.0-98.0) fL MCH 29.9 (27.0-32.0) pg MCHC 31.5 (31.0-37.0) g/dL RDW Std Deviation 52.5 (28.0-62.0) fl RDW Coeff of Erickson 15 (11.0-15.0) % Plt Count 150 (150-400) K/uL MPV 11.00 (7.40-12.00) fL Add Manual Diff YES Neutrophils % (Manual) 89 H (48.0-80.0) % Band Neutrophils % 2 % Lymphocytes % (Manual) 6 L (16.0-40.0) % Monocytes % (Manual) 2 (0.0-15.0) % Eosinophils % (Manual) 1 (0.0-7.0) % Nucleated RBC % 0.0 /100WBC Absolute Seg Neuts 17.1 H (1.4-5.7) Band Neutrophils # 0.4 Lymphocytes # (Manual) 1.2 (0.6-2.4) Monocytes # (Manual) 0.4 (0.0-0.8) Eosinophils # (Manual) 0.2 (0.0-0.7) Nucleated RBCs # 0 K/uL INR Sodium (136-145) mmol/L Potassium 3.4 L (3.5-5.1) mmol/L Chloride (98-107) mmol/L Carbon Dioxide (21.0-32.0) mmol/L BUN (7.0-18.0) mg/dL Creatinine (0.6-1.0) mg/dL Est Cr Clr Drug Dosing mL/min Estimated GFR (MDRD) ml/min Glucose (74-106) mg/dL POC Glucose 122 H (60-110) mg/dL Calcium (8.5-10.1) mg/dL Magnesium (1.8-2.4) mg/dL 09/29/18 09/29/18 Range/Units 05:23 05:23 WBC (4.0-11.0) K/uL RBC (4.30-5.90) M/uL Hgb (12.0-16.0) g/dL Hct (36.0-46.0) % MCV (80.0-98.0) fL MCH (27.0-32.0) pg MCHC (31.0-37.0) g/dL RDW Std Deviation (28.0-62.0) fl RDW Coeff of Erickson (11.0-15.0) % Plt Count (150-400) K/uL MPV (7.40-12.00) fL Add Manual Diff Neutrophils % (Manual) (48.0-80.0) % Band Neutrophils % % Lymphocytes % (Manual) (16.0-40.0) % Monocytes % (Manual) (0.0-15.0) % Eosinophils % (Manual) (0.0-7.0) % Nucleated RBC % /100WBC Absolute Seg Neuts (1.4-5.7) Band Neutrophils # Lymphocytes # (Manual) (0.6-2.4) Monocytes # (Manual) (0.0-0.8) Eosinophils # (Manual) (0.0-0.7) Nucleated RBCs # K/uL INR 2.77 Sodium 140 (136-145) mmol/L Potassium 3.7 (3.5-5.1) mmol/L Chloride 102 (98-107) mmol/L Carbon Dioxide 33.4 H (21.0-32.0) mmol/L BUN 36 H (7.0-18.0) mg/dL Creatinine 1.4 H (0.6-1.0) mg/dL Est Cr Clr Drug Dosing 26.02 mL/min Estimated GFR (MDRD) 35.8 ml/min Glucose 122 H (74-106) mg/dL POC Glucose (60-110) mg/dL Calcium 8.1 L (8.5-10.1) mg/dL Magnesium 2.3 (1.8-2.4) mg/dL Barry Results Last 24 Hours: Microbiology 09/27/18 17:15 Campylobacter Antigen Assay - Final Stool / Feces NEGATIVE CAMPYLOBACTER AG Shiga Toxin I - Final NEGATIVE FOR SHIGA TOXIN 1 Shiga Toxin II - Final NEGATIVE FOR SHIGA TOXIN 2 Med Orders - Current: Current Medications Acetaminophen (Tylenol) 650 mg PO Q4H PRN PRN Reason: Pain (mild 1-3) Acetaminophen/Codeine Phosphate (Tylenol With Codeine No.3 300mg/30mg) 1 tab PO BID PRN PRN Reason: Pain Last Admin: 09/22/18 21:06 Dose: 1 tab Albuterol/Ipratropium (Duoneb 3.0-0.5 Mg/3 Ml) 3 ml NEB Q4HRRT PRN PRN Reason: Shortness of Breath Last Admin: 09/27/18 05:51 Dose: 3 ml Aspirin (Aspirin) 81 mg PO DAILY [facility] Last Admin: 09/28/18 09:08 Dose: 81 mg Diltiazem HCl (Cardizem Cd) 180 mg PO DAILY [facility] Last Admin: 09/28/18 09:08 Dose: 180 mg Docusate Sodium (Colace) 100 mg PO BID PRN PRN Reason: Constipation Last Admin: 09/22/18 21:06 Dose: 100 mg Furosemide (Lasix) 60 mg IVPUSH TID@0600,1200,1800 [facility] Last Admin: 09/29/18 05:42 Dose: 60 mg Meropenem 1 gm/ Sodium (Chloride) 100 mls @ 200 mls/hr IV Q12H [facility] Last Admin: 09/28/18 20:46 Dose: 200 mls/hr Levothyroxine Sodium (Synthroid) 100 mcg PO ACBREAKFAST [facility] Last Admin: 09/29/18 06:51 Dose: 100 mcg Lorazepam (Ativan) 0.5 mg PO Q6H PRN PRN Reason: Anxiety Last Admin: 09/27/18 02:58 Dose: 0.5 mg Metoprolol Tartrate (Lopressor) 50 mg PO TID [facility] Last Admin: 09/29/18 05:42 Dose: 50 mg Potassium Chloride (Klor-Con M20) 40 meq PO TIDMEALS [facility] Last Admin: 09/28/18 18:11 Dose: 40 meq Rosuvastatin Calcium (Crestor) 20 mg PO MoWeFr@1200 [facility] Rosuvastatin Calcium (Crestor) 10 mg PO SuTuThSa@1200 [facility] Temazepam (Restoril) 15 mg PO BEDTIME PRN PRN Reason: Sleep Last Admin: 09/23/18 22:28 Dose: 15 mg Warfarin Sodium (Coumadin Ask) 1 each PO DAILY@1400 [facility] Last Admin: 09/28/18 14:28 Dose: Not Given Warfarin Sodium (Coumadin) 2.5 mg PO 09/29/18@1400 [facility] Stop: 09/29/18 14:01 Discontinued Medications Albuterol/Ipratropium (Duoneb 3.0-0.5 Mg/3 Ml) 3 ml NEB ONETIME ONE Stop: 09/16/18 20:54 Last Admin: 09/16/18 21:06 Dose: 3 ml Albuterol/Ipratropium (Duoneb 3.0-0.5 Mg/3 Ml) 3 ml NEB Q4HRRT PRN PRN Reason: Shortness of Breath Last Admin: 09/19/18 22:59 Dose: 3 ml Albuterol/Ipratropium (Duoneb 3.0-0.5 Mg/3 Ml) 3 ml NEB Q4HRRT [facility] Last Admin: 09/22/18 10:51 Dose: Not Given Amlodipine Besylate (Norvasc) 5 mg PO QPM [facility] Last Admin: 09/22/18 18:32 Dose: 5 mg Apixaban (Eliquis) 2.5 mg PO QAM [facility] Last Admin: 09/22/18 09:24 Dose: 2.5 mg Aspirin (Aspirin) 81 mg PO DAILY [facility] Ceftriaxone Sodium (Rocephin) 1 gm IM ONETIME ONE Stop: 09/16/18 22:05 Last Admin: 09/16/18 22:16 Dose: Not Given Clopidogrel Bisulfate (Plavix) 75 mg PO QAM [facility] Last Admin: 09/24/18 08:30 Dose: 75 mg Furosemide (Lasix) 20 mg PO BID [facility] Last Admin: 09/19/18 20:49 Dose: 20 mg Furosemide (Lasix) 20 mg IVPUSH NOW ONE Stop: 09/19/18 10:01 Last Admin: 09/19/18 09:49 Dose: 20 mg Furosemide (Lasix) 20 mg IVPUSH NOW ONE Stop: 09/20/18 01:30 Last Admin: 09/20/18 02:06 Dose: Not Given Furosemide (Lasix) Confirm Administered Dose 20 mg .ROUTE .STK-MED ONE Stop: 09/20/18 01:32 Last Admin: 09/20/18 01:37 Dose: 20 mg Furosemide (Lasix) 20 mg IVPUSH BIDDIURETIC [facility] Last Admin: 09/22/18 13:22 Dose: 20 mg Furosemide (Lasix) 40 mg IVPUSH NOW ONE Stop: 09/22/18 15:57 Last Admin: 09/22/18 16:07 Dose: Not Given Furosemide (Lasix) 60 mg IVPUSH ONETIME ONE Stop: 09/20/18 16:11 Last Admin: 09/26/18 23:07 Dose: Not Given Furosemide (Lasix) 60 mg IVPUSH ONETIME ONE Stop: 09/22/18 16:31 Last Admin: 09/22/18 16:41 Dose: 60 mg Furosemide (Lasix) 60 mg IVPUSH NOW ONE Stop: 09/23/18 10:13 Last Admin: 09/23/18 11:36 Dose: 60 mg Furosemide (Lasix) 60 mg IVPUSH NOW ONE Stop: 09/23/18 17:16 Last Admin: 09/23/18 18:27 Dose: 60 mg Furosemide (Lasix) 60 mg IVPUSH NOW ONE Stop: 09/24/18 09:15 Last Admin: 09/24/18 11:07 Dose: 60 mg Furosemide (Lasix) 60 mg IVPUSH NOW ONE Stop: 09/24/18 17:04 Last Admin: 09/24/18 18:31 Dose: 60 mg Furosemide (Lasix) 60 mg IVPUSH BID YAKELIN Last Admin: 09/25/18 21:14 Dose: 60 mg Furosemide (Lasix) 60 mg IVPUSH BIDDIURETIC YAKELIN Last Admin: 09/28/18 08:57 Dose: 60 mg Furosemide (Lasix) 40 mg IVPUSH NOW ONE Stop: 09/27/18 21:36 Last Admin: 09/27/18 21:46 Dose: 40 mg Sodium Chloride (Normal Saline) 1,000 mls @ 125 mls/hr IV STAT YAKELIN Last Admin: 09/16/18 21:21 Dose: 125 mls/hr Azithromycin 500 mg/ Sodium (Chloride) 250 mls @ 250 mls/hr IV ONETIME ONE Stop: 09/16/18 23:03 Last Admin: 09/16/18 22:34 Dose: Not Given Ceftriaxone Sodium 1 gm/ (Sodium Chloride) 50 mls @ 100 mls/hr IV ONETIME ONE Stop: 09/16/18 22:43 Last Admin: 09/16/18 22:34 Dose: Not Given Levofloxacin/Dextrose 500 mg/ (Premix) 100 mls @ 100 mls/hr IV ONETIME ONE Stop: 09/16/18 23:30 Last Admin: 09/16/18 22:51 Dose: 100 mls/hr Sodium Chloride (Normal Saline) 1,000 mls @ 75 mls/hr IV ASDIRECTED YAKELIN Last Admin: 09/19/18 08:54 Dose: 75 mls/hr Piperacillin Sod/Tazobactam (Sod 2.25 gm/ Sodium Chloride) 50 mls @ 100 mls/hr IV Q8H [facility] Last Admin: 09/26/18 00:34 Dose: 100 mls/hr Vancomycin HCl 0.75 gm/ Sodium (Chloride) 250 mls @ 166.667 mls/hr IV Q24H [facility] Last Admin: 09/20/18 10:55 Dose: Not Given Vancomycin HCl 1 gm/ Sodium (Chloride) 250 mls @ 166.667 mls/hr IV Q24H [facility] Last Admin: 09/22/18 11:23 Dose: 166.667 mls/hr Potassium Chloride/Dextrose/Sod Cl (D5 1/2 Ns W/ 40 Meq/L Kcl) 1,000 mls @ 75 mls/hr IV ASDIRECTED [facility] Last Admin: 09/24/18 07:00 Dose: 75 mls/hr Vancomycin HCl 0.75 gm/ Sodium (Chloride) 250 mls @ 166.667 mls/hr IV Q24H [facility] Last Admin: 09/25/18 12:58 Dose: 166.667 mls/hr Meropenem 1 gm/ Sodium (Chloride) 100 mls @ 200 mls/hr IV Q8H [facility] Last Admin: 09/27/18 08:30 Dose: 200 mls/hr Vancomycin HCl 500 mg/ Sodium (Chloride) 100 mls @ 100 mls/hr IV Q24H [facility] Last Admin: 09/27/18 13:21 Dose: 100 mls/hr Magnesium Sulfate 1 gm/ Premix 25 mls @ 25 mls/hr IV ONETIME ONE Stop: 09/26/18 22:27 Last Admin: 09/26/18 21:53 Dose: 25 mls/hr Potassium Chloride 40 meq/ (Sodium Chloride) 270 mls @ 62 mls/hr IV ASDIRECTED [facility] Stop: 09/27/18 19:37 Last Admin: 09/27/18 15:38 Dose: 62 mls/hr Magnesium Sulfate 2 gm/ Premix 50 mls @ 50 mls/hr IV ONETIME ONE Stop: 09/28/18 08:55 Last Admin: 09/28/18 09:53 Dose: 50 mls/hr Insulin Aspart (Novolog) 0 unit SUBCUT Q4H [facility]; Protocol Last Admin: 09/22/18 10:46 Dose: 3 unit Insulin Aspart (Novolog) 0 unit SUBCUT TIDAC [facility]; Protocol Last Admin: 09/28/18 06:45 Dose: Not Given Lisinopril (Prinivil) 10 mg PO DAILY [facility] Last Admin: 09/19/18 08:40 Dose: 10 mg Lorazepam (Ativan) 0.5 mg PO ONETIME ONE Stop: 09/22/18 15:06 Last Admin: 09/23/18 10:12 Dose: Not Given Methylprednisolone Sodium Succinate (Solu-Medrol) 125 mg IVPUSH ONETIME ONE Stop: 09/16/18 20:54 Last Admin: 09/16/18 21:22 Dose: 125 mg Methylprednisolone Sodium Succinate (Solu-Medrol) 125 mg IVPUSH Q8H [facility] Last Admin: 09/19/18 20:49 Dose: 125 mg Methylprednisolone Sodium Succinate (Solu-Medrol) 60 mg IVPUSH Q8H [facility] Last Admin: 09/24/18 22:35 Dose: 60 mg Metoprolol Succinate (Toprol Xl) 100 mg PO DAILY [facility] Last Admin: 09/25/18 08:08 Dose: 100 mg Morphine Sulfate (Morphine) 1 mg IVPUSH Q2H PRN PRN Reason: Pain (severe 7-10) Nitroglycerin (Nitro-Dur 0.2 Mg/Hr) 0.2 mg TRDERM ONETIME ONE Stop: 09/17/18 03:55 Last Admin: 09/17/18 04:11 Dose: Not Given Nitroglycerin (Nitro-Bid 2%) 1 gm TOP ONETIME ONE Stop: 09/17/18 04:11 Last Admin: 09/17/18 04:18 Dose: 1 gm Oxycodone HCl (Oxycodone) 5 mg PO Q4H PRN PRN Reason: Pain (severe 7-10) Potassium Chloride (Klor-Con 8) 8 meq PO TID [facility] Last Admin: 09/17/18 13:54 Dose: Not Given Potassium Chloride (Klor-Con 8) 8 meq PO TIDMEALS [facility] Last Admin: 09/24/18 12:28 Dose: 8 meq Potassium Chloride (Klor-Con M20) 20 meq PO ONETIME ONE Stop: 09/23/18 16:12 Last Admin: 09/23/18 16:58 Dose: 20 meq Potassium Chloride (Klor-Con M20) 40 meq PO Q6H [facility] Stop: 09/24/18 23:16 Last Admin: 09/24/18 22:35 Dose: 40 meq Potassium Chloride (Klor-Con M20) 40 meq PO BID YAKELIN Stop: 09/25/18 21:01 Last Admin: 09/25/18 21:14 Dose: 40 meq Potassium Chloride (Klor-Con M20) 20 meq PO ONETIME ONE Stop: 09/26/18 14:17 Last Admin: 09/26/18 14:48 Dose: 20 meq Potassium Chloride (Klor-Con M20) 40 meq PO ONETIME ONE Stop: 09/27/18 14:56 Last Admin: 09/27/18 15:37 Dose: 40 meq Rosuvastatin Calcium (Crestor) 20 mg PO DAILY [facility] Last Admin: 09/28/18 09:09 Dose: Not Given Triamterene/HCTZ (Maxzide 25-37.5 Mg) 1 each PO QPM [facility] Last Admin: 09/19/18 17:19 Dose: 1 each Vancomycin HCl (Pharmacy To Dose - Vancomycin) 1 dose .XX ASDIRECTED ONE Stop: 09/17/18 09:16 Last Admin: 09/17/18 09:49 Dose: Not Given Warfarin Sodium (Coumadin) 5 mg PO DAILY@1400 [facility] Last Admin: 09/27/18 13:23 Dose: 5 mg Warfarin Sodium (Coumadin) 5 mg PO ONETIME ONE Stop: 09/25/18 14:01 Last Admin: 09/25/18 14:09 Dose: 5 mg Warfarin Sodium (Coumadin) 2.5 mg PO ONETIME@1400 ONE Stop: 09/26/18 14:01 Last Admin: 09/26/18 14:47 Dose: 2.5 mg - Exam Quality Assessment: Supplemental Oxygen, DVT Prophylaxis General: Alert, Oriented, Cooperative Neck: Supple, No JVD Lungs: Clear to Auscultation, Normal Respiratory Effort. No: Crackles, Rhonchi 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: Regular Rate, Irregular Rhythm GI/Abdominal Exam: Normal Bowel Sounds, Soft, Non-Tender Back Exam: Normal Inspection, Full Range of Motion Extremities: Normal Range of Motion, Non-Tender, Pedal Edema (+1 pitting edema, improving.) Wound/Incisions: Drainage (serous drainage from posterior leg wound, no S/S of infection). No: Erythema Psy/Mental Status: Alert, Normal Affect, Normal Mood - Problem List & Annotations (1) Acute respiratory failure with hypoxia SNOMED Code(s): 46673362, 788325719 Code(s): J96.01 - ACUTE RESPIRATORY FAILURE WITH HYPOXIA Status: Acute Priority: High Current Visit: Yes Annotation/Comment:: Improved (2) Heart failure SNOMED Code(s): 12607328 Code(s): I50.9 - HEART FAILURE, UNSPECIFIED Status: Acute Current Visit: Yes Qualifiers: Heart failure type: systolic Heart failure chronicity: acute on chronic Qualified Code(s): I50.23 - Acute on chronic systolic (congestive) heart failure (3) Bilateral pleural effusion SNOMED Code(s): 379233094 Code(s): J90 - PLEURAL EFFUSION, NOT ELSEWHERE CLASSIFIED Status: Acute Current Visit: No (4) Leukocytosis SNOMED Code(s): 116589659, 359854462 Code(s): D72.829 - ELEVATED WHITE BLOOD CELL COUNT, UNSPECIFIED Status: Acute Current Visit: Yes (5) HCAP (healthcare-associated pneumonia) SNOMED Code(s): 592614346 Code(s): J18.9 - PNEUMONIA, UNSPECIFIED ORGANISM Status: Acute Current Visit: Yes (6) [id number] kidney injury SNOMED Code(s): 099120550 Code(s): N17.9 - ACUTE KIDNEY FAILURE, UNSPECIFIED; N18.9 - CHRONIC KIDNEY DISEASE, UNSPECIFIED Status: Acute Current Visit: Yes (7) CAD (coronary artery disease) SNOMED Code(s): 16702169 Code(s): I25.10 - ATHSCL HEART DISEASE OF [place] CORONARY ARTERY W/O ANG PCTRS Status: Chronic Current Visit: Yes (8) PVD (peripheral vascular disease) SNOMED Code(s): 929085167 Code(s): I73.9 - PERIPHERAL VASCULAR DISEASE, UNSPECIFIED Status: Chronic Current Visit: Yes (9) Dyslipidemia SNOMED Code(s): 241038054 Code(s): E78.5 - HYPERLIPIDEMIA, UNSPECIFIED Status: Chronic Current Visit: Yes (10) Afib SNOMED Code(s): 01670883 Code(s): I48.91 - UNSPECIFIED ATRIAL FIBRILLATION Status: Chronic Current Visit: Yes Qualifiers: Atrial fibrillation type: paroxysmal Qualified Code(s): I48.0 - Paroxysmal atrial fibrillation (11) Chronic anticoagulation SNOMED Code(s): 539669743 Code(s): Z79.01 - SHELTER (CURRENT) USE OF ANTICOAGULANTS Status: Chronic Priority: High Current Visit: Yes (12) Chronic kidney disease (CKD), stage III (moderate) SNOMED Code(s): 852330418 Code(s): N18.3 - CHRONIC KIDNEY DISEASE, STAGE 3 (MODERATE) Status: Chronic Priority: High Current Visit: Yes (13) Mitral valve regurgitation SNOMED Code(s): 43704000 Code(s): I34.0 - NONRHEUMATIC MITRAL (VALVE) INSUFFICIENCY Status: Chronic Priority: High Current Visit: Yes Qualifiers: Cardiac valve disease etiology: nonrheumatic Qualified Code(s): I34.0 - Nonrheumatic mitral (valve) insufficiency Annotation/Comment:: Severe mitral regurgitation - Problem List Review Problem List Initiated/Reviewed/Updated: Yes - My Orders Last 24 Hours: My Active Orders 09/28/18 09:49 Consult to New Vehicle Sales Consultant [CONS] Routine 09/28/18 12:00 Furosemide [Lasix] 60 mg IVPUSH TID@0600,1200,1800 09/29/18 09:35 Chest 2V [CR] Urgent 09/30/18 05:11 BASIC METABOLIC PANEL,BMP [CHEM] AM CBC WITH AUTO DIFF [HEME] AM INR,PT,PROTHROMBIN TIME [COAG] AM MAGNESIUM [CHEM] AM 10/01/18 05:11 BASIC METABOLIC PANEL,BMP [CHEM] AM CBC WITH AUTO DIFF [HEME] AM INR,PT,PROTHROMBIN TIME [COAG] AM MAGNESIUM [CHEM] AM - Plan Plan:: 83F hx PVD s/p rt fem pop bypass, with remote LAD PCI HTN HLP former smoker persistent afib, with subacute CVA on MRI back in 08/2018, with decompensated CHF with LVEF 45-50% with severe MR. with afib RVR HCAP ROSELYN on CKD 1. Acute on chronic hypoxic respiratory failure: secondary to acute decompensated CHF, treat as below. Continues to be oxygen dependent 2. Acute decompensated CHF Exacerbation:LVEF 45-50% with uncorrected severe MR restrict PO intake to 1.5L, negative 1500 today. repeat CXR, 2 V today. Continue lasix 60 IV TID. [place] CTS recommendation MV clip in [facility]. See Dr Deeprasertkul consultation. 3. Leukocytosis: WBC improving, 19,000 today. May be related to steroid administration since admission. Continue Meropenem, will not need abx upon discharge, has been treated for 11 days. 4. ROSELYN on CKD: Improving with diuresis, continue to monitor. 5. Persistent Afib: rate 90-100 continue Diltiazem and Metoprolol 50 po TID. Monitor K and Mg. Continue Coumadin and monitor INR daily, hold coumadin today, INR 2.77.. Potassium improved today continue management with supplementation. 6. CAD: Stable, continue ASA, Crestor 7. HTN: Stable. Holding Amlodipine. Monitor. VTE prophylaxis: Coumadin Dispo: likely discharge in the next day or 2
[2018-09-29] MEDS ORDERED: Sodium Chloride 0.9% 100 ML ONE (10:01)
[2018-09-29] MEDS: Potassium Chloride 20 MEQ Tab.ER PO SCH ×3 (10:06→18:42)
[2018-09-29] MEDS: Meropenem 1 GM in Sodium Chloride 0.9% 100 ML IV SCH ×2 (10:07→21:28)
[2018-09-29] MEDS: Diltiazem 180 MG Cap.CD PO SCH (10:07)
[2018-09-29] MEDS: Aspirin 81 MG Tab.Chew PO SCH (10:07)
--- NOTE | 2018-09-29 11:54 | CR ---
EXAMINATION: Two-view chest (PA and Lateral views). HISTORY: Dyspnea. FINDINGS: The trachea is midline. The heart is normal in size. There is a small left pleural effusion. Chronic interstitial prominence. Mild left basilar atelectasis is noted. Moderate aortic calcifications noted. Osseous structures appear osteopenic. IMPRESSION: 1. Small left pleural effusion. 2. Chronic interstitial prominence and mild hyperinflation.
[2018-09-29] MEDS: Rosuvastatin 10 MG Tab PO SCH (12:33)
[2018-09-29] MEDS ORDERED: Warfarin 2.5 MG Tab PO SCH (14:00)
[2018-09-29] MEDS ORDERED: Furosemide 20 MG/2 ML VIAL IVPUSH ONE (19:02)
[2018-09-30] MEDS: Metoprolol Tartrate 50 MG Tab PO SCH ×3 (06:22→22:00)
[2018-09-30] MEDS: Levothyroxine 100 MCG Tab PO SCH (06:30)
[2018-09-30] MEDS: Furosemide 100 MG/10 ML SDV IVPUSH SCH (07:53)
--- NOTE | 2018-09-30 09:08 | PCM.PN ---
- General Info Date of Service: 09/30/18 Admission Dx/Problem (Free Text): Decompensated HF, dyspnea Subjective Update: Didn;t sleep well with 1 L NC, she is more comfortable with 2 L NC at night. No chest pain. Shortness is much better and very little concern today. Leg edema much improved as well. Anxious about going home, feels she will be ready tomorrow Functional Status: Reports: Pain Controlled, Tolerating Diet, Ambulating, Urinating - Review of Systems General: Reports: Weakness (generalized) HEENT: Reports: No Symptoms Pulmonary: Reports: No Symptoms. Denies: Shortness of Breath, Cough, Sputum 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: Reports: Edema (much improved). Denies: Chest Pain Gastrointestinal: Reports: No Symptoms Genitourinary: Reports: No Symptoms Skin: Reports: Other (lower leg wound) Neurological: Reports: No Symptoms. Denies: Headache Psychiatric: Reports: No Symptoms - Patient Data Vitals - Most Recent: Last Vital Signs Temp 98.3 F 09/30/18 07:55 Pulse 98 09/30/18 06:22 Resp 18 09/30/18 07:55 BP 108/72 09/30/18 07:55 Pulse Ox 97 09/30/18 07:55 Weight - Most Recent: 54.488 kg I&O - Last 24 Hours: Intake & Output 09/29/18 09/30/18 09/30/18 22:59 06:59 14:59 Intake Total 600 800 Output Total 1650 1300 Balance -1050 -500 Lab Results Last 24 Hours: Laboratory Results - last 24 hr 09/29/18 09/29/18 09/29/18 Range/Units 05:23 11:17 16:36 WBC (4.0-11.0) K/uL RBC (4.30-5.90) M/uL Hgb (12.0-16.0) g/dL Hct (36.0-46.0) % MCV (80.0-98.0) fL MCH (27.0-32.0) pg MCHC (31.0-37.0) g/dL RDW Std Deviation (28.0-62.0) fl RDW Coeff of Erickson (11.0-15.0) % Plt Count (150-400) K/uL MPV (7.40-12.00) fL Add Manual Diff Neutrophils % (Manual) (48.0-80.0) % Band Neutrophils % % Lymphocytes % (Manual) (16.0-40.0) % Monocytes % (Manual) (0.0-15.0) % Eosinophils % (Manual) (0.0-7.0) % Nucleated RBC % /100WBC Absolute Seg Neuts (1.4-5.7) Band Neutrophils # Lymphocytes # (Manual) (0.6-2.4) Monocytes # (Manual) (0.0-0.8) Eosinophils # (Manual) (0.0-0.7) Nucleated RBCs # K/uL INR Sodium (136-145) mmol/L Potassium (3.5-5.1) mmol/L Chloride (98-107) mmol/L Carbon Dioxide (21.0-32.0) mmol/L BUN (7.0-18.0) mg/dL Creatinine (0.6-1.0) mg/dL Est Cr Clr Drug Dosing mL/min Estimated GFR (MDRD) ml/min Glucose (74-106) mg/dL POC Glucose 145 H 105 (60-110) mg/dL Calcium (8.5-10.1) mg/dL Magnesium (1.8-2.4) mg/dL B-Natriuretic Peptide 1327 H (<100) PG/ML 09/30/18 09/30/18 09/30/18 Range/Units 05:10 05:10 05:10 WBC 19.28 H (4.0-11.0) K/uL RBC 3.77 L (4.30-5.90) M/uL Hgb 11.5 L (12.0-16.0) g/dL Hct 36.5 (36.0-46.0) % MCV 96.8 (80.0-98.0) fL MCH 30.5 (27.0-32.0) pg MCHC 31.5 (31.0-37.0) g/dL RDW Std Deviation 53.7 (28.0-62.0) fl RDW Coeff of Erickson 16 H (11.0-15.0) % Plt Count 158 (150-400) K/uL MPV 11.70 (7.40-12.00) fL Add Manual Diff YES Neutrophils % (Manual) 89 H (48.0-80.0) % Band Neutrophils % 2 % Lymphocytes % (Manual) 2 L (16.0-40.0) % Monocytes % (Manual) 4 (0.0-15.0) % Eosinophils % (Manual) 3 (0.0-7.0) % Nucleated RBC % 0.0 /100WBC Absolute Seg Neuts 17.2 H (1.4-5.7) Band Neutrophils # 0.4 Lymphocytes # (Manual) 0.4 L (0.6-2.4) Monocytes # (Manual) 0.8 (0.0-0.8) Eosinophils # (Manual) 0.6 (0.0-0.7) Nucleated RBCs # 0 K/uL INR 2.77 Sodium 139 (136-145) mmol/L Potassium 4.6 (3.5-5.1) mmol/L Chloride 101 (98-107) mmol/L Carbon Dioxide 30.3 (21.0-32.0) mmol/L BUN 32 H (7.0-18.0) mg/dL Creatinine 1.4 H (0.6-1.0) mg/dL Est Cr Clr Drug Dosing 26.02 mL/min Estimated GFR (MDRD) 35.8 ml/min Glucose 120 H (74-106) mg/dL POC Glucose (60-110) mg/dL Calcium 8.2 L (8.5-10.1) mg/dL Magnesium 2.1 (1.8-2.4) mg/dL B-Natriuretic Peptide (<100) PG/ML Barry Results Last 24 Hours: Microbiology 09/27/18 17:15 Stool Culture - Final Stool / Feces Campylobacter Antigen Assay - Final NEGATIVE CAMPYLOBACTER AG Shiga Toxin I - Final NEGATIVE FOR SHIGA TOXIN 1 Shiga Toxin II - Final NEGATIVE FOR SHIGA TOXIN 2 Med Orders - Current: Current Medications Acetaminophen (Tylenol) 650 mg PO Q4H PRN PRN Reason: Pain (mild 1-3) Acetaminophen/Codeine Phosphate (Tylenol With Codeine No.3 300mg/30mg) 1 tab PO BID PRN PRN Reason: Pain Last Admin: 09/22/18 21:06 Dose: 1 tab Albuterol/Ipratropium (Duoneb 3.0-0.5 Mg/3 Ml) 3 ml NEB Q4HRRT PRN PRN Reason: Shortness of Breath Last Admin: 09/27/18 05:51 Dose: 3 ml Aspirin (Aspirin) 81 mg PO DAILY [facility] Last Admin: 09/29/18 10:07 Dose: 81 mg Diltiazem HCl (Cardizem Cd) 180 mg PO DAILY [facility] Last Admin: 09/29/18 10:07 Dose: 180 mg Docusate Sodium (Colace) 100 mg PO BID PRN PRN Reason: Constipation Last Admin: 09/22/18 21:06 Dose: 100 mg Furosemide (Lasix) 60 mg IVPUSH TID@0600,1200,1800 [facility] Last Admin: 09/30/18 07:53 Dose: 60 mg Meropenem 1 gm/ Sodium (Chloride) 100 mls @ 200 mls/hr IV Q12H [facility] Last Admin: 09/29/18 21:28 Dose: 200 mls/hr Levothyroxine Sodium (Synthroid) 100 mcg PO ACBREAKFAST [facility] Last Admin: 09/30/18 06:30 Dose: 100 mcg Lorazepam (Ativan) 0.5 mg PO Q6H PRN PRN Reason: Anxiety Last Admin: 09/27/18 02:58 Dose: 0.5 mg Metoprolol Tartrate (Lopressor) 50 mg PO TID [facility] Last Admin: 09/30/18 06:22 Dose: 50 mg Potassium Chloride (Klor-Con M20) 40 meq PO TIDMEALS [facility] Last Admin: 09/29/18 18:42 Dose: 40 meq Rosuvastatin Calcium (Crestor) 20 mg PO MoWeFr@1200 [facility] Last Admin: 09/29/18 12:33 Dose: 20 mg Rosuvastatin Calcium (Crestor) 10 mg PO SuTuThSa@1200 [facility] Temazepam (Restoril) 15 mg PO BEDTIME PRN PRN Reason: Sleep Last Admin: 09/23/18 22:28 Dose: 15 mg Warfarin Sodium (Coumadin Ask) 1 each PO DAILY@1400 [facility] Last Admin: 09/29/18 15:05 Dose: Not Given Warfarin Sodium (Coumadin) 2.5 mg PO 09/30/18@1400 [facility] Stop: 09/30/18 14:01 Discontinued Medications Albuterol/Ipratropium (Duoneb 3.0-0.5 Mg/3 Ml) 3 ml NEB ONETIME ONE Stop: 09/16/18 20:54 Last Admin: 09/16/18 21:06 Dose: 3 ml Albuterol/Ipratropium (Duoneb 3.0-0.5 Mg/3 Ml) 3 ml NEB Q4HRRT PRN PRN Reason: Shortness of Breath Last Admin: 09/19/18 22:59 Dose: 3 ml Albuterol/Ipratropium (Duoneb 3.0-0.5 Mg/3 Ml) 3 ml NEB Q4HRRT [facility] Last Admin: 09/22/18 10:51 Dose: Not Given Amlodipine Besylate (Norvasc) 5 mg PO QPM [facility] Last Admin: 09/22/18 18:32 Dose: 5 mg Apixaban (Eliquis) 2.5 mg PO QAM [facility] Last Admin: 09/22/18 09:24 Dose: 2.5 mg Aspirin (Aspirin) 81 mg PO DAILY [facility] Ceftriaxone Sodium (Rocephin) 1 gm IM ONETIME ONE Stop: 09/16/18 22:05 Last Admin: 09/16/18 22:16 Dose: Not Given Clopidogrel [facility]ate (Plavix) [facility] [place] Last Admin: 09/24/18 08:30 Dose: 75 mg Furosemide (Lasix) 20 mg PO BID [facility] Last Admin: 09/19/18 20:49 Dose: 20 mg Furosemide (Lasix) 20 mg IVPUSH NOW ONE Stop: 09/19/18 10:01 Last Admin: 09/19/18 09:49 Dose: 20 mg Furosemide (Lasix) 20 mg IVPUSH NOW ONE Stop: 09/20/18 01:30 Last Admin: 09/20/18 02:06 Dose: Not Given Furosemide (Lasix) Confirm Administered Dose 20 mg .ROUTE .STK-MED ONE Stop: 09/20/18 01:32 Last Admin: 09/20/18 01:37 Dose: 20 mg Furosemide (Lasix) 20 mg IVPUSH BIDDIURETIC [facility] Last Admin: 09/22/18 13:22 Dose: 20 mg Furosemide (Lasix) 40 mg IVPUSH NOW ONE Stop: 09/22/18 15:57 Last Admin: 09/22/18 16:07 Dose: Not Given Furosemide (Lasix) 60 mg IVPUSH ONETIME ONE Stop: 09/20/18 16:11 Last Admin: 09/26/18 23:07 Dose: Not Given Furosemide (Lasix) 60 mg IVPUSH ONETIME ONE Stop: 09/22/18 16:31 Last Admin: 09/22/18 16:41 Dose: 60 mg Furosemide (Lasix) 60 mg IVPUSH NOW ONE Stop: 09/23/18 10:13 Last Admin: 09/23/18 11:36 Dose: 60 mg Furosemide (Lasix) 60 mg IVPUSH NOW ONE Stop: 09/23/18 17:16 Last Admin: 09/23/18 18:27 Dose: 60 mg Furosemide (Lasix) 60 mg IVPUSH NOW ONE Stop: 09/24/18 09:15 Last Admin: 09/24/18 11:07 Dose: 60 mg Furosemide (Lasix) 60 mg IVPUSH NOW ONE Stop: 09/24/18 17:04 Last Admin: 09/24/18 18:31 Dose: 60 mg Furosemide (Lasix) 60 mg IVPUSH BID [facility] Last Admin: 09/25/18 21:14 Dose: 60 mg Furosemide (Lasix) 60 mg IVPUSH BIDDIURETIC [facility] Last Admin: 09/28/18 08:57 Dose: 60 mg Furosemide (Lasix) 40 mg IVPUSH NOW ONE Stop: 09/27/18 21:36 Last Admin: 09/27/18 21:46 Dose: 40 mg Furosemide (Lasix) 20 mg IVPUSH ONETIME ONE Stop: 09/29/18 19:03 Last Admin: 09/29/18 20:26 Dose: 20 mg Sodium Chloride (Normal Saline) 1,000 mls @ 125 mls/hr IV STAT [facility] Last Admin: 09/16/18 21:21 Dose: 125 mls/hr Azithromycin 500 mg/ Sodium (Chloride) 250 mls @ 250 mls/hr IV ONETIME ONE Stop: 09/16/18 23:03 Last Admin: 09/16/18 22:34 Dose: Not Given Ceftriaxone Sodium 1 gm/ (Sodium Chloride) 50 mls @ 100 mls/hr IV ONETIME ONE Stop: 09/16/18 22:43 Last Admin: 09/16/18 22:34 Dose: Not Given Levofloxacin/Dextrose 500 mg/ (Premix) 100 mls @ 100 mls/hr IV ONETIME ONE Stop: 09/16/18 23:30 Last Admin: 09/16/18 22:51 Dose: 100 mls/hr Sodium Chloride (Normal Saline) 1,000 mls @ 75 mls/hr IV ASDIRECTED [facility] Last Admin: 09/19/18 08:54 Dose: 75 mls/hr Piperacillin Sod/Tazobactam (Sod 2.25 gm/ Sodium Chloride) 50 mls @ 100 mls/hr IV Q8H [facility] Last Admin: 09/26/18 00:34 Dose: 100 mls/hr Vancomycin HCl 0.75 gm/ Sodium (Chloride) 250 mls @ 166.667 mls/hr IV Q24H [facility] Last Admin: 09/20/18 10:55 Dose: Not Given Vancomycin HCl 1 gm/ Sodium (Chloride) 250 mls @ 166.667 mls/hr IV Q24H [facility] Last Admin: 09/22/18 11:23 Dose: 166.667 mls/hr Potassium Chloride/Dextrose/Sod Cl (D5 1/2 Ns W/ 40 Meq/L Kcl) 1,000 mls @ 75 [facility]ls[facility] Last Admin: 09/24/18 07:00 Dose: 75 mls/hr Vancomycin HCl 0.75 gm/ Sodium (Chloride) 250 mls @ 166.667 mls/hr IV Q24H [facility] Last Admin: 09/25/18 12:58 Dose: 166.667 mls/hr Meropenem 1 gm/ Sodium (Chloride) 100 mls @ 200 mls/hr IV Q8H [facility] Last Admin: 09/27/18 08:30 Dose: 200 mls/hr Vancomycin HCl 500 mg/ Sodium (Chloride) 100 mls @ 100 mls/hr IV Q24H [facility] Last Admin: 09/27/18 13:21 Dose: 100 mls/hr Magnesium Sulfate 1 gm/ Premix 25 mls @ 25 mls/hr IV ONETIME ONE Stop: 09/26/18 22:27 Last Admin: 09/26/18 21:53 Dose: 25 mls/hr Potassium Chloride 40 meq/ (Sodium Chloride) 270 mls @ 62 mls/hr IV ASDIRECTED [facility] Stop: 09/27/18 19:37 Last Admin: 09/27/18 15:38 Dose: 62 mls/hr Magnesium Sulfate 2 gm/ Premix 50 mls @ 50 mls/hr IV ONETIME ONE Stop: 09/28/18 08:55 Last Admin: 09/28/18 09:53 Dose: 50 mls/hr Sodium Chloride (Normal Saline) Confirm Administered Dose 100 mls @ as directed .ROUTE .STK-MED ONE Stop: 09/29/18 10:02 Last Admin: 09/29/18 10:23 Dose: Not Given Insulin Aspart (Novolog) 0 unit SUBCUT Q4H [facility]; Protocol Last Admin: 09/22/18 10:46 Dose: 3 unit Insulin Aspart (Novolog) 0 unit SUBCUT TIDAC [facility]; Protocol Last Admin: 09/28/18 06:45 Dose: Not Given Lisinopril (Prinivil) 10 mg PO DAILY [facility] Last Admin: 09/19/18 08:40 Dose: 10 mg Lorazepam (Ativan) 0.5 mg PO ONETIME ONE Stop: 09/22/18 15:06 Last Admin: 09/23/18 10:12 Dose: Not Given Methylprednisolone Sodium Succinate (Solu-Medrol) 125 mg IVPUSH ONETIME ONE Stop: 09/16/18 20:54 Last Admin: 09/16/18 21:22 Dose: 125 mg Methylprednisolone Sodium Succinate (Solu-Medrol) 125 mg IVPUSH Q8H [facility] Last Admin: 09/19/18 20:49 Dose: 125 mg Methylprednisolone Sodium Succinate (Solu-Medrol) 60 mg IVPUSH Q8H [facility] Last Admin: 09/24/18 22:35 Dose: 60 mg Metoprolol Succinate (Toprol Xl) 100 mg PO DAILY [facility] Last Admin: 09/25/18 08:08 Dose: 100 mg Morphine Sulfate (Morphine) 1 mg IVPUSH Q2H PRN PRN Reason: Pain (severe 7-10) Nitroglycerin (Nitro-Dur 0.2 Mg/Hr) 0.2 mg TRDERM ONETIME ONE Stop: 09/17/18 03:55 Last Admin: 09/17/18 04:11 Dose: Not Given Nitroglycerin (Nitro-Bid 2%) 1 gm TOP ONETIME ONE Stop: 09/17/18 04:11 Last Admin: 09/17/18 04:18 Dose: 1 gm Oxycodone HCl (Oxycodone) 5 mg PO Q4H PRN PRN Reason: Pain (severe 7-10) Potassium Chloride (Klor-Con 8) 8 meq PO TID [facility] Last Admin: 09/17/18 13:54 Dose: Not Given Potassium Chloride (Klor-Con 8) 8 meq PO TIDMEALS [facility] Last Admin: 09/24/18 12:28 Dose: 8 meq Potassium Chloride (Klor-Con M20) 20 meq PO ONETIME ONE Stop: 09/23/18 16:12 Last Admin: 09/23/18 16:58 Dose: 20 meq Potassium Chloride (Klor-Con M20) 40 meq PO Q6H [facility] Stop: 09/24/18 23:16 Last Admin: 09/24/18 22:35 Dose: 40 meq Potassium Chloride (Klor-Con M20) 40 meq PO BID [facility] Stop: 09/25/18 21:01 Last Admin: 09/25/18 21:14 Dose: 40 meq Potassium Chloride (Klor-Con M20) 20 meq PO ONETIME ONE Stop: 09/26/18 14:17 Last Admin: 09/26/18 14:48 Dose: 20 meq Potassium Chloride (Klor-Con M20) 40 meq PO ONETIME ONE Stop: 09/27/18 14:56 Last Admin: 09/27/18 15:37 Dose: 40 meq Rosuvastatin Calcium (Crestor) 20 mg PO DAILY [facility] Last Admin: 09/28/18 09:09 Dose: Not Given Triamterene/HCTZ (Maxzide 25-37.5 Mg) 1 each PO QPM [facility] Last Admin: 09/19/18 17:19 Dose: 1 each Vancomycin HCl (Pharmacy To Dose - Vancomycin) 1 dose .XX ASDIRECTED ONE Stop: 09/17/18 09:16 Last Admin: 09/17/18 09:49 Dose: Not Given Warfarin Sodium (Coumadin) 5 mg PO DAILY@1400 [facility] Last Admin: 09/27/18 13:23 Dose: 5 mg Warfarin Sodium (Coumadin) 5 mg PO ONETIME ONE Stop: 09/25/18 14:01 Last Admin: 09/25/18 14:09 Dose: 5 mg Warfarin Sodium (Coumadin) 2.5 mg PO ONETIME@1400 ONE Stop: 09/26/18 14:01 Last Admin: 09/26/18 14:47 Dose: 2.5 mg Warfarin Sodium (Coumadin) 2.5 mg PO 09/29/18@1400 [facility] Stop: 09/29/18 14:01 Last Admin: 09/29/18 15:09 Dose: 2.5 mg - Exam General: Alert, Oriented, Cooperative, No Acute Distress HEENT: Pupils Equal Neck: Supple Lungs: Clear to Auscultation, Normal Respiratory Effort 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: Regular Rate, Irregular Rhythm GI/Abdominal Exam: Normal Bowel Sounds, Soft, Non-Tender, No Mass Extremities: Normal Range of Motion, Non-Tender, Pedal Edema (+1 pitting, much improved.) Wound/Incisions: Healing Well, Dressing Dry and Intact (some scerous drainage from posterior leg wound, no purulent drainage). No: Erythema Psy/Mental Status: Alert, Normal Affect, Normal Mood, Anxious (intermittently) - Problem List & Annotations (1) Acute respiratory failure with hypoxia SNOMED Code(s): 64850931, 531952988 Code(s): J96.01 - ACUTE RESPIRATORY FAILURE WITH HYPOXIA Status: Acute Priority: High Current Visit: Yes Annotation/Comment:: Improved (2) Heart failure SNOMED Code(s): 51471344 Code(s): I50.9 - HEART FAILURE, UNSPECIFIED Status: Acute Current Visit: Yes Qualifiers: Heart failure type: systolic Heart failure chronicity: acute on chronic Qualified Code(s): I50.23 - Acute on chronic systolic (congestive) heart failure (3) Bilateral pleural effusion SNOMED Code(s): 396580283 Code(s): J90 - PLEURAL EFFUSION, NOT ELSEWHERE CLASSIFIED Status: Acute Current Visit: No (4) Leukocytosis SNOMED Code(s): 235003506, 426703759 Code(s): D72.829 - ELEVATED WHITE BLOOD CELL COUNT, UNSPECIFIED Status: Acute Current Visit: Yes (5) HCAP (healthcare-associated pneumonia) SNOMED Code(s): 356153566 Code(s): J18.9 - PNEUMONIA, UNSPECIFIED ORGANISM Status: Acute Current Visit: Yes (6) [id number] kidney injury SNOMED Code(s): 535667321 Code(s): N17.9 - ACUTE KIDNEY FAILURE, UNSPECIFIED; N18.9 - CHRONIC KIDNEY DISEASE, UNSPECIFIED Status: Acute Current Visit: Yes (7) CAD (coronary artery disease) SNOMED Code(s): 62944677 Code(s): I25.10 - ATHSCL HEART DISEASE OF [place] CORONARY ARTERY W/O ANG PCTRS Status: Chronic Current Visit: Yes (8) PVD (peripheral vascular disease) SNOMED Code(s): 751430883 Code(s): I73.9 - PERIPHERAL VASCULAR DISEASE, UNSPECIFIED Status: Chronic Current Visit: Yes (9) Dyslipidemia SNOMED Code(s): 657817272 Code(s): E78.5 - HYPERLIPIDEMIA, UNSPECIFIED Status: Chronic Current Visit: Yes (10) Afib SNOMED Code(s): 08810354 Code(s): I48.91 - UNSPECIFIED ATRIAL FIBRILLATION Status: Chronic Current Visit: Yes Qualifiers: Atrial fibrillation type: paroxysmal Qualified Code(s): I48.0 - Paroxysmal atrial fibrillation (11) Chronic anticoagulation SNOMED Code(s): 181089428 Code(s): Z79.01 - TRIM DIE MAKER (CURRENT) USE OF ANTICOAGULANTS Status: Chronic Priority: High Current Visit: Yes (12) Chronic kidney disease (CKD), stage III (moderate) SNOMED Code(s): 862645381 Code(s): N18.3 - CHRONIC KIDNEY DISEASE, STAGE 3 (MODERATE) Status: Chronic Priority: High Current Visit: Yes (13) Mitral valve regurgitation SNOMED Code(s): 08325997 Code(s): I34.0 - NONRHEUMATIC MITRAL (VALVE) INSUFFICIENCY Status: Chronic Priority: High Current Visit: Yes Qualifiers: Cardiac valve disease etiology: nonrheumatic Qualified Code(s): I34.0 - Nonrheumatic mitral (valve) insufficiency Annotation/Comment:: Severe mitral regurgitation - Problem List Review Problem List Initiated/Reviewed/Updated: Yes - My Orders Last 24 Hours: My Active Orders 10/01/18 05:11 BASIC METABOLIC PANEL,BMP [CHEM] AM CBC WITH AUTO DIFF [HEME] AM INR,PT,PROTHROMBIN TIME [COAG] AM MAGNESIUM [CHEM] AM - Plan Plan:: 83F hx PVD s/p rt fem pop bypass, with remote LAD PCI HTN HLP former smoker persistent afib, with subacute CVA on MRI back in 08/2018, with decompensated CHF with LVEF 45-50% with severe MR. with afib RVR HCAP ROSELYN on CKD 1. Acute on chronic hypoxic respiratory failure: Resolved. secondary to acute decompensated CHF, treat as below. Continues to be oxygen dependent 2. Acute decompensated CHF Exacerbation:LVEF 45-50% with uncorrected severe MR restrict PO intake to 1.5L, negative 1200 today. CXR much improved with increase diuresis. Lasix 60 PO BID, cut back on potassium supplementation. Rake CTS recommendation MV clip in [facility]. See Dr Garay consultation. 3. Leukocytosis: WBC improving, 19,000 today. May be related to steroid administration since admission. Continue Meropenem, will not need abx upon discharge, has been treated for 11 days. 4. ROSELYN on CKD: Resolevd and near baseline. 5. Persistent Afib: rate 90-100 continue Diltiazem and Metoprolol 50 po TID. Monitor K and Mg. Continue Coumadin and monitor INR daily, , INR 2.77. 6. CAD: Stable, continue ASA, Crestor 7. HTN: Stable. Holding Amlodipine. Monitor. VTE prophylaxis: Coumadin Dispo: likely discharge in am.
[2018-09-30] MEDS: Potassium Chloride 20 MEQ Tab.ER PO SCH (09:52)
[2018-09-30] MEDS: Diltiazem 180 MG Cap.CD PO SCH (09:52)
[2018-09-30] MEDS: Aspirin 81 MG Tab.Chew PO SCH (09:53)
[2018-09-30] MEDS: Meropenem 1 GM in Sodium Chloride 0.9% 100 ML IV SCH ×2 (09:56→21:03)
[2018-09-30] MEDS ORDERED: Rosuvastatin 10 MG Tab PO SCH (12:00)
[2018-09-30] MEDS ORDERED: Warfarin 2.5 MG Tab PO SCH (14:00)
[2018-09-30] MEDS: Furosemide 20 MG Tab PO SCH (15:27)
[2018-10-01] MEDS: Metoprolol Tartrate 50 MG Tab PO SCH (06:27)
[2018-10-01] MEDS: Levothyroxine 100 MCG Tab PO SCH (06:30)
[2018-10-01] MEDS ORDERED: Potassium Chloride 20 MEQ Tab.ER PO ONE (08:15)
[2018-10-01] MEDS: Furosemide 20 MG Tab PO SCH (08:35)
[2018-10-01] MEDS: Diltiazem 180 MG Cap.CD PO SCH (08:36)
[2018-10-01] MEDS: Aspirin 81 MG Tab.Chew PO SCH (08:37)
[2018-10-01] MEDS: Meropenem 1 GM in Sodium Chloride 0.9% 100 ML IV SCH (09:37)
--- NOTE | 2018-10-01 11:14 | PCM.DCSUM1 ---
Discharge Summary - Hospital Course Brief History: The patient is an 83-year-old lady who presented to the emergency department late yesterday evening secondary to worsening shortness of breath. The patient is oxygen dependent and she uses 2 L of oxygen during the daytime and 3 L of oxygen at night. The patient also had last week been discharged from [place] secondary to pneumonia with pleural effusion. The patient says that she has not been feeling well for at least the past month. In the emergency department the patient had been on high-dose oxygen via nasal cannula and had been unable to keep her saturations above 90%. The patient has denied any pain. She has no cough and has not been productive of sputum. The patient reports that when she was last in the hospital she had approximately 200 mL of fluid withdrawn from her left lung field. The patient also has denied fever or chills. She's had no nausea or vomiting. The patient also has denied any chest pain however, she said that last night she was having an episode of squeezing feeling in her heart. No radiation of pain. She's had no specific aggravating or relieving factors. The patient also has been complaining of weakness and fatigue for the past month. Diagnosis: Stroke: No - Discharge Data Discharge Date: 10/01/18 Discharge Disposition: Home, [facility] Condition: Good - Discharge Diagnosis/Problem(s) (1) Acute respiratory failure with hypoxia SNOMED Code(s): 20145546, 430979572 ICD Code: J96.01 - ACUTE RESPIRATORY FAILURE WITH HYPOXIA Status: Acute Priority: High Current Visit: Yes Problem Details: Improved (2) Heart failure SNOMED Code(s): 93385868 ICD Code: I50.9 - HEART FAILURE, UNSPECIFIED Status: Acute Current Visit : Yes Qualifiers: Heart failure type: systolic Heart failure chronicity: acute on chronic Qualified Code(s): I50.23 - Acute on chronic systolic (congestive) heart failure (3) Bilateral pleural effusion SNOMED Code(s): 170367770 ICD Code: J90 - PLEURAL EFFUSION, NOT ELSEWHERE CLASSIFIED Status: Acute Current Visit: No (4) Leukocytosis SNOMED Code(s): 229574519, 463600361 ICD Code: D72.829 - ELEVATED WHITE BLOOD CELL COUNT, UNSPECIFIED Status: Acute Current Visit: Yes (5) HCAP (healthcare-associated pneumonia) SNOMED Code(s): 985681936 ICD Code: J18.9 - PNEUMONIA, UNSPECIFIED ORGANISM Status: Resolved Current Visit: Yes (6) [id number] kidney injury SNOMED Code(s): 391336852 ICD Code: N17.9 - ACUTE KIDNEY FAILURE, UNSPECIFIED; N18.9 - CHRONIC KIDNEY DISEASE, UNSPECIFIED Status: Acute Current Visit: Yes (7) CAD (coronary artery disease) SNOMED Code(s): 69950544 ICD Code: I25.10 - ATHSCL HEART DISEASE OF [place] CORONARY ARTERY W/O ANG PCTRS Status: Chronic Current Visit: Yes (8) PVD (peripheral vascular disease) SNOMED Code(s): 740624100 ICD Code: I73.9 - PERIPHERAL VASCULAR DISEASE, UNSPECIFIED Status: Chronic Current Visit: Yes (9) Dyslipidemia SNOMED Code(s): 216291495 ICD Code: E78.5 - HYPERLIPIDEMIA, UNSPECIFIED Status: Chronic Current Visit: Yes (10) Afib SNOMED Code(s): 27951612 ICD Code: I48.91 - UNSPECIFIED ATRIAL FIBRILLATION Status: Chronic Current Visit: Yes Qualifiers: Atrial fibrillation type: paroxysmal Qualified Code(s): I48.0 - Paroxysmal atrial fibrillation (11) Chronic anticoagulation SNOMED Code(s): 791846058 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 Status: Chronic Priority: High Current Visit: Yes (12) Chronic kidney disease (CKD), stage III (moderate) SNOMED Code(s): 499581741 ICD Code: N18.3 - CHRONIC KIDNEY DISEASE, STAGE 3 (MODERATE) Status: Chronic Priority: High Current Visit: Yes (13) Mitral valve regurgitation SNOMED Code(s): 16565637 ICD Code: I34.0 - NONRHEUMATIC MITRAL (VALVE) INSUFFICIENCY Status: Chronic Priority: High Current Visit: Yes Problem Details: Severe mitral regurgitation Qualifiers: Cardiac valve disease etiology: nonrheumatic Qualified Code(s): I34.0 - Nonrheumatic mitral (valve) insufficiency - Patient Summary/Data Consults: Consultations 09/17/18 09:30 Consult to Home Health [CONS] Routine 09/22/18 07:45 Consult to Occupational Therapy [OT Evaluation and Treatment] [CONS] Routine PT Evaluation and Treatment [CONS] Routine 09/22/18 09:31 Consult to Physician [CONS] Routine 09/26/18 11:17 Consult to Wound Care Services [CONS] Routine 09/28/18 09:49 Consult to Assessment Clinician [CONS] Routine - Patient Instructions Diet: Heart Healthy Diet, Fluid Restriction (2 Liters/day) Activity: As Tolerated Showering/Bathing: May Shower Notify Provider of: Fever, Increased Pain, Nausea and/or Vomiting Other/Special Instructions: Report to primary care doctor or Dr Garay if you start feeling short of breath, swelling of your feet, ankles or hands. Feeling more tired with normal activity. Weigh your self daily and log this, if you start to notice 3-5 lbs weight gain in 2-3 days, notify Dr Bender. May need an extra Lasix. If you experience chest pain or chest discomfort, severe shortness of breath or become nauseated, sweaty or lightheaded please call 911. - Discharge Plan *PRESCRIPTION DRUG MONITORING PROGRAM REVIEWED*: Not Applicable *COPY OF PRESCRIPTION DRUG MONITORING REPORT IN PATIENT АЛЕКСАНДР: Not Applicable Prescriptions/Med Rec: Furosemide [Lasix] 60 mg PO BID #90 tablet Metoprolol Tartrate [Lopressor] 50 mg PO TID #60 tablet Potassium Chloride 20 meq PO BID #30 packet Warfarin Sodium 2.5 mg PO DAILY #15 tablet Home Medications: Home Meds Calcium Carbonate [Calcium] 1,200 mg PO DAILY 04/27/17 [History] Levothyroxine [Synthroid] 100 mcg PO QAM 04/27/17 [History] Lutein 20 mg PO DAILY 04/27/17 [History] Multivitamin/Iron/Folic Acid [Centrum Adults Tablet] 1 tab PO DAILY 04/27/17 [ History] Rosuvastatin [Crestor] 20 mg PO MOWEFR@1200 04/27/17 [History] Acetaminophen with Codeine [Tylenol with Codeine #3 Tablet] 1 tab PO BID PRN 06/04 [History] Diltiazem HCl [Cartia Xt] 180 mg PO DAILY 09/16/18 [History] Rosuvastatin [Crestor] 10 mg PO SUTUTHSA@1200 09/28/18 [History] Aspirin 81 mg PO DAILY tab.chew 10/01/18 [Rx] Furosemide [Lasix] 60 mg PO BID #90 tablet 10/01/18 [Rx] Metoprolol Tartrate [Lopressor] 50 mg PO TID #60 tablet 10/01/18 [Rx] Potassium Chloride 20 meq PO BID #30 packet 10/01/18 [Rx] Warfarin Sodium 2.5 mg PO DAILY #15 tablet 10/01/18 [Rx] Oxygen Therapy Mode: Nasal Cannula Oxygen Flow Rate (L/min): 2 Maintain SpO2% greater than: 90 Patient Handouts: Furosemide tablets, Potassium Salts tablets, extended- release tablets or capsules, Metoprolol tablets, Warfarin tablets, Community- Acquired Pneumonia, Adult, [id number] Referrals: [facility] [Outside] Jacki Garay MD [Physician] - 10/11/18 9:30 am Kali Bender MD [Primary Care Provider] - 10/11/18 12:30 pm - Discharge Summary/Plan Comment DC Time >30 min.: Yes (discussion with family for home instructions and Dr Ceron for medications) Discharge Summary/Plan Comment: Discharge Diagnoses: Acute on chronic hypoxic respiratory failure-resolved Decompensated CHF Severe MR HCAP- resolved and fully treated Afib-valvular Chronic anticoagulation CAD with hx PCI PVD Hx pleural effusion CKD Rhonda was initially admitted and treated for HCAP and placed on Vancomycin and Zosyn. She acutely decompensated and was placed in the ICU on Bipap, CXR revealed pulmonary congestion and edema. Lasix IV started. She slowly improved. Dr Garay was consulted. ECHO obtained which revealed severe MR. She was transitioned from Eliquis to Coumadin due to valvular afib. Metoprolol was changed to 50 mg TID for better control of Afib. She was maintained on Diltiazem 180md daily. She continued to have significant dyspnea and hypoxia. Lasix titrated to eventually Lasix 60 mg TID. With aggressive diuresis she improved significantly. Potassium and magnesium monitored during diuresis. Plavix was stopped due to nose bleeds and will continued to be held at this time. BP have been well controlled with Lasix Metoprolol and Diltiazem. At this time we will hold on Amlodipine, Lisinopril and Triamterene and HCTZ. Lisinopril likely will be restarted at follow up with Dr Garay. Renal function continued to improved with diuresis. Today BUN 24 and Cr 1.3. INR has been steady at 2.7 with 2.5 mg Coumadin. I will discharge her home on Coumadin 2.5 mg daily, INR will need to monitored next week. Leukocytosis remains at 16,000. No infection noted, UA negative , stools negative and no PNA noted on CXR. Likely secondary to steroids. Has continued to improved daily. No fevers noted. She was treated for 13 days on antibiotics. During her stay she continued to intermittently need oxygen, especially with sleeping and activity. Today she was challenged on RA, sats 85% at rest. With 4 L NC sats 98%. She will be discharged home on 2 L NC continuously, this is due to CHF and severe MR. Ellis will be discharged home today on Home Health. She is in need for intermediate care for help with new medications and administration times, monitoring of BP and some wound care to LLE small, wound. Which has significantly improved with decrease in edema and is no longer draining. She will also need monitoring of her INR as well, this needs to be done next early next week Oct 04. She will also benefit from PT to evaluate and treat due to deconditioning from recent hospitalization and acute CHF exacerbation. She will also benefit from OT evaluation to help evaluate for ADL and any assistance needed. She is homebound due to the fact that she needs a assistive device, walker, and caregiver to leave the house. Dr Kali Bender will follow up with Home Health Care plan upon discharge. On discharge, she and family were educated on monitoring weight daily. If she were to gain 3-5 lbs in 2-3 days she needs to notify PCP or Dr Ceron for possible extra dosing of Lasix. She will be on 2 L fluid restriction as well, this can be re-evaluated at follow ups. If she were to experience chest pain, she should return to the ED or if severe shortness of breath occurs. Follow ups with Dr Segura and Dr Bender have been arranged. SHe is to return to the ED or clinic if concerns should arise. - General Info Date of Service: 10/01/18 Admission Dx/Problem (Free Text: Decompensated HF, dyspnea Subjective Update: Sitting up in the chair. reports feeling good today and ready for discharge. No chest pain or SOB. Edema in lower legs significant improved. No fevers. No urinary concerns. Functional Status: Reports: Pain Controlled, Tolerating Diet, Ambulating, Urinating - Review of Systems General: Reports: Weakness (generalized). Denies: Fever, Fatigue, Appetite HEENT: Reports: No Symptoms. Denies: Headaches, Sore Throat Pulmonary: Reports: No Symptoms. Denies: Shortness of Breath 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: Reports: No Symptoms. Denies: Chest Pain Gastrointestinal: Reports: No Symptoms. Denies: Abdominal Pain, Nausea, Vomiting Genitourinary: Reports: No Symptoms Musculoskeletal: Reports: No Symptoms Skin: Reports: No Symptoms Neurological: Reports: No Symptoms Psychiatric: Reports: No Symptoms - Patient Data Vitals - Most Recent: Last Vital Signs Temp 97.2 F 10/01/18 08:00 Pulse 107 H 10/01/18 08:00 Resp 18 10/01/18 08:00 BP 127/58 L 10/01/18 08:00 Pulse Ox 96 10/01/18 08:00 Weight - Most Recent: 53.127 kg I&O - Last 24 hours: Intake & Output 09/30/18 10/01/18 10/01/18 22:59 06:59 14:59 Intake Total 750 350 100 Output Total 1380 1500 Balance -630 -1150 100 Lab Results - Last 24 hrs: Laboratory Results - last 24 hr 10/01/18 10/01/18 10/01/18 Range/Units 04:30 04:30 04:30 WBC 16.49 H (4.0-11.0) K/uL RBC 3.87 L (4.30-5.90) M/uL Hgb 11.5 L (12.0-16.0) g/dL Hct 36.6 (36.0-46.0) % MCV 94.6 (80.0-98.0) fL MCH 29.7 (27.0-32.0) pg MCHC 31.4 (31.0-37.0) g/dL RDW Std Deviation 52.3 (28.0-62.0) fl RDW Coeff of Erickson 16 H (11.0-15.0) % Plt Count 141 L (150-400) K/uL MPV 11.30 (7.40-12.00) fL Neut % (Auto) 83.9 H (48.0-80.0) % Lymph % (Auto) 8.7 L (16.0-40.0) % [place] % (Auto) 5.6 (0.0-15.0) % Eos % (Auto) 1.6 (0.0-7.0) % Baso % (Auto) 0.2 (0.0-1.5) % Neut # (Auto) 13.8 H (1.4-5.7) K/uL Lymph # (Auto) 1.4 (0.6-2.4) K/uL [place] # (Auto) 0.9 H (0.0-0.8) K/uL Eos # (Auto) 0.3 (0.0-0.7) K/uL Baso # (Auto) 0.0 (0.0-0.1) K/uL Nucleated RBC % 0.0 /100WBC Nucleated RBCs # 0 K/uL INR 2.74 Sodium 138 (136-145) mmol/L Potassium 3.5 (3.5-5.1) mmol/L Chloride 102 (98-107) mmol/L Carbon Dioxide 30.6 (21.0-32.0) mmol/L BUN 24 H (7.0-18.0) mg/dL Creatinine 1.3 H (0.6-1.0) mg/dL Est Cr Clr Drug Dosing 27.02 mL/min Estimated GFR (MDRD) 39.0 ml/min Glucose 103 (74-106) mg/dL Calcium 8.1 L (8.5-10.1) mg/dL Magnesium 1.9 (1.8-2.4) mg/dL B-Natriuretic Peptide (<100) PG/ML 10/01/18 Range/Units 04:30 WBC (4.0-11.0) K/uL RBC (4.30-5.90) M/uL Hgb (12.0-16.0) g/dL Hct (36.0-46.0) % MCV (80.0-98.0) fL MCH (27.0-32.0) pg MCHC (31.0-37.0) g/dL RDW Std Deviation (28.0-62.0) fl RDW Coeff of [place]ks[place] (11.0-15.0) % Plt Count (150-400) K/uL MPV (7.40-12.00) fL Neut % (Auto) (48.0-80.0) % Lymph % (Auto) (16.0-40.0) % [place] % (Auto) (0.0-15.0) % Eos % (Auto) (0.0-7.0) % Baso % (Auto) (0.0-1.5) % Neut # (Auto) (1.4-5.7) K/uL Lymph # (Auto) (0.6-2.4) K/uL [place] # (Auto) (0.0-0.8) K/uL Eos # (Auto) (0.0-0.7) K/uL Baso # (Auto) (0.0-0.1) K/uL Nucleated RBC % /100WBC Nucleated RBCs # K/uL INR Sodium (136-145) mmol/L Potassium (3.5-5.1) mmol/L Chloride (98-107) mmol/L Carbon Dioxide (21.0-32.0) mmol/L BUN (7.0-18.0) mg/dL Creatinine (0.6-1.0) mg/dL Est Cr Clr Drug Dosing mL/min Estimated GFR (MDRD) ml/min Glucose (74-106) mg/dL Calcium (8.5-10.1) mg/dL Magnesium (1.8-2.4) mg/dL B-Natriuretic Peptide 941 H (<100) PG/ML Med Orders - Current: Current Medications Acetaminophen (Tylenol) 650 mg PO Q4H PRN PRN Reason: Pain (mild 1-3) Acetaminophen/Codeine Phosphate (Tylenol With Codeine No.3 300mg/30mg) 1 tab PO BID PRN PRN Reason: Pain Last Admin: 09/22/18 21:06 Dose: 1 tab Albuterol/Ipratropium (Duoneb 3.0-0.5 Mg/3 Ml) 3 ml NEB Q4HRRT PRN PRN Reason: Shortness of Breath Last Admin: 09/27/18 05:51 Dose: 3 ml Aspirin (Aspirin) 81 mg PO DAILY [facility] Last Admin: 10/01/18 08:37 Dose: 81 mg Diltiazem HCl (Cardizem Cd) 180 mg PO DAILY [facility] Last Admin: 10/01/18 08:36 Dose: 180 mg Docusate Sodium (Colace) 100 mg PO BID PRN PRN Reason: Constipation Last Admin: 09/22/18 21:06 Dose: 100 mg Furosemide (Lasix) 60 mg PO BIDDIURETIC YAKELIN Last Admin: 10/01/18 08:35 Dose: 60 mg Meropenem 1 gm/ Sodium (Chloride) 100 mls @ 200 mls/hr IV Q12H [facility] Last Admin: 10/01/18 09:37 Dose: 200 mls/hr Levothyroxine Sodium (Synthroid) 100 mcg PO ACBREAKFAST [facility] Last Admin: 10/01/18 06:30 Dose: 100 mcg Lorazepam (Ativan) 0.5 mg PO Q6H PRN PRN Reason: Anxiety Last Admin: 09/27/18 02:58 Dose: 0.5 mg Metoprolol Tartrate (Lopressor) 50 mg PO TID [facility] Last Admin: 10/01/18 06:27 Dose: 50 mg Rosuvastatin Calcium (Crestor) 20 mg PO MoWeFr@1200 [facility] Last Admin: 09/29/18 12:33 Dose: 20 mg Rosuvastatin Calcium (Crestor) 10 mg PO SuTuThSa@1200 [facility] Last Admin: 09/30/18 12:20 Dose: 10 mg Temazepam (Restoril) 15 mg PO BEDTIME PRN PRN Reason: Sleep Last Admin: 09/23/18 22:28 Dose: 15 mg Warfarin Sodium (Coumadin Ask) 1 each PO DAILY@1400 [facility] Last Admin: 09/30/18 14:58 Dose: Not Given Warfarin Sodium (Coumadin) 2.5 mg PO DAILY@1400 [facility] Discontinued Medications Albuterol/Ipratropium (Duoneb 3.0-0.5 Mg/3 Ml) 3 ml NEB ONETIME ONE Stop: 09/16/18 20:54 Last Admin: 09/16/18 21:06 Dose: 3 ml Albuterol/Ipratropium (Duoneb 3.0-0.5 Mg/3 Ml) 3 ml NEB Q4HRRT PRN PRN Reason: Shortness of Breath Last Admin: 09/19/18 22:59 Dose: 3 ml Albuterol/Ipratropium (Duoneb 3.0-0.5 Mg/3 Ml) 3 ml NEB Q4HRRT [facility] Last Admin: 09/22/18 10:51 Dose: Not Given Amlodipine Besylate (Norvasc) 5 mg PO QPM [facility] Last Admin: 09/22/18 18:32 Dose: 5 mg Apixaban (Eliquis) 2.5 mg PO QAM [facility] Last Admin: 09/22/18 09:24 Dose: 2.5 mg Aspirin (Aspirin) 81 mg PO DAILY [facility] Ceftriaxone Sodium (Rocephin) 1 gm IM ONETIME ONE Stop: 09/16/18 22:05 Last Admin: 09/16/18 22:16 Dose: Not Given Clopidogrel [facility] ([facility]avix) [facility] Last Admin: 09/24/18 08:30 Dose: 75 mg Furosemide (Lasix) 20 mg PO BID [facility] Last Admin: 09/19/18 20:49 Dose: 20 mg Furosemide (Lasix) 20 mg IVPUSH NOW ONE Stop: 09/19/18 10:01 Last Admin: 09/19/18 09:49 Dose: 20 mg Furosemide (Lasix) 20 mg IVPUSH NOW ONE Stop: 09/20/18 01:30 Last Admin: 09/20/18 02:06 Dose: Not Given Furosemide (Lasix) Confirm Administered Dose 20 mg .ROUTE .STK-MED ONE Stop: 09/20/18 01:32 Last Admin: 09/20/18 01:37 Dose: 20 mg Furosemide (Lasix) 20 mg IVPUSH BIDDIURETIC [facility] Last Admin: 09/22/18 13:22 Dose: 20 mg Furosemide (Lasix) 40 mg IVPUSH NOW ONE Stop: 09/22/18 15:57 Last Admin: 09/22/18 16:07 Dose: Not Given Furosemide (Lasix) 60 mg IVPUSH ONETIME ONE Stop: 09/20/18 16:11 Last Admin: 09/26/18 23:07 Dose: Not Given Furosemide (Lasix) 60 mg IVPUSH ONETIME ONE Stop: 09/22/18 16:31 Last Admin: 09/22/18 16:41 Dose: 60 mg Furosemide (Lasix) 60 mg IVPUSH NOW ONE Stop: 09/23/18 10:13 Last Admin: 09/23/18 11:36 Dose: 60 mg Furosemide (Lasix) 60 mg IVPUSH NOW ONE Stop: 09/23/18 17:16 Last Admin: 09/23/18 18:27 Dose: 60 mg Furosemide (Lasix) 60 mg IVPUSH NOW ONE Stop: 09/24/18 09:15 Last Admin: 09/24/18 11:07 Dose: 60 mg Furosemide (Lasix) 60 mg IVPUSH NOW ONE Stop: 09/24/18 17:04 Last Admin: 09/24/18 18:31 Dose: 60 mg Furosemide (Lasix) 60 mg IVPUSH BID YAKELIN Last Admin: 09/25/18 21:14 Dose: 60 mg Furosemide (Lasix) 60 mg IVPUSH BIDDIURETIC [facility] Last Admin: 09/28/18 08:57 Dose: 60 mg Furosemide (Lasix) 40 mg IVPUSH NOW ONE Stop: 09/27/18 21:36 Last Admin: 09/27/18 21:46 Dose: 40 mg Furosemide (Lasix) 60 mg IVPUSH TID@0600,1200,1800 [facility] Last Admin: 09/30/18 07:53 Dose: 60 mg Furosemide (Lasix) 20 mg IVPUSH ONETIME ONE Stop: 09/29/18 19:03 Last Admin: 09/29/18 20:26 Dose: 20 mg Sodium Chloride (Normal Saline) 1,000 mls @ 125 mls/hr IV STAT [facility] Last Admin: 09/16/18 21:21 Dose: 125 mls/hr Azithromycin 500 mg/ Sodium (Chloride) 250 mls @ 250 mls/hr IV ONETIME ONE Stop: 09/16/18 23:03 Last Admin: 09/16/18 22:34 Dose: Not Given Ceftriaxone Sodium 1 gm/ (Sodium Chloride) 50 mls @ 100 mls/hr IV ONETIME ONE Stop: 09/16/18 22:43 Last Admin: 09/16/18 22:34 Dose: Not Given Levofloxacin/Dextrose 500 mg/ (Premix) 100 mls @ 100 mls/hr IV ONETIME ONE Stop: 09/16/18 23:30 Last Admin: 09/16/18 22:51 Dose: 100 mls/hr Sodium Chloride (Normal Saline) 1,000 mls @ 75 mls/hr IV ASDIRECTED [facility] Last Admin: 09/19/18 08:54 Dose: 75 mls/hr Piperacillin Sod/Tazobactam (Sod 2.25 gm/ Sodium Chloride) 50 mls @ 100 mls/hr IV Q8H [facility] Last Admin: 09/26/18 00:34 Dose: 100 mls/hr Vancomycin HCl 0.75 gm/ Sodium (Chloride) 250 mls @ 166.667 mls/hr IV Q24H [facility] Last Admin: 09/20/18 10:55 Dose: Not Given Vancomycin HCl 1 gm/ Sodium (Chloride) 250 mls @ 166.667 mls/hr IV Q24H [facility] Last Admin: 09/22/18 11:23 Dose: 166.667 mls/hr Potassium Chloride/Dextrose/Sod Cl (D5 1/2 Ns W/ 40 Meq/L Kcl) 1,000 mls @ 75 mls/hr IV ASDIRECTED [facility] Last Admin: 09/24/18 07:00 Dose: 75 mls/hr Vancomycin HCl 0.75 gm/ Sodium (Chloride) 250 mls @ 166.667 mls/hr IV Q24H [facility] Last Admin: 09/25/18 12:58 Dose: 166.667 mls/hr Meropenem 1 gm/ Sodium (Chloride) 100 mls @ 200 mls/hr IV Q8H [facility] Last Admin: 09/27/18 08:30 Dose: 200 mls/hr Vancomycin HCl 500 mg/ Sodium (Chloride) 100 mls @ 100 mls/hr IV Q24H [facility] Last Admin: 09/27/18 13:21 Dose: 100 mls/hr Magnesium Sulfate 1 gm/ Premix 25 mls @ 25 mls/hr IV ONETIME ONE Stop: 09/26/18 22:27 Last Admin: 09/26/18 21:53 Dose: 25 mls/hr Potassium Chloride 40 meq/ (Sodium Chloride) 270 mls @ 62 mls/hr IV ASDIRECTED [facility] Stop: 09/27/18 19:37 Last Admin: 09/27/18 15:38 Dose: 62 mls/hr Magnesium Sulfate 2 gm/ Premix 50 mls @ 50 mls/hr IV ONETIME ONE Stop: 09/28/18 08:55 Last Admin: 09/28/18 09:53 Dose: 50 mls/hr Sodium Chloride (Normal Saline) Confirm Administered Dose 100 mls @ as directed .ROUTE .STK-MED ONE Stop: 09/29/18 10:02 Last Admin: 09/29/18 10:23 Dose: Not Given Insulin Aspart (Novolog) 0 unit SUBCUT Q4H [facility]; Protocol Last Admin: 09/22/18 10:46 Dose: 3 unit Insulin Aspart (Novolog) 0 unit SUBCUT TIDAC [facility]; Protocol Last Admin: 09/28/18 06:45 Dose: Not Given Lisinopril (Prinivil) 10 mg PO DAILY [facility] Last Admin: 09/19/18 08:40 Dose: 10 mg Lorazepam (Ativan) 0.5 mg PO ONETIME ONE Stop: 09/22/18 15:06 Last Admin: 09/23/18 10:12 Dose: Not Given Methylprednisolone Sodium Succinate (Solu-Medrol) 125 mg IVPUSH ONETIME ONE Stop: 09/16/18 20:54 Last Admin: 09/16/18 21:22 Dose: 125 mg Methylprednisolone Sodium Succinate (Solu-Medrol) 125 mg IVPUSH Q8H [facility] Last Admin: 09/19/18 20:49 Dose: 125 mg Methylprednisolone Sodium Succinate (Solu-Medrol) 60 mg IVPUSH Q8H [facility] Last Admin: 09/24/18 22:35 Dose: 60 mg Metoprolol Succinate (Toprol Xl) 100 mg PO DAILY [facility] Last Admin: 09/25/18 08:08 Dose: 100 mg Morphine Sulfate (Morphine) 1 mg IVPUSH Q2H PRN PRN Reason: Pain (severe 7-10) Nitroglycerin (Nitro-Dur 0.2 Mg/Hr) 0.2 mg TRDERM ONETIME ONE Stop: 09/17/18 03:55 Last Admin: 09/17/18 04:11 Dose: Not Given Nitroglycerin (Nitro-Bid 2%) 1 gm TOP ONETIME ONE Stop: 09/17/18 04:11 Last Admin: 09/17/18 04:18 Dose: 1 gm Oxycodone HCl (Oxycodone) 5 mg PO Q4H PRN PRN Reason: Pain (severe 7-10) Potassium Chloride (Klor-Con 8) 8 meq PO TID [facility] Last Admin: 09/17/18 13:54 Dose: Not Given Potassium Chloride (Klor-Con 8) 8 meq PO TIDMEALS [facility] Last Admin: 09/24/18 12:28 Dose: 8 meq Potassium Chloride (Klor-Con M20) 20 meq PO ONETIME ONE Stop: 09/23/18 16:12 Last Admin: 09/23/18 16:58 Dose: 20 meq Potassium Chloride (Klor-Con M20) 40 meq PO Q6H [facility] Stop: 09/24/18 23:16 Last Admin: 09/24/18 22:35 Dose: 40 meq Potassium Chloride (Klor-Con M20) 40 meq PO BID [facility] Stop: 09/25/18 21:01 Last Admin: 09/25/18 21:14 Dose: 40 meq Potassium Chloride (Klor-Con M20) 20 meq PO ONETIME ONE Stop: 09/26/18 14:17 Last Admin: 09/26/18 14:48 Dose: 20 meq Potassium Chloride (Klor-Con M20) 40 meq PO TIDMEALS [facility] Last Admin: 09/30/18 09:52 Dose: 40 meq Potassium Chloride (Klor-Con M20) 40 meq PO ONETIME ONE Stop: 09/27/18 14:56 Last Admin: 09/27/18 15:37 Dose: 40 meq Potassium Chloride (Klor-Con M20) 40 meq PO ONETIME ONE Stop: 10/01/18 08:16 Last Admin: 10/01/18 08:36 Dose: 40 meq Rosuvastatin Calcium (Crestor) 20 mg PO DAILY [facility] Last Admin: 09/28/18 09:09 Dose: Not Given Triamterene/HCTZ (Maxzide 25-37.5 Mg) 1 each PO QPM [facility] Last Admin: 09/19/18 17:19 Dose: 1 each Vancomycin HCl (Pharmacy To Dose - Vancomycin) 1 dose .XX ASDIRECTED ONE Stop: 09/17/18 09:16 Last Admin: 09/17/18 09:49 Dose: Not Given Warfarin Sodium (Coumadin) 5 mg PO DAILY@1400 [facility] Last Admin: 09/27/18 13:23 Dose: 5 mg Warfarin Sodium (Coumadin) 5 mg PO ONETIME ONE Stop: 09/25/18 14:01 Last Admin: 09/25/18 14:09 Dose: 5 mg Warfarin Sodium (Coumadin) 2.5 mg PO ONETIME@1400 ONE Stop: 09/26/18 14:01 Last Admin: 09/26/18 14:47 Dose: 2.5 mg Warfarin Sodium (Coumadin) 2.5 mg PO 09/29/18@1400 [facility] Stop: 09/29/18 14:01 Last Admin: 09/29/18 15:09 Dose: 2.5 mg Warfarin Sodium (Coumadin) 2.5 mg PO 09/30/18@1400 [facility] Stop: 09/30/18 14:01 Last Admin: 09/30/18 15:28 Dose: 2.5 mg - Exam General: Reports: Alert, Oriented, Cooperative, No Acute Distress Neck: Reports: Supple Lungs: Reports: Clear to Auscultation, Normal Respiratory Effort 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: Reports: Regular Rate, Irregular Rhythm GI/Abdominal Exam: Normal Bowel Sounds, Soft, Non-Tender Extremities: Normal Inspection, Normal Range of Motion, Pedal Edema (+1 to scant pitting edema to BLE.) Skin: Reports: Warm, Dry Wound/Incisions: Reports: Dressing Dry and Intact (LLE small wound, improved since edema has decreased. No further drainage.), No Drainage. Denies: Erythema Neurological: Reports: No New Focal Deficit Psy/Mental Status: Reports: Alert, Normal Affect, Normal Mood *Q Meaningful Use (DIS) - VTE *Q VTE Mechanical Contraindications *Q: At Risk for Falls VTE Pharmacological Contraindications *Q: Risk of Bleeding
[2018-10-01] MEDS: Rosuvastatin 10 MG Tab PO SCH (13:25)
[2018-10-01 13:31] VITALS: BP 101/39
[2018-10-01] MEDS ORDERED: Warfarin 2.5 MG Tab PO SCH (14:00)
== END 2018-10-01 15:00 | disposition home health service (06) | DRG 291 ==
LOC: MW.ED 20:45 → MW.MS 22:11 → MW.ICU 09-20 03:25 → MW.MS 09-21 13:48 → MW.ICU 09-21 14:35 → MW.MS 09-27 18:07 → MW.OB 09-27 18:07
PROVIDERS: ADMIT Internal Medicine; ATTEND Internal Medicine
PROC: 5A09357 Assistance with Respiratory Ventilation, Less than 24 Consecutive Hours, Continuous Positive Airway Pressure (ICD-10-PCS; principal; 2018-09-20)
DX: I13.0 Hypertensive heart and chronic kidney disease with heart failure and stage 1 through stage 4 chronic kidney disease, or unspecified chronic kidney disease (principal); J18.9 Pneumonia, unspecified organism; J96.01 Acute respiratory failure with hypoxia; I50.23 Acute on chronic systolic (congestive) heart failure; I10 Essential (primary) hypertension; J96.21 Acute and chronic respiratory failure with hypoxia; J96.02 Acute respiratory failure with hypercapnia; J18.1 Lobar pneumonia, unspecified organism; J44.0 Chronic obstructive pulmonary disease with (acute) lower respiratory infection; N17.9 Acute kidney failure, unspecified; I24.8 Other forms of acute ischemic heart disease; I48.1 Persistent atrial fibrillation; R06.02 Shortness of breath; R06.00 Dyspnea, unspecified; R09.02 Hypoxemia; J90 Pleural effusion, not elsewhere classified; I25.10 Atherosclerotic heart disease of native coronary artery without angina pectoris; E78.00 Pure hypercholesterolemia, unspecified; M19.90 Unspecified osteoarthritis, unspecified site; F41.9 Anxiety disorder, unspecified; F32.9 Major depressive disorder, single episode, unspecified; E03.9 Hypothyroidism, unspecified; I73.9 Peripheral vascular disease, unspecified; N18.3 Chronic kidney disease, stage 3 (moderate); E78.5 Hyperlipidemia, unspecified; I08.3 Combined rheumatic disorders of mitral, aortic and tricuspid valves; I48.0 Paroxysmal atrial fibrillation; M35.3 Polymyalgia rheumatica; H54.7 Unspecified visual loss; R19.7 Diarrhea, unspecified; D63.1 Anemia in chronic kidney disease; R73.9 Hyperglycemia, unspecified; E87.6 Hypokalemia; Y95 Nosocomial condition; Z99.81 Dependence on supplemental oxygen; Z79.899 Other long term (current) drug therapy; Z79.02 Long term (current) use of antithrombotics/antiplatelets; Z88.1 Allergy status to other antibiotic agents; Z88.8 Allergy status to other drugs, medicaments and biological substances; Z79.01 Long term (current) use of anticoagulants; Z87.891 Personal history of nicotine dependence; Z95.5 Presence of coronary angioplasty implant and graft; Z79.82 Long term (current) use of aspirin; Z86.73 Personal history of transient ischemic attack (TIA), and cerebral infarction without residual deficits
CPT/HCPCS: 36415; 71045; 80053; 83880; 84484; 85025; 85610; 87804 ×2; 93005; 94640; 96361; 96374; 99284; J2930; J7040; 36600; 51702; 71046; 71046-26; 80048; 80202; 81001; 82803; 82962; 83036; 83735; 84132; 87040; 87046; 87086; 87324; 87899; 93306; 94660; 96375; 97110-GO; 97116-GP; 97161-GP; 97164-GP; 97165-GO; 97530-GP; A9270-GY; J1815-GY; J1940; J1956; J2185; J2543; J3370; J3475; J3480; J7030; J7050; J7620-GY

== ENCOUNTER 2018-10-18 09:35 | Inpatient (IN) | payer MEDICARE, BC ==
--- NOTE | 2018-10-18 09:48 | EDM.PDOC ---
ED HPI GENERAL MEDICAL PROBLEM - General Chief Complaint: Lower Extremity Injury/Pain Stated Complaint: AMB Time Seen by Provider: 10/18/18 09:40 - History of Present Illness INITIAL COMMENTS - FREE TEXT/NARRATIVE: HISTORY AND PHYSICAL: History of present illness: The patient is an 83-year-old female who was in the hospital at [facility] in [place] the end of August for pneumonia and a pleural effusion and then was admitted here to our hospital on September 16 and stayed until October 01 for pneumonia. Her hospital stay and the records of that have been reviewed by me and it had a complicated course. She had decompensation and was needing BiPAP and ICU care and had pulmonary edema which she was diuresed. She had an echocardiogram which revealed severe mitral regurgitation and was seen in consultation with our information resources manager. She has a history of chronic A. fib and was on chronic anticoagulation and was transitioned on that admission from Eliquis to Coumadin as she is now valvular A. fib. She is also on beta blockers and diltiazem for her A. fib and that was well controlled on that admission. She was aggressively diuresed and improved significantly and other medications she had been on were also adjusted and/or changed. She is chronically oxygen dependent and remains so on that last discharge. She also has a history of stage III kidney disease hypercholesterolemia hypothyroidism coronary artery disease with stents and peripheral vascular disease. It was felt at the time of discharge on the last admission that she needed home health and/or fdc care and also need physical therapy due to her deconditioning from the recent hospitalizations. The patient currently has come into the emergency department via EMS today with complaints of pain to the back side of her left lower leg where she says she sustained a wound/skin tear while she was in [facility] in [place] a month and half ago. She says the wound has been improving and she has had her take care of it at home. She says over the last few days it has worsened and pain and she thinks it looks more swollen and red. There has not been any drainage from it. She has not had any new trauma to the area and she has no weakness or neurosensory changes in the leg. She concurs that she has had physical therapy several times a week and home health comes to the house once a week. She also confirms that she has followed up with her provider Dr. Bender as well as our information resources manager Dr. Ceron, whom she saw last week and he did not adjust any medications that she is aware of. She says that he did not look at his leg but Dr. Bender did and he thought it was healing well. She also says that she is short of breath but she says she has been that way since August and she does not feel that that is new or different. She does say that her heart rate is elevated and he gets more elevated and she gets more short of breath with activity. She's not having any coughing fever chills abdominal pain vomiting or diarrhea. Review of systems: As per history of present illness and below otherwise all systems reviewed and negative. Past medical history: As per history of present illness and as reviewed below otherwise noncontributory. Surgical history: As per history of present illness and as reviewed below otherwise noncontributory. Social history: No reported history of drug or alcohol abuse. Family history: As per history of present illness and as reviewed below otherwise noncontributory. Physical exam: General: Well-developed well-nourished thin female who is nontoxic and speaking clearly in the ED. Vital signs are noted by me HEENT: Atraumatic, normocephalic, pupils reactive, negative for conjunctival pallor or scleral icterus, mucous membranes moist, throat clear, neck supple, nontender, trachea midline. Lungs: Clear to auscultation with some crackles and rales at the bases bilaterally with no wheezing or stridor and there is some diminished breath sounds at the very low bases, breath sounds equal bilaterally, chest nontender. Heart: S1S2, r irregularly irregular rhythm with tachycardic rate that varies from 110 to 120s, due to the heart rate it is difficult to appreciate the history of mitral regurgitation but I can hear a systolic murmur at the left upper sternal border, negative for clicks, rubs, or JVD. Abdomen: Soft, nondistended, nontender. Negative for masses or hepatosplenomegaly. Negative for costovertebral tenderness. Pelvis: Stable nontender. Genitourinary: Deferred. Rectal: Deferred. Extremities: Atraumatic and full range of motion of all extremities with the exception of the left lower leg. On the anterior aspect of the distal tib-fib area there are chronic skin changes seen but there is no gross pedal edema and there are no skin breaks on this anterior aspect. On the posterior aspect of the lower one third in the soft tissue there is an irregular oval-like wound which measures approximately 3 cm x 1 cm with some fibrinous material noted and surrounding erythema and tenderness. There is some warmth in this area but does not extend extend proximally to the proximal leg or to the anterior aspect of the leg There is no crepitus in the calf itself is not grossly tender. There is no streaking up the leg no popliteal fossa tenderness or defects and no groin tenderness defects deformities or streaking. Bony architecture is intact and there is no tenderness with this the patient only complains when I palpate the posterior leg soft tissue in the region of the wound. There is some distal soft tissue swelling seen at the ankle with some dependent changes but neurovascular is intact. The legs are, negative for cords . Neurovascular unremarkable. Neuro: Awake, alert, oriented. Cranial nerves II through XII unremarkable. Cerebellum unremarkable. Motor and sensory unremarkable throughout. Exam nonfocal. Diagnostics: EKG, CBC CMP INR BNP troponin lactic acid x-ray of left leg chest x-ray blood cultures 2 Therapeutics: IV O2 monitor Cardizem low dose of morphine Montgomery Levaquin was ordered per Dr. Power's verbal order to me After The small dose of Cardizem the patient's heart rate is now in the 80s. Testing results were discussed with the patient and with our hospitalist Dr. Power at 1153. We will omit for observation admission due to multiple lab abnormalities including an elevated INR and elevated lactate a bump in her creatinine and her persistent leg pain and cellulitis. Certainly asked me to give one dose of Levaquin 750 mg in the ED. He is aware of all of her lab abnormalities. Impression: Left leg cellulitis with nonhealing wound, persistent left pleural effusion, A. fib with mild RVR, elevated Coumadin level Definitive disposition and diagnosis as appropriate pending reevaluation and review of above. Treatments BLOOD BANK COORDINATOR: Reports: EKG, See EMS Report Left lower leg Pain Score (Numeric/FACES): 10 - Related Data Allergies Allergy/AdvReac Type Severity Reaction Status Date / Time No Known Allergies Allergy Verified 10/18/18 09:40 Home Meds: Home Meds Calcium Carbonate [Calcium] 1,200 mg PO DAILY 04/27/17 [History] Levothyroxine [Synthroid] 100 mcg PO QAM 04/27/17 [History] Lutein 20 mg PO DAILY 04/27/17 [History] Multivitamin/Iron/Folic Acid [Centrum Adults Tablet] 1 tab PO DAILY 04/27/17 [ History] Rosuvastatin [Crestor] 20 mg PO MOWEFR@1200 04/27/17 [History] Acetaminophen with Codeine [Tylenol with Codeine #3 Tablet] 1 tab PO BID PRN 06/04 [History] Diltiazem HCl [Cartia Xt] 180 mg PO DAILY 09/16/18 [History] Rosuvastatin [Crestor] 10 mg PO SUTUTHSA@1200 09/28/18 [History] Aspirin 81 mg PO DAILY tab.chew 10/01/18 [Rx] Furosemide [Lasix] 60 mg PO BID #90 tablet 10/01/18 [Rx] Metoprolol Tartrate [Lopressor] 50 mg PO TID #60 tablet 10/01/18 [Rx] Potassium Chloride 20 meq PO BID #30 packet 10/01/18 [Rx] Warfarin Sodium 2.5 mg PO DAILY #15 tablet 10/01/18 [Rx] Past Medical History HEENT History: Reports: Impaired Vision, Other (See Below) Other HEENT History: wears glasses 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 History: 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, Heart Failure, 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, Hypertension, Stents Other 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 History: leaky valve, clogged arteries Respiratory History: Reports: COPD, Other (See Below) Other Respiratory History: on 02 at home (2liters in AM, 3liters in pm); pneumonia 3 weeks ago Gastrointestinal History: Reports: None Genitourinary History: Reports: None 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 STRAIGHTENER History: Reports: Musculoskeletal History: Reports: Arthritis Neurological History: Reports: Other (See Below) Other Neuro History: small stroke 3 weeks ago Psychiatric History: Reports: None Endocrine/Metabolic History: Reports: Hypothyroidism Hematologic History: Reports: None Immunologic History: Reports: None Oncologic (Cancer) History: Reports: None Dermatologic History: Reports: None - Infectious Disease History Infectious Disease History: Reports: Chicken Pox, Measles, Mumps, Shingles - Past Surgical History HEENT Surgical History: Reports: Cataract Surgery 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 Surgical History: Reports: None Respiratory Surgical History: Reports: Thoracentesis GI Surgical History: Reports: Appendectomy Female Surgical History: Reports: None Endocrine Surgical History: Reports: None Neurological Surgical History: Reports: None Musculoskeletal Surgical History: Reports: None Oncologic Surgical History: Reports: Biopsy of Breast Social & Family History - Family History Family Medical History: Noncontributory - Caffeine Use Caffeine Use: Reports: Coffee - Living Situation & Occupation Living situation: Reports: , with Significant Other Occupation: Retired Review of Systems - Review of Systems Review Of Systems: ROS reveals no pertinent complaints other than HPI. ED EXAM, GENERAL - Physical Exam Exam: See Below (See dictation) Course - Vital Signs Last Recorded V/S: Last Vital Signs Temp 36.8 C 10/18/18 09:41 Pulse 92 10/18/18 11:42 Resp 18 10/18/18 11:42 BP 112/50 L 10/18/18 11:42 Pulse Ox 93 L 10/18/18 11:42 - Orders/Labs/Meds Orders: Active Orders 24 hr Category Date Time Status Patient Status [ADT] Stat ADT 10/18/18 11:53 Ordered Cardiac Monitoring [RC] . DIRECTED Care 10/18/18 09:55 Active EKG Documentation Completion [RC] STAT Care 10/18/18 09:55 Active Oxygen Therapy, ED [RC] ASDIRECTED Care 10/18/18 09:55 Active Pulse Oximetry [RC] ASDIRECTED Care 10/18/18 09:55 Active Chest 1V Frontal [CR] Stat Exams 10/18/18 09:57 Taken Tibia Fibula Lt [CR] Stat Exams 10/18/18 09:57 Taken CULTURE BLOOD [BC] Stat Lab 10/18/18 10:25 Results CULTURE BLOOD [BC] Stat Lab 10/18/18 10:45 Results Levofloxacin/Dextrose 5%-Water [Levaquin in D5W 750 MG/ Med 10/18/18 11:52 Ordered 150 ML] 750 mg Premix Bag 1 bag IV ONETIME Sodium Chloride 0.9% [Normal Saline] 1,000 ml Med 10/18/18 10:00 Active IV ASDIRECTED Sodium Chloride 0.9% [Saline Flush] Med 10/18/18 09:57 Active 10 ml FLUSH ASDIRECTED PRN Sodium Chloride 0.9% [Saline Flush] Med 10/18/18 09:57 Active 2.5 ml FLUSH ASDIRECTED PRN Blood Culture x2 Reflex Set [OM.PC] Stat Oth 10/18/18 10:11 Ordered Saline Lock Insert [OM.PC] Stat Oth 10/18/18 09:55 Ordered Medication Orders Sodium Chloride (Normal Saline) 1,000 mls @ 50 mls/hr IV ASDIRECTED YAKELIN Last Admin: 10/18/18 10:12 Dose: 50 mls/hr Sodium Chloride (Saline Flush) 10 ml FLUSH ASDIRECTED PRN PRN Reason: Keep Vein Open Last Admin: 10/18/18 10:12 Dose: 10 ml Sodium Chloride (Saline Flush) 2.5 ml FLUSH ASDIRECTED PRN PRN Reason: Keep Vein Open Last Admin: 10/18/18 10:12 Dose: 2.5 ml Labs: Laboratory Tests 10/18/18 10/18/18 10/18/18 Range/Units 10:03 10:03 10:03 WBC 11.90 H (4.0-11.0) K/uL RBC 3.69 L (4.30-5.90) M/uL Hgb 11.2 L (12.0-16.0) g/dL Hct 36.2 (36.0-46.0) % MCV 98.1 H (80.0-98.0) fL MCH 30.4 (27.0-32.0) pg MCHC 30.9 L (31.0-37.0) g/dL RDW Std Deviation 57.8 (28.0-62.0) fl RDW Coeff of Erickson 16 H (11.0-15.0) % Plt Count 448 H (150-400) K/uL MPV 10.00 (7.40-12.00) fL Neut % (Auto) 81.3 H (48.0-80.0) % Lymph % (Auto) 7.6 L (16.0-40.0) % Dawson % (Auto) 10.6 (0.0-15.0) % Eos % (Auto) 0.2 (0.0-7.0) % Baso % (Auto) 0.3 (0.0-1.5) % Neut # (Auto) 9.7 H (1.4-5.7) K/uL Lymph # (Auto) 0.9 (0.6-2.4) K/uL Dawson # (Auto) 1.3 H (0.0-0.8) K/uL Eos # (Auto) 0.0 (0.0-0.7) K/uL Baso # (Auto) 0.0 (0.0-0.1) K/uL Nucleated RBC % 0.4 /100WBC Nucleated RBCs # 0 K/uL INR 4.13 Lactate 5.3 H (0.20-2.00) mmol/L Sodium (136-145) mmol/L Potassium (3.5-5.1) mmol/L Chloride (98-107) mmol/L Carbon Dioxide (21.0-32.0) mmol/L BUN (7.0-18.0) mg/dL Creatinine (0.6-1.0) mg/dL Est Cr Clr Drug Dosing mL/min Estimated GFR (MDRD) ml/min Glucose (74-106) mg/dL Calcium (8.5-10.1) mg/dL Total Bilirubin (0.2-1.0) mg/dL AST (15-37) IU/L ALT (14-63) IU/L Alkaline Phosphatase (46-116) U/L Troponin I (0.000-0.056) ng/mL B-Natriuretic Peptide (<100) PG/ML Total Protein (6.4-8.2) g/dL Albumin (3.4-5.0) g/dL Globulin (2.6-4.0) g/dL Albumin/Globulin Ratio (0.9-1.6) 10/18/18 10/18/18 Range/Units 10:03 10:03 WBC (4.0-11.0) K/uL RBC (4.30-5.90) M/uL Hgb (12.0-16.0) g/dL Hct (36.0-46.0) % MCV (80.0-98.0) fL MCH (27.0-32.0) pg MCHC (31.0-37.0) g/dL RDW Std Deviation (28.0-62.0) fl RDW Coeff of Erickson (11.0-15.0) % Plt Count (150-400) K/uL MPV (7.40-12.00) fL Neut % (Auto) (48.0-80.0) % Lymph % (Auto) (16.0-40.0) % Dawson % (Auto) (0.0-15.0) % Eos % (Auto) (0.0-7.0) % Baso % (Auto) (0.0-1.5) % Neut # (Auto) (1.4-5.7) K/uL Lymph # (Auto) (0.6-2.4) K/uL Dawson # (Auto) (0.0-0.8) K/uL Eos # (Auto) (0.0-0.7) K/uL Baso # (Auto) (0.0-0.1) K/uL Nucleated RBC % /100WBC Nucleated RBCs # K/uL INR Lactate (0.20-2.00) mmol/L Sodium 140 (136-145) mmol/L Potassium 4.1 (3.5-5.1) mmol/L Chloride 100 (98-107) mmol/L Carbon Dioxide 24.0 (21.0-32.0) mmol/L BUN 32 H (7.0-18.0) mg/dL Creatinine 2.6 H (0.6-1.0) mg/dL Est Cr Clr Drug Dosing 13.62 mL/min Estimated GFR (MDRD) 17.5 ml/min Glucose 196 H (74-106) mg/dL Calcium 8.7 (8.5-10.1) mg/dL Total Bilirubin 0.7 (0.2-1.0) mg/dL AST 36 (15-37) IU/L ALT 57 (14-63) IU/L Alkaline Phosphatase 118 H (46-116) U/L Troponin I < 0.050 (0.000-0.056) ng/mL B-Natriuretic Peptide 1754 H (<100) PG/ML Total Protein 7.1 (6.4-8.2) g/dL Albumin 2.9 L (3.4-5.0) g/dL Globulin 4.2 H (2.6-4.0) g/dL Albumin/Globulin Ratio 0.7 L (0.9-1.6) Meds: Medications Generic Name Dose Route Start Last Admin Trade Name Freq PRN Reason Stop Dose Admin Sodium Chloride 1,000 mls @ 50 mls/hr 10/18/18 10:00 10/18/18 10:12 Normal Saline IV 50 mls/hr ASDIRECTED YAKELIN Administration Sodium Chloride 10 ml 10/18/18 09:57 10/18/18 10:12 Saline Flush FLUSH 10 ml ASDIRECTED PRN Administration Keep Vein Open Sodium Chloride 2.5 ml 10/18/18 09:57 10/18/18 10:12 Saline Flush FLUSH 2.5 ml ASDIRECTED PRN Administration Keep Vein Open Discontinued Medications Generic Name Dose Route Start Last Admin Trade Name Freq PRN Reason Stop Dose Admin Acetaminophen 650 mg 10/18/18 09:58 10/18/18 10:12 Tylenol PO 10/18/18 09:59 650 mg NOW ONE Administration Hydrocodone Bitart/Acetaminophen 1 tab 10/18/18 11:42 10/18/18 11:54 Montgomery 325-5 Mg PO 10/18/18 11:43 1 tab ONETIME ONE Administration Diltiazem HCl 5 mg 10/18/18 09:58 10/18/18 10:12 Diltiazem IVPUSH 10/18/18 09:59 5 mg ONETIME ONE Administration Morphine Sulfate 1 mg 10/18/18 09:58 10/18/18 10:12 Morphine IVPUSH 10/18/18 09:59 1 mg ONETIME ONE Administration Departure - Departure Time of Disposition: 11:56 Disposition: Refer to Observation Condition: Good Clinical Impression: Cellulitis of leg Qualifiers: Laterality: left Qualified Code(s): L03.116 - Cellulitis of left lower limb - Discharge Information Referrals: PCP,Unknown [Primary Care Provider] - Forms: ED Department Discharge - My Orders Last 24 Hours: My Active Orders 10/18/18 09:55 Cardiac Monitoring [RC] . DIRECTED EKG Documentation Completion [RC] STAT Oxygen Therapy, ED [RC] ASDIRECTED Pulse Oximetry [RC] ASDIRECTED Saline Lock Insert [OM.PC] Stat 10/18/18 09:57 Chest 1V Frontal [CR] Stat Tibia Fibula Lt [CR] Stat Sodium Chloride 0.9% [Saline Flush] 10 ml FLUSH ASDIRECTED PRN Sodium Chloride 0.9% [Saline Flush] 2.5 ml FLUSH ASDIRECTED PRN 10/18/18 10:00 Sodium Chloride 0.9% [Normal Saline] 1,000 ml IV ASDIRECTED 10/18/18 10:11 Blood Culture x2 Reflex Set [OM.PC] Stat 10/18/18 10:25 CULTURE BLOOD [BC] Stat 10/18/18 10:45 CULTURE BLOOD [BC] Stat 10/18/18 11:52 Levofloxacin/Dextrose 5%-Water [Levaquin in D5W 750 MG/150 ML] 750 mg Premix Bag 1 bag IV ONETIME 10/18/18 11:53 Patient Status [ADT] Stat - Assessment/Plan Last 24 Hours: My Active Orders 10/18/18 09:55 Cardiac Monitoring [RC] . DIRECTED EKG Documentation Completion [RC] STAT Oxygen Therapy, ED [RC] ASDIRECTED Pulse Oximetry [RC] ASDIRECTED Saline Lock Insert [OM.PC] Stat 10/18/18 09:57 Chest 1V Frontal [CR] Stat Tibia Fibula Lt [CR] Stat Sodium Chloride 0.9% [Saline Flush] 10 ml FLUSH ASDIRECTED PRN Sodium Chloride 0.9% [Saline Flush] 2.5 ml FLUSH ASDIRECTED PRN 10/18/18 10:00 Sodium Chloride 0.9% [Normal Saline] 1,000 ml IV ASDIRECTED 10/18/18 10:11 Blood Culture x2 Reflex Set [OM.PC] Stat 10/18/18 10:25 CULTURE BLOOD [BC] Stat 10/18/18 10:45 CULTURE BLOOD [BC] Stat 10/18/18 11:52 Levofloxacin/Dextrose 5%-Water [Levaquin in D5W 750 MG/150 ML] 750 mg Premix Bag 1 bag IV ONETIME 10/18/18 11:53 Patient Status [ADT] Stat
[2018-10-18] MEDS ORDERED: Sodium Chloride 0.9% 10 ML Syringe FLUSH PRN ×2 (09:57→14:37)
[2018-10-18] MEDS ORDERED: Diltiazem 25 MG/5 ML SDV IVPUSH ONE (09:58)
[2018-10-18] MEDS ORDERED: Morphine 2 MG/ML Syringe IVPUSH ONE ×2 (09:58→16:10)
[2018-10-18] MEDS ORDERED: Acetaminophen 325 MG Tab PO ONE (09:58)
[2018-10-18] MEDS ORDERED: Sodium Chloride 0.9% 1,000 ML IV SCH (10:00)
[2018-10-18] MEDS: Sodium Chloride 0.9% 2.5 ML Syringe FLUSH PRN (10:12)
[2018-10-18 10:52] LABS: CHLORIDE,CL 100 mmol/L (98-107); SODIUM,NA 140 mmol/L (136-145)
[2018-10-18] MEDS ORDERED: Acetaminophen/HYDROcodone 325-5 MG Tab PO ONE (11:42)
[2018-10-18] MEDS ORDERED: Levofloxacin/Dextrose 5%-Water 750 MG in Premix Bag 1 BAG IV ONE (11:52)
--- NOTE | 2018-10-18 11:57 | CR ---
INDICATION: Pain shortness of breath Two-view chest x-ray. COMPARISON: Chest x-ray 09/29/2018 Findings: Stable enlarged cardiac silhouette. Prominence of the interstitial markings. Left pleural effusion. Basilar atelectasis. No pneumothorax. IMPRESSION: 1. Mild pulmonary edema. Small left effusion. Basilar patchy atelectasis. Dictated by Francesca Reynaga MD @ Oct 18 2018 11:54AM Signed by Dr. Francesca Reynaga @ Oct 18 2018 11:56AM
--- NOTE | 2018-10-18 11:59 | CR ---
Indication: Soft tissue wound Technique: Left tibia and fibula 2 views Comparison: None Findings: Bones: Alignment is normal. No fractures or bone lesions. Joint spaces: Unremarkable. Soft tissues: No soft tissue gas or other focal abnormality. Mild atherosclerosis is present. Dictated by Sidney Ladd MD @ Oct 18 2018 11:55AM Signed by Dr. Sidney Ladd @ Oct 18 2018 11:56AM
[2018-10-18] MEDS ORDERED: HYDROmorphone 1 MG/ML Syringe IVPUSH PRN (14:37)
[2018-10-18] MEDS ORDERED: Sodium Chloride 0.9% 2.5 ML Syringe FLUSH PRN (14:37)
[2018-10-18] MEDS ORDERED: Ondansetron 4 MG/2 ML SDV IVPUSH PRN (14:37)
[2018-10-18] MEDS: Piperacillin/Tazobactam 2.25 GM in Sodium Chloride 0.9% 50 ML IV SCH ×2 (15:15→20:34)
--- NOTE | 2018-10-18 15:16 | PCM.HP ---
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 Patient was stabilized from the atrial fibrillation, congestive heart failure, hypoxemia secondary to pneumonia standpoint. It was noted during the admission that the patient did have a wound that was weeping serosanguineous fluid but did not look infected at all. Patient now comes to the ED secondary to severe pain around the left lower extremity where the wound had been. Patient is complaining of fevers, extreme pain and throbbing around the entire lower extremity. Has not seen significant drainage but does believe it is more swollen and red than a few days prior. Patient has not seen anybody for wound care in regards to the wound , patient does not have a history of type 2 diabetes but does have a history of peripheral vascular disease as well. In the ED she was noted to have an elevated BNP, elevated lactic acid level, increase in her creatinine, and a leukocytosis. Imaging of the left lower extremity do not show any signs of deep infection, chest x-ray showed pleural effusion. The ED did start the patient on normal saline at a rate of 50 mL/hour and give the patient 1 dose of Levaquin and obtain wound cultures. Left lower leg Pain Score (Numeric/FACES): 10 - Related Data Allergies/Adverse Reactions: Allergies Allergy/AdvReac Type Severity Reaction Status Date / Time No Known Allergies Allergy Verified 10/18/18 09:40 Home Medications: Home Meds Calcium Carbonate [Calcium] 1,200 mg PO DAILY 04/27/17 [History] Levothyroxine [Synthroid] 100 mcg PO QAM 04/27/17 [History] Lutein 20 mg PO DAILY 04/27/17 [History] Multivitamin/Iron/Folic Acid [Centrum Adults Tablet] 1 tab PO DAILY 04/27/17 [ History] Rosuvastatin [Crestor] 20 mg PO MOWEFR@1200 04/27/17 [History] Acetaminophen with Codeine [Tylenol with Codeine #3 Tablet] 1 tab PO BID PRN 06/04 [History] Diltiazem HCl [Cartia Xt] 180 mg PO DAILY 09/16/18 [History] Rosuvastatin [Crestor] 10 mg PO SUTUTHSA@1200 09/28/18 [History] Aspirin 81 mg PO DAILY tab.chew 10/01/18 [Rx] Furosemide [Lasix] 60 mg PO BID #90 tablet 10/01/18 [Rx] Metoprolol Tartrate [Lopressor] 50 mg PO TID #60 tablet 10/01/18 [Rx] Potassium Chloride 20 meq PO BID #30 packet 10/01/18 [Rx] Warfarin Sodium 2.5 mg PO DAILY #15 tablet 10/01/18 [Rx] Past Medical History HEENT History: Reports: Impaired Vision, Other (See Below) Other HEENT History: wears glasses 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 History: 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, Heart Failure, 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, Hypertension, Stents Other 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 History: leaky valve, clogged arteries Respiratory History: Reports: COPD, Other (See Below) Other Respiratory History: on 02 at home (2liters in AM, 3liters in pm); pneumonia 3 weeks ago Gastrointestinal History: Reports: None Genitourinary History: Reports: None [employer] History: Reports: Musculoskeletal History: Reports: Arthritis Neurological History: Reports: Other (See Below) Other Neuro History: small stroke 3 weeks ago Psychiatric History: Reports: None Endocrine/Metabolic History: Reports: Hypothyroidism Hematologic History: Reports: None Immunologic History: Reports: None Oncologic (Cancer) History: Reports: None Dermatologic History: Reports: None - Infectious Disease History Infectious Disease History: Reports: Chicken Pox, Measles, Mumps, Shingles - Past Surgical History HEENT Surgical History: Reports: Cataract Surgery Other HEENT Surgeries/Procedures: cataract x2 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 Surgical History: Reports: None Respiratory Surgical History: Reports: Thoracentesis Female Surgical History: Reports: None Endocrine Surgical History: Reports: None Neurological Surgical History: Reports: None Musculoskeletal Surgical History: Reports: None Oncologic Surgical History: Reports: Biopsy of Breast Social & Family History - Family History Family Medical History: Noncontributory - Tobacco Use Smoking Status *Q: Former Smoker Used Tobacco, but Quit: Yes Month/Year Tobacco Last Used: 20 years ago - Caffeine Use Caffeine Use: Reports: None - Recreational Drug Use Recreational Drug Use: No - Living Situation & Occupation Living situation: Reports: , with Significant Other Occupation: Retired H&P Review of Systems - Review of Systems: Review Of Systems: ROS reveals no pertinent complaints other than HPI. Exam - Exam Exam: See Below - Vital Signs Vital Signs: Last Vital Signs Temp 36.8 C 10/18/18 12:55 Pulse 94 10/18/18 12:55 Resp 20 10/18/18 12:55 BP 98/51 L 10/18/18 12:55 Pulse Ox 91 L 10/18/18 12:55 Weight: 54.975 kg - Exam Quality Assessment: Supplemental Oxygen General: Alert, Oriented, Cooperative, Moderate Distress Lungs: Decreased Breath Sounds 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: Irregular Rhythm Extremities: Leg Pain, Limited Range of Motion, Redness - Patient Data Lab Results Last 24 hrs: Laboratory Results - last 24 hr 10/18/18 10/18/18 10/18/18 Range/Units 10:03 10:03 10:03 WBC 11.90 H (4.0-11.0) K/uL RBC 3.69 L (4.30-5.90) M/uL Hgb 11.2 L (12.0-16.0) g/dL Hct 36.2 (36.0-46.0) % MCV 98.1 H (80.0-98.0) fL MCH 30.4 (27.0-32.0) pg MCHC 30.9 L (31.0-37.0) g/dL RDW Std Deviation 57.8 (28.0-62.0) fl RDW Coeff of Erickson 16 H (11.0-15.0) % Plt Count 448 H (150-400) K/uL MPV 10.00 (7.40-12.00) fL Neut % (Auto) 81.3 H (48.0-80.0) % Lymph % (Auto) 7.6 L (16.0-40.0) % Drew % (Auto) 10.6 (0.0-15.0) % Eos % (Auto) 0.2 (0.0-7.0) % Baso % (Auto) 0.3 (0.0-1.5) % Neut # (Auto) 9.7 H (1.4-5.7) K/uL Lymph # (Auto) 0.9 (0.6-2.4) K/uL Drew # (Auto) 1.3 H (0.0-0.8) K/uL Eos # (Auto) 0.0 (0.0-0.7) K/uL Baso # (Auto) 0.0 (0.0-0.1) K/uL Nucleated RBC % 0.4 /100WBC Nucleated RBCs # 0 K/uL INR 4.13 Lactate 5.3 H (0.20-2.00) mmol/L Sodium (136-145) mmol/L Potassium (3.5-5.1) mmol/L Chloride (98-107) mmol/L Carbon Dioxide (21.0-32.0) mmol/L BUN (7.0-18.0) mg/dL Creatinine (0.6-1.0) mg/dL Est Cr Clr Drug Dosing mL/min Estimated GFR (MDRD) ml/min Glucose (74-106) mg/dL Calcium (8.5-10.1) mg/dL Total Bilirubin (0.2-1.0) mg/dL AST (15-37) IU/L ALT (14-63) IU/L Alkaline Phosphatase (46-116) U/L Troponin I (0.000-0.056) ng/mL B-Natriuretic Peptide (<100) PG/ML Total Protein (6.4-8.2) g/dL Albumin (3.4-5.0) g/dL Globulin (2.6-4.0) g/dL Albumin/Globulin Ratio (0.9-1.6) 10/18/18 10/18/18 10/18/18 Range/Units 10:03 10:03 14:25 WBC (4.0-11.0) K/uL RBC (4.30-5.90) M/uL Hgb (12.0-16.0) g/dL Hct (36.0-46.0) % MCV (80.0-98.0) fL MCH (27.0-32.0) pg MCHC (31.0-37.0) g/dL RDW Std Deviation (28.0-62.0) fl RDW Coeff of Erickson (11.0-15.0) % Plt Count (150-400) K/uL MPV (7.40-12.00) fL Neut % (Auto) (48.0-80.0) % Lymph % (Auto) (16.0-40.0) % Drew % (Auto) (0.0-15.0) % Eos % (Auto) (0.0-7.0) % Baso % (Auto) (0.0-1.5) % Neut # (Auto) (1.4-5.7) K/uL Lymph # (Auto) (0.6-2.4) K/uL Drew # (Auto) (0.0-0.8) K/uL Eos # (Auto) (0.0-0.7) K/uL Baso # (Auto) (0.0-0.1) K/uL Nucleated RBC % /100WBC Nucleated RBCs # K/uL INR Lactate 1.2 (0.20-2.00) mmol/L Sodium 140 (136-145) mmol/L Potassium 4.1 (3.5-5.1) mmol/L Chloride 100 (98-107) mmol/L Carbon Dioxide 24.0 (21.0-32.0) mmol/L BUN 32 H (7.0-18.0) mg/dL Creatinine 2.6 H (0.6-1.0) mg/dL Est Cr Clr Drug Dosing 13.62 mL/min Estimated GFR (MDRD) 17.5 ml/min Glucose 196 H (74-106) mg/dL Calcium 8.7 (8.5-10.1) mg/dL Total Bilirubin 0.7 (0.2-1.0) mg/dL AST 36 (15-37) IU/L ALT 57 (14-63) IU/L Alkaline Phosphatase 118 H (46-116) U/L Troponin I < 0.050 (0.000-0.056) ng/mL B-Natriuretic Peptide 1754 H (<100) PG/ML Total Protein 7.1 (6.4-8.2) g/dL Albumin 2.9 L (3.4-5.0) g/dL Globulin 4.2 H (2.6-4.0) g/dL Albumin/Globulin Ratio 0.7 L (0.9-1.6) Result Diagrams: 10/18/18 10:03 10/18/18 10:03 Barry Results Last 24 hrs: Microbiology 10/18/18 10:45 Anaerobic Blood Culture - Final Blood - Venous - Lab Draw 10/18/18 10:25 Anaerobic Blood Culture - Final Blood - Venous Problem List Initiated/Reviewed/Updated: Yes Orders Last 24hrs: Active Orders 24 hr Category Date Time Status Patient Status [ADT] Stat ADT 10/18/18 11:53 Active Blood Glucose Check, Bedside [RC] QIDACANDBED Care 10/18/18 14:37 Active Cardiac Monitoring [RC] . DIRECTED Care 10/18/18 09:55 Active EKG Documentation Completion [RC] STAT Care 10/18/18 09:55 Active Height and Weight [RC] DAILY Care 10/18/18 14:37 Active Intake and Output [RC] QSHIFT Care 10/18/18 14:37 Active Oxygen Therapy [RC] PRN Care 10/18/18 14:37 Active Pulse Oximetry [RC] ASDIRECTED Care 10/18/18 09:55 Active Pulse Oximetry [RC] PRN Care 10/18/18 14:37 Active Telemetry Monitoring [Cardiac Monitoring] [RC] . Care 10/18/18 14:50 Active DIRECTED Up With Assistance [RC] ASDIRECTED Care 10/18/18 14:37 Active VTE/DVT Education [RC] PER UNIT ROUTINE Care 10/18/18 14:37 Active Vital Signs [RC] Q4H Care 10/18/18 14:37 Active Consult to Wound Care Services [CONS] Routine Cons 10/18/18 14:37 Active PT Evaluation and Treatment [CONS] Routine Cons 10/18/18 14:37 Active Respiratory Care Assess and Treatment [CONS] Routine Cons 10/18/18 14:37 Active Heart Healthy Diet [DIET] Diet 10/18/18 Dinner Active CBC WITH AUTO DIFF [HEME] AM Lab 10/19/18 05:11 Ordered COMPREHENSIVE METABOLIC PN,CMP [CHEM] AM Lab 10/19/18 05:11 Ordered CULTURE BLOOD [BC] Stat Lab 10/18/18 10:25 Results CULTURE BLOOD [BC] Stat Lab 10/18/18 10:45 Results CULTURE WOUND [RM] Routine Lab 10/18/18 14:37 Ordered HYDROmorphone [Dilaudid] Med 10/18/18 14:37 Active 0.5 mg IVPUSH Q4H PRN Ondansetron [Zofran] Med 10/18/18 14:37 Active 4 mg IVPUSH Q4H PRN Pharmacy to Dose - Vancomycin Med 10/18/18 15:15 Ordered 1 dose .XX ASDIRECTED Piperacillin/Tazobactam [Zosyn] 2.25 gm Med 10/18/18 15:00 Active Sodium Chloride 0.9% [Normal Saline] 50 ml IV Q6H Sodium Chloride 0.9% [Saline Flush] Med 10/18/18 09:57 Active 10 ml FLUSH ASDIRECTED PRN Sodium Chloride 0.9% [Saline Flush] Med 10/18/18 14:37 Active 10 ml FLUSH ASDIRECTED PRN Sodium Chloride 0.9% [Saline Flush] Med 10/18/18 09:57 Active 2.5 ml FLUSH ASDIRECTED PRN Sodium Chloride 0.9% [Saline Flush] Med 10/18/18 14:37 Active 2.5 ml FLUSH ASDIRECTED PRN Warfarin [Coumadin] Med 10/19/18 09:00 Active 2.5 mg PO DAILY Blood Culture x2 Reflex Set [OM.PC] Stat Oth 10/18/18 10:11 Ordered Peripheral IV Insertion Adult [OM.PC] Routine Oth 10/18/18 14:37 Ordered Saline Lock Insert [OM.PC] Routine Oth 10/18/18 14:37 Ordered Saline Lock Insert [OM.PC] Stat Oth 10/18/18 09:55 Ordered Medication Orders Hydromorphone HCl (Dilaudid) 0.5 mg IVPUSH Q4H PRN PRN Reason: Pain (severe 7-10) Piperacillin Sod/Tazobactam (Sod 2.25 gm/ Sodium Chloride) 50 mls @ 100 mls/hr IV Q6H YAKELIN Ondansetron HCl (Zofran) 4 mg IVPUSH Q4H PRN PRN Reason: Nausea/Vomiting Sodium Chloride (Saline Flush) 10 ml FLUSH ASDIRECTED PRN PRN Reason: Keep Vein Open Last Admin: 10/18/18 10:12 Dose: 10 ml Sodium Chloride (Saline Flush) 2.5 ml FLUSH ASDIRECTED PRN PRN Reason: Keep Vein Open Last Admin: 10/18/18 10:12 Dose: 2.5 ml Sodium Chloride (Saline Flush) 10 ml FLUSH ASDIRECTED PRN PRN Reason: Keep Vein Open Sodium Chloride (Saline Flush) 2.5 ml FLUSH ASDIRECTED PRN PRN Reason: Keep Vein Open Vancomycin HCl (Pharmacy To Dose - Vancomycin) 1 dose .XX ASDIRECTED YAKELIN Warfarin Sodium (Coumadin) 2.5 mg PO DAILY [facility] Assessment/Plan Comment:: This is a 83-year-old female that is being admitted secondary to leg swelling/ pain, increased redness, nonhealing wound ulceration of the posterior calf of the left leg. #1. Leukocytosis, leg swelling, redness, leg pain of left lower extremity, non- healing wound ulceration most likely etiology is cellulitis of the left lower extremity -Blood cultures and wound cultures have been obtained -Repeat lactic acid level has now normalized -Patient to be placed on IV vancomycin and IV Zosyn until cultures come back for broad-spectrum coverage of the cellulitic infection -Physical therapy consulted for wound care -Pain control medication on board #2. Chronic hypoxemia -Patient is not having any shortness of breath, has a history of chronic hypoxemia and is currently on 6 L O2 continue to monitor status, respiratory therapy has been consulted #3. Congestive heart failure with acutely elevated BNP -As a lactic acid level has now normalized, shall stop the IV fluids -For overnight shall not diurese the patient just yet as her creatinine has been elevated as compared to her baseline and also given the initial elevation of the lactic acid and likely cellulitic infection shall simply reassess and watch the patient in the a.m. and decision shall be made as far as diuresing at that point in time. #4. Chronic atrial fibrillation with RVR -Patient has been placed on telemetry, currently is in A. fib with heart rates between the 80s to 90s shall restart her home dose of Lopressor. #5. DVT prophylaxis: Patient is on Coumadin 2.5 mg daily currently has a supratherapeutic INR of 4.3. Shall hold off on resumption of Coumadin until the a.m. once INR has been reassessed. <Deondre Power - Last Filed: 10/18/18 19:07> H&P History of Present Illness - General Admit Problem/Dx: Admission Diagnosis/Problem Admission Diagnosis/Problem Cellulitis I have seen and examine the patient independently of quality engineer medical device, Dr. Mendoza, and have discussed the case with him. I agree with the assessment and plan of care for this patient as outlined by him. Please see orders. Exam - Vital Signs Vital Signs: Last Vital Signs Temp 36.6 C 10/18/18 15:32 Pulse 104 H 10/18/18 16:29 Resp 18 10/18/18 15:32 BP 104/55 L 10/18/18 16:29 Pulse Ox 96 10/18/18 15:32 - Patient Data Lab Results Last 24 hrs: Laboratory Results - last 24 hr 10/18/18 10/18/18 10/18/18 Range/Units 10:03 10:03 10:03 WBC 11.90 H (4.0-11.0) K/uL RBC 3.69 L (4.30-5.90) M/uL Hgb 11.2 L (12.0-16.0) g/dL Hct 36.2 (36.0-46.0) % MCV 98.1 H (80.0-98.0) fL MCH 30.4 (27.0-32.0) pg MCHC 30.9 L (31.0-37.0) g/dL RDW Std Deviation 57.8 (28.0-62.0) fl RDW Coeff of Erickson 16 H (11.0-15.0) % Plt Count 448 H (150-400) K/uL MPV 10.00 (7.40-12.00) fL Neut % (Auto) 81.3 H (48.0-80.0) % Lymph % (Auto) 7.6 L (16.0-40.0) % Drew % (Auto) 10.6 (0.0-15.0) % Eos % (Auto) 0.2 (0.0-7.0) % Baso % (Auto) 0.3 (0.0-1.5) % Neut # (Auto) 9.7 H (1.4-5.7) K/uL Lymph # (Auto) 0.9 (0.6-2.4) K/uL Drew # (Auto) 1.3 H (0.0-0.8) K/uL Eos # (Auto) 0.0 (0.0-0.7) K/uL Baso # (Auto) 0.0 (0.0-0.1) K/uL Nucleated RBC % 0.4 /100WBC Nucleated RBCs # 0 K/uL INR 4.13 Lactate 5.3 H (0.20-2.00) mmol/L Sodium (136-145) mmol/L Potassium (3.5-5.1) mmol/L Chloride (98-107) mmol/L Carbon Dioxide (21.0-32.0) mmol/L BUN (7.0-18.0) mg/dL Creatinine (0.6-1.0) mg/dL Est Cr Clr Drug Dosing mL/min Estimated GFR (MDRD) ml/min Glucose (74-106) mg/dL POC Glucose (60-110) mg/dL Hemoglobin A1c (4.5-6.2) % Calcium (8.5-10.1) mg/dL Total Bilirubin (0.2-1.0) mg/dL AST (15-37) IU/L ALT (14-63) IU/L Alkaline Phosphatase (46-116) U/L Troponin I (0.000-0.056) ng/mL B-Natriuretic Peptide (<100) PG/ML Total Protein (6.4-8.2) g/dL Albumin (3.4-5.0) g/dL Globulin (2.6-4.0) g/dL Albumin/Globulin Ratio (0.9-1.6) Free T4 (0.76-1.46) ng/dL TSH 3rd Generation (0.36-3.74) uIU/mL 10/18/18 10/18/18 10/18/18 Range/Units 10:03 10:03 10:03 WBC (4.0-11.0) K/uL RBC (4.30-5.90) M/uL Hgb (12.0-16.0) g/dL Hct (36.0-46.0) % MCV (80.0-98.0) fL MCH (27.0-32.0) pg MCHC (31.0-37.0) g/dL RDW Std Deviation (28.0-62.0) fl RDW Coeff of Erickson (11.0-15.0) % Plt Count (150-400) K/uL MPV (7.40-12.00) fL Neut % (Auto) (48.0-80.0) % Lymph % (Auto) (16.0-40.0) % Drew % (Auto) (0.0-15.0) % Eos % (Auto) (0.0-7.0) % Baso % (Auto) (0.0-1.5) % Neut # (Auto) (1.4-5.7) K/uL Lymph # (Auto) (0.6-2.4) K/uL Drew # (Auto) (0.0-0.8) K/uL Eos # (Auto) (0.0-0.7) K/uL Baso # (Auto) (0.0-0.1) K/uL Nucleated RBC % /100WBC Nucleated RBCs # K/uL INR Lactate (0.20-2.00) mmol/L Sodium 140 (136-145) mmol/L Potassium 4.1 (3.5-5.1) mmol/L Chloride 100 (98-107) mmol/L Carbon Dioxide 24.0 (21.0-32.0) mmol/L BUN 32 H (7.0-18.0) mg/dL Creatinine 2.6 H (0.6-1.0) mg/dL Est Cr Clr Drug Dosing 13.62 mL/min Estimated GFR (MDRD) 17.5 ml/min Glucose 196 H (74-106) mg/dL POC Glucose (60-110) mg/dL Hemoglobin A1c (4.5-6.2) % Calcium 8.7 (8.5-10.1) mg/dL Total Bilirubin 0.7 (0.2-1.0) mg/dL AST 36 (15-37) IU/L ALT 57 (14-63) IU/L Alkaline Phosphatase 118 H (46-116) U/L Troponin I < 0.050 (0.000-0.056) ng/mL B-Natriuretic Peptide 1754 H (<100) PG/ML Total Protein 7.1 (6.4-8.2) g/dL Albumin 2.9 L (3.4-5.0) g/dL Globulin 4.2 H (2.6-4.0) g/dL Albumin/Globulin Ratio 0.7 L (0.9-1.6) Free T4 1.44 (0.76-1.46) ng/dL TSH 3rd Generation 1.25 (0.36-3.74) uIU/mL 10/18/18 10/18/18 10/18/18 Range/Units 14:25 15:52 16:06 WBC (4.0-11.0) K/uL RBC (4.30-5.90) M/uL Hgb (12.0-16.0) g/dL Hct (36.0-46.0) % MCV (80.0-98.0) fL MCH (27.0-32.0) pg MCHC (31.0-37.0) g/dL RDW Std Deviation (28.0-62.0) fl RDW Coeff of Erickson (11.0-15.0) % Plt Count (150-400) K/uL MPV (7.40-12.00) fL Neut % (Auto) (48.0-80.0) % Lymph % (Auto) (16.0-40.0) % Drew % (Auto) (0.0-15.0) % Eos % (Auto) (0.0-7.0) % Baso % (Auto) (0.0-1.5) % Neut # (Auto) (1.4-5.7) K/uL Lymph # (Auto) (0.6-2.4) K/uL Drew # (Auto) (0.0-0.8) K/uL Eos # (Auto) (0.0-0.7) K/uL Baso # (Auto) (0.0-0.1) K/uL Nucleated RBC % /100WBC Nucleated RBCs # K/uL INR Lactate 1.2 (0.20-2.00) mmol/L Sodium (136-145) mmol/L Potassium (3.5-5.1) mmol/L Chloride (98-107) mmol/L Carbon Dioxide (21.0-32.0) mmol/L BUN (7.0-18.0) mg/dL Creatinine (0.6-1.0) mg/dL Est Cr Clr Drug Dosing mL/min Estimated GFR (MDRD) ml/min Glucose (74-106) mg/dL POC Glucose 100 (60-110) mg/dL Hemoglobin A1c 6.5 H (4.5-6.2) % Calcium (8.5-10.1) mg/dL Total Bilirubin (0.2-1.0) mg/dL AST (15-37) IU/L ALT (14-63) IU/L Alkaline Phosphatase (46-116) U/L Troponin I (0.000-0.056) ng/mL B-Natriuretic Peptide (<100) PG/ML Total Protein (6.4-8.2) g/dL Albumin (3.4-5.0) g/dL Globulin (2.6-4.0) g/dL Albumin/Globulin Ratio (0.9-1.6) Free T4 (0.76-1.46) ng/dL TSH 3rd Generation (0.36-3.74) uIU/mL Result Diagrams: 10/18/18 10:03 10/18/18 10:03 Barry Results Last 24 hrs: Microbiology 10/18/18 10:45 Anaerobic Blood Culture - Final Blood - Venous - Lab Draw 10/18/18 10:25 Anaerobic Blood Culture - Final Blood - Venous Orders Last 24hrs: Active Orders 24 hr Category Date Time Status Patient Status [ADT] Stat ADT 10/18/18 11:53 Active Blood Glucose Check, Bedside [RC] QIDACANDBED Care 10/18/18 14:37 Active Cardiac Monitoring [RC] . DIRECTED Care 10/18/18 09:55 Active Communication Order [RC] BID Care 10/18/18 17:05 Active EKG Documentation Completion [RC] STAT Care 10/18/18 09:55 Active Height and Weight [RC] 04 Care 10/18/18 14:37 Active Intake and Output [RC] 04,16 Care 10/18/18 14:37 Active Oxygen Therapy [RC] PRN Care 10/18/18 14:37 Active Pulse Oximetry [RC] ASDIRECTED Care 10/18/18 09:55 Active Pulse Oximetry [RC] PRN Care 10/18/18 14:37 Active Telemetry Monitoring [Cardiac Monitoring] [RC] . Care 10/18/18 14:50 Active DIRECTED Up With Assistance [RC] ASDIRECTED Care 10/18/18 14:37 Active VTE/DVT Education [RC] BID Care 10/18/18 14:37 Active Vital Signs [RC] Q4HR Care 10/18/18 14:37 Active Consult to Wound Care Services [CONS] Routine Cons 10/18/18 14:37 Active PT Evaluation and Treatment [CONS] Routine Cons 10/18/18 14:37 Active Respiratory Care Assess and Treatment [CONS] Routine Cons 10/18/18 14:37 Active Heart Healthy Diet [DIET] Diet 10/18/18 Dinner Active CBC WITH AUTO DIFF [HEME] AM Lab 10/19/18 05:11 Ordered COMPREHENSIVE METABOLIC PN,CMP [CHEM] AM Lab 10/19/18 05:11 Ordered CULTURE BLOOD [BC] Stat Lab 10/18/18 10:25 Results CULTURE BLOOD [BC] Stat Lab 10/18/18 10:45 Results CULTURE WOUND [RM] Routine Lab 10/18/18 16:50 Received VANCOMYCIN TROUGH [CHEM] Timed Lab 10/20/18 15:00 Ordered Metoprolol Tartrate [Lopressor] Med 10/18/18 16:00 Active 50 mg PO Q12H Morphine Med 10/18/18 17:04 Active 2 mg IVPUSH Q2H PRN Ondansetron [Zofran] Med 10/18/18 14:37 Active 4 mg IVPUSH Q4H PRN Pharmacy to Dose - Vancomycin Med 10/18/18 15:15 Active 1 dose .XX ASDIRECTED Piperacillin/Tazobactam [Zosyn] 2.25 gm Med 10/18/18 15:00 Active Sodium Chloride 0.9% [Normal Saline] 50 ml IV Q6H Sodium Chloride 0.9% [Saline Flush] Med 10/18/18 09:57 Active 10 ml FLUSH ASDIRECTED PRN Sodium Chloride 0.9% [Saline Flush] Med 10/18/18 14:37 Active 10 ml FLUSH ASDIRECTED PRN Sodium Chloride 0.9% [Saline Flush] Med 10/18/18 09:57 Active 2.5 ml FLUSH ASDIRECTED PRN Sodium Chloride 0.9% [Saline Flush] Med 10/18/18 14:37 Active 2.5 ml FLUSH ASDIRECTED PRN Vancomycin 0.75 gm Med 10/18/18 16:00 Active Sodium Chloride 0.9% [Normal Saline] 250 ml IV Q24H Warfarin [Coumadin] Med 10/19/18 14:00 Active 2.5 mg PO DAILY@1400 Blood Culture x2 Reflex Set [OM.PC] Stat Ot 10/18/18 10:11 Ordered Peripheral IV Insertion Adult [OM.PC] Routine Oth 10/18/18 14:37 Ordered Saline Lock Insert [OM.PC] Routine Oth 10/18/18 14:37 Ordered Saline Lock Insert [OM.PC] Stat Ot 10/18/18 09:55 Ordered Medication Orders Piperacillin Sod/Tazobactam (Sod 2.25 gm/ Sodium Chloride) 50 mls @ 100 mls/hr IV Q6H [facility] Last Admin: 10/18/18 15:15 Dose: 100 mls/hr Vancomycin HCl 0.75 gm/ Sodium (Chloride) 250 mls @ 166.667 mls/hr IV Q24H [facility] Last Admin: 10/18/18 16:26 Dose: 166.667 mls/hr Metoprolol Tartrate (Lopressor) 50 mg PO Q12H [facility] Last Admin: 10/18/18 16:29 Dose: 50 mg Morphine Sulfate (Morphine) 2 mg IVPUSH Q2H PRN PRN Reason: Pain (severe 7-10) Last Admin: 10/18/18 18:14 Dose: 2 mg Ondansetron HCl (Zofran) 4 mg IVPUSH Q4H PRN PRN Reason: Nausea/Vomiting Sodium Chloride (Saline Flush) 10 ml FLUSH ASDIRECTED PRN PRN Reason: Keep Vein Open Last Admin: 10/18/18 10:12 Dose: 10 ml Sodium Chloride (Saline Flush) 2.5 ml FLUSH ASDIRECTED PRN PRN Reason: Keep Vein Open Last Admin: 10/18/18 10:12 Dose: 2.5 ml Sodium Chloride (Saline Flush) 10 ml FLUSH ASDIRECTED PRN PRN Reason: Keep Vein Open Sodium Chloride (Saline Flush) 2.5 ml FLUSH ASDIRECTED PRN PRN Reason: Keep Vein Open Vancomycin HCl (Pharmacy To Dose - Vancomycin) 1 dose .XX ASDIRECTED [facility] Warfarin Sodium (Coumadin) 2.5 mg PO DAILY@1400 [facility]
[2018-10-18 16:17] LABS: HEMOGLOBIN A1C 6.5 % (4.5-6.2)
[2018-10-18] MEDS: Metoprolol Tartrate 50 MG Tab PO SCH (16:29)
[2018-10-18] MEDS: Morphine 2 MG/ML Syringe IVPUSH PRN (18:14)
[2018-10-18] MEDS: oxyCODONE 5 MG Tab PO PRN (20:35)
[2018-10-19] MEDS: oxyCODONE 5 MG Tab PO PRN ×4 (00:36→21:15)
[2018-10-19] MEDS: Piperacillin/Tazobactam 2.25 GM in Sodium Chloride 0.9% 50 ML IV SCH ×3 (03:48→17:45)
[2018-10-19] MEDS: Metoprolol Tartrate 50 MG Tab PO SCH (03:58)
[2018-10-19] MEDS ORDERED: Metoprolol Tartrate 50 MG Tab PO SCH ×2 (09:23→14:00)
--- NOTE | 2018-10-19 10:12 | PCM.PN ---
- General Info Date of Service: 10/19/18 Subjective Update: Patient is still complaining of pain of her left lower extremity however did not have any febrile event or worsening of her condition. She in fact is requiring less oxygenation requirement and does not appear to be visibly short of breath - Patient Data Vitals - Most Recent: Last Vital Signs Temp 37.2 C 10/19/18 08:45 Pulse 92 10/19/18 04:00 Resp 20 10/19/18 08:45 BP 121/63 10/19/18 08:45 Pulse Ox 94 L 10/19/18 08:45 Weight - Most Recent: 54.476 kg I&O - Last 24 Hours: Intake & Output 10/18/18 10/19/18 10/19/18 22:59 06:59 14:59 Intake Total 550 100 Output Total 600 Balance 550 -500 Lab Results Last 24 Hours: Laboratory Results - last 24 hr 10/18/18 10/18/18 10/18/18 Range/Units 10:03 10:03 10:03 WBC 11.90 H (4.0-11.0) K/uL RBC 3.69 L (4.30-5.90) M/uL Hgb 11.2 L (12.0-16.0) g/dL Hct 36.2 (36.0-46.0) % MCV 98.1 H (80.0-98.0) fL MCH 30.4 (27.0-32.0) pg MCHC 30.9 L (31.0-37.0) g/dL RDW Std Deviation 57.8 (28.0-62.0) fl RDW Coeff of Erickson 16 H (11.0-15.0) % Plt Count 448 H (150-400) K/uL MPV 10.00 (7.40-12.00) fL Neut % (Auto) 81.3 H (48.0-80.0) % Lymph % (Auto) 7.6 L (16.0-40.0) % Rush % (Auto) 10.6 (0.0-15.0) % Eos % (Auto) 0.2 (0.0-7.0) % Baso % (Auto) 0.3 (0.0-1.5) % Neut # (Auto) 9.7 H (1.4-5.7) K/uL Lymph # (Auto) 0.9 (0.6-2.4) K/uL Rush # (Auto) 1.3 H (0.0-0.8) K/uL Eos # (Auto) 0.0 (0.0-0.7) K/uL Baso # (Auto) 0.0 (0.0-0.1) K/uL Nucleated RBC % 0.4 /100WBC Nucleated RBCs # 0 K/uL INR 4.13 Lactate 5.3 H (0.20-2.00) mmol/L Sodium (136-145) mmol/L Potassium (3.5-5.1) mmol/L Chloride (98-107) mmol/L Carbon Dioxide (21.0-32.0) mmol/L BUN (7.0-18.0) mg/dL Creatinine (0.6-1.0) mg/dL Est Cr Clr Drug Dosing mL/min Estimated GFR (MDRD) ml/min Glucose (74-106) mg/dL POC Glucose (60-110) mg/dL Hemoglobin A1c (4.5-6.2) % Calcium (8.5-10.1) mg/dL Total Bilirubin (0.2-1.0) mg/dL AST (15-37) IU/L ALT (14-63) IU/L Alkaline Phosphatase (46-116) U/L Troponin I (0.000-0.056) ng/mL B-Natriuretic Peptide (<100) PG/ML Total Protein (6.4-8.2) g/dL Albumin (3.4-5.0) g/dL Globulin (2.6-4.0) g/dL Albumin/Globulin Ratio (0.9-1.6) Free T4 (0.76-1.46) ng/dL TSH 3rd Generation (0.36-3.74) uIU/mL 10/18/18 10/18/18 10/18/18 Range/Units 10:03 10:03 10:03 WBC (4.0-11.0) K/uL RBC (4.30-5.90) M/uL Hgb (12.0-16.0) g/dL Hct (36.0-46.0) % MCV (80.0-98.0) fL MCH (27.0-32.0) pg MCHC (31.0-37.0) g/dL RDW Std Deviation (28.0-62.0) fl RDW Coeff of Erickson (11.0-15.0) % Plt Count (150-400) K/uL MPV (7.40-12.00) fL Neut % (Auto) (48.0-80.0) % Lymph % (Auto) (16.0-40.0) % Rush % (Auto) (0.0-15.0) % Eos % (Auto) (0.0-7.0) % Baso % (Auto) (0.0-1.5) % Neut # (Auto) (1.4-5.7) K/uL Lymph # (Auto) (0.6-2.4) K/uL Rush # (Auto) (0.0-0.8) K/uL Eos # (Auto) (0.0-0.7) K/uL Baso # (Auto) (0.0-0.1) K/uL Nucleated RBC % /100WBC Nucleated RBCs # K/uL INR Lactate (0.20-2.00) mmol/L Sodium 140 (136-145) mmol/L Potassium 4.1 (3.5-5.1) mmol/L Chloride 100 (98-107) mmol/L Carbon Dioxide 24.0 (21.0-32.0) mmol/L BUN 32 H (7.0-18.0) mg/dL Creatinine 2.6 H (0.6-1.0) mg/dL Est Cr Clr Drug Dosing 13.62 mL/min Estimated GFR (MDRD) 17.5 ml/min Glucose 196 H (74-106) mg/dL POC Glucose (60-110) mg/dL Hemoglobin A1c (4.5-6.2) % Calcium 8.7 (8.5-10.1) mg/dL Total Bilirubin 0.7 (0.2-1.0) mg/dL AST 36 (15-37) IU/L ALT 57 (14-63) IU/L Alkaline Phosphatase 118 H (46-116) U/L Troponin I < 0.050 (0.000-0.056) ng/mL B-Natriuretic Peptide 1754 H (<100) PG/ML Total Protein 7.1 (6.4-8.2) g/dL Albumin 2.9 L (3.4-5.0) g/dL Globulin 4.2 H (2.6-4.0) g/dL Albumin/Globulin Ratio 0.7 L (0.9-1.6) Free T4 1.44 (0.76-1.46) ng/dL TSH 3rd Generation 1.25 (0.36-3.74) uIU/mL 10/18/18 10/18/18 10/18/18 Range/Units 14:25 15:52 16:06 WBC (4.0-11.0) K/uL RBC (4.30-5.90) M/uL Hgb (12.0-16.0) g/dL Hct (36.0-46.0) % MCV (80.0-98.0) fL MCH (27.0-32.0) pg MCHC (31.0-37.0) g/dL RDW Std Deviation (28.0-62.0) fl RDW Coeff of Erickson (11.0-15.0) % Plt Count (150-400) K/uL MPV (7.40-12.00) fL Neut % (Auto) (48.0-80.0) % Lymph % (Auto) (16.0-40.0) % Rush % (Auto) (0.0-15.0) % Eos % (Auto) (0.0-7.0) % Baso % (Auto) (0.0-1.5) % Neut # (Auto) (1.4-5.7) K/uL Lymph # (Auto) (0.6-2.4) K/uL Rush # (Auto) (0.0-0.8) K/uL Eos # (Auto) (0.0-0.7) K/uL Baso # (Auto) (0.0-0.1) K/uL Nucleated RBC % /100WBC Nucleated RBCs # K/uL INR Lactate 1.2 (0.20-2.00) mmol/L Sodium (136-145) mmol/L Potassium (3.5-5.1) mmol/L Chloride (98-107) mmol/L Carbon Dioxide (21.0-32.0) mmol/L BUN (7.0-18.0) mg/dL Creatinine (0.6-1.0) mg/dL Est Cr Clr Drug Dosing mL/min Estimated GFR (MDRD) ml/min Glucose (74-106) mg/dL POC Glucose 100 (60-110) mg/dL Hemoglobin A1c 6.5 H (4.5-6.2) % Calcium (8.5-10.1) mg/dL Total Bilirubin (0.2-1.0) mg/dL AST (15-37) IU/L ALT (14-63) IU/L Alkaline Phosphatase (46-116) U/L Troponin I (0.000-0.056) ng/mL B-Natriuretic Peptide (<100) PG/ML Total Protein (6.4-8.2) g/dL Albumin (3.4-5.0) g/dL Globulin (2.6-4.0) g/dL Albumin/Globulin Ratio (0.9-1.6) Free T4 (0.76-1.46) ng/dL TSH 3rd Generation (0.36-3.74) uIU/mL 10/19/18 10/19/18 10/19/18 Range/Units 05:05 05:05 06:01 WBC 12.78 H (4.0-11.0) K/uL RBC 3.20 L (4.30-5.90) M/uL Hgb 9.6 L (12.0-16.0) g/dL Hct 31.3 L (36.0-46.0) % MCV 97.8 (80.0-98.0) fL MCH 30.0 (27.0-32.0) pg MCHC 30.7 L (31.0-37.0) g/dL RDW Std Deviation 59.5 (28.0-62.0) fl RDW Coeff of Erickson 17 H (11.0-15.0) % Plt Count 288 (150-400) K/uL MPV 9.60 (7.40-12.00) fL Neut % (Auto) 86.1 H (48.0-80.0) % Lymph % (Auto) 6.9 L (16.0-40.0) % Rush % (Auto) 6.5 (0.0-15.0) % Eos % (Auto) 0.3 (0.0-7.0) % Baso % (Auto) 0.2 (0.0-1.5) % Neut # (Auto) 11.0 H (1.4-5.7) K/uL Lymph # (Auto) 0.9 (0.6-2.4) K/uL Rush # (Auto) 0.8 (0.0-0.8) K/uL Eos # (Auto) 0.0 (0.0-0.7) K/uL Baso # (Auto) 0.0 (0.0-0.1) K/uL Nucleated RBC % 0.3 /100WBC Nucleated RBCs # 0 K/uL INR Lactate (0.20-2.00) mmol/L Sodium 140 (136-145) mmol/L Potassium 3.5 (3.5-5.1) mmol/L Chloride 102 (98-107) mmol/L Carbon Dioxide 30.0 (21.0-32.0) mmol/L BUN 36 H (7.0-18.0) mg/dL Creatinine 2.4 H (0.6-1.0) mg/dL Est Cr Clr Drug Dosing 14.75 mL/min Estimated GFR (MDRD) 19.2 ml/min Glucose 122 H (74-106) mg/dL POC Glucose 121 H (60-110) mg/dL Hemoglobin A1c (4.5-6.2) % Calcium 7.8 L (8.5-10.1) mg/dL Total Bilirubin 0.7 (0.2-1.0) mg/dL AST 27 (15-37) IU/L ALT 36 (14-63) IU/L Alkaline Phosphatase 83 (46-116) U/L Troponin I (0.000-0.056) ng/mL B-Natriuretic Peptide (<100) PG/ML Total Protein 5.4 L (6.4-8.2) g/dL Albumin 2.0 L (3.4-5.0) g/dL Globulin 3.4 (2.6-4.0) g/dL Albumin/Globulin Ratio 0.6 L (0.9-1.6) Free T4 (0.76-1.46) ng/dL TSH 3rd Generation (0.36-3.74) uIU/mL Barry Results Last 24 Hours: Microbiology 10/18/18 10:45 Anaerobic Blood Culture - Final Blood - Venous - Lab Draw 10/18/18 10:25 Anaerobic Blood Culture - Final Blood - Venous Med Orders - Current: Current Medications Vancomycin HCl 0.75 gm/ Sodium (Chloride) 250 mls @ 166.667 mls/hr IV Q24H [facility] Last Admin: 10/18/18 16:26 Dose: 166.667 mls/hr Piperacillin Sod/Tazobactam (Sod 2.25 gm/ Sodium Chloride) 50 mls @ 100 mls/hr IV Q8H [facility] Metoprolol Tartrate (Lopressor) 25 mg PO TID [facility] Morphine Sulfate (Morphine) 2 mg IVPUSH Q2H PRN PRN Reason: Pain (severe 7-10) Last Admin: 10/18/18 18:14 Dose: 2 mg Ondansetron HCl (Zofran) 4 mg IVPUSH Q4H PRN PRN Reason: Nausea/Vomiting Oxycodone HCl (Oxycodone) 5 mg PO Q4H PRN PRN Reason: Pain Last Admin: 10/19/18 09:15 Dose: 5 mg Sodium Chloride (Saline Flush) 10 ml FLUSH ASDIRECTED PRN PRN Reason: Keep Vein Open Last Admin: 10/18/18 10:12 Dose: 10 ml Sodium Chloride (Saline Flush) 2.5 ml FLUSH ASDIRECTED PRN PRN Reason: Keep Vein Open Last Admin: 10/18/18 10:12 Dose: 2.5 ml Sodium Chloride (Saline Flush) 10 ml FLUSH ASDIRECTED PRN PRN Reason: Keep Vein Open Sodium Chloride (Saline Flush) 2.5 ml FLUSH ASDIRECTED PRN PRN Reason: Keep Vein Open Vancomycin HCl (Pharmacy To Dose - Vancomycin) 1 dose .XX ASDIRECTED [facility] Warfarin Sodium (Coumadin Ask) 1 each PO DAILY@1400 [facility] Discontinued Medications Acetaminophen (Tylenol) 650 mg PO NOW ONE Stop: 10/18/18 09:59 Last Admin: 10/18/18 10:12 Dose: 650 mg Hydrocodone Bitart/Acetaminophen (Chazy 325-5 Mg) 1 tab PO ONETIME ONE Stop: 10/18/18 11:43 Last Admin: 10/18/18 11:54 Dose: 1 tab Diltiazem HCl (Diltiazem) 5 mg IVPUSH ONETIME ONE Stop: 10/18/18 09:59 Last Admin: 10/18/18 10:12 Dose: 5 mg Hydromorphone HCl (Dilaudid) 0.5 mg IVPUSH Q4H PRN PRN Reason: Pain (severe 7-10) Last Admin: 10/18/18 15:13 Dose: 0.5 mg Sodium Chloride (Normal Saline) 1,000 mls @ 50 mls/hr IV ASDIRECTED [facility] Last Admin: 10/18/18 10:12 Dose: 50 mls/hr Levofloxacin/Dextrose 750 mg/ (Premix) 150 mls @ 100 mls/hr IV ONETIME ONE Stop: 10/18/18 13:21 Last Admin: 10/18/18 12:07 Dose: 100 mls/hr Piperacillin Sod/Tazobactam (Sod 2.25 gm/ Sodium Chloride) 50 mls @ 100 mls/hr IV Q6H [facility] Last Admin: 10/19/18 09:08 Dose: 100 mls/hr Metoprolol Tartrate (Lopressor) 50 mg PO Q12H [facility] Last Admin: 10/19/18 03:58 Dose: Not Given Metoprolol Tartrate (Lopressor) 50 mg PO TID [facility] Metoprolol Tartrate (Lopressor) 50 mg PO TID [facility] Morphine Sulfate (Morphine) 1 mg IVPUSH ONETIME ONE Stop: 10/18/18 09:59 Last Admin: 10/18/18 10:12 Dose: 1 mg Morphine Sulfate (Morphine) 2 mg IVPUSH ONETIME ONE Stop: 10/18/18 16:11 Last Admin: 10/18/18 16:26 Dose: 2 mg Warfarin Sodium (Coumadin) 2.5 mg PO DAILY@1400 [facility] - Exam Quality Assessment: Supplemental Oxygen General: Alert, Oriented, Cooperative, Mild Distress Lungs: Normal Respiratory Effort, Decreased Breath Sounds 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: Irregular Rhythm GI/Abdominal Exam: Normal Bowel Sounds Extremities: Other (Left lower extremity does show extensive venous stasis dermatitis, ulceration does not have any significant discharge or drainage currently and does not appear to have gotten worse compared to yesterday.) - Problem List Review Problem List Initiated/Reviewed/Updated: Yes - My Orders Last 24 Hours: My Active Orders 10/18/18 14:37 Blood Glucose Check, Bedside [RC] QIDACANDBED Height and Weight [RC] DAILY Intake and Output [RC] 04,16 Oxygen Therapy [RC] PRN Pulse Oximetry [RC] PRN Up With Assistance [RC] ASDIRECTED VTE/DVT Education [RC] BID Vital Signs [RC] Q4HR Consult to Wound Care Services [CONS] Routine PT Evaluation and Treatment [CONS] Routine Respiratory Care Assess and Treatment [CONS] Routine Ondansetron [Zofran] 4 mg IVPUSH Q4H PRN Sodium Chloride 0.9% [Saline Flush] 10 ml FLUSH ASDIRECTED PRN Sodium Chloride 0.9% [Saline Flush] 2.5 ml FLUSH ASDIRECTED PRN Peripheral IV Insertion Adult [OM.PC] Routine Saline Lock Insert [OM.PC] Routine 10/18/18 14:50 Telemetry Monitoring [Cardiac Monitoring] [RC] Q8H 10/18/18 15:15 Pharmacy to Dose - Vancomycin 1 dose .XX ASDIRECTED 10/18/18 16:00 Vancomycin 0.75 gm Sodium Chloride 0.9% [Normal Saline] 250 ml IV Q24H 10/18/18 16:50 CULTURE WOUND [RM] Routine 10/18/18 17:04 Morphine 2 mg IVPUSH Q2H PRN 10/18/18 17:05 Communication Order [RC] BID 10/19/18 08:27 INR,PT,PROTHROMBIN TIME [COAG] Routine 10/19/18 09:32 Metoprolol Tartrate [Lopressor] 25 mg PO TID 10/19/18 18:00 Piperacillin/Tazobactam [Zosyn] 2.25 gm Sodium Chloride 0.9% [Normal Saline] 50 ml IV Q8H 10/20/18 15:00 VANCOMYCIN TROUGH [CHEM] Timed - Plan Plan:: This is a 83-year-old female that is being admitted secondary to leg swelling/ pain, increased redness, nonhealing wound ulceration of the posterior calf of the left leg. #1. Leukocytosis, leg swelling, redness, leg pain of left lower extremity, non- healing wound ulceration most likely etiology is cellulitis of the left lower extremity -Blood cultures and wound cultures are pending -Lactic acid level has normalized -History of cytosis has slightly increased from admission -Patient to continue with the IV vancomycin and IV Zosyn until cultures come back for broad-spectrum coverage of the cellulitic infection -Physical therapy consulted for wound care -Pain control medication on board, patient currently getting oxycodone 5 mg long with morphine when necessary for pain -Shall hold the fluids as the patient's lactic acid is now normalized due to her HFpEF with the acute increase in BNP #2. Chronic hypoxemia likely secondary to patient's HFpEF along with her recent pneumonia on infection -As the patient is clinically stable and not showing symptomatic signs of heart failure shall continue to hold off on any preload reduction or afterload reduction. Patient to get the metoprolol tartrate 25 mg 3 times a day. -Patient's creatinine has slightly improved from 2.5 to 2.3 but still not near her baseline -Continue to watch the patient's status, continue with daily weights #4. Chronic atrial fibrillation with RVR -Patient has been placed on telemetry, currently is in A. fib -Patient has been started on metoprolol tartrate 25 mg 3 times a day #5. DVT prophylaxis: Patient is on Coumadin 2.5 mg daily currently has a supratherapeutic INR of 4.3. Awaiting INR results for today as far as decision to continue the patient's Coumadin dose.
[2018-10-19] MEDS: Metoprolol Tartrate 25 MG Tab PO SCH ×3 (10:19→21:14)
--- NOTE | 2018-10-19 13:21 | CT ---
HISTORY: Lower leg ulcer. Calf pain. TECHNIQUE: CT left lower leg without contrast. COMPARISON: Tibia and fibula radiographs 10/18/2018. FINDINGS: Subcutaneous edema, severe in the distal lower leg and ankle where there is confluent infiltration of subcutaneous fat. No soft tissue gas. No fluid in the deep soft tissue planes. Mild fatty infiltration of the soleus and gastrocnemius muscles. Severe atherosclerosis. No erosions. No fracture. Osteochondral lesion of the medial talar dome with subcortical cystic changes. No discrete osteochondral fragment. Tricompartmental osteoarthritis of the knee with subchondral cysts in all three compartments. Degenerative arthrosis of the talonavicular and naviculocuneiform joints with cysts in the navicular. No suspicious lytic or blastic bone lesions. Achilles insertion enthesophyte. IMPRESSION: 1. Nonspecific subcutaneous fat stranding and infiltration may be due to edema or cellulitis. 2. No inflammatory changes in the deep soft tissues. 3. No erosions to suggest osteomyelitis. Please note that all CT scans at this facility use dose modulation, iterative reconstruction, and/or weight-based dosing when appropriate to reduce radiation dose to as low as reasonably achievable. Dictated by Chris Portillo MD @ Oct 19 2018 1:07PM Signed by Dr. Chris Portillo @ Oct 19 2018 1:18PM
[2018-10-19] MEDS ORDERED: Sodium Chloride 0.9% 1,000 ML IV SCH (13:45)
[2018-10-19] MEDS ORDERED: Warfarin 2.5 MG Tab PO SCH (14:00)
--- NOTE | 2018-10-19 15:20 | US ---
INDICATION: Leg pain and swelling TECHNIQUE: Ultrasound venous duplex lower left extremity. Compression venous exam was performed using sullivan-scale, color Doppler, and spectral Doppler analysis. COMPARISON: None. FINDINGS: Sonographic imaging demonstrates the left common femoral, deep femoral, superficial femoral, popliteal, posterior tibial and greater saphenous and the contralateral right common femoral veins to be fully compressible with normal color Doppler blood flow. IMPRESSION: Normal left lower extremity venous ultrasound, no sign of deep venous thrombosis. Dictated by Sidney Ladd MD @ Oct 19 2018 3:17PM Signed by Dr. Sidney Ladd @ Oct 19 2018 3:19PM
--- NOTE | 2018-10-19 16:27 | US ---
DUPLEX ARTERIAL ULTRASOUND LEFT LOWER EXTREMITY WITH ULTRASOUND ANKLE-BRACHIAL INDICES BILATERAL, 10/19/2018 CLINICAL HISTORY: 83-year-old with history of peripheral arterial disease status post left lower extremity arterial stenting, now with diminished pulses and left lower extremity discoloration. COMPARISON: None available. TECHNIQUE: The left lower extremity arteries were examined per exam specific protocol with sullivan-scale ultrasound, color-flow and Doppler spectral analysis. Peak systolic velocities (PSV), Doppler waveform quality and velocity ratios, if applicable, were documented at sites per exam specific protocol. The pedal arteries (posterior tibial, dorsalis pedis, and peroneal) were evaluated with sullivan-scale ultrasound, color flow and Doppler spectral analysis (continuous-wave Doppler recordings may be substituted). Peak systolic velocities (PSV) and/or Doppler waveform quality were documented at each vessel. Ankle-brachial indices were measured and calculated by placing appropriately sized BP cuffs at ankles and upper arms bilaterally. Resting pressures were documented per exam protocol. FINDINGS: Maximum systolic blood pressure in the right and left brachial arteries measures 96 mmHg and 100 mmHg, respectively. Right Lower Extremity: Resting ankle-brachial index is 0.76 at the PT and 0.84 at the DP. Left Lower Extremity: Resting ankle-brachial index is 0.68 at the PT and 0.50 at the DP. Monophasic waveforms are seen in the left external iliac artery, indicative of aortoiliac inflow disease. Monophasic waveforms are seen in the common and deep femoral arteries. Multiple stents are seen throughout the SFA and popliteal artery, which are occluded. Monophasic waveforms are seen in the posterior tibial and dorsalis pedis arteries, likely from reconstitution by deep femoral artery collaterals. IMPRESSION: 1)Right lower extremity: Mildly reduced resting ankle-brachial index of 0.84. 2)Left lower extremity: Moderately reduced resting ankle-brachial index of 0.68. Stented portions of the superficial femoral and popliteal arteries are occluded. Posterior tibial and dorsalis pedis arteries demonstrate monophasic waveforms, likely reconstituted by deep femoral artery collaterals. REY PALACIOS M.D. [facility] [employer] [email or web address] Transcribed: 1:[address]/Dictated by: Rey Palacios MD @ 10/19/2018 1:36:00 PM (Electronically Signed)
[2018-10-20] MEDS: Piperacillin/Tazobactam 2.25 GM in Sodium Chloride 0.9% 50 ML IV SCH ×3 (01:38→18:40)
[2018-10-20] MEDS: oxyCODONE 5 MG Tab PO PRN ×5 (01:38→21:21)
[2018-10-20] MEDS: Metoprolol Tartrate 25 MG Tab PO SCH ×3 (05:22→21:20)
--- NOTE | 2018-10-20 13:04 | US ---
EXAM DATE: 10/19/18 PATIENT'S AGE: 83 Patient: CESAR FELIZ Facility: [facility] Site . Site : [id number] Study: US-Extremity [id number]/[id number] 12:33:14 PM Ordering Physician: Samuel Osorio Final Report: DUPLEX ARTERIAL ULTRASOUND LEFT LOWER EXTREMITY WITH ULTRASOUND ANKLE-BRACHIAL INDICES BILATERAL, 10/19/2018 CLINICAL HISTORY: 83-year-old with history of peripheral arterial disease status post left lower extremity arterial stenting, now with diminished pulses and left lower extremity discoloration. COMPARISON: None available. TECHNIQUE: The left lower extremity arteries were examined per exam specific protocol with sullivan-scale ultrasound, color-flow and Doppler spectral analysis. Peak systolic velocities (PSV), Doppler waveform quality and velocity ratios, if applicable, were documented at sites per exam specific protocol. The pedal arteries (posterior tibial, dorsalis pedis, and peroneal) were evaluated with sullivan-scale ultrasound, color flow and Doppler spectral analysis (continuous- wave Doppler recordings may be substituted). Peak systolic velocities (PSV) and/ or Doppler waveform quality were documented at each vessel. Ankle-brachial indices were measured and calculated by placing appropriately sized BP cuffs at ankles and upper arms bilaterally. Resting pressures were documented per exam protocol. FINDINGS: Maximum systolic blood pressure in the right and left brachial arteries measures 96 mmHg and 100 mmHg, respectively. Right Lower Extremity: Resting ankle-brachial index is 0.76 at the PT and 0.84 at the DP. Left Lower Extremity: Resting ankle-brachial index is 0.68 at the PT and 0.50 at the DP. Monophasic waveforms are seen in the left external iliac artery, indicative of aortoiliac inflow disease. Monophasic waveforms are seen in the common and deep femoral arteries. Multiple stents are seen throughout the SFA and popliteal artery, which are occluded. Monophasic waveforms are seen in the posterior tibial and dorsalis pedis arteries, likely from reconstitution by deep femoral artery collaterals. IMPRESSION: 1) Right lower extremity: Mildly reduced resting ankle-brachial index of 0.84. 2) Left lower extremity: Moderately reduced resting ankle-brachial index of 0.68. Stented portions of the superficial femoral and popliteal arteries are occluded. Posterior tibial and dorsalis pedis arteries demonstrate monophasic waveforms, likely reconstituted by deep femoral artery collaterals. REY PALACIOS M.D. [facility] [employer] [employer] [email or web address] BALDEMAR/brett D& Transcribed: 1:[address]/Dictated by: Rey Palacios MD @ 10/19/2018 1:36:00 PM Signed by: Rey Palacios MD @10/19/2018 4:26:46 PM (Electronic Signature) Report Signed [facility] Proxy. [facility]
[2018-10-20] MEDS ORDERED: Warfarin 5 MG Tab PO SCH (14:00)
[2018-10-20] MEDS ORDERED: Warfarin 2.5 MG Tab PO SCH (14:00)
--- NOTE | 2018-10-20 14:47 | PCM.PN ---
- General Info Date of Service: 10/20/18 Subjective Update: Patient continues to be stable, still complaining of left lower extremity pain but not worse than on admission. - Patient Data Vitals - Most Recent: Last Vital Signs Temp 36.5 C 10/20/18 11:49 Pulse 104 H 10/20/18 08:00 Resp 18 10/20/18 11:49 BP 95/53 L 10/20/18 11:49 Pulse Ox 97 10/20/18 11:49 Weight - Most Recent: 57.425 kg I&O - Last 24 Hours: Intake & Output 10/19/18 10/20/18 10/20/18 22:59 06:59 14:59 Intake Total 900 1385 30 Output Total 550 350 Balance 350 1035 30 Lab Results Last 24 Hours: Laboratory Results - last 24 hr 10/19/18 10/19/18 10/19/18 Range/Units 14:41 16:45 21:06 WBC (4.0-11.0) K/uL RBC (4.30-5.90) M/uL Hgb (12.0-16.0) g/dL Hct (36.0-46.0) % MCV (80.0-98.0) fL MCH (27.0-32.0) pg MCHC (31.0-37.0) g/dL RDW Std Deviation (28.0-62.0) fl RDW Coeff of Erickson (11.0-15.0) % Plt Count (150-400) K/uL MPV (7.40-12.00) fL Neut % (Auto) (48.0-80.0) % Lymph % (Auto) (16.0-40.0) % [place] % (Auto) (0.0-15.0) % Eos % (Auto) (0.0-7.0) % Baso % (Auto) (0.0-1.5) % Neut # (Auto) (1.4-5.7) K/uL Lymph # (Auto) (0.6-2.4) K/uL [place] # (Auto) (0.0-0.8) K/uL Eos # (Auto) (0.0-0.7) K/uL Baso # (Auto) (0.0-0.1) K/uL Nucleated RBC % /100WBC Nucleated RBCs # K/uL INR 3.09 Sodium (136-145) mmol/L Potassium (3.5-5.1) mmol/L Chloride (98-107) mmol/L Carbon Dioxide (21.0-32.0) mmol/L BUN (7.0-18.0) mg/dL Creatinine (0.6-1.0) mg/dL Est Cr Clr Drug Dosing mL/min Estimated GFR (MDRD) ml/min Glucose (74-106) mg/dL POC Glucose 103 101 (60-110) mg/dL Calcium (8.5-10.1) mg/dL Urine Color Urine Appearance Urine pH (5.0-8.0) Ur Specific [place] (1.001-1.035) Urine Protein (NEGATIVE) mg/dL Urine Glucose (UA) (NEGATIVE) mg/dL Urine Ketones (NEGATIVE) mg/dL Urine Occult Blood (NEGATIVE) Urine Nitrite (NEGATIVE) Urine Bilirubin (NEGATIVE) Urine Urobilinogen (<2.0) EU/dL Ur Leukocyte Esterase (NEGATIVE) Urine RBC (0-2/HPF) Urine WBC (0-5/HPF) Ur Epithelial Cells (NONE-FEW) Uric Acid Crystals (NEGATIVE) Urine Bacteria (NEGATIVE) Urine Yeast 10/20/18 10/20/18 10/20/18 Range/Units 01:45 05:52 06:00 WBC 13.96 H (4.0-11.0) K/uL RBC 3.26 L (4.30-5.90) M/uL Hgb 9.8 L (12.0-16.0) g/dL Hct 31.6 L (36.0-46.0) % MCV 96.9 (80.0-98.0) fL MCH 30.1 (27.0-32.0) pg MCHC 31.0 (31.0-37.0) g/dL RDW Std Deviation 56.8 (28.0-62.0) fl RDW Coeff of Erickson 16 H (11.0-15.0) % Plt Count 249 (150-400) K/uL MPV 9.70 (7.40-12.00) fL Neut % (Auto) 82.0 H (48.0-80.0) % Lymph % (Auto) 7.7 L (16.0-40.0) % [place] % (Auto) 9.7 (0.0-15.0) % Eos % (Auto) 0.4 (0.0-7.0) % Baso % (Auto) 0.2 (0.0-1.5) % Neut # (Auto) 11.4 H (1.4-5.7) K/uL Lymph # (Auto) 1.1 (0.6-2.4) K/uL [place] # (Auto) 1.4 H (0.0-0.8) K/uL Eos # (Auto) 0.1 (0.0-0.7) K/uL Baso # (Auto) 0.0 (0.0-0.1) K/uL Nucleated RBC % 0.0 /100WBC Nucleated RBCs # 0 K/uL INR Sodium (136-145) mmol/L Potassium (3.5-5.1) mmol/L Chloride (98-107) mmol/L Carbon Dioxide (21.0-32.0) mmol/L BUN (7.0-18.0) mg/dL Creatinine (0.6-1.0) mg/dL Est Cr Clr Drug Dosing mL/min Estimated GFR (MDRD) ml/min Glucose (74-106) mg/dL POC Glucose 88 (60-110) mg/dL Calcium (8.5-10.1) mg/dL Urine Color YELLOW Urine Appearance CLOUDY Urine pH 5.5 (5.0-8.0) Ur Specific [place] 1.020 (1.001-1.035) Urine Protein TRACE H (NEGATIVE) mg/dL Urine Glucose (UA) NEGATIVE (NEGATIVE) mg/dL Urine Ketones NEGATIVE (NEGATIVE) mg/dL Urine Occult Blood TRACE-INTACT H (NEGATIVE) Urine Nitrite NEGATIVE (NEGATIVE) Urine Bilirubin NEGATIVE (NEGATIVE) Urine Urobilinogen 0.2 (<2.0) EU/dL Ur Leukocyte Esterase TRACE H (NEGATIVE) Urine RBC 0-1 (0-2/HPF) Urine WBC 4-7 (0-5/HPF) Ur Epithelial Cells RARE (NONE-FEW) Uric Acid Crystals MANY (NEGATIVE) Urine Bacteria RARE (NEGATIVE) Urine Yeast FEW 10/20/18 Range/Units 06:00 WBC (4.0-11.0) K/uL RBC (4.30-5.90) M/uL Hgb (12.0-16.0) g/dL Hct (36.0-46.0) % MCV (80.0-98.0) fL MCH (27.0-32.0) pg MCHC (31.0-37.0) g/dL RDW Std Deviation (28.0-62.0) fl RDW Coeff of Erickson (11.0-15.0) % Plt Count (150-400) K/uL MPV (7.40-12.00) fL Neut % (Auto) (48.0-80.0) % Lymph % (Auto) (16.0-40.0) % [place] % (Auto) (0.0-15.0) % Eos % (Auto) (0.0-7.0) % Baso % (Auto) (0.0-1.5) % Neut # (Auto) (1.4-5.7) K/uL Lymph # (Auto) (0.6-2.4) K/uL [place] # (Auto) (0.0-0.8) K/uL Eos # (Auto) (0.0-0.7) K/uL Baso # (Auto) (0.0-0.1) K/uL Nucleated RBC % /100WBC Nucleated RBCs # K/uL INR Sodium 139 (136-145) mmol/L Potassium 3.5 (3.5-5.1) mmol/L Chloride 103 (98-107) mmol/L Carbon Dioxide 27.5 (21.0-32.0) mmol/L BUN 36 H (7.0-18.0) mg/dL Creatinine 2.1 H (0.6-1.0) mg/dL Est Cr Clr Drug Dosing 16.86 mL/min Estimated GFR (MDRD) 22.4 ml/min Glucose 98 (74-106) mg/dL POC Glucose (60-110) mg/dL Calcium 7.7 L (8.5-10.1) mg/dL Urine Color Urine Appearance Urine pH (5.0-8.0) Ur Specific [place] (1.001-1.035) Urine Protein (NEGATIVE) mg/dL Urine Glucose (UA) (NEGATIVE) mg/dL Urine Ketones (NEGATIVE) mg/dL Urine Occult Blood (NEGATIVE) Urine Nitrite (NEGATIVE) Urine Bilirubin (NEGATIVE) Urine Urobilinogen (<2.0) EU/dL Ur Leukocyte Esterase (NEGATIVE) Urine RBC (0-2/HPF) Urine WBC (0-5/HPF) Ur Epithelial Cells (NONE-FEW) Uric Acid Crystals (NEGATIVE) Urine Bacteria (NEGATIVE) Urine Yeast Barry Results Last 24 Hours: Microbiology 10/18/18 10:45 Aerobic Blood Culture - Preliminary Blood - Venous - Lab Draw NO GROWTH AFTER 2 DAYS Anaerobic Blood Culture - Final 10/18/18 10:25 Aerobic Blood Culture - Preliminary Blood - Venous NO GROWTH AFTER 2 DAYS Anaerobic Blood Culture - Final 10/18/18 16:50 Wound Culture - Preliminary Leg, Left Med Orders - Current: Current Medications Vancomycin HCl 0.75 gm/ Sodium (Chloride) 250 mls @ 166.667 mls/hr IV Q24H [facility] Last Admin: 10/19/18 16:09 Dose: 166.667 mls/hr Piperacillin Sod/Tazobactam (Sod 2.25 gm/ Sodium Chloride) 50 mls @ 100 mls/hr IV Q8H [facility] Last Admin: 10/20/18 10:35 Dose: 100 mls/hr Metoprolol Tartrate (Lopressor) 25 mg PO TID [facility] Last Admin: 10/20/18 05:22 Dose: 25 mg Morphine Sulfate (Morphine) 2 mg IVPUSH Q2H PRN PRN Reason: Pain (severe 7-10) Last Admin: 10/18/18 18:14 Dose: 2 mg Ondansetron HCl (Zofran) 4 mg IVPUSH Q4H PRN PRN Reason: Nausea/Vomiting Oxycodone HCl (Oxycodone) 5 mg PO Q4H PRN PRN Reason: Pain Last Admin: 10/20/18 10:48 Dose: 5 mg Sodium Chloride (Saline Flush) 10 ml FLUSH ASDIRECTED PRN PRN Reason: Keep Vein Open Last Admin: 10/18/18 10:12 Dose: 10 ml Sodium Chloride (Saline Flush) 2.5 ml FLUSH ASDIRECTED PRN PRN Reason: Keep Vein Open Last Admin: 10/18/18 10:12 Dose: 2.5 ml Sodium Chloride (Saline Flush) 10 ml FLUSH ASDIRECTED PRN PRN Reason: Keep Vein Open Sodium Chloride (Saline Flush) 2.5 ml FLUSH ASDIRECTED PRN PRN Reason: Keep Vein Open Vancomycin HCl (Pharmacy To Dose - Vancomycin) 1 dose .XX ASDIRECTED [facility] Warfarin Sodium (Coumadin) 2.5 mg PO DAILY@1400 [facility] Discontinued Medications Acetaminophen (Tylenol) 650 mg PO NOW ONE Stop: 10/18/18 09:59 Last Admin: 10/18/18 10:12 Dose: 650 mg Hydrocodone Bitart/Acetaminophen ([place] 325-5 Mg) 1 tab PO ONETIME ONE Stop: 10/18/18 11:43 Last Admin: 10/18/18 11:54 Dose: 1 tab Diltiazem HCl (Diltiazem) 5 mg IVPUSH ONETIME ONE Stop: 10/18/18 09:59 Last Admin: 10/18/18 10:12 Dose: 5 mg Hydromorphone HCl (Dilaudid) 0.5 mg IVPUSH Q4H PRN PRN Reason: Pain (severe 7-10) Last Admin: 10/18/18 15:13 Dose: 0.5 mg Sodium Chloride (Normal Saline) 1,000 mls @ 50 mls/hr IV ASDIRECTED [facility] Last Admin: 10/18/18 10:12 Dose: 50 mls/hr Levofloxacin/Dextrose 750 mg/ (Premix) 150 mls @ 100 mls/hr IV ONETIME ONE Stop: 10/18/18 13:21 Last Admin: 10/18/18 12:07 Dose: 100 mls/hr Piperacillin Sod/Tazobactam (Sod 2.25 gm/ Sodium Chloride) 50 mls @ 100 mls/hr IV Q6H [facility] Last Admin: 10/19/18 09:08 Dose: 100 mls/hr Sodium Chloride (Normal Saline) 1,000 mls @ 50 mls/hr IV ASDIRECTED [facility] Last Admin: 10/19/18 14:10 Dose: 50 mls/hr Metoprolol Tartrate (Lopressor) 50 mg PO Q12H [facility] Last Admin: 10/19/18 03:58 Dose: Not Given Metoprolol Tartrate (Lopressor) 50 mg PO TID [facility] Metoprolol Tartrate (Lopressor) 50 mg PO TID [facility] Last Admin: 10/19/18 10:26 Dose: Not Given Morphine Sulfate (Morphine) 1 mg IVPUSH ONETIME ONE Stop: 10/18/18 09:59 Last Admin: 10/18/18 10:12 Dose: 1 mg Morphine Sulfate (Morphine) 2 mg IVPUSH ONETIME ONE Stop: 10/18/18 16:11 Last Admin: 10/18/18 16:26 Dose: 2 mg Warfarin Sodium (Coumadin) 2.5 mg PO DAILY@1400 [facility] Warfarin Sodium (Coumadin Ask) 1 each PO DAILY@1400 [facility] Last Admin: 10/19/18 14:08 Dose: Not Given - Exam Quality Assessment: Supplemental Oxygen General: Alert, Oriented, Cooperative, Mild Distress Lungs: Normal Respiratory Effort 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: Regular Rate, Regular Rhythm Extremities: Other (Patient's left lower extremity assessed, there is color to the bottom of the foot does not appear to be fully occluded, chronic venous stasis dermatitis) - Problem List Review Problem List Initiated/Reviewed/Updated: Yes - My Orders Last 24 Hours: My Active Orders 10/19/18 18:00 Piperacillin/Tazobactam [Zosyn] 2.25 gm Sodium Chloride 0.9% [Normal Saline] 50 ml IV Q8H 10/20/18 15:00 INR,PT,PROTHROMBIN TIME [COAG] Routine VANCOMYCIN TROUGH [CHEM] Routine - Plan Plan:: This is a 83-year-old female that is being admitted secondary to leg swelling/ pain, increased redness, nonhealing wound ulceration of the posterior calf of the left leg. #1. Leukocytosis, leg swelling, redness, leg pain of left lower extremity, non- healing wound ulceration most likely etiology is cellulitis of the left lower extremity -Blood cultures continued to have no growth, and wound culture per microbiology does appear to now be growing gram-negative rods -Lactic acid level has normalized -Patient to continue with the IV vancomycin and IV Zosyn until cultures come back for broad-spectrum coverage of the cellulitic infection -Physical therapy consulted for wound care and is doing dressing changes per recommendation. -Pain control medication on board, patient currently getting oxycodone 5 mg long with morphine when necessary for pain -Leukocytosis continues to increase slightly currently at just above 13,000 #2. Chronic hypoxemia likely secondary to patient's HFpEF along with her recent pneumonia on infection -As the patient is clinically stable and not showing symptomatic signs of heart failure shall continue to hold off on any preload reduction or afterload reduction. Patient to get the metoprolol tartrate 25 mg 3 times a day. -Patient's creatinine has slightly improved to 2.1 from but still not near her baseline -Continue to watch the patient's status, continue with daily weights -Cardiology was consulted and did asked the patient be resumed on her IV fluids overnight which have not been DC'd -Continue to watch the patient's fluid status #4. Chronic atrial fibrillation with RVR -Patient has been placed on telemetry, currently is in A. fib -Patient has been started on metoprolol tartrate 25 mg 3 times a day #5. DVT prophylaxis: Patient is on Coumadin 2.5 mg daily currently has a supratherapeutic INR of 3.09.
[2018-10-20] MEDS ORDERED: Warfarin 5 MG Tab PO ONE (16:30)
[2018-10-20] MEDS: Sodium Chloride 0.9% 2.5 ML Syringe FLUSH PRN (16:33)
[2018-10-20] MEDS: Morphine 2 MG/ML Syringe IVPUSH PRN (23:33)
[2018-10-21] MEDS: Piperacillin/Tazobactam 2.25 GM in Sodium Chloride 0.9% 50 ML IV SCH ×3 (01:30→18:59)
[2018-10-21] MEDS: oxyCODONE 5 MG Tab PO PRN ×4 (01:35→20:07)
[2018-10-21] MEDS: Morphine 2 MG/ML Syringe IVPUSH PRN (02:40)
[2018-10-21] MEDS: Metoprolol Tartrate 25 MG Tab PO SCH (05:41)
[2018-10-21] MEDS: Potassium Chloride 20 MEQ Tab.ER PO SCH ×2 (09:33→21:17)
[2018-10-21] MEDS ORDERED: Furosemide 20 MG Tab PO ONE (10:26)
--- NOTE | 2018-10-21 11:29 | PCM.PN ---
- General Info Date of Service: 10/21/18 Subjective Update: Stable, pain improved since admission of the left lower extremity. Feeling better than she did yesterday. - Patient Data Vitals - Most Recent: Last Vital Signs Temp 36.6 C 10/21/18 08:00 Pulse 119 H 10/21/18 08:00 Resp 17 10/21/18 08:00 BP 94/46 L 10/21/18 08:00 Pulse Ox 95 10/21/18 08:00 Weight - Most Recent: 58.786 kg I&O - Last 24 Hours: Intake & Output 10/20/18 10/21/18 10/21/18 22:59 06:59 14:59 Intake Total 660 180 50 Output Total 500 Balance 660 -320 50 Lab Results Last 24 Hours: Laboratory Results - last 24 hr 10/20/18 10/20/18 10/20/18 Range/Units 08:56 12:33 15:09 WBC (4.0-11.0) K/uL RBC (4.30-5.90) M/uL Hgb (12.0-16.0) g/dL Hct (36.0-46.0) % MCV (80.0-98.0) fL MCH (27.0-32.0) pg MCHC (31.0-37.0) g/dL RDW Std Deviation (28.0-62.0) fl RDW Coeff of Erickson (11.0-15.0) % Plt Count (150-400) K/uL MPV (7.40-12.00) fL Neut % (Auto) (48.0-80.0) % Lymph % (Auto) (16.0-40.0) % [place] % (Auto) (0.0-15.0) % Eos % (Auto) (0.0-7.0) % Baso % (Auto) (0.0-1.5) % Neut # (Auto) (1.4-5.7) K/uL Lymph # (Auto) (0.6-2.4) K/uL [place] # (Auto) (0.0-0.8) K/uL Eos # (Auto) (0.0-0.7) K/uL Baso # (Auto) (0.0-0.1) K/uL Nucleated RBC % /100WBC Nucleated RBCs # K/uL INR Sodium (136-145) mmol/L Potassium (3.5-5.1) mmol/L Chloride (98-107) mmol/L Carbon Dioxide (21.0-32.0) mmol/L BUN (7.0-18.0) mg/dL Creatinine (0.6-1.0) mg/dL Est Cr Clr Drug Dosing mL/min Estimated GFR (MDRD) ml/min Glucose (74-106) mg/dL POC Glucose 86 142 H (60-110) mg/dL Calcium (8.5-10.1) mg/dL Vancomycin Trough 12.6 H (5.0-10.0) ug/mL 10/20/18 10/20/18 10/21/18 Range/Units 15:09 17:12 05:25 WBC 14.35 H (4.0-11.0) K/uL RBC 3.12 L (4.30-5.90) M/uL Hgb 9.4 L (12.0-16.0) g/dL Hct 30.3 L (36.0-46.0) % MCV 97.1 (80.0-98.0) fL MCH 30.1 (27.0-32.0) pg MCHC 31.0 (31.0-37.0) g/dL RDW Std Deviation 57.2 (28.0-62.0) fl RDW Coeff of [place]ks[place] 16 H (11.0-15.0) % Plt Count 233 (150-400) K/uL MPV 10.00 (7.40-12.00) fL Neut % (Auto) 79.9 (48.0-80.0) % Lymph % (Auto) 9.4 L (16.0-40.0) % [place] % (Auto) 9.5 (0.0-15.0) % Eos % (Auto) 0.9 (0.0-7.0) % Baso % (Auto) 0.3 (0.0-1.5) % Neut # (Auto) 11.5 H (1.4-5.7) K/uL Lymph # (Auto) 1.4 (0.6-2.4) K/uL [place] # (Auto) 1.4 H (0.0-0.8) K/uL Eos # (Auto) 0.1 (0.0-0.7) K/uL Baso # (Auto) 0.0 (0.0-0.1) K/uL Nucleated RBC % 0.0 /100WBC Nucleated RBCs # 0 K/uL INR 1.94 Sodium (136-145) mmol/L Potassium (3.5-5.1) mmol/L Chloride (98-107) mmol/L Carbon Dioxide (21.0-32.0) mmol/L BUN (7.0-18.0) mg/dL Creatinine (0.6-1.0) mg/dL Est Cr Clr Drug Dosing mL/min Estimated GFR (MDRD) ml/min Glucose (74-106) mg/dL POC Glucose 76 (60-110) mg/dL Calcium (8.5-10.1) mg/dL Vancomycin Trough (5.0-10.0) ug/mL 10/21/18 10/21/18 10/21/18 Range/Units 05:25 05:25 06:05 WBC (4.0-11.0) K/uL RBC (4.30-5.90) M/uL Hgb (12.0-16.0) g/dL Hct (36.0-46.0) % MCV (80.0-98.0) fL MCH (27.0-32.0) pg MCHC (31.0-37.0) g/dL RDW Std Deviation (28.0-62.0) fl RDW Coeff of [place]ks[place] (11.0-15.0) % Plt Count (150-400) K/uL MPV (7.40-12.00) fL Neut % (Auto) (48.0-80.0) % Lymph % (Auto) (16.0-40.0) % [place] % (Auto) (0.0-15.0) % Eos % (Auto) (0.0-7.0) % Baso % (Auto) (0.0-1.5) % Neut # (Auto) (1.4-5.7) K/uL Lymph # (Auto) (0.6-2.4) K/uL [place] # (Auto) (0.0-0.8) K/uL Eos # (Auto) (0.0-0.7) K/uL Baso # (Auto) (0.0-0.1) K/uL Nucleated RBC % /100WBC Nucleated RBCs # K/uL INR 2.22 Sodium 140 (136-145) mmol/L Potassium 3.3 L (3.5-5.1) mmol/L Chloride 103 (98-107) mmol/L Carbon Dioxide 27.1 (21.0-32.0) mmol/L BUN 35 H (7.0-18.0) mg/dL Creatinine 1.9 H (0.6-1.0) mg/dL Est Cr Clr Drug Dosing 18.23 mL/min Estimated GFR (MDRD) 25.2 ml/min Glucose 99 (74-106) mg/dL POC Glucose 106 (60-110) mg/dL Calcium 7.7 L (8.5-10.1) mg/dL Vancomycin Trough (5.0-10.0) ug/mL Barry Results Last 24 Hours: Microbiology 10/18/18 10:45 Aerobic Blood Culture - Preliminary Blood - Venous - Lab Draw NO GROWTH AFTER 3 DAYS Anaerobic Blood Culture - Final 10/18/18 10:25 Aerobic Blood Culture - Preliminary Blood - Venous NO GROWTH AFTER 3 DAYS Anaerobic Blood Culture - Final 10/18/18 16:50 Wound Culture - Preliminary Leg, Left Med Orders - Current: Current Medications Piperacillin Sod/Tazobactam (Sod 2.25 gm/ Sodium Chloride) 50 mls @ 100 mls/hr IV Q8H [facility] Last Admin: 10/21/18 09:33 Dose: 100 mls/hr Vancomycin HCl 1 gm/ Sodium (Chloride) 250 mls @ 166.667 mls/hr IV Q24H [facility] Last Admin: 10/20/18 17:00 Dose: 166.667 mls/hr Metoprolol Tartrate (Lopressor) 25 mg PO TID [facility] Last Admin: 10/21/18 05:41 Dose: 25 mg Morphine Sulfate (Morphine) 2 mg IVPUSH Q2H PRN PRN Reason: Pain (severe 7-10) Last Admin: 10/21/18 02:40 Dose: 2 mg Ondansetron HCl (Zofran) 4 mg IVPUSH Q4H PRN PRN Reason: Nausea/Vomiting Oxycodone HCl (Oxycodone) 5 mg PO Q4H PRN PRN Reason: Pain Last Admin: 10/21/18 09:42 Dose: 5 mg Potassium Chloride (Klor-Con M20) 40 meq PO BID [facility] Last Admin: 10/21/18 09:33 Dose: 40 meq Sodium Chloride (Saline Flush) 10 ml FLUSH ASDIRECTED PRN PRN Reason: Keep Vein Open Last Admin: 10/18/18 10:12 Dose: 10 ml Sodium Chloride (Saline Flush) 2.5 ml FLUSH ASDIRECTED PRN PRN Reason: Keep Vein Open Last Admin: 10/20/18 16:33 Dose: 2.5 ml Sodium Chloride (Saline Flush) 10 ml FLUSH ASDIRECTED PRN PRN Reason: Keep Vein Open Sodium Chloride (Saline Flush) 2.5 ml FLUSH ASDIRECTED PRN PRN Reason: Keep Vein Open Vancomycin HCl (Pharmacy To Dose - Vancomycin) 1 dose .XX ASDIRECTED [facility] Warfarin Sodium (Coumadin Ask) 1 each PO DAILY@1400 [facility] Discontinued Medications Acetaminophen (Tylenol) 650 mg PO NOW ONE Stop: 10/18/18 09:59 Last Admin: 10/18/18 10:12 Dose: 650 mg Hydrocodone Bitart/Acetaminophen ([place] 325-5 Mg) 1 tab PO ONETIME ONE Stop: 10/18/18 11:43 Last Admin: 10/18/18 11:54 Dose: 1 tab Diltiazem HCl (Diltiazem) 5 mg IVPUSH ONETIME ONE Stop: 10/18/18 09:59 Last Admin: 10/18/18 10:12 Dose: 5 mg Furosemide (Lasix) 20 mg PO ONETIME ONE Stop: 10/21/18 10:27 Hydromorphone HCl (Dilaudid) 0.5 mg IVPUSH Q4H PRN PRN Reason: Pain (severe 7-10) Last Admin: 10/18/18 15:13 Dose: 0.5 mg Sodium Chloride (Normal Saline) 1,000 mls @ 50 mls/hr IV ASDIRECTED [facility] Last Admin: 10/18/18 10:12 Dose: 50 mls/hr Levofloxacin/Dextrose 750 mg/ (Premix) 150 mls @ 100 mls/hr IV ONETIME ONE Stop: 10/18/18 13:21 Last Admin: 10/18/18 12:07 Dose: 100 mls/hr Piperacillin Sod/Tazobactam (Sod 2.25 gm/ Sodium Chloride) 50 mls @ 100 mls/hr IV Q6H [facility] Last Admin: 10/19/18 09:08 Dose: 100 mls/hr Vancomycin HCl 0.75 gm/ Sodium (Chloride) 250 mls @ 166.667 mls/hr IV Q24H [facility] Last Admin: 10/20/18 16:56 Dose: Not Given Sodium Chloride (Normal Saline) 1,000 mls @ 50 mls/hr IV ASDIRECTED [facility] Last Admin: 10/19/18 14:10 Dose: 50 mls/hr Metoprolol Tartrate (Lopressor) 50 mg PO Q12H [facility] Last Admin: 10/19/18 03:58 Dose: Not Given Metoprolol Tartrate (Lopressor) 50 mg PO TID [facility] Metoprolol Tartrate (Lopressor) 50 mg PO TID [facility] Last Admin: 10/19/18 10:26 Dose: Not Given Morphine Sulfate (Morphine) 1 mg IVPUSH ONETIME ONE Stop: 10/18/18 09:59 Last Admin: 10/18/18 10:12 Dose: 1 mg Morphine Sulfate (Morphine) 2 mg IVPUSH ONETIME ONE Stop: 10/18/18 16:11 Last Admin: 10/18/18 16:26 Dose: 2 mg Warfarin Sodium (Coumadin) 2.5 mg PO DAILY@1400 [facility] Warfarin Sodium (Coumadin Ask) 1 each PO DAILY@1400 [facility] Last Admin: 10/19/18 14:08 Dose: Not Given Warfarin Sodium (Coumadin) 5 mg PO 10/20/18@1400 [facility] Stop: 10/20/18 14:01 Last Admin: 10/20/18 16:31 Dose: Not Given Warfarin Sodium (Coumadin) 5 mg PO NOW ONE Stop: 10/20/18 16:31 Last Admin: 10/20/18 16:30 Dose: 5 mg - Exam Quality Assessment: Supplemental Oxygen General: Alert, Oriented Lungs: Clear to Auscultation, Normal Respiratory Effort, Decreased Breath Sounds 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: Regular Rate, Regular Rhythm GI/Abdominal Exam: Normal Bowel Sounds Extremities: Other (No acute color change indicating occlusion of the left lower extremity) - Problem List Review Problem List Initiated/Reviewed/Updated: Yes - My Orders Last 24 Hours: My Active Orders 10/20/18 17:00 Vancomycin [Vancocin] 1 gm Sodium Chloride 0.9% [Normal Saline] 250 ml IV Q24H 10/21/18 09:00 Potassium Chloride [Klor-Con M20] 40 meq PO BID 10/21/18 11:25 Consult to Physical Therapy [PT Evaluation and Treatment] [CONS] Routine - Plan Plan:: This is a 83-year-old female that is being admitted secondary to leg swelling/ pain, increased redness, nonhealing wound ulceration of the posterior calf of the left leg. #1. Leukocytosis, leg swelling, redness, leg pain of left lower extremity, non- healing wound ulceration most likely etiology is cellulitis of the left lower extremity - wound culture per microbiology one gram-negative rods BARRY pending -Patient to continue with the IV vancomycin and IV Zosyn until cultures come back for broad-spectrum coverage of the cellulitic infection -Physical therapy consulted for wound care and is doing dressing changes per recommendation as well as for ambulation -Pain control medication on board, patient currently getting oxycodone 5 mg long with morphine when necessary for pain -Leukocytosis continues to increase slightly #2. Chronic hypoxemia likely secondary to patient's HFpEF along with her recent pneumonia on infection -As the patient is clinically stable and not showing symptomatic signs of heart failure shall continue to hold off on any preload reduction or afterload reduction. Patient to get the metoprolol tartrate 25 mg 3 times a day. -Patient's creatinine has slightly improved to 2.1 from but still not near her baseline -Patient has steadily been having increase weight based on her daily weights, shall give 1 dose of oral furosemide 20 mg and see if this helps with reduction of the patient's fluid retention -Cardiology was consulted and did asked the patient be resumed on her IV fluids overnight which have not been DC'd -Continue to watch the patient's fluid status #4. Chronic atrial fibrillation with RVR -Patient has been placed on telemetry, currently is in A. fib -Patient has been started on metoprolol tartrate 25 mg 3 times a day #5. DVT prophylaxis: Patient is on Coumadin pharmacy to dose daily INRs
[2018-10-21] MEDS ORDERED: Metoprolol Tartrate 25 MG Tab PO ONE (11:52)
[2018-10-21] MEDS ORDERED: Digoxin 500 MCG/2 ML Amp IVPUSH ONE (12:02)
[2018-10-21] MEDS ORDERED: Warfarin 2.5 MG Tab PO ONE (14:15)
[2018-10-21] MEDS: Metoprolol Tartrate 50 MG Tab PO SCH ×2 (14:18→21:19)
[2018-10-21] MEDS ORDERED: Furosemide 40 MG/4 ML VIAL IVPUSH ONE (14:24)
[2018-10-22] MEDS: oxyCODONE 5 MG Tab PO PRN ×3 (00:09→21:28)
[2018-10-22] MEDS: Piperacillin/Tazobactam 2.25 GM in Sodium Chloride 0.9% 50 ML IV SCH ×3 (01:57→17:35)
[2018-10-22] MEDS: Morphine 2 MG/ML Syringe IVPUSH PRN ×2 (02:04→06:04)
[2018-10-22] MEDS: Metoprolol Tartrate 50 MG Tab PO SCH ×3 (05:48→21:29)
[2018-10-22] MEDS ORDERED: Furosemide 100 MG/10 ML SDV IVPUSH ONE ×2 (08:20→16:28)
[2018-10-22] MEDS: Potassium Chloride 20 MEQ Tab.ER PO SCH ×2 (08:54→21:30)
--- NOTE | 2018-10-22 11:55 | PCM.PN ---
- General Info Date of Service: 10/22/18 Subjective Update: Patient states that the leg pain is improving however was having some chest discomfort overnight with some shortness of breath. - Patient Data Vitals - Most Recent: Last Vital Signs Temp 37.0 C 10/22/18 11:33 Pulse 108 H 10/22/18 07:20 Resp 20 10/22/18 11:33 BP 108/59 L 10/22/18 11:33 Pulse Ox 94 L 10/22/18 07:20 Weight - Most Recent: 58.5 kg I&O - Last 24 Hours: Intake & Output 10/21/18 10/22/18 10/22/18 22:59 06:59 14:59 Intake Total 1240 550 Output Total 1400 600 Balance -160 -50 Lab Results Last 24 Hours: Laboratory Results - last 24 hr 10/21/18 10/21/18 10/21/18 Range/Units 11:55 17:54 21:16 WBC (4.0-11.0) K/uL RBC (4.30-5.90) M/uL Hgb (12.0-16.0) g/dL Hct (36.0-46.0) % MCV (80.0-98.0) fL MCH (27.0-32.0) pg MCHC (31.0-37.0) g/dL RDW Std Deviation (28.0-62.0) fl RDW Coeff of Erickson (11.0-15.0) % Plt Count (150-400) K/uL MPV (7.40-12.00) fL Add Manual Diff Neutrophils % (Manual) (48.0-80.0) % Band Neutrophils % % Lymphocytes % (Manual) (16.0-40.0) % Monocytes % (Manual) (0.0-15.0) % Nucleated RBC % /100WBC Absolute Seg Neuts (1.4-5.7) Band Neutrophils # Lymphocytes # (Manual) (0.6-2.4) Monocytes # (Manual) (0.0-0.8) Nucleated RBCs # K/uL INR Sodium (136-145) mmol/L Potassium (3.5-5.1) mmol/L Chloride (98-107) mmol/L Carbon Dioxide (21.0-32.0) mmol/L BUN (7.0-18.0) mg/dL Creatinine (0.6-1.0) mg/dL Est Cr Clr Drug Dosing mL/min Estimated GFR (MDRD) ml/min Glucose (74-106) mg/dL POC Glucose 141 H 125 H 133 H (60-110) mg/dL Calcium (8.5-10.1) mg/dL Total Bilirubin (0.2-1.0) mg/dL AST (15-37) IU/L ALT (14-63) IU/L Alkaline Phosphatase (46-116) U/L Troponin I (0.000-0.056) ng/mL Total Protein (6.4-8.2) g/dL Albumin (3.4-5.0) g/dL Globulin (2.6-4.0) g/dL Albumin/Globulin Ratio (0.9-1.6) 10/22/18 10/22/18 10/22/18 Range/Units 05:50 05:55 09:07 WBC 17.43 H (4.0-11.0) K/uL RBC 3.57 L (4.30-5.90) M/uL Hgb 10.6 L (12.0-16.0) g/dL Hct 34.7 L (36.0-46.0) % MCV 97.2 (80.0-98.0) fL MCH 29.7 (27.0-32.0) pg MCHC 30.5 L (31.0-37.0) g/dL RDW Std Deviation 56.8 (28.0-62.0) fl RDW Coeff of Erickson 16 H (11.0-15.0) % Plt Count 273 (150-400) K/uL MPV 10.10 (7.40-12.00) fL Add Manual Diff YES Neutrophils % (Manual) 84 H (48.0-80.0) % Band Neutrophils % 3 % Lymphocytes % (Manual) 6 L (16.0-40.0) % Monocytes % (Manual) 7 (0.0-15.0) % Nucleated RBC % 0.0 /100WBC Absolute Seg Neuts 14.6 H (1.4-5.7) Band Neutrophils # 0.5 Lymphocytes # (Manual) 1.0 (0.6-2.4) Monocytes # (Manual) 1.2 H (0.0-0.8) Nucleated RBCs # 0 K/uL INR 3.30 Sodium (136-145) mmol/L Potassium (3.5-5.1) mmol/L Chloride (98-107) mmol/L Carbon Dioxide (21.0-32.0) mmol/L BUN (7.0-18.0) mg/dL Creatinine (0.6-1.0) mg/dL Est Cr Clr Drug Dosing mL/min Estimated GFR (MDRD) ml/min Glucose (74-106) mg/dL POC Glucose 105 (60-110) mg/dL Calcium (8.5-10.1) mg/dL Total Bilirubin (0.2-1.0) mg/dL AST (15-37) IU/L ALT (14-63) IU/L Alkaline Phosphatase (46-116) U/L Troponin I (0.000-0.056) ng/mL Total Protein (6.4-8.2) g/dL Albumin (3.4-5.0) g/dL Globulin (2.6-4.0) g/dL Albumin/Globulin Ratio (0.9-1.6) 10/22/18 10/22/18 Range/Units 09:07 09:07 WBC (4.0-11.0) K/uL RBC (4.30-5.90) M/uL Hgb (12.0-16.0) g/dL Hct (36.0-46.0) % MCV (80.0-98.0) fL MCH (27.0-32.0) pg MCHC (31.0-37.0) g/dL RDW Std Deviation (28.0-62.0) fl RDW Coeff of Erickson (11.0-15.0) % Plt Count (150-400) K/uL MPV (7.40-12.00) fL Add Manual Diff Neutrophils % (Manual) (48.0-80.0) % Band Neutrophils % % Lymphocytes % (Manual) (16.0-40.0) % Monocytes % (Manual) (0.0-15.0) % Nucleated RBC % /100WBC Absolute Seg Neuts (1.4-5.7) Band Neutrophils # Lymphocytes # (Manual) (0.6-2.4) Monocytes # (Manual) (0.0-0.8) Nucleated RBCs # K/uL INR Sodium 141 (136-145) mmol/L Potassium 3.5 (3.5-5.1) mmol/L Chloride 103 (98-107) mmol/L Carbon Dioxide 25.2 (21.0-32.0) mmol/L BUN 30 H (7.0-18.0) mg/dL Creatinine 1.9 H (0.6-1.0) mg/dL Est Cr Clr Drug Dosing 18.23 mL/min Estimated GFR (MDRD) 25.2 ml/min Glucose 145 H (74-106) mg/dL POC Glucose (60-110) mg/dL Calcium 8.1 L (8.5-10.1) mg/dL Total Bilirubin 0.6 (0.2-1.0) mg/dL AST 29 (15-37) IU/L ALT 38 (14-63) IU/L Alkaline Phosphatase 85 (46-116) U/L Troponin I < 0.050 (0.000-0.056) ng/mL Total Protein 6.2 L (6.4-8.2) g/dL Albumin 2.1 L (3.4-5.0) g/dL Globulin 4.1 H (2.6-4.0) g/dL Albumin/Globulin Ratio 0.5 L (0.9-1.6) Barry Results Last 24 Hours: Microbiology 10/22/18 10:46 Clostridium difficile Toxin A & B - Final Stool / Feces Negative for C.Diff Toxin/AG 10/18/18 10:45 Aerobic Blood Culture - Preliminary Blood - Venous - Lab Draw NO GROWTH AFTER 4 DAYS Anaerobic Blood Culture - Final 10/18/18 10:25 Aerobic Blood Culture - Preliminary Blood - Venous NO GROWTH AFTER 4 DAYS Anaerobic Blood Culture - Final 10/18/18 16:50 Wound Culture - Final Leg, Left Acinetobacter Lwoffii Group Skin Nash Med Orders - Current: Current Medications Piperacillin Sod/Tazobactam (Sod 2.25 gm/ Sodium Chloride) 50 mls @ 100 mls/hr IV Q8H [facility] Last Admin: 10/22/18 09:35 Dose: 100 mls/hr Vancomycin HCl 1 gm/ Sodium (Chloride) 250 mls @ 166.667 mls/hr IV Q24H [facility] Last Admin: 10/21/18 16:42 Dose: 166.667 mls/hr Metoprolol Tartrate (Lopressor) 50 mg PO TID [facility] Last Admin: 10/22/18 05:48 Dose: 50 mg Morphine Sulfate (Morphine) 2 mg IVPUSH Q2H PRN PRN Reason: Pain (severe 7-10) Last Admin: 10/22/18 06:04 Dose: 2 mg Ondansetron HCl (Zofran) 4 mg IVPUSH Q4H PRN PRN Reason: Nausea/Vomiting Oxycodone HCl (Oxycodone) 5 mg PO Q4H PRN PRN Reason: Pain Last Admin: 10/22/18 09:26 Dose: 5 mg Potassium Chloride (Klor-Con M20) 40 meq PO BID [facility] Last Admin: 10/22/18 08:54 Dose: 40 meq Sodium Chloride (Saline Flush) 10 ml FLUSH ASDIRECTED PRN PRN Reason: Keep Vein Open Last Admin: 10/18/18 10:12 Dose: 10 ml Sodium Chloride (Saline Flush) 2.5 ml FLUSH ASDIRECTED PRN PRN Reason: Keep Vein Open Last Admin: 10/20/18 16:33 Dose: 2.5 ml Sodium Chloride (Saline Flush) 10 ml FLUSH ASDIRECTED PRN PRN Reason: Keep Vein Open Sodium Chloride (Saline Flush) 2.5 ml FLUSH ASDIRECTED PRN PRN Reason: Keep Vein Open Vancomycin HCl (Pharmacy To Dose - Vancomycin) 1 dose .XX ASDIRECTED [facility] Warfarin Sodium (Coumadin Ask) 1 each PO DAILY@1400 [facility] Last Admin: 10/21/18 14:46 Dose: Not Given Discontinued Medications Acetaminophen (Tylenol) 650 mg PO NOW ONE Stop: 10/18/18 09:59 Last Admin: 10/18/18 10:12 Dose: 650 mg Hydrocodone Bitart/Acetaminophen ([place] 325-5 Mg) 1 tab PO ONETIME ONE Stop: 10/18/18 11:43 Last Admin: 10/18/18 11:54 Dose: 1 tab Digoxin (Lanoxin) 250 mcg IVPUSH ONETIME ONE Stop: 10/21/18 12:03 Last Admin: 10/21/18 12:35 Dose: 250 mcg Diltiazem HCl (Diltiazem) 5 mg IVPUSH ONETIME ONE Stop: 10/18/18 09:59 Last Admin: 10/18/18 10:12 Dose: 5 mg Furosemide (Lasix) 20 mg PO ONETIME ONE Stop: 10/21/18 10:27 Last Admin: 10/21/18 11:47 Dose: 20 mg Furosemide (Lasix) 60 mg IVPUSH ONETIME ONE Stop: 10/22/18 14:17 Furosemide (Lasix) 60 mg IVPUSH ONETIME ONE Stop: 10/21/18 14:25 Last Admin: 10/21/18 14:30 Dose: 60 mg Furosemide (Lasix) 60 mg IVPUSH NOW ONE Stop: 10/22/18 08:21 Last Admin: 10/22/18 08:47 Dose: 60 mg Hydromorphone HCl (Dilaudid) 0.5 mg IVPUSH Q4H PRN PRN Reason: Pain (severe 7-10) Last Admin: 10/18/18 15:13 Dose: 0.5 mg Sodium Chloride (Normal Saline) 1,000 mls @ 50 mls/hr IV ASDIRECTED [facility] Last Admin: 10/18/18 10:12 Dose: 50 mls/hr Levofloxacin/Dextrose 750 mg/ (Premix) 150 mls @ 100 mls/hr IV ONETIME ONE Stop: 10/18/18 13:21 Last Admin: 10/18/18 12:07 Dose: 100 mls/hr Piperacillin Sod/Tazobactam (Sod 2.25 gm/ Sodium Chloride) 50 mls @ 100 mls/hr IV Q6H [facility] Last Admin: 10/19/18 09:08 Dose: 100 mls/hr Vancomycin HCl 0.75 gm/ Sodium (Chloride) 250 mls @ 166.667 mls/hr IV Q24H [facility] Last Admin: 10/20/18 16:56 Dose: Not Given Sodium Chloride (Normal Saline) 1,000 mls @ 50 mls/hr IV ASDIRECTED [facility] Last Admin: 10/19/18 14:10 Dose: 50 mls/hr Metoprolol Tartrate (Lopressor) 50 mg PO Q12H [facility] Last Admin: 10/19/18 03:58 Dose: Not Given Metoprolol Tartrate (Lopressor) 50 mg PO TID [facility] Metoprolol Tartrate (Lopressor) 50 mg PO TID [facility] Last Admin: 10/19/18 10:26 Dose: Not Given Metoprolol Tartrate (Lopressor) 25 mg PO TID [facility] Last Admin: 10/21/18 05:41 Dose: 25 mg Metoprolol Tartrate (Lopressor) 25 mg PO ONETIME ONE Stop: 10/21/18 11:53 Last Admin: 10/21/18 12:35 Dose: 25 mg Morphine Sulfate (Morphine) 1 mg IVPUSH ONETIME ONE Stop: 10/18/18 09:59 Last Admin: 10/18/18 10:12 Dose: 1 mg Morphine Sulfate (Morphine) 2 mg IVPUSH ONETIME ONE Stop: 10/18/18 16:11 Last Admin: 10/18/18 16:26 Dose: 2 mg Warfarin Sodium (Coumadin) 2.5 mg PO DAILY@1400 [facility] Warfarin Sodium (Coumadin Ask) 1 each PO DAILY@1400 [facility] Last Admin: 10/19/18 14:08 Dose: Not Given Warfarin Sodium (Coumadin) 5 mg PO 10/20/18@1400 [facility] Stop: 10/20/18 14:01 Last Admin: 10/20/18 16:31 Dose: Not Given Warfarin Sodium (Coumadin) 5 mg PO NOW ONE Stop: 10/20/18 16:31 Last Admin: 10/20/18 16:30 Dose: 5 mg Warfarin Sodium (Coumadin) 2.5 mg PO ONETIME ONE Stop: 10/21/18 14:16 Last Admin: 10/21/18 14:18 Dose: 2.5 mg - Exam Quality Assessment: Supplemental Oxygen General: Alert, Oriented, Cooperative, Mild Distress Lungs: Decreased Breath Sounds 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: Regular Rate, Regular Rhythm Extremities: Other (Right lower extremity was assessed, there is good color at the bottom of the extremity, wound is only eliminating serosanguineous fluid does not appear to be getting worse.) - Problem List Review Problem List Initiated/Reviewed/Updated: Yes - My Orders Last 24 Hours: My Active Orders 10/21/18 11:25 Consult to Physical Therapy [PT Evaluation and Treatment] [CONS] Routine 10/21/18 11:53 Resuscitation Status Routine 10/21/18 14:00 Metoprolol Tartrate [Lopressor] 50 mg PO TID - Plan Plan:: This is a 83-year-old female that is being admitted secondary to leg swelling/ pain, increased redness, nonhealing wound ulceration of the posterior calf of the left leg. #1. Leukocytosis, leg swelling, redness, leg pain of left lower extremity, non- healing wound ulceration most likely etiology is cellulitis of the left lower extremity - wound culture per microbiology one gram-negative rods BARRY pending -Patient to continue with the IV vancomycin and IV Zosyn as her leukocytosis does continue to rise, wound culture is growing what appears to be likely normal skin nash -Physical therapy consulted for wound care and is doing dressing changes per recommendation as well as for ambulation -Pain control medication on board, patient currently getting oxycodone 5 mg long with morphine when necessary for pain -Leukocytosis continues to increase slightly #2. Chronic hypoxemia likely secondary to patient's HFpEF along with her recent pneumonia on infection -As the patient is clinically stable and not showing symptomatic signs of heart failure shall continue to hold off on any preload reduction or afterload reduction. Patient to get the metoprolol tartrate 50mg 3 times a day. -Patient's creatinine currently 1.9 -Patient has been given Lasix 60 milligrams IV push yesterday as well as a 60 mg IV push today per cardiology -Cardiology has now discontinued her IV fluids -Continue to watch the patient's fluid status #4. Chronic atrial fibrillation with RVR -Patient has been placed on telemetry, currently is in A. fib -Patient has been started on metoprolol tartrate 50 mg mg 3 times a day #5. Chest pain/discomfort overnight -Repeat chest x-ray, repeat EKG, troponins to be obtained today #5. DVT prophylaxis: Patient is on Coumadin pharmacy to dose daily INRs
--- NOTE | 2018-10-22 11:56 | CR ---
INDICATION: Chest pain TECHNIQUE: Chest radiograph 1 view COMPARISON: 10/21/2018 FINDINGS: Mediastinum: The mediastinum is normal in appearance. Stable cardiomegaly is noted. Lung: Perihilar edema, vascular congestion, left basilar consolidation and bilateral pleural effusions are noted without interval change. No pneumothorax is identified. Musculoskeletal: Unremarkable for age. IMPRESSION: 1. There has been no significant interval changes. Dictated by Blanco Camarena MD @ 10/22/2018 11:54:21 AM Dictated by: Blanco Camarena MD @ 10/22/2018 11:54:24 (Electronically Signed)
[2018-10-22] MEDS ORDERED: Digoxin 125 MCG Tab PO ONE (12:29)
[2018-10-22] MEDS ORDERED: Furosemide 40 MG/4 ML VIAL IVPUSH ONE (14:16)
--- NOTE | 2018-10-22 16:06 | CR ---
EXAM DATE: 10/19/18 PATIENT'S AGE: 83 Patient: CESAR FELIZ Facility: [facility] Site . Site : [id number] Study: XRay-Chest [id number]/7/2019 12:34:05 PM Ordering Physician: Jannet Mendosa Final Report: INDICATION: Congestive heart failure TECHNIQUE: Chest radiograph 2 views COMPARISON: 10/18/2018 FINDINGS: Mediastinum: Cardiomegaly is suspected but difficult to evaluate given the degree of left basilar consolidation. Lung: Pulmonary vascular congestion and mild perihilar edema is noted. Consolidation in the left lung base present with small right and moderate left pleural effusion seen, not significantly changed. No pneumothorax is identified. Musculoskeletal: Unremarkable for age. IMPRESSIONS: 1. Pulmonary vascular congestion and mild perihilar edema is noted. 2. Consolidation in the left lung base present with small right and moderate left pleural effusion seen, not significantly changed. Dictated by Blanco Camarena MD @ 10/22/2018 11:53:02 AM Dictated by: Blanco Camarena MD @ 10/22/2018 11:53:09 Signed by: Blanco Camarena MD @10/22/2018 11:53:09 AM (Electronic Signature) Report Signed by Proxy. AJ
[2018-10-23] MEDS: Piperacillin/Tazobactam 2.25 GM in Sodium Chloride 0.9% 50 ML IV SCH ×3 (02:10→19:16)
[2018-10-23] MEDS: oxyCODONE 5 MG Tab PO PRN ×4 (03:02→22:45)
[2018-10-23] MEDS: Metoprolol Tartrate 50 MG Tab PO SCH ×3 (06:18→22:46)
[2018-10-23] MEDS: Potassium Chloride 20 MEQ Tab.ER PO SCH ×2 (08:43→20:33)
[2018-10-23] MEDS ORDERED: Bumetanide 1 MG/4 ML MDV IVPUSH ONE (09:25)
[2018-10-23] MEDS ORDERED: Furosemide 100 MG/10 ML SDV IVPUSH ONE ×2 (10:01→20:45)
--- NOTE | 2018-10-23 12:13 | PCM.PN ---
- General Info Date of Service: 10/23/18 - Review of Systems Systems Review Comment:: reports shortness of breath and pain with movement of leg - Patient Data Vitals - Most Recent: Last Vital Signs Temp 36.4 C 10/23/18 07:39 Pulse 102 H 10/23/18 07:39 Resp 18 10/23/18 07:39 BP 99/58 L 10/23/18 07:39 Pulse Ox 100 10/23/18 07:39 Weight - Most Recent: 58.786 kg I&O - Last 24 Hours: Intake & Output 10/22/18 10/23/18 10/23/18 22:59 06:59 14:59 Intake Total 650 470 50 Output Total 500 400 Balance 150 70 50 Lab Results Last 24 Hours: Laboratory Results - last 24 hr 10/22/18 10/22/18 10/22/18 Range/Units 16:23 16:52 21:02 WBC (4.0-11.0) K/uL RBC (4.30-5.90) M/uL Hgb (12.0-16.0) g/dL Hct (36.0-46.0) % MCV (80.0-98.0) fL MCH (27.0-32.0) pg MCHC (31.0-37.0) g/dL RDW Std Deviation (28.0-62.0) fl RDW Coeff of Erickson (11.0-15.0) % Plt Count (150-400) K/uL MPV (7.40-12.00) fL Add Manual Diff Neutrophils % (Manual) (48.0-80.0) % Band Neutrophils % % Lymphocytes % (Manual) (16.0-40.0) % Monocytes % (Manual) (0.0-15.0) % Eosinophils % (Manual) (0.0-7.0) % Nucleated RBC % /100WBC Absolute Seg Neuts (1.4-5.7) Band Neutrophils # Lymphocytes # (Manual) (0.6-2.4) Monocytes # (Manual) (0.0-0.8) Eosinophils # (Manual) (0.0-0.7) Nucleated RBCs # K/uL INR Sodium (136-145) mmol/L Potassium (3.5-5.1) mmol/L Chloride (98-107) mmol/L Carbon Dioxide (21.0-32.0) mmol/L BUN (7.0-18.0) mg/dL Creatinine (0.6-1.0) mg/dL Est Cr Clr Drug Dosing mL/min Estimated GFR (MDRD) ml/min Glucose (74-106) mg/dL POC Glucose 185 H 141 H (60-110) mg/dL Calcium (8.5-10.1) mg/dL Vancomycin Trough 23.7 H (5.0-10.0) ug/mL 10/23/18 10/23/18 10/23/18 Range/Units 05:14 05:14 05:41 WBC 15.26 H (4.0-11.0) K/uL RBC 3.38 L (4.30-5.90) M/uL Hgb 10.2 L (12.0-16.0) g/dL Hct 32.7 L (36.0-46.0) % MCV 96.7 (80.0-98.0) fL MCH 30.2 (27.0-32.0) pg MCHC 31.2 (31.0-37.0) g/dL RDW Std Deviation 55.4 (28.0-62.0) fl RDW Coeff of Erickson 16 H (11.0-15.0) % Plt Count 247 (150-400) K/uL MPV 10.70 (7.40-12.00) fL Add Manual Diff YES Neutrophils % (Manual) 79 (48.0-80.0) % Band Neutrophils % 7 % Lymphocytes % (Manual) 7 L (16.0-40.0) % Monocytes % (Manual) 6 (0.0-15.0) % Eosinophils % (Manual) 1 (0.0-7.0) % Nucleated RBC % 0.0 /100WBC Absolute Seg Neuts 12.1 H (1.4-5.7) Band Neutrophils # 1.1 Lymphocytes # (Manual) 1.1 (0.6-2.4) Monocytes # (Manual) 0.9 H (0.0-0.8) Eosinophils # (Manual) 0.2 (0.0-0.7) Nucleated RBCs # 0 K/uL INR 3.51 Sodium 142 (136-145) mmol/L Potassium 4.1 (3.5-5.1) mmol/L Chloride 105 (98-107) mmol/L Carbon Dioxide 25.8 (21.0-32.0) mmol/L BUN 32 H (7.0-18.0) mg/dL Creatinine 2.0 H (0.6-1.0) mg/dL Est Cr Clr Drug Dosing 17.32 mL/min Estimated GFR (MDRD) 23.7 ml/min Glucose 122 H (74-106) mg/dL POC Glucose (60-110) mg/dL Calcium 8.4 L (8.5-10.1) mg/dL Vancomycin Trough (5.0-10.0) ug/mL 10/23/18 10/23/18 Range/Units 06:24 11:33 WBC (4.0-11.0) K/uL RBC (4.30-5.90) M/uL Hgb (12.0-16.0) g/dL Hct (36.0-46.0) % MCV (80.0-98.0) fL MCH (27.0-32.0) pg MCHC (31.0-37.0) g/dL RDW Std Deviation (28.0-62.0) fl RDW Coeff of Erickson (11.0-15.0) % Plt Count (150-400) K/uL MPV (7.40-12.00) fL Add Manual Diff Neutrophils % (Manual) (48.0-80.0) % Band Neutrophils % % Lymphocytes % (Manual) (16.0-40.0) % Monocytes % (Manual) (0.0-15.0) % Eosinophils % (Manual) (0.0-7.0) % Nucleated RBC % /100WBC Absolute Seg Neuts (1.4-5.7) Band Neutrophils # Lymphocytes # (Manual) (0.6-2.4) Monocytes # (Manual) (0.0-0.8) Eosinophils # (Manual) (0.0-0.7) Nucleated RBCs # K/uL INR Sodium (136-145) mmol/L Potassium (3.5-5.1) mmol/L Chloride (98-107) mmol/L Carbon Dioxide (21.0-32.0) mmol/L BUN (7.0-18.0) mg/dL Creatinine (0.6-1.0) mg/dL Est Cr Clr Drug Dosing mL/min Estimated GFR (MDRD) ml/min Glucose (74-106) mg/dL POC Glucose 111 H 185 H (60-110) mg/dL Calcium (8.5-10.1) mg/dL Vancomycin Trough (5.0-10.0) ug/mL Barry Results Last 24 Hours: Microbiology 10/18/18 10:45 Aerobic Blood Culture - Final Blood - Venous - Lab Draw NO GROWTH AFTER 5 DAYS Anaerobic Blood Culture - Final 10/18/18 10:25 Aerobic Blood Culture - Final Blood - Venous NO GROWTH AFTER 5 DAYS Anaerobic Blood Culture - Final 10/22/18 10:46 Clostridium difficile Toxin A & B - Final Stool / Feces Negative for C.Diff Toxin/AG 10/18/18 16:50 Wound Culture - Final Leg, Left Acinetobacter Lwoffii Group Skin Ally Med Orders - Current: Current Medications Piperacillin Sod/Tazobactam (Sod 2.25 gm/ Sodium Chloride) 50 mls @ 100 mls/hr IV Q8H [facility] Last Admin: 10/23/18 10:11 Dose: 100 mls/hr Vancomycin HCl 1 gm/ Sodium (Chloride) 250 mls @ 166.667 mls/hr IV Q24H [facility] Metoprolol Tartrate (Lopressor) 50 mg PO TID [facility] Last Admin: 10/23/18 06:18 Dose: 50 mg Morphine Sulfate (Morphine) 2 mg IVPUSH Q2H PRN PRN Reason: Pain (severe 7-10) Last Admin: 10/22/18 06:04 Dose: 2 mg Ondansetron HCl (Zofran) 4 mg IVPUSH Q4H PRN PRN Reason: Nausea/Vomiting Oxycodone HCl (Oxycodone) 5 mg PO Q4H PRN PRN Reason: Pain Last Admin: 10/23/18 08:41 Dose: 5 mg Potassium Chloride (Klor-Con M20) 40 meq PO BID [facility] Last Admin: 10/23/18 08:43 Dose: 40 meq Sodium Chloride (Saline Flush) 10 ml FLUSH ASDIRECTED PRN PRN Reason: Keep Vein Open Last Admin: 10/18/18 10:12 Dose: 10 ml Sodium Chloride (Saline Flush) 2.5 ml FLUSH ASDIRECTED PRN PRN Reason: Keep Vein Open Last Admin: 10/20/18 16:33 Dose: 2.5 ml Sodium Chloride (Saline Flush) 10 ml FLUSH ASDIRECTED PRN PRN Reason: Keep Vein Open Sodium Chloride (Saline Flush) 2.5 ml FLUSH ASDIRECTED PRN PRN Reason: Keep Vein Open Vancomycin HCl (Pharmacy To Dose - Vancomycin) 1 dose .XX ASDIRECTED [facility] Warfarin Sodium (Coumadin Ask) 1 each PO DAILY@1400 [facility] Last Admin: 10/22/18 13:56 Dose: Not Given Warfarin Sodium (Coumadin) 2.5 mg PO DAILY@1400 [facility] Discontinued Medications Acetaminophen (Tylenol) 650 mg PO NOW ONE Stop: 10/18/18 09:59 Last Admin: 10/18/18 10:12 Dose: 650 mg Hydrocodone Bitart/Acetaminophen ([place] 325-5 Mg) 1 tab PO ONETIME ONE Stop: 10/18/18 11:43 Last Admin: 10/18/18 11:54 Dose: 1 tab Bumetanide (Bumex) 1 mg IVPUSH ONETIME ONE Stop: 10/23/18 09:26 Last Admin: 10/23/18 10:52 Dose: Not Given Digoxin (Lanoxin) 250 mcg IVPUSH ONETIME ONE Stop: 10/21/18 12:03 Last Admin: 10/21/18 12:35 Dose: 250 mcg Digoxin (Lanoxin) 250 mcg PO ONETIME ONE Stop: 10/22/18 12:30 Last Admin: 10/22/18 12:55 Dose: 250 mcg Diltiazem HCl (Diltiazem) 5 mg IVPUSH ONETIME ONE Stop: 10/18/18 09:59 Last Admin: 10/18/18 10:12 Dose: 5 mg Furosemide (Lasix) 20 mg PO ONETIME ONE Stop: 10/21/18 10:27 Last Admin: 10/21/18 11:47 Dose: 20 mg Furosemide (Lasix) 60 mg IVPUSH ONETIME ONE Stop: 10/22/18 14:17 Furosemide (Lasix) 60 mg IVPUSH ONETIME ONE Stop: 10/21/18 14:25 Last Admin: 10/21/18 14:30 Dose: 60 mg Furosemide (Lasix) 60 mg IVPUSH NOW ONE Stop: 10/22/18 08:21 Last Admin: 10/22/18 08:47 Dose: 60 mg Furosemide (Lasix) 60 mg IVPUSH NOW ONE Stop: 10/22/18 16:29 Last Admin: 10/22/18 16:36 Dose: 60 mg Furosemide (Lasix) 80 mg IVPUSH NOW ONE Stop: 10/23/18 10:02 Last Admin: 10/23/18 10:57 Dose: 80 mg Hydromorphone HCl (Dilaudid) 0.5 mg IVPUSH Q4H PRN PRN Reason: Pain (severe 7-10) Last Admin: 10/18/18 15:13 Dose: 0.5 mg Sodium Chloride (Normal Saline) 1,000 mls @ 50 mls/hr IV ASDIRECTED [facility] Last Admin: 10/18/18 10:12 Dose: 50 mls/hr Levofloxacin/Dextrose 750 mg/ (Premix) 150 mls @ 100 mls/hr IV ONETIME ONE Stop: 10/18/18 13:21 Last Admin: 10/18/18 12:07 Dose: 100 mls/hr Piperacillin Sod/Tazobactam (Sod 2.25 gm/ Sodium Chloride) 50 mls @ 100 mls/hr IV Q6H [facility] Last Admin: 10/19/18 09:08 Dose: 100 mls/hr Vancomycin HCl 0.75 gm/ Sodium (Chloride) 250 mls @ 166.667 mls/hr IV Q24H [facility] Last Admin: 10/20/18 16:56 Dose: Not Given Sodium Chloride (Normal Saline) 1,000 mls @ 50 mls/hr IV ASDIRECTED [facility] Last Admin: 10/19/18 14:10 Dose: 50 mls/hr Vancomycin HCl 1 gm/ Sodium (Chloride) 250 mls @ 166.667 mls/hr IV Q24H [facility] Last Admin: 10/22/18 17:34 Dose: Not Given Metoprolol Tartrate (Lopressor) 50 mg PO Q12H [facility] Last Admin: 10/19/18 03:58 Dose: Not Given Metoprolol Tartrate (Lopressor) 50 mg PO TID [facility] Metoprolol Tartrate (Lopressor) 50 mg PO TID [facility] Last Admin: 10/19/18 10:26 Dose: Not Given Metoprolol Tartrate (Lopressor) 25 mg PO TID [facility] Last Admin: 10/21/18 05:41 Dose: 25 mg Metoprolol Tartrate (Lopressor) 25 mg PO ONETIME ONE Stop: 10/21/18 11:53 Last Admin: 10/21/18 12:35 Dose: 25 mg Morphine Sulfate (Morphine) 1 mg IVPUSH ONETIME ONE Stop: 10/18/18 09:59 Last Admin: 10/18/18 10:12 Dose: 1 mg Morphine Sulfate (Morphine) 2 mg IVPUSH ONETIME ONE Stop: 10/18/18 16:11 Last Admin: 10/18/18 16:26 Dose: 2 mg Warfarin Sodium (Coumadin) 2.5 mg PO DAILY@1400 YAKELIN Warfarin Sodium (Coumadin Ask) 1 each PO DAILY@1400 YAKELIN Last Admin: 10/19/18 14:08 Dose: Not Given Warfarin Sodium (Coumadin) 5 mg PO 10/20/18@1400 YAKELIN Stop: 10/20/18 14:01 Last Admin: 10/20/18 16:31 Dose: Not Given Warfarin Sodium (Coumadin) 5 mg PO NOW ONE Stop: 10/20/18 16:31 Last Admin: 10/20/18 16:30 Dose: 5 mg Warfarin Sodium (Coumadin) 2.5 mg PO ONETIME ONE Stop: 10/21/18 14:16 Last Admin: 10/21/18 14:18 Dose: 2.5 mg Warfarin Sodium (Coumadin) 2.5 mg PO DAILY@1400 [facility] - Exam General: Alert, Oriented Lungs: Clear to Auscultation, Normal Respiratory Effort 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: Regular Rate, Regular Rhythm Extremities: Non-Tender, No Pedal Edema Skin: Warm, Dry, Intact - Problem List Review Problem List Initiated/Reviewed/Updated: Yes - My Orders Last 24 Hours: My Active Orders 10/24/18 05:11 CBC WITH AUTO DIFF [HEME] AM 10/25/18 05:11 CBC WITH AUTO DIFF [HEME] AM - Plan Plan:: This is a 83-year-old female with pmh of CHF, mitral valve disease that is admitted for left calf ulcer, acute kidney disease. Left leg ulcer: leukocytosis improving, will continue vancomycin and zosyn. Due to her peripheral vascular disease the ulcer will likely be slow to heal. Revascularization options are limited. CHF: 80mg of lasix given today Acute on chronic kidney disease: creatinine increased to 2 today with the resumption of Lasix A.fib: metoprolol and warfarin
[2018-10-23] MEDS ORDERED: Warfarin 2.5 MG Tab PO SCH (14:00)
[2018-10-23] MEDS ORDERED: Furosemide 40 MG/4 ML VIAL IVPUSH ONE ×2 (19:48→20:23)
[2018-10-24] MEDS: Piperacillin/Tazobactam 2.25 GM in Sodium Chloride 0.9% 50 ML IV SCH ×3 (03:12→18:14)
[2018-10-24] MEDS: oxyCODONE 5 MG Tab PO PRN ×3 (03:47→21:09)
[2018-10-24] MEDS: Metoprolol Tartrate 50 MG Tab PO SCH ×3 (06:43→21:10)
[2018-10-24] MEDS: Potassium Chloride 20 MEQ Tab.ER PO SCH ×2 (08:30→21:08)
--- NOTE | 2018-10-24 10:34 | PCM.PN ---
- General Info Date of Service: 10/24/18 - Review of Systems Systems Review Comment:: leg pain improving - Patient Data Vitals - Most Recent: Last Vital Signs Temp 36.4 C 10/24/18 08:00 Pulse 110 H 10/24/18 08:00 Resp 19 10/24/18 08:00 BP 106/58 L 10/24/18 08:00 Pulse Ox 98 10/24/18 08:00 Weight - Most Recent: 58.57 kg I&O - Last 24 Hours: Intake & Output 10/23/18 10/24/18 10/24/18 21:59 06:59 14:59 Intake Total Output Total Balance Lab Results Last 24 Hours: Laboratory Results - last 24 hr 10/23/18 10/23/18 10/23/18 Range/Units 05:41 11:33 17:41 WBC 15.26 H (4.0-11.0) K/uL RBC 3.38 L (4.30-5.90) M/uL Hgb 10.2 L (12.0-16.0) g/dL Hct 32.7 L (36.0-46.0) % MCV 96.7 (80.0-98.0) fL MCH 30.2 (27.0-32.0) pg MCHC 31.2 (31.0-37.0) g/dL RDW Std Deviation 55.4 (28.0-62.0) fl RDW Coeff of Erickson 16 H (11.0-15.0) % Plt Count 247 (150-400) K/uL MPV 10.70 (7.40-12.00) fL Add Manual Diff YES Neutrophils % (Manual) 79 (48.0-80.0) % Band Neutrophils % 7 % Lymphocytes % (Manual) 7 L (16.0-40.0) % Monocytes % (Manual) 6 (0.0-15.0) % Eosinophils % (Manual) 1 (0.0-7.0) % Basophils % (Manual) (0.0-1.5) % Metamyelocytes % % Nucleated RBC % 0.0 /100WBC Absolute Seg Neuts 12.1 H (1.4-5.7) Band Neutrophils # 1.1 Lymphocytes # (Manual) 1.1 (0.6-2.4) Monocytes # (Manual) 0.9 H (0.0-0.8) Eosinophils # (Manual) 0.2 (0.0-0.7) Basophils # (Manual) (0.0-0.1) Absolute Metamyelocyte Nucleated RBCs # 0 K/uL INR Sodium (136-145) mmol/L Potassium (3.5-5.1) mmol/L Chloride (98-107) mmol/L Carbon Dioxide (21.0-32.0) mmol/L BUN (7.0-18.0) mg/dL Creatinine (0.6-1.0) mg/dL Est Cr Clr Drug Dosing mL/min Estimated GFR (MDRD) ml/min Glucose (74-106) mg/dL POC Glucose 185 H 123 H (60-110) mg/dL Calcium (8.5-10.1) mg/dL 10/23/18 10/24/18 10/24/18 Range/Units 21:42 05:03 05:03 WBC (4.0-11.0) K/uL RBC (4.30-5.90) M/uL Hgb (12.0-16.0) g/dL Hct (36.0-46.0) % MCV (80.0-98.0) fL MCH (27.0-32.0) pg MCHC (31.0-37.0) g/dL RDW Std Deviation (28.0-62.0) fl RDW Coeff of Erickson (11.0-15.0) % Plt Count (150-400) K/uL MPV (7.40-12.00) fL Add Manual Diff Neutrophils % (Manual) (48.0-80.0) % Band Neutrophils % % Lymphocytes % (Manual) (16.0-40.0) % Monocytes % (Manual) (0.0-15.0) % Eosinophils % (Manual) (0.0-7.0) % Basophils % (Manual) (0.0-1.5) % Metamyelocytes % % Nucleated RBC % /100WBC Absolute Seg Neuts (1.4-5.7) Band Neutrophils # Lymphocytes # (Manual) (0.6-2.4) Monocytes # (Manual) (0.0-0.8) Eosinophils # (Manual) (0.0-0.7) Basophils # (Manual) (0.0-0.1) Absolute Metamyelocyte Nucleated RBCs # K/uL INR 3.18 Sodium 141 (136-145) mmol/L Potassium 4.6 (3.5-5.1) mmol/L Chloride 105 (98-107) mmol/L Carbon Dioxide 24.5 (21.0-32.0) mmol/L BUN 37 H (7.0-18.0) mg/dL Creatinine 2.2 H (0.6-1.0) mg/dL Est Cr Clr Drug Dosing 15.75 mL/min Estimated GFR (MDRD) 21.3 ml/min Glucose 106 (74-106) mg/dL POC Glucose 128 H (60-110) mg/dL Calcium 8.3 L (8.5-10.1) mg/dL 10/24/18 10/24/18 Range/Units 05:03 05:07 WBC 16.34 H (4.0-11.0) K/uL RBC 3.34 L (4.30-5.90) M/uL Hgb 10.2 L (12.0-16.0) g/dL Hct 32.1 L (36.0-46.0) % MCV 96.1 (80.0-98.0) fL MCH 30.5 (27.0-32.0) pg MCHC 31.8 (31.0-37.0) g/dL RDW Std Deviation 56.6 (28.0-62.0) fl RDW Coeff of Erickson 16 H (11.0-15.0) % Plt Count 253 (150-400) K/uL MPV 10.50 (7.40-12.00) fL Add Manual Diff YES Neutrophils % (Manual) 68 (48.0-80.0) % Band Neutrophils % 1 % Lymphocytes % (Manual) 21 (16.0-40.0) % Monocytes % (Manual) 4 (0.0-15.0) % Eosinophils % (Manual) 1 (0.0-7.0) % Basophils % (Manual) 2 H (0.0-1.5) % Metamyelocytes % 3 % Nucleated RBC % 0.4 /100WBC Absolute Seg Neuts 11.1 H (1.4-5.7) Band Neutrophils # 0.2 Lymphocytes # (Manual) 3.4 H (0.6-2.4) Monocytes # (Manual) 0.7 (0.0-0.8) Eosinophils # (Manual) 0.2 (0.0-0.7) Basophils # (Manual) 0.3 H (0.0-0.1) Absolute Metamyelocyte 0.5 Nucleated RBCs # 0 K/uL INR Sodium (136-145) mmol/L Potassium (3.5-5.1) mmol/L Chloride (98-107) mmol/L Carbon Dioxide (21.0-32.0) mmol/L BUN (7.0-18.0) mg/dL Creatinine (0.6-1.0) mg/dL Est Cr Clr Drug Dosing mL/min Estimated GFR (MDRD) ml/min Glucose (74-106) mg/dL POC Glucose 100 (60-110) mg/dL Calcium (8.5-10.1) mg/dL Barry Results Last 24 Hours: Microbiology 10/18/18 10:45 Aerobic Blood Culture - Final Blood - Venous - Lab Draw NO GROWTH AFTER 5 DAYS Anaerobic Blood Culture - Final 10/18/18 10:25 Aerobic Blood Culture - Final Blood - Venous NO GROWTH AFTER 5 DAYS Anaerobic Blood Culture - Final Med Orders - Current: Current Medications Piperacillin Sod/Tazobactam (Sod 2.25 gm/ Sodium Chloride) 50 mls @ 100 mls/hr IV Q8H [facility] Last Admin: 10/24/18 03:12 Dose: 100 mls/hr Vancomycin HCl 0.75 gm/ Sodium (Chloride) 150 mls @ 150 mls/hr IV Q24H [facility] Metoprolol Tartrate (Lopressor) 50 mg PO TID [facility] Last Admin: 10/24/18 06:43 Dose: 50 mg Morphine Sulfate (Morphine) 2 mg IVPUSH Q2H PRN PRN Reason: Pain (severe 7-10) Last Admin: 10/22/18 06:04 Dose: 2 mg Ondansetron HCl (Zofran) 4 mg IVPUSH Q4H PRN PRN Reason: Nausea/Vomiting Oxycodone HCl (Oxycodone) 5 mg PO Q4H PRN PRN Reason: Pain Last Admin: 10/24/18 03:47 Dose: 5 mg Potassium Chloride (Klor-Con M20) 40 meq PO BID [facility] Last Admin: 10/24/18 08:30 Dose: 40 meq Sodium Chloride (Saline Flush) 10 ml FLUSH ASDIRECTED PRN PRN Reason: Keep Vein Open Last Admin: 10/18/18 10:12 Dose: 10 ml Sodium Chloride (Saline Flush) 2.5 ml FLUSH ASDIRECTED PRN PRN Reason: Keep Vein Open Last Admin: 10/20/18 16:33 Dose: 2.5 ml Sodium Chloride (Saline Flush) 10 ml FLUSH ASDIRECTED PRN PRN Reason: Keep Vein Open Sodium Chloride (Saline Flush) 2.5 ml FLUSH ASDIRECTED PRN PRN Reason: Keep Vein Open Vancomycin HCl (Pharmacy To Dose - Vancomycin) 1 dose .XX ASDIRECTED [facility] Warfarin Sodium (Coumadin Ask) 1 each PO DAILY@1400 YAKELIN Last Admin: 10/23/18 14:11 Dose: Not Given Warfarin Sodium (Coumadin) 2 mg PO DAILY@1400 [facility] Discontinued Medications Acetaminophen (Tylenol) 650 mg PO NOW ONE Stop: 10/18/18 09:59 Last Admin: 10/18/18 10:12 Dose: 650 mg Hydrocodone Bitart/Acetaminophen ([place] 325-5 Mg) 1 tab PO ONETIME ONE Stop: 10/18/18 11:43 Last Admin: 10/18/18 11:54 Dose: 1 tab Bumetanide (Bumex) 1 mg IVPUSH ONETIME ONE Stop: 10/23/18 09:26 Last Admin: 10/23/18 10:52 Dose: Not Given Digoxin (Lanoxin) 250 mcg IVPUSH ONETIME ONE Stop: 10/21/18 12:03 Last Admin: 10/21/18 12:35 Dose: 250 mcg Digoxin (Lanoxin) 250 mcg PO ONETIME ONE Stop: 10/22/18 12:30 Last Admin: 10/22/18 12:55 Dose: 250 mcg Diltiazem HCl (Diltiazem) 5 mg IVPUSH ONETIME ONE Stop: 10/18/18 09:59 Last Admin: 10/18/18 10:12 Dose: 5 mg Furosemide (Lasix) 20 mg PO ONETIME ONE Stop: 10/21/18 10:27 Last Admin: 10/21/18 11:47 Dose: 20 mg Furosemide (Lasix) 60 mg IVPUSH ONETIME ONE Stop: 10/22/18 14:17 Furosemide (Lasix) 60 mg IVPUSH ONETIME ONE Stop: 10/21/18 14:25 Last Admin: 10/21/18 14:30 Dose: 60 mg Furosemide (Lasix) 60 mg IVPUSH NOW ONE Stop: 10/22/18 08:21 Last Admin: 10/22/18 08:47 Dose: 60 mg Furosemide (Lasix) 60 mg IVPUSH NOW ONE Stop: 10/22/18 16:29 Last Admin: 10/22/18 16:36 Dose: 60 mg Furosemide (Lasix) 80 mg IVPUSH NOW ONE Stop: 10/23/18 10:02 Last Admin: 10/23/18 10:57 Dose: 80 mg Furosemide (Lasix) 80 mg IVPUSH NOW ONE Stop: 10/23/18 19:49 Furosemide (Lasix) 80 mg IVPUSH NOW ONE Stop: 10/23/18 20:46 Last Admin: 10/23/18 20:41 Dose: 80 mg Hydromorphone HCl (Dilaudid) 0.5 mg IVPUSH Q4H PRN PRN Reason: Pain (severe 7-10) Last Admin: 10/18/18 15:13 Dose: 0.5 mg Sodium Chloride (Normal Saline) 1,000 mls @ 50 mls/hr IV ASDIRECTED [facility] Last Admin: 10/18/18 10:12 Dose: 50 mls/hr Levofloxacin/Dextrose 750 mg/ (Premix) 150 mls @ 100 mls/hr IV ONETIME ONE Stop: 10/18/18 13:21 Last Admin: 10/18/18 12:07 Dose: 100 mls/hr Piperacillin Sod/Tazobactam (Sod 2.25 gm/ Sodium Chloride) 50 mls @ 100 mls/hr IV Q6H [facility] Last Admin: 10/19/18 09:08 Dose: 100 mls/hr Vancomycin HCl 0.75 gm/ Sodium (Chloride) 250 mls @ 166.667 mls/hr IV Q24H [facility] Last Admin: 10/20/18 16:56 Dose: Not Given Sodium Chloride (Normal Saline) 1,000 mls @ 50 mls/hr IV ASDIRECTED [facility] Last Admin: 10/19/18 14:10 Dose: 50 mls/hr Vancomycin HCl 1 gm/ Sodium (Chloride) 250 mls @ 166.667 mls/hr IV Q24H [facility] Last Admin: 10/22/18 17:34 Dose: Not Given Vancomycin HCl 1 gm/ Sodium (Chloride) 250 mls @ 166.667 mls/hr IV Q24H [facility] Last Admin: 10/23/18 17:31 Dose: 166.667 mls/hr Furosemide 80 mg/ Sodium (Chloride) 58 mls @ 116 mls/hr IV ONETIME ONE Stop: 10/23/18 20:29 Metoprolol Tartrate (Lopressor) 50 mg PO Q12H [facility] Last Admin: 10/19/18 03:58 Dose: Not Given Metoprolol Tartrate (Lopressor) 50 mg PO TID [facility] Metoprolol Tartrate (Lopressor) 50 mg PO TID [facility] Last Admin: 10/19/18 10:26 Dose: Not Given Metoprolol Tartrate (Lopressor) 25 mg PO TID [facility] Last Admin: 10/21/18 05:41 Dose: 25 mg Metoprolol Tartrate (Lopressor) 25 mg PO ONETIME ONE Stop: 10/21/18 11:53 Last Admin: 10/21/18 12:35 Dose: 25 mg Morphine Sulfate (Morphine) 1 mg IVPUSH ONETIME ONE Stop: 10/18/18 09:59 Last Admin: 10/18/18 10:12 Dose: 1 mg Morphine Sulfate (Morphine) 2 mg IVPUSH ONETIME ONE Stop: 10/18/18 16:11 Last Admin: 10/18/18 16:26 Dose: 2 mg Warfarin Sodium (Coumadin) 2.5 mg PO DAILY@1400 [facility] Warfarin Sodium (Coumadin Ask) 1 each PO DAILY@1400 [facility] Last Admin: 10/19/18 14:08 Dose: Not Given Warfarin Sodium (Coumadin) 5 mg PO 10/20/18@1400 [facility] Stop: 10/20/18 14:01 Last Admin: 10/20/18 16:31 Dose: Not Given Warfarin Sodium (Coumadin) 5 mg PO NOW ONE Stop: 10/20/18 16:31 Last Admin: 10/20/18 16:30 Dose: 5 mg Warfarin Sodium (Coumadin) 2.5 mg PO ONETIME ONE Stop: 10/21/18 14:16 Last Admin: 10/21/18 14:18 Dose: 2.5 mg Warfarin Sodium (Coumadin) 2.5 mg PO DAILY@1400 [facility] Warfarin Sodium (Coumadin) 2.5 mg PO DAILY@1400 [facility] - Exam General: Alert, Oriented Lungs: Clear to Auscultation, Normal Respiratory Effort 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: Regular Rate, Regular Rhythm GI/Abdominal Exam: Normal Bowel Sounds, Soft, Non-Tender Extremities: No Pedal Edema - Problem List Review Problem List Initiated/Reviewed/Updated: Yes - My Orders Last 24 Hours: My Active Orders 10/25/18 05:11 CBC WITH AUTO DIFF [HEME] AM - Plan Plan:: This is a 83-year-old female with pmh of CHF, mitral valve disease that is admitted for left calf ulcer, acute kidney disease. Left leg ulcer: will continue vancomycin and zosyn. Due to her peripheral vascular disease the ulcer will likely be slow to heal. Revascularization options are limited. CHF: 80mg of lasix given yesterday Acute on chronic kidney disease: creatinine increased to 2.2 today A.fib: metoprolol and warfarin Dispo: likely discharge home tomorrow.
[2018-10-24] MEDS: Furosemide 100 MG/10 ML SDV IVPUSH SCH ×3 (13:01→21:08)
[2018-10-24] MEDS ORDERED: Warfarin 2 MG Tab PO SCH (14:00)
[2018-10-24] MEDS ORDERED: Warfarin 2.5 MG Tab PO SCH (14:00)
--- NOTE | 2018-10-24 14:27 | CONS ---
DATE OF CONSULTATION: DATE OF : 1935 PRIMARY CARE PHYSICIAN: Unknown PCP REASON FOR CONSULTATION: Congestive heart failure. HISTORY OF PRESENT ILLNESS: This is an 83-year-old female with extensive cardiac history with history of CAD, status post remote LAD PCI, severe mitral regurgitation, history of peripheral vascular disease with bilateral occlusion of SFA, history of right femoral-popliteal bypass in the past, dyslipidemia, hypertension, former smoker. She was admitted in the hospital at least twice in our hospital and one in [place]. She was last discharged from the hospital in September because of decompensated heart failure and again at this time, she came into the hospital due to chronic ulcer on her left lower extremity and left leg pain. When she got here in the hospital, her creatinine was going up from 1.4 last time to 2.6 with a high white count as well. She also has gained weight from the last time that she was admitted in the hospital. At that time, her weight was 111 lbs, but at this time, she was weighing about 125 and 126 pounds; however, it was from different scales. It was difficult to know how many pounds she has gained. I saw her 2 weeks ago in the clinic, her reported 7-8 lbs weight gain since the last discharge. I increased her lasix from 60 daily to 60 BID. At this time when she got in the hospital she looked dry to me, and that was the reason the lasix for on hold, and gentle hydration was started. She also was treated for infected chronic ulcer over the left leg and lower extremity as well. She was noted to have high grade stenosis on the left lower extrimites on [facility] CT angiogram last December,. After she was given IV hydration, her creatinine seemed to be improved slightly from 2.6 to 1.9; however, Cr continued rising and the Lasix was resumed at dose of 60 IV twice a day. Chest x-ray also was repeated and it seemed to be slightly worsening bilateral pleural effusion and the left more than the right side. She remained in afib since the last hospitalization. The metoprolol was lower from 50 t.i.d. to 25 t.i.d., and digoxin was given intravenously 250 mcg as well. Her heart rate hanging around 90 to 100 and she does not seem responding to IV Lasix. PAST MEDICAL HISTORY: 1. Peripheral vascular disease, status post right SFA, seemed to be occluded, but she does have the CT angiogram of lower extremity with bilateral runoff, which showing that the right lower extremity seemed to have reconstitution of the peripheral circulation in her right lower extremity. However, on the left thigh, seemed to be multiple high grade stenosis. 2. CAD, status post remote LAD stent. 3. Hypothyroidism. 4. Hypertension. 5. Polymyalgia rheumatica. 6. severe MR possibly from ischemic MR. PAST SURGICAL HISTORY: LAD, status post PCI, right femoral-popliteal bypass, left breast mole removal. FAMILY HISTORY: Mother had history of pancreatic cancer. Father had history of dementia. SOCIAL HISTORY: Former smoker. Denied drinking alcohol. Does not do any recreational drugs. CURRENT MEDICATIONS: So far, she is on: 1. Lasix 80 mg IV twice a day. 2. Metoprolol 50 mg t.i.d. 3. coumadin 4. vanco zosyn PHYSICAL EXAMINATION: VITAL SIGNS: Her weight today is 129, standing scale; temperature 97.5 Farenheit; heart rate is 113, ranging between 90 to 110; blood pressure is hanging around 100/50 to 60s; O2 saturation is 98% on 2 L; respirations 19. HEENT: Positive JVD. HEART: Totally irregular, tachycardia. LUNGS: Crackle bilaterally and seemed to be decreased breath sounds, the left more than the right. ABDOMEN: Soft, nontender. Bowel sounds are present. No hepatosplenomegaly. EXTREMITIES: Legs, soft swelling, 2+ with venous discoloration, and there is a chronic wound on the left leg. Lower extremity, 3+ pitting edema in both legs with venous discoloration and also on the left leg, showing the chronic heel ulcer with a necrotic tissue on top of the ulcer. INVESTIGATION: CBC showed WBC currently 16, slightly going up from yesterday, which was 15; hematocrit of 32, platelets 253. INR 3.1. Sodium 141, potassium 4.6, chloride 105, bicarb 24, BUN 37, creatinine 2.2, going up from 2 yesterday. ASSESSMENT AND PLAN: This is an 83-year-old female with history of coronary artery disease, status post LAD stent in the past, history of severe peripheral vascular disease bilaterally with occlusion of right SFA with occlusion of the right femoral- popliteal and reconstitution of distal peripheral circulation and high-grade multiple stenosis of the left lower extremity circulation, history of severe mitral regurgitation with mildly reduced LV systolic dysfunction. She came into the hospital with left leg pain, chronic ulcer in left leg, acute kidney injury on top of chronic kidney disease with decompensated LV systolic dysfunction. She is a complicated patient and her creatinine seemed to be rising as well as her weight. I am going to increase her Lasix to 80 mg IV t.i.d. She should be on low salt, low-sodium diet. Partly, her heart failure is difficult to be controlled, probably from dietary noncompliance. She is scheduled to have the mitral valve ablation in [facility] in November. She also is being treated for infected wound with IV antibiotic as well, and we will continue to give metoprolol 50 p.o. t.i.d. for heart rate control. If by tomorrow, she is not making good urine output and her creatinine getting worse, she probably need to be transferred out to higher level of care [facility] for more advanced treatment for her heart failure and her acute kidney injury. GREY / EDWIN /[id number] AJ
[2018-10-24] MEDS ORDERED: Vancomycin 0.75 GM in Sodium Chloride 0.9% 150 ML IV SCH ×2 (17:00)
[2018-10-25] MEDS: Piperacillin/Tazobactam 2.25 GM in Sodium Chloride 0.9% 50 ML IV SCH ×2 (02:30→09:01)
[2018-10-25] MEDS: Metoprolol Tartrate 50 MG Tab PO SCH (05:49)
[2018-10-25] MEDS: Furosemide 100 MG/10 ML SDV IVPUSH SCH (05:49)
[2018-10-25] MEDS: oxyCODONE 5 MG Tab PO PRN (05:50)
[2018-10-25] MEDS: Morphine 2 MG/ML Syringe IVPUSH PRN ×2 (08:05→10:47)
[2018-10-25] MEDS: Potassium Chloride 20 MEQ Tab.ER PO SCH (08:53)
--- NOTE | 2018-10-25 08:54 | PCM.PN ---
- General Info Date of Service: 10/25/18 Admission Dx/Problem (Free Text): 83F hx CAD LAD PCI severe PVC bilat SFA occlusion with occluded rt fem pop bypass with high grade PVD in the left LE. Severe MR, mild LV systolic dysfunction, HLP former smoker, CKD, persistent afib, with left leg pain with chronic wound on the left leg, ROSELYN on CKD Subjective Update: she felt that her left leg got more pain today, she did not make urine a lot yesterday it was 1200, with x 4 (unmeasurable with BM) afib rate 90-100, Cr today was rising to 2.4 - Review of Systems General: Reports: Weakness HEENT: Reports: No Symptoms Pulmonary: Reports: Shortness of Breath 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: Reports: No Symptoms Gastrointestinal: Reports: No Symptoms Genitourinary: Reports: No Symptoms Musculoskeletal: Reports: No Symptoms Skin: Reports: No Symptoms - Patient Data Vitals - Most Recent: Last Vital Signs Temp 97.0 F 10/25/18 04:00 Pulse 71 10/25/18 05:49 Resp 16 10/25/18 04:00 BP 123/68 10/25/18 05:49 Pulse Ox 90 L 10/25/18 04:00 Weight - Most Recent: 129 lb 2 oz I&O - Last 24 Hours: Intake & Output 10/24/18 10/25/18 10/25/18 22:59 06:59 14:59 Intake Total 750 410 Output Total 500 700 Balance 250 -290 Lab Results Last 24 Hours: Laboratory Results - last 24 hr 10/25/18 10/25/18 10/25/18 Range/Units 05:10 05:10 05:10 WBC 18.82 H (4.0-11.0) K/uL RBC 3.59 L (4.30-5.90) M/uL Hgb 10.7 L (12.0-16.0) g/dL Hct 34.7 L (36.0-46.0) % MCV 96.7 (80.0-98.0) fL MCH 29.8 (27.0-32.0) pg MCHC 30.8 L (31.0-37.0) g/dL RDW Std Deviation 56.0 (28.0-62.0) fl RDW Coeff of Erickson 16 H (11.0-15.0) % Plt Count 313 (150-400) K/uL MPV 10.80 (7.40-12.00) fL Add Manual Diff YES Neutrophils % (Manual) 78 (48.0-80.0) % Band Neutrophils % 1 % Lymphocytes % (Manual) 14 L (16.0-40.0) % Monocytes % (Manual) 3 (0.0-15.0) % Metamyelocytes % 4 % Nucleated RBC % 1.3 /100WBC Absolute Seg Neuts 14.7 H (1.4-5.7) Band Neutrophils # 0.2 Lymphocytes # (Manual) 2.6 H (0.6-2.4) Monocytes # (Manual) 0.6 (0.0-0.8) Absolute Metamyelocyte 0.8 Nucleated RBCs 1 % Nucleated RBCs # 0 K/uL INR 3.24 Sodium 142 (136-145) mmol/L Potassium 4.9 (3.5-5.1) mmol/L Chloride 106 (98-107) mmol/L Carbon Dioxide 24.6 (21.0-32.0) mmol/L BUN 41 H (7.0-18.0) mg/dL Creatinine 2.4 H (0.6-1.0) mg/dL Est Cr Clr Drug Dosing 14.43 mL/min Estimated GFR (MDRD) 19.2 ml/min Glucose 108 H (74-106) mg/dL Calcium 8.5 (8.5-10.1) mg/dL Med Orders - Current: Current Medications Furosemide (Lasix) 80 mg IVPUSH TID [facility] Last Admin: 10/25/18 05:49 Dose: 80 mg Piperacillin Sod/Tazobactam (Sod 2.25 gm/ Sodium Chloride) 50 mls @ 100 mls/hr IV Q8H [facility] Last Admin: 10/25/18 02:30 Dose: 100 mls/hr Vancomycin HCl 0.75 gm/ Sodium (Chloride) 150 mls @ 150 mls/hr IV Q24H [facility] Last Admin: 10/24/18 17:01 Dose: 150 mls/hr Metoprolol Tartrate (Lopressor) 50 mg PO TID [facility] Last Admin: 10/25/18 05:49 Dose: 50 mg Morphine Sulfate (Morphine) 2 mg IVPUSH Q2H PRN PRN Reason: Pain (severe 7-10) Last Admin: 10/25/18 08:05 Dose: 2 mg Ondansetron HCl (Zofran) 4 mg IVPUSH Q4H PRN PRN Reason: Nausea/Vomiting Oxycodone HCl (Oxycodone) 5 mg PO Q4H PRN PRN Reason: Pain Last Admin: 10/25/18 05:50 Dose: 5 mg Potassium Chloride (Klor-Con M20) 40 meq PO BID [facility] Last Admin: 10/24/18 21:08 Dose: 40 meq Sodium Chloride (Saline Flush) 10 ml FLUSH ASDIRECTED PRN PRN Reason: Keep Vein Open Last Admin: 10/18/18 10:12 Dose: 10 ml Sodium Chloride (Saline Flush) 2.5 ml FLUSH ASDIRECTED PRN PRN Reason: Keep Vein Open Last Admin: 10/20/18 16:33 Dose: 2.5 ml Sodium Chloride (Saline Flush) 10 ml FLUSH ASDIRECTED PRN PRN Reason: Keep Vein Open Sodium Chloride (Saline Flush) 2.5 ml FLUSH ASDIRECTED PRN PRN Reason: Keep Vein Open Vancomycin HCl (Pharmacy To Dose - Vancomycin) 1 dose .XX ASDIRECTED [facility] Warfarin Sodium (Coumadin Ask) 1 each PO DAILY@1400 [facility] Last Admin: 10/24/18 15:08 Dose: Not Given Warfarin Sodium (Coumadin) 1.5 mg PO DAILY@1400 [facility] Discontinued Medications Acetaminophen (Tylenol) 650 mg PO NOW ONE Stop: 10/18/18 09:59 Last Admin: 10/18/18 10:12 Dose: 650 mg Hydrocodone Bitart/Acetaminophen ([place] 325-5 Mg) 1 tab PO ONETIME ONE Stop: 10/18/18 11:43 Last Admin: 10/18/18 11:54 Dose: 1 tab Bumetanide (Bumex) 1 mg IVPUSH ONETIME ONE Stop: 10/23/18 09:26 Last Admin: 10/23/18 10:52 Dose: Not Given Digoxin (Lanoxin) 250 mcg IVPUSH ONETIME ONE Stop: 10/21/18 12:03 Last Admin: 10/21/18 12:35 Dose: 250 mcg Digoxin (Lanoxin) 250 mcg PO ONETIME ONE Stop: 10/22/18 12:30 Last Admin: 10/22/18 12:55 Dose: 250 mcg Diltiazem HCl (Diltiazem) 5 mg IVPUSH ONETIME ONE Stop: 10/18/18 09:59 Last Admin: 10/18/18 10:12 Dose: 5 mg Furosemide (Lasix) 20 mg PO ONETIME ONE Stop: 10/21/18 10:27 Last Admin: 10/21/18 11:47 Dose: 20 mg Furosemide (Lasix) 60 mg IVPUSH ONETIME ONE Stop: 10/22/18 14:17 Furosemide (Lasix) 60 mg IVPUSH ONETIME ONE Stop: 10/21/18 14:25 Last Admin: 10/21/18 14:30 Dose: 60 mg Furosemide (Lasix) 60 mg IVPUSH NOW ONE Stop: 10/22/18 08:21 Last Admin: 10/22/18 08:47 Dose: 60 mg Furosemide (Lasix) 60 mg IVPUSH NOW ONE Stop: 10/22/18 16:29 Last Admin: 10/22/18 16:36 Dose: 60 mg Furosemide (Lasix) 80 mg IVPUSH NOW ONE Stop: 10/23/18 10:02 Last Admin: 10/23/18 10:57 Dose: 80 mg Furosemide (Lasix) 80 mg IVPUSH NOW ONE Stop: 10/23/18 19:49 Last Admin: 10/24/18 20:12 Dose: Not Given Furosemide (Lasix) 80 mg IVPUSH NOW ONE Stop: 10/23/18 20:46 Last Admin: 10/23/18 20:41 Dose: 80 mg Hydromorphone HCl (Dilaudid) 0.5 mg IVPUSH Q4H PRN PRN Reason: Pain (severe 7-10) Last Admin: 10/18/18 15:13 Dose: 0.5 mg Sodium Chloride (Normal Saline) 1,000 mls @ 50 mls/hr IV ASDIRECTED [facility] Last Admin: 10/18/18 10:12 Dose: 50 mls/hr Levofloxacin/Dextrose 750 mg/ (Premix) 150 mls @ 100 mls/hr IV ONETIME ONE Stop: 10/18/18 13:21 Last Admin: 10/18/18 12:07 Dose: 100 mls/hr Piperacillin Sod/Tazobactam (Sod 2.25 gm/ Sodium Chloride) 50 mls @ 100 mls/hr IV Q6H [facility] Last Admin: 10/19/18 09:08 Dose: 100 mls/hr Vancomycin HCl 0.75 gm/ Sodium (Chloride) 250 mls @ 166.667 mls/hr IV Q24H [facility] Last Admin: 10/20/18 16:56 Dose: Not Given Sodium Chloride (Normal Saline) 1,000 mls @ 50 mls/hr IV ASDIRECTED [facility] Last Admin: 10/19/18 14:10 Dose: 50 mls/hr Vancomycin HCl 1 gm/ Sodium (Chloride) 250 mls @ 166.667 mls/hr IV Q24H [facility] Last Admin: 10/22/18 17:34 Dose: Not Given Vancomycin HCl 1 gm/ Sodium (Chloride) 250 mls @ 166.667 mls/hr IV Q24H [facility] Last Admin: 10/23/18 17:31 Dose: 166.667 mls/hr Furosemide 80 mg/ Sodium (Chloride) 58 mls @ 116 mls/hr IV ONETIME ONE Stop: 10/23/18 20:29 Last Admin: 10/24/18 20:12 Dose: Not Given Vancomycin HCl 0.75 gm/ Sodium (Chloride) 150 mls @ 150 mls/hr IV Q24H [facility] Metoprolol Tartrate (Lopressor) 50 mg PO Q12H [facility] Last Admin: 10/19/18 03:58 Dose: Not Given Metoprolol Tartrate (Lopressor) 50 mg PO TID [facility] Metoprolol Tartrate (Lopressor) 50 mg PO TID [facility] Last Admin: 10/19/18 10:26 Dose: Not Given Metoprolol Tartrate (Lopressor) 25 mg PO TID [facility] Last Admin: 10/21/18 05:41 Dose: 25 mg Metoprolol Tartrate (Lopressor) 25 mg PO ONETIME ONE Stop: 10/21/18 11:53 Last Admin: 10/21/18 12:35 Dose: 25 mg Morphine Sulfate (Morphine) 1 mg IVPUSH ONETIME ONE Stop: 10/18/18 09:59 Last Admin: 10/18/18 10:12 Dose: 1 mg Morphine Sulfate (Morphine) 2 mg IVPUSH ONETIME ONE Stop: 10/18/18 16:11 Last Admin: 10/18/18 16:26 Dose: 2 mg Warfarin Sodium (Coumadin) 2.5 mg PO DAILY@1400 [facility] Warfarin Sodium (Coumadin Ask) 1 each PO DAILY@1400 [facility] Last Admin: 10/19/18 14:08 Dose: Not Given Warfarin Sodium (Coumadin) 5 mg PO 10/20/18@1400 [facility] Stop: 10/20/18 14:01 Last Admin: 10/20/18 16:31 Dose: Not Given Warfarin Sodium (Coumadin) 5 mg PO NOW ONE Stop: 10/20/18 16:31 Last Admin: 10/20/18 16:30 Dose: 5 mg Warfarin Sodium (Coumadin) 2.5 mg PO ONETIME ONE Stop: 10/21/18 14:16 Last Admin: 10/21/18 14:18 Dose: 2.5 mg Warfarin Sodium (Coumadin) 2.5 mg PO DAILY@1400 [facility] Warfarin Sodium (Coumadin) 2.5 mg PO DAILY@1400 [facility] Warfarin Sodium (Coumadin) 2 mg PO DAILY@1400 [facility] Last Admin: 10/24/18 15:02 Dose: 2 mg - Exam Quality Assessment: Supplemental Oxygen General: Alert, Oriented HEENT: Pupils Equal Neck: JVD Lungs: Rales 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: Irregular Rhythm GI/Abdominal Exam: Normal Bowel Sounds, Soft Extremities: Pedal Edema, Other (venous discoloration both legs with chornic wound on the left leg. ) EKG INTERPRETATION Rhythm: A-Fib - Problem List Review Problem List Initiated/Reviewed/Updated: Yes - My Orders Last 24 Hours: My Active Orders 10/24/18 11:58 Furosemide [Lasix] 80 mg IVPUSH TID - Plan Plan:: 83F hx CAD LAD PCI severe PVC bilat SFA occlusion with occluded rt fem pop bypass with high grade PVD in the left LE. Severe MR, mild LV systolic dysfunction, HLP former smoker, CKD, persistent afib, with left leg pain with chronic wound on the left leg, ROSELYN on CKD 1. left calf ulcer, poor healing most likely from severe PVD, no wound debridement required per wound care, continue Abx per hospitalist, she may not be a good candidate vascular intervention 2. persistent afib she has been afib since last hospitalization, continue metoprolol 50 TID, digoxin were given but not loaded due to ROSELYN, would continue metoprolol 50 TID as tolerated, consider amiodarone for rate control. 3. severe MR with mild reduced LV systolic dysfunction with decompensated CHF, she is scheduled for valve intervention in [place] in November, her cr rising today, despite aggressive diuretic, the more potent diuretics were not available in our hospital, Partly, her CHF was from dietary non compliance, I emphasized to them again the importance of low sodium diet, she should be fluid restriction for now.she would need higher level of care, I recommend transfer to tertiary care hospital. Nephrology consultation may be required.
--- NOTE | 2018-10-25 09:59 | PCM.DCSUM1 ---
Discharge Summary - Hospital Course Brief History: Thi 83 year olf female with pmh of CAD LAD PCI, severe PVD with bilateral SFA occlusion with occluded right fem pop bypass with high grade PVD in the left LE. Severe MR with mild LV systolic dysfunction with HLP former smoker, CKD, persistent Afib with chornic wound to left lower leg. She initially was admitted for severe left lower leg pain. She was noted to have Elevated BNP, lactic acid and ROSELYN on CKD with leukocytosis. CXR revealed bilater pleural effusion, no pneumonia. Xray of leg revealed no signs of deep infection. SHe was admitted for cellulitis of Left lower leg. Dr Garay, Cardiology consulted. - Discharge Data Discharge Date: 10/25/18 Discharge Disposition: DC/Tfer to Acute Hospital 02 Condition: Fair - Patient Summary/Data Consults: Consultations 10/18/18 14:37 Consult to Wound Care Services [CONS] Routine PT Evaluation and Treatment [CONS] Routine Respiratory Care Assess and Treatment [CONS] Routine 10/21/18 11:25 Consult to Physical Therapy [PT Evaluation and Treatment] [CONS] Routine - Patient Instructions Diet: Heart Healthy Diet, Fluid Restriction Activity: As Tolerated - Discharge Plan *PRESCRIPTION DRUG MONITORING PROGRAM REVIEWED*: Not Applicable *COPY OF PRESCRIPTION DRUG MONITORING REPORT IN PATIENT [id number]: Not Applicable Home Medications: Home Meds Calcium Carbonate [Calcium] 1,200 mg PO DAILY 04/27/17 [History] Levothyroxine [Synthroid] 100 mcg PO QAM 04/27/17 [History] Lutein 20 mg PO DAILY 04/27/17 [History] Multivitamin/Iron/Folic Acid [Centrum Adults Tablet] 1 tab PO DAILY 04/27/17 [ History] Rosuvastatin [Crestor] 20 mg PO MOWEFR@1200 04/27/17 [History] Acetaminophen with Codeine [Tylenol with Codeine #3 Tablet] 1 tab PO BID PRN 06/04 [History] Diltiazem HCl [Cartia Xt] 180 mg PO DAILY 09/16/18 [History] Rosuvastatin [Crestor] 10 mg PO SUTUTHSA@1200 09/28/18 [History] Aspirin 81 mg PO DAILY tab.chew 10/01/18 [Rx] Furosemide [Lasix] 60 mg PO BID #90 tablet 10/01/18 [Rx] Metoprolol Tartrate [Lopressor] 50 mg PO TID #60 tablet 10/01/18 [Rx] Potassium Chloride 20 meq PO BID #30 packet 10/01/18 [Rx] Warfarin Sodium 2.5 mg PO DAILY #15 tablet 10/01/18 [Rx] Furosemide [Lasix] 80 mg IVPUSH TID vial 10/25/18 [Rx] Metoprolol Tartrate [Lopressor] 50 mg PO TID tablet 10/25/18 [Rx] Piperacillin/Tazobactam [Zosyn] 2.25 gm IV Q8H vial 10/25/18 [Rx] Potassium Chloride [Klor-Con M20] 40 meq PO BID tab.er 10/25/18 [Rx] Vancomycin 0.75 gm IV Q24H sdv 10/25/18 [Rx] Warfarin [Coumadin] 1.5 mg PO DAILY@1400 tablet 10/25/18 [Rx] Oxygen Therapy Mode: Nasal Cannula Oxygen Flow Rate (L/min): 4 Patient Handouts: Cellulitis, Adult, [id number] Referrals: [facility] [Outside] Klai Bender MD [Physician] - 11/03/18 10:15 am - Discharge Summary/Plan Comment DC Time >30 min.: No Discharge Summary/Plan Comment: Discharge Plan Rhonda was initially admitted for cellulitis to [facility] and treated with Vancomycin and Zosyn. Further imaging of [facility] revealed (CT) non specific subcutaneous fath stranding and infiltration, no deep tissue inflammatory changes. no osteomyelitis. No DVT. Dr Garay was consulted due to his knowledge of patient and recent increase in Lasix as outpatient. She was suspected to be overdiuresed and given some IVFs. She quickly became overloaded and was started on Lasix. She eventually has continued to gain weight and need more oxygen, now 4 L NC from 1 L NC due to decompensated CHF. She was given Lasix 80 mg TID yesterday and voided 500 ml overnight. BUN and CR continue dto elevated, BUN 41 and Cr 2.[address] Garay requested her to be transferred to be seen by interventional cardiology and consult by nephrology due to the need for further diuresis. I spoke with Dr Castano this morning, who accepted transfer in [facility] in [place]. She will be transferred via [facility] today. Dr Garay spoke with patient and family regarding his recommendation for transfer as well as myself and Dr Alvares. They are agreeable. Please see Dr Garay's consultation notes. Rhonda is scheduled to go go [place] beginning of November for mitral valve ablation. - General Info Date of Service: 10/25/18 Admission Dx/Problem (Free Text: 83F hx CAD LAD PCI severe PVC bilat SFA occlusion with occluded rt fem pop bypass with high grade PVD in the left LE. Severe MR, mild LV systolic dysfunction, HLP former smoker, CKD, persistent afib, with left leg pain with chronic wound on the left leg, ROSELYN on CKD Subjective Update: Sittin gup in chair, dyspneic with speech. No chest pain. agreeable to transfer to [place]. reports more weight gain today. Pain is tolerable to LLE. Functional Status: Reports: Pain Controlled, Tolerating Diet, Ambulating, Urinating - Review of Systems General: Reports: No Symptoms. Denies: Fever, Weakness, Fatigue Pulmonary: Reports: Shortness of Breath 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: Reports: Dyspnea on Exertion. Denies: Chest Pain Gastrointestinal: Reports: No Symptoms. Denies: Abdominal Pain, Nausea, Vomiting Genitourinary: Reports: No Symptoms. Denies: Dysuria, Frequency, Burning Musculoskeletal: Reports: Leg Pain (to wound on posterior calf) Skin: Reports: No Symptoms Neurological: Reports: No Symptoms Psychiatric: Reports: No Symptoms - Patient Data Vitals - Most Recent: Last Vital Signs Temp 97.0 F 10/25/18 04:00 Pulse 71 10/25/18 05:49 Resp 16 10/25/18 04:00 BP 123/68 10/25/18 05:49 Pulse Ox 90 L 10/25/18 04:00 Weight - Most Recent: 59.024 kg I&O - Last 24 hours: Intake & Output 10/24/18 10/25/18 10/25/18 22:59 06:59 14:59 Intake Total 750 410 Output Total 500 700 Balance 250 -290 Lab Results - Last 24 hrs: Laboratory Results - last 24 hr 10/25/18 10/25/18 10/25/18 Range/Units 05:10 05:10 05:10 WBC 18.82 H (4.0-11.0) K/uL RBC 3.59 L (4.30-5.90) M/uL Hgb 10.7 L (12.0-16.0) g/dL Hct 34.7 L (36.0-46.0) % MCV 96.7 (80.0-98.0) fL MCH 29.8 (27.0-32.0) pg MCHC 30.8 L (31.0-37.0) g/dL RDW Std Deviation 56.0 (28.0-62.0) fl RDW Coeff of Erickson 16 H (11.0-15.0) % Plt Count 313 (150-400) K/uL MPV 10.80 (7.40-12.00) fL Add Manual Diff YES Neutrophils % (Manual) 78 (48.0-80.0) % Band Neutrophils % 1 % Lymphocytes % (Manual) 14 L (16.0-40.0) % Monocytes % (Manual) 3 (0.0-15.0) % Metamyelocytes % 4 % Nucleated RBC % 1.3 /100WBC Absolute Seg Neuts 14.7 H (1.4-5.7) Band Neutrophils # 0.2 Lymphocytes # (Manual) 2.6 H (0.6-2.4) Monocytes # (Manual) 0.6 (0.0-0.8) Absolute Metamyelocyte 0.8 Nucleated RBCs 1 % Nucleated RBCs # 0 K/uL INR 3.24 Sodium 142 (136-145) mmol/L Potassium 4.9 (3.5-5.1) mmol/L Chloride 106 (98-107) mmol/L Carbon Dioxide 24.6 (21.0-32.0) mmol/L BUN 41 H (7.0-18.0) mg/dL Creatinine 2.4 H (0.6-1.0) mg/dL Est Cr Clr Drug Dosing 14.43 mL/min Estimated GFR (MDRD) 19.2 ml/min Glucose 108 H (74-106) mg/dL Calcium 8.5 (8.5-10.1) mg/dL Med Orders - Current: Current Medications Furosemide (Lasix) 80 mg IVPUSH TID [facility] Last Admin: 10/25/18 05:49 Dose: 80 mg Piperacillin Sod/Tazobactam (Sod 2.25 gm/ Sodium Chloride) 50 mls @ 100 mls/hr IV Q8H [facility] Last Admin: 10/25/18 09:01 Dose: 100 mls/hr Vancomycin HCl 0.75 gm/ Sodium (Chloride) 150 mls @ 150 mls/hr IV Q24H [facility] Last Admin: 10/24/18 17:01 Dose: 150 mls/hr Metoprolol Tartrate (Lopressor) 50 mg PO TID [facility] Last Admin: 10/25/18 05:49 Dose: 50 mg Morphine Sulfate (Morphine) 2 mg IVPUSH Q2H PRN PRN Reason: Pain (severe 7-10) Last Admin: 10/25/18 08:05 Dose: 2 mg Ondansetron HCl (Zofran) 4 mg IVPUSH Q4H PRN PRN Reason: Nausea/Vomiting Oxycodone HCl (Oxycodone) 5 mg PO Q4H PRN PRN Reason: Pain Last Admin: 10/25/18 05:50 Dose: 5 mg Potassium Chloride (Klor-Con M20) 40 meq PO BID [facility] Last Admin: 10/25/18 08:53 Dose: 40 meq Sodium Chloride (Saline Flush) 10 ml FLUSH ASDIRECTED PRN PRN Reason: Keep Vein Open Last Admin: 10/18/18 10:12 Dose: 10 ml Sodium Chloride (Saline Flush) 2.5 ml FLUSH ASDIRECTED PRN PRN Reason: Keep Vein Open Last Admin: 10/20/18 16:33 Dose: 2.5 ml Sodium Chloride (Saline Flush) 10 ml FLUSH ASDIRECTED PRN PRN Reason: Keep Vein Open Sodium Chloride (Saline Flush) 2.5 ml FLUSH ASDIRECTED PRN PRN Reason: Keep Vein Open Vancomycin HCl (Pharmacy To Dose - Vancomycin) 1 dose .XX ASDIRECTED [facility] Warfarin Sodium (Coumadin Ask) 1 each PO DAILY@1400 [facility] Last Admin: 10/24/18 15:08 Dose: Not Given Warfarin Sodium (Coumadin) 1.5 mg PO DAILY@1400 [facility] Discontinued Medications Acetaminophen (Tylenol) 650 mg PO NOW ONE Stop: 10/18/18 09:59 Last Admin: 10/18/18 10:12 Dose: 650 mg Hydrocodone Bitart/Acetaminophen ([place] 325-5 Mg) 1 tab PO ONETIME ONE Stop: 10/18/18 11:43 Last Admin: 10/18/18 11:54 Dose: 1 tab Bumetanide (Bumex) 1 mg IVPUSH ONETIME ONE Stop: 10/23/18 09:26 Last Admin: 10/23/18 10:52 Dose: Not Given Digoxin (Lanoxin) 250 mcg IVPUSH ONETIME ONE Stop: 10/21/18 12:03 Last Admin: 10/21/18 12:35 Dose: 250 mcg Digoxin (Lanoxin) 250 mcg PO ONETIME ONE Stop: 10/22/18 12:30 Last Admin: 10/22/18 12:55 Dose: 250 mcg Diltiazem HCl (Diltiazem) 5 mg IVPUSH ONETIME ONE Stop: 10/18/18 09:59 Last Admin: 10/18/18 10:12 Dose: 5 mg Furosemide (Lasix) 20 mg PO ONETIME ONE Stop: 10/21/18 10:27 Last Admin: 10/21/18 11:47 Dose: 20 mg Furosemide (Lasix) 60 mg IVPUSH ONETIME ONE Stop: 10/22/18 14:17 Furosemide (Lasix) 60 mg IVPUSH ONETIME ONE Stop: 10/21/18 14:25 Last Admin: 10/21/18 14:30 Dose: 60 mg Furosemide (Lasix) 60 mg IVPUSH NOW ONE Stop: 10/22/18 08:21 Last Admin: 10/22/18 08:47 Dose: 60 mg Furosemide (Lasix) 60 mg IVPUSH NOW ONE Stop: 10/22/18 16:29 Last Admin: 10/22/18 16:36 Dose: 60 mg Furosemide (Lasix) 80 mg IVPUSH NOW ONE Stop: 10/23/18 10:02 Last Admin: 10/23/18 10:57 Dose: 80 mg Furosemide (Lasix) 80 mg IVPUSH NOW ONE Stop: 10/23/18 19:49 Last Admin: 10/24/18 20:12 Dose: Not Given Furosemide (Lasix) 80 mg IVPUSH NOW ONE Stop: 10/23/18 20:46 Last Admin: 10/23/18 20:41 Dose: 80 mg Hydromorphone HCl (Dilaudid) 0.5 mg IVPUSH Q4H PRN PRN Reason: Pain (severe 7-10) Last Admin: 10/18/18 15:13 Dose: 0.5 mg Sodium Chloride (Normal Saline) 1,000 mls @ 50 mls/hr IV ASDIRECTED [facility] Last Admin: 10/18/18 10:12 Dose: 50 mls/hr Levofloxacin/Dextrose 750 mg/ (Premix) 150 mls @ 100 mls/hr IV ONETIME ONE Stop: 10/18/18 13:21 Last Admin: 10/18/18 12:07 Dose: 100 mls/hr Piperacillin Sod/Tazobactam (Sod 2.25 gm/ Sodium Chloride) 50 mls @ 100 mls/hr IV Q6H [facility] Last Admin: 10/19/18 09:08 Dose: 100 mls/hr Vancomycin HCl 0.75 gm/ Sodium (Chloride) 250 mls @ 166.667 mls/hr IV Q24H [facility] Last Admin: 10/20/18 16:56 Dose: Not Given Sodium Chloride (Normal Saline) 1,000 mls @ 50 mls/hr IV ASDIRECTED [facility] Last Admin: 10/19/18 14:10 Dose: 50 mls/hr Vancomycin HCl 1 gm/ Sodium (Chloride) 250 mls @ 166.667 mls/hr IV Q24H [facility] Last Admin: 10/22/18 17:34 Dose: Not Given Vancomycin HCl 1 gm/ Sodium (Chloride) 250 mls @ 166.667 mls/hr IV Q24H [facility] Last Admin: 10/23/18 17:31 Dose: 166.667 mls/hr Furosemide 80 mg/ Sodium (Chloride) 58 mls @ 116 mls/hr IV ONETIME ONE Stop: 10/23/18 20:29 Last Admin: 10/24/18 20:12 Dose: Not Given Vancomycin HCl 0.75 gm/ Sodium (Chloride) 150 mls @ 150 mls/hr IV Q24H [facility] Metoprolol Tartrate (Lopressor) 50 mg PO Q12H [facility] Last Admin: 10/19/18 03:58 Dose: Not Given Metoprolol Tartrate (Lopressor) 50 mg PO TID [facility] Metoprolol Tartrate (Lopressor) 50 mg PO TID [facility] Last Admin: 10/19/18 10:26 Dose: Not Given Metoprolol Tartrate (Lopressor) 25 mg PO TID [facility] Last Admin: 10/21/18 05:41 Dose: 25 mg Metoprolol Tartrate (Lopressor) 25 mg PO ONETIME ONE Stop: 10/21/18 11:53 Last Admin: 10/21/18 12:35 Dose: 25 mg Morphine Sulfate (Morphine) 1 mg IVPUSH ONETIME ONE Stop: 10/18/18 09:59 Last Admin: 10/18/18 10:12 Dose: 1 mg Morphine Sulfate (Morphine) 2 mg IVPUSH ONETIME ONE Stop: 10/18/18 16:11 Last Admin: 10/18/18 16:26 Dose: 2 mg Warfarin Sodium (Coumadin) 2.5 mg PO DAILY@1400 [facility] Warfarin Sodium (Coumadin Ask) 1 each PO DAILY@1400 [facility] Last Admin: 10/19/18 14:08 Dose: Not Given Warfarin Sodium (Coumadin) 5 mg PO 10/20/18@1400 [facility] Stop: 10/20/18 14:01 Last Admin: 10/20/18 16:31 Dose: Not Given Warfarin Sodium (Coumadin) 5 mg PO NOW ONE Stop: 10/20/18 16:31 Last Admin: 10/20/18 16:30 Dose: 5 mg Warfarin Sodium (Coumadin) 2.5 mg PO ONETIME ONE Stop: 10/21/18 14:16 Last Admin: 10/21/18 14:18 Dose: 2.5 mg Warfarin Sodium (Coumadin) 2.5 mg PO DAILY@1400 [facility] Warfarin Sodium (Coumadin) 2.5 mg PO DAILY@1400 [facility] Warfarin Sodium (Coumadin) 2 mg PO DAILY@1400 [facility] Last Admin: 10/24/18 15:02 Dose: 2 mg - Exam Quality Assessment: Reports: Supplemental Oxygen, DVT Prophylaxis General: Reports: Alert, Oriented, Cooperative, No Acute Distress Neck: Reports: Supple Lungs: Reports: Decreased Breath Sounds, Crackles (bibasilar) 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: Reports: Regular Rate, Irregular Rhythm GI/Abdominal Exam: Normal Bowel Sounds, Soft, Non-Tender, No Organomegaly Extremities: Normal Range of Motion, Pedal Edema (+2 pitting edema) Skin: Reports: Warm, Dry Wound/Incisions: Reports: Dressing Dry and Intact (LLE. ) Neurological: Reports: No New Focal Deficit Psy/Mental Status: Reports: Alert, Normal Affect, Normal Mood
[2018-10-25 10:05] VITALS: BP 96/57
== END 2018-10-25 11:00 | DRG 602 ==
LOC: MW.ED 09:35 → MW.MS 12:16 → OBSVTOIN 10-19 13:40 → UNDODISIN 10-25 11:00
PROVIDERS: ADMIT Internal Medicine; ATTEND Internal Medicine
DX: L03.116 Cellulitis of left lower limb (principal); I50.33 Acute on chronic diastolic (congestive) heart failure; I70.92 Chronic total occlusion of artery of the extremities; N17.9 Acute kidney failure, unspecified; I73.9 Peripheral vascular disease, unspecified; I13.0 Hypertensive heart and chronic kidney disease with heart failure and stage 1 through stage 4 chronic kidney disease, or unspecified chronic kidney disease; I42.0 Dilated cardiomyopathy; I48.1 Persistent atrial fibrillation; I11.0 Hypertensive heart disease with heart failure; L97.429 Non-pressure chronic ulcer of left heel and midfoot with unspecified severity; L97.229 Non-pressure chronic ulcer of left calf with unspecified severity; I70.244 Atherosclerosis of native arteries of left leg with ulceration of heel and midfoot; I48.2 Chronic atrial fibrillation; I25.10 Atherosclerotic heart disease of native coronary artery without angina pectoris; I34.0 Nonrheumatic mitral (valve) insufficiency; I70.301 Unspecified atherosclerosis of unspecified type of bypass graft(s) of the extremities, right leg; I50.9 Heart failure, unspecified; R09.02 Hypoxemia; J90 Pleural effusion, not elsewhere classified; S81.802A Unspecified open wound, left lower leg, initial encounter; M79.605 Pain in left leg; E78.5 Hyperlipidemia, unspecified; I87.8 Other specified disorders of veins; I87.2 Venous insufficiency (chronic) (peripheral); N18.9 Chronic kidney disease, unspecified; E78.00 Pure hypercholesterolemia, unspecified; J44.9 Chronic obstructive pulmonary disease, unspecified; M19.90 Unspecified osteoarthritis, unspecified site; E03.9 Hypothyroidism, unspecified; M35.3 Polymyalgia rheumatica; R79.1 Abnormal coagulation profile; H54.7 Unspecified visual loss; Z86.73 Personal history of transient ischemic attack (TIA), and cerebral infarction without residual deficits; Z79.01 Long term (current) use of anticoagulants; Z79.82 Long term (current) use of aspirin; Z79.890 Hormone replacement therapy; Z99.81 Dependence on supplemental oxygen; Z95.5 Presence of coronary angioplasty implant and graft; Z87.891 Personal history of nicotine dependence; Z91.11 Patient's noncompliance with dietary regimen
CPT/HCPCS: 36415 ×2; 71045; 73590; 73700; 80053 ×2; 82962 ×3; 83036; 83605 ×2; 83880; 84439; 84443; 84484; 85025 ×2; 85610; 87040 ×2; 87070; 93005 ×2; 93922; 93971; 96361; 96365; 96375; 99285; A9270 ×7; J1170; J1956; J2270 ×3; J2543 ×4; J3370; J3490; J7040; J7050 ×5; 71046; 71046-26; 80048; 80202; 81001; 87077; 87186; 87324; 93926; 93926-26; 97161-GP; 97530-GP; J1160; J1940

== ENCOUNTER 2018-11-11 08:56 | Observation (INO) | payer MEDICARE, BC ==
[2018-11-11] MEDS ORDERED: Sodium Chloride 0.9% 10 ML Syringe FLUSH PRN (09:06)
[2018-11-11] MEDS ORDERED: Sodium Chloride 0.9% 2.5 ML Syringe FLUSH PRN (09:06)
[2018-11-11] MEDS ORDERED: Ondansetron 4 MG/2 ML SDV IVPUSH ONE ×2 (09:07→11:35)
[2018-11-11] MEDS ORDERED: Sodium Chloride 0.9% 1,000 ML IV SCH ×2 (09:15→13:30)
[2018-11-11] MEDS ORDERED: Diltiazem 25 MG/5 ML SDV IVPUSH ONE (09:16)
--- NOTE | 2018-11-11 09:35 | CR ---
EXAMINATION: Portable chest radiograph. HISTORY: Cardiac. Comparison: 10/22/2018. FINDINGS: The trachea is midline. The heart is normal in size for technique. Chronic interstitial prominence is noted. Small left pleural effusion. Aortic calcifications are present. Osseous structures appear unremarkable. IMPRESSION: 1. Chronic interstitial prominence and small left pleural effusion.
--- NOTE | 2018-11-11 09:36 | EDM.PDOC ---
ED HPI GENERAL MEDICAL PROBLEM - General Chief Complaint: Gastrointestinal Problem Stated Complaint: AMB Time Seen by Provider: 11/11/18 09:15 - History of Present Illness INITIAL COMMENTS - FREE TEXT/NARRATIVE: HISTORY AND PHYSICAL: History of present illness: Patient is an 83-year-old white female with multiple medical problems including H of fibrillation presents with concern of abdominal pain and nausea 1 day she denies chest pain shortness of breath fever chills or other complaints. Review of systems: As per history of present illness and below otherwise all systems reviewed and negative. Past medical history: As per history of present illness and as reviewed below otherwise noncontributory. Surgical history: As per history of present illness and as reviewed below otherwise noncontributory. Social history: No reported history of drug or alcohol abuse. Family history: As per history of present illness and as reviewed below otherwise noncontributory. Physical exam: HEENT: Atraumatic, normocephalic, pupils reactive, negative for conjunctival pallor or scleral icterus, mucous membranes moist, throat clear, neck supple, nontender, trachea midline. Lungs: Clear to auscultation, breath sounds equal bilaterally, chest nontender. Heart: S1S2, irregularly irregular tachycardic, negative for clicks, rubs, or JVD. Abdomen: Soft, nondistended, no localized tenderness. Negative for masses or hepatosplenomegaly. Negative for costovertebral tenderness. Pelvis: Stable nontender. Genitourinary: Deferred. Rectal: Deferred. Extremities: Atraumatic, negative for cords or calf pain. Neurovascular unremarkable. Neuro: Awake, alert, oriented. Cranial nerves II through XII unremarkable. Cerebellum unremarkable. Motor and sensory unremarkable throughout. Exam nonfocal. Diagnostics: CBC CMP troponin PT/INR chest x-ray EKG lipase CT abdomen and pelvis with IV contrast Therapeutics: Saline at 125 mL an hour Cardizem 25 mg IV Zofran 4 mg IV Impression: #1 abdominal pain #2 nausea #3 atrial fibrillation with rapid ventricular response Definitive disposition and diagnosis as appropriate pending reevaluation and review of above. - Related Data Allergies Allergy/AdvReac Type Severity Reaction Status Date / Time No Known Allergies Allergy Verified 11/11/18 09:00 Home Meds: Home Meds Calcium Carbonate [Calcium] 1,200 mg PO DAILY 04/27/17 [History] Levothyroxine [Synthroid] 100 mcg PO QAM 04/27/17 [History] Lutein 20 mg PO DAILY 04/27/17 [History] Multivitamin/Iron/Folic Acid [Centrum Adults Tablet] 1 tab PO DAILY 04/27/17 [ History] Rosuvastatin [Crestor] 20 mg PO MOWEFR@1200 04/27/17 [History] Acetaminophen with Codeine [Tylenol with Codeine #3 Tablet] 1 tab PO BID PRN 06/04 [History] Diltiazem HCl [Cartia Xt] 180 mg PO DAILY 09/16/18 [History] Rosuvastatin [Crestor] 10 mg PO SUTUTHSA@1200 09/28/18 [History] Aspirin 81 mg PO DAILY tab.chew 10/01/18 [Rx] Furosemide [Lasix] 60 mg PO BID #90 tablet 10/01/18 [Rx] Metoprolol Tartrate [Lopressor] 50 mg PO TID #60 tablet 10/01/18 [Rx] Potassium Chloride 20 meq PO BID #30 packet 10/01/18 [Rx] Warfarin Sodium 2.5 mg PO DAILY #15 tablet 10/01/18 [Rx] Furosemide [Lasix] 80 mg IVPUSH TID vial 10/25/18 [Rx] Metoprolol Tartrate [Lopressor] 50 mg PO TID tablet 10/25/18 [Rx] Piperacillin/Tazobactam [Zosyn] 2.25 gm IV Q8H vial 10/25/18 [Rx] Potassium Chloride [Klor-Con M20] 40 meq PO BID tab.er 10/25/18 [Rx] Vancomycin 0.75 gm IV Q24H sdv 10/25/18 [Rx] Warfarin [Coumadin] 1.5 mg PO DAILY@1400 tablet 10/25/18 [Rx] Past Medical History HEENT History: Reports: Impaired Vision, Other (See Below) Other HEENT History: wears glasses 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 History: 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, Heart Failure, 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, Hypertension, Stents Other 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 History: leaky valve, clogged arteries Respiratory History: Reports: COPD, Other (See Below) Other Respiratory History: on 02 at home (2liters in AM, 3liters in pm); pneumonia 3 weeks ago Gastrointestinal History: Reports: None Genitourinary History: Reports: None 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: Musculoskeletal History: Reports: Arthritis Neurological History: Reports: Other (See Below) Other Neuro History: small stroke 3 weeks ago Psychiatric History: Reports: None Endocrine/Metabolic History: Reports: Hypothyroidism Hematologic History: Reports: None Immunologic History: Reports: None Oncologic (Cancer) History: Reports: None Dermatologic History: Reports: None - Infectious Disease History Infectious Disease History: Reports: Chicken Pox, Measles, Mumps - Past Surgical History Head Surgeries/Procedures: Reports: None HEENT Surgical History: Reports: Cataract Surgery Other HEENT Surgeries/Procedures: cataract x2 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 Surgical History: Reports: None Respiratory Surgical History: Reports: Thoracentesis GI Surgical History: Reports: None Female Surgical History: Reports: None Endocrine Surgical History: Reports: None Neurological Surgical History: Reports: None Musculoskeletal Surgical History: Reports: None Oncologic Surgical History: Reports: Biopsy of Breast Dermatological Surgical History: Reports: None Social & Family History - Family History Family Medical History: Noncontributory - Tobacco Use Smoking Status *Q: Former Smoker Used Tobacco, but Quit: Yes Month/Year Tobacco Last Used: 30 years - Caffeine Use Caffeine Use: Reports: None - Recreational Drug Use Recreational Drug Use: No - Living Situation & Occupation Living situation: Reports: , with Significant Other Occupation: Retired ED ROS GENERAL - Review of Systems Review Of Systems: ROS reveals no pertinent complaints other than HPI. ED EXAM, GENERAL - Physical Exam Exam: See Below (See dictation) Course - Vital Signs Last Recorded V/S: Last Vital Signs Temp 36.0 C 11/11/18 08:59 Pulse 74 11/11/18 11:09 Resp 24 H 11/11/18 11:09 BP 97/57 L 11/11/18 11:09 Pulse Ox 99 11/11/18 11:09 - Orders/Labs/Meds Orders: Active Orders 24 hr Category Date Time Status EKG 12 Lead [EKG Documentation Completion] [] STAT Care 11/11/18 09:07 Active Oxygen Therapy Adult [Oxygen Therapy, ED] [] Care 11/11/18 09:23 Active ASDIRECTED Oxygen Therapy [] ASDIRECTED Care 11/11/18 09:18 Inactive Sodium Chloride 0.9% [Normal Saline] 1,000 ml Med 11/11/18 09:15 Active IV ASDIRECTED Sodium Chloride 0.9% [Saline Flush] Med 11/11/18 09:06 Active 10 ml FLUSH ASDIRECTED PRN Sodium Chloride 0.9% [Saline Flush] Med 11/11/18 09:06 Active 2.5 ml FLUSH ASDIRECTED PRN fentaNYL [Sublimaze] Med 11/11/18 11:36 Active 25 mcg IVPUSH Q5M PRN Saline Lock Insert [OM.PC] Stat Oth 11/11/18 09:06 Ordered Medication Orders Fentanyl (Sublimaze) 25 mcg IVPUSH Q5M PRN PRN Reason: Pain Last Admin: 11/11/18 11:42 Dose: 25 mcg Sodium Chloride (Normal Saline) 1,000 mls @ 125 mls/hr IV ASDIRECTED YAKELIN Last Admin: 11/11/18 09:30 Dose: 125 mls/hr Sodium Chloride (Saline Flush) 10 ml FLUSH ASDIRECTED PRN PRN Reason: Keep Vein Open Sodium Chloride (Saline Flush) 2.5 ml FLUSH ASDIRECTED PRN PRN Reason: Keep Vein Open Labs: Laboratory Tests 11/11/18 11/11/18 11/11/18 Range/Units 09:34 09:34 09:34 WBC 10.95 (4.0-11.0) K/uL RBC 3.39 L (4.30-5.90) M/uL Hgb 10.1 L (12.0-16.0) g/dL Hct 32.9 L (36.0-46.0) % MCV 97.1 (80.0-98.0) fL MCH 29.8 (27.0-32.0) pg MCHC 30.7 L (31.0-37.0) g/dL RDW Std Deviation 60.1 (28.0-62.0) fl RDW Coeff of Erickson 17 H (11.0-15.0) % Plt Count 270 (150-400) K/uL MPV 11.10 (7.40-12.00) fL Neut % (Auto) 84.5 H (48.0-80.0) % Lymph % (Auto) 7.8 L (16.0-40.0) % Crosby % (Auto) 7.6 (0.0-15.0) % Eos % (Auto) 0.0 (0.0-7.0) % Baso % (Auto) 0.1 (0.0-1.5) % Neut # (Auto) 9.3 H (1.4-5.7) K/uL Lymph # (Auto) 0.9 (0.6-2.4) K/uL Crosby # (Auto) 0.8 (0.0-0.8) K/uL Eos # (Auto) 0.0 (0.0-0.7) K/uL Baso # (Auto) 0.0 (0.0-0.1) K/uL Nucleated RBC % 0.0 /100WBC Nucleated RBCs # 0 K/uL INR 1.56 Sodium 138 (136-145) mmol/L Potassium 5.6 H (3.5-5.1) mmol/L Chloride 103 (98-107) mmol/L Carbon Dioxide 20.3 L (21.0-32.0) mmol/L BUN 44 H (7.0-18.0) mg/dL Creatinine 2.4 H (0.6-1.0) mg/dL Est Cr Clr Drug Dosing 13.37 mL/min Estimated GFR (MDRD) 19.2 ml/min Glucose 131 H (74-106) mg/dL Calcium 9.0 (8.5-10.1) mg/dL Total Bilirubin 1.6 H (0.2-1.0) mg/dL AST 97 H (15-37) IU/L ALT 118 H (14-63) IU/L Alkaline Phosphatase 212 H (46-116) U/L Troponin I 0.055 (0.000-0.056) ng/mL B-Natriuretic Peptide (<100) PG/ML Total Protein 7.1 (6.4-8.2) g/dL Albumin 2.6 L (3.4-5.0) g/dL Globulin 4.5 H (2.6-4.0) g/dL Albumin/Globulin Ratio 0.6 L (0.9-1.6) Lipase 98 (73-393) U/L TSH 3rd Generation (0.36-3.74) uIU/mL 11/11/18 11/11/18 Range/Units 09:34 09:34 WBC (4.0-11.0) K/uL RBC (4.30-5.90) M/uL Hgb (12.0-16.0) g/dL Hct (36.0-46.0) % MCV (80.0-98.0) fL MCH (27.0-32.0) pg MCHC (31.0-37.0) g/dL RDW Std Deviation (28.0-62.0) fl RDW Coeff of Erickson (11.0-15.0) % Plt Count (150-400) K/uL MPV (7.40-12.00) fL Neut % (Auto) (48.0-80.0) % Lymph % (Auto) (16.0-40.0) % Crosby % (Auto) (0.0-15.0) % Eos % (Auto) (0.0-7.0) % Baso % (Auto) (0.0-1.5) % Neut # (Auto) (1.4-5.7) K/uL Lymph # (Auto) (0.6-2.4) K/uL Crosby # (Auto) (0.0-0.8) K/uL Eos # (Auto) (0.0-0.7) K/uL Baso # (Auto) (0.0-0.1) K/uL Nucleated RBC % /100WBC Nucleated RBCs # K/uL INR Sodium (136-145) mmol/L Potassium (3.5-5.1) mmol/L Chloride (98-107) mmol/L Carbon Dioxide (21.0-32.0) mmol/L BUN (7.0-18.0) mg/dL Creatinine (0.6-1.0) mg/dL Est Cr Clr Drug Dosing mL/min Estimated GFR (MDRD) ml/min Glucose (74-106) mg/dL Calcium (8.5-10.1) mg/dL Total Bilirubin (0.2-1.0) mg/dL AST (15-37) IU/L ALT (14-63) IU/L Alkaline Phosphatase (46-116) U/L Troponin I (0.000-0.056) ng/mL B-Natriuretic Peptide 2667 H (<100) PG/ML Total Protein (6.4-8.2) g/dL Albumin (3.4-5.0) g/dL Globulin (2.6-4.0) g/dL Albumin/Globulin Ratio (0.9-1.6) Lipase (73-393) U/L TSH 3rd Generation 4.36 H (0.36-3.74) uIU/mL Meds: Medications Generic Name Dose Route Start Last Admin Trade Name Freq PRN Reason Stop Dose Admin Fentanyl 25 mcg 11/11/18 11:36 11/11/18 11:42 Sublimaze IVPUSH 25 mcg Q5M PRN Administration Pain Sodium Chloride 1,000 mls @ 125 mls/hr 11/11/18 09:15 11/11/18 09:30 Normal Saline IV 125 mls/hr ASDIRECTED YAKELIN Administration Sodium Chloride 10 ml 11/11/18 09:06 Saline Flush FLUSH ASDIRECTED PRN Keep Vein Open Sodium Chloride 2.5 ml 11/11/18 09:06 Saline Flush FLUSH ASDIRECTED PRN Keep Vein Open Discontinued Medications Generic Name Dose Route Start Last Admin Trade Name Freq PRN Reason Stop Dose Admin Diltiazem HCl 25 mg 11/11/18 09:16 11/11/18 09:31 Diltiazem IVPUSH 11/11/18 09:17 25 mg ONETIME ONE Administration Ondansetron HCl 4 mg 11/11/18 09:07 11/11/18 09:30 Zofran IVPUSH 11/11/18 09:08 4 mg ONETIME ONE Administration Ondansetron HCl 4 mg 11/11/18 11:35 11/11/18 11:41 Zofran IVPUSH 11/11/18 11:36 4 mg ONETIME ONE Administration Departure - Departure Time of Disposition: 12:05 Disposition: Refer to Observation Condition: Good Clinical Impression: Atrial fibrillation with rapid ventricular response, Abdominal pain - Discharge Information Referrals: PCP,Unknown [Primary Care Provider] - Forms: ED Department Discharge - My Orders Last 24 Hours: My Active Orders 11/11/18 09:06 Sodium Chloride 0.9% [Saline Flush] 10 ml FLUSH ASDIRECTED PRN Sodium Chloride 0.9% [Saline Flush] 2.5 ml FLUSH ASDIRECTED PRN Saline Lock Insert [OM.PC] Stat 11/11/18 09:07 EKG 12 Lead [EKG Documentation Completion] [RC] STAT 11/11/18 09:15 Sodium Chloride 0.9% [Normal Saline] 1,000 ml IV ASDIRECTED 11/11/18 09:18 Oxygen Therapy [RC] ASDIRECTED 11/11/18 09:23 Oxygen Therapy Adult [Oxygen Therapy, ED] [RC] ASDIRECTED 11/11/18 11:36 fentaNYL [Sublimaze] 25 mcg IVPUSH Q5M PRN - Assessment/Plan Last 24 Hours: My Active Orders 11/11/18 09:06 Sodium Chloride 0.9% [Saline Flush] 10 ml FLUSH ASDIRECTED PRN Sodium Chloride 0.9% [Saline Flush] 2.5 ml FLUSH ASDIRECTED PRN Saline Lock Insert [OM.PC] Stat 11/11/18 09:07 EKG 12 Lead [EKG Documentation Completion] [] STAT 11/11/18 09:15 Sodium Chloride 0.9% [Normal Saline] 1,000 ml IV ASDIRECTED 11/11/18 09:18 Oxygen Therapy [RC] ASDIRECTED 11/11/18 09:23 Oxygen Therapy Adult [Oxygen Therapy, ED] [RC] ASDIRECTED 11/11/18 11:36 fentaNYL [Sublimaze] 25 mcg IVPUSH Q5M PRN
[2018-11-11] MEDS ORDERED: fentaNYL 100 MCG/2 ML SDV IVPUSH PRN (11:36)
--- NOTE | 2018-11-11 11:40 | CT ---
CT of the abdomen and pelvis without contrast. HISTORY: Vomiting TECHNIQUE: Axial CT images were obtained of the abdomen and pelvis without contrast. Coronal and sagittal reconstructions obtained. FINDINGS: Small to moderate right and small left pleural effusion. Adjacent atelectasis is noted. Relative decreased blood density relative to myocardium suggesting anemia. The liver, spleen, adrenal glands, and pancreas appear unremarkable for noncontrast examination. Pericholecystic and perihepatic fluid is noted. Prominence of the common bile duct also again noted There is no bulky retroperitoneal lymphadenopathy. No abdominal ascites. Nonobstructing nephrolithiasis. Renal cortical cysts noted. No evidence of obstructive uropathy. The large and small bowel are normal in caliber without evidence of obstruction. Mild to moderate diverticulosis without evidence of diverticulitis. There is no bulky pelvic lymphadenopathy. No free air. The urinary bladder appears normal. Chronic mild compression at L1. Grade 1 anterolisthesis of L4 on L5. IMPRESSION: 1. Small amount of abdominal ascites most prominent within the perihepatic and pericholecystic region. Correlate clinically for cholecystitis. 2. Nonobstructing nephrolithiasis. 3. Diverticulosis without evidence of diverticulitis. 4. Small to moderate right and small left pleural effusions, similar to prior CT chest.
[2018-11-11] MEDS ORDERED: Temazepam 15 MG Cap PO PRN (13:25)
[2018-11-11] MEDS ORDERED: Ondansetron 4 MG/2 ML SDV IVPUSH PRN (13:25)
--- NOTE | 2018-11-11 15:31 | PCM.HP ---
<Jo Baker M - Last Filed: 11/11/18 16:23> H&P History of Present Illness - General Date of Service: 11/11/18 Admit Problem/Dx: Admission Diagnosis/Problem Admission Diagnosis/Problem N/V, dehydration Source of Information: Patient, Old Records History Limitations: Reports: No Limitations - History of Present Illness Initial Comments - Free Text/Narative: This 83 year old female with extensive cardiac history including CAD, severe mitral valve regurgitation, PVD, bilateral occlusion of SFA, hx of right fem- pop bypass, dyslipidemia, HTN and recent recurrent admission for CHF. She was recently discharged from [facility] in [place] after being transferred there from our facility due to CHF exacerbation and ROSELYN. She reports she was feeling well for a few days after being sent home. She reports being sent home on 3 days of antibiotics, having had 2 days in the hospital. Three days ago she started having nausea, vomiting, and diarrhea. No overt abdominal pain per say but she reports it doesn't feel well. No black or blood BMs. Reports not taking many of her medications today, only thyroid medicine. Denies chest pain. Dyspnea is at baseline, she is oxygen dependent at home. Her and her family report she has not eaten much in the last few days, and gags with any food she attempts to eat. No fevers or chills at home. In the ED no leukocytosis noted. Hgb 10.1. INR 1.5, K+5.6, BUN 44, Cr 2.4. Bilirubin 1.6 AST 97, ALT 118 and alk phos 212. BNP 2666. CXR revealed small left pleural effusion. Abdominal/pelvis CT revealed small amount of abdominal ascites most prominent within the perihepatic and pericholecystic region, correlate clinically for cholecystitis. Non-obstructing nephrolithiasis, diverticulosis without diverticulitis, and small to moderate R and small left pleural effusions, similar to prior CT. She will be admitted observation due to dehydration along with N/V. - Related Data Allergies/Adverse Reactions: Allergies Allergy/AdvReac Type Severity Reaction Status Date / Time No Known Allergies Allergy Verified 11/11/18 09:00 Home Medications: Home Meds Calcium Carbonate [Calcium] 1,200 mg PO DAILY 04/27/17 [History] Levothyroxine [Synthroid] 125 mcg PO QAM 04/27/17 [History] Lutein 20 mg PO DAILY 04/27/17 [History] Multivitamin/Iron/Folic Acid [Centrum Adults Tablet] 1 tab PO DAILY 04/27/17 [ History] Rosuvastatin [Crestor] 20 mg PO MOWEFR@1200 04/27/17 [History] Rosuvastatin [Crestor] 10 mg PO SUTUTHSA@1200 09/28/18 [History] Apixaban [Eliquis] 2.5 mg PO BID 11/11/18 [History] Aspirin 40.5 mg PO DAILY 11/11/18 [History] Furosemide [Lasix] 20 mg PO .12 11/11/18 [History] Furosemide [Lasix] 80 mg PO DAILY 11/11/18 [History] Metoprolol Tartrate [Lopressor] 50 mg PO DAILY 11/11/18 [History] Potassium Chloride 20 meq PO TID 11/11/18 [History] hydrALAZINE HCl [Hydralazine HCl] 25 mg PO BID 11/11/18 [History] Past Medical History HEENT History: Reports: Impaired Vision, Other (See Below) Other HEENT History: wears glasses 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 History: Reports: Afib, CAD, Heart Failure, 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, Hypertension, SOB on Exertion, Stents Other 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 History: leaky valve, clogged arteries Respiratory History: Reports: COPD, Other (See Below) Other Respiratory History: on 02 at home (2liters in AM, 3liters in pm); pneumonia 3 weeks ago Gastrointestinal History: Reports: None Genitourinary History: Reports: Chronic Renal Insuffiency 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: Musculoskeletal History: Reports: Arthritis Neurological History: Reports: TIA Psychiatric History: Reports: None Endocrine/Metabolic History: Reports: Hypothyroidism Hematologic History: Reports: None Immunologic History: Reports: None Oncologic (Cancer) History: Reports: None Dermatologic History: Reports: None - Infectious Disease History Infectious Disease History: Reports: Chicken Pox, Measles, Mumps - Past Surgical History Head Surgeries/Procedures: Reports: None HEENT Surgical History: Reports: Cataract Surgery Other HEENT Surgeries/Procedures: cataract x2 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 Surgical History: Reports: Vascular Surgery (fem pop bypass) Respiratory Surgical History: Reports: Thoracentesis GI Surgical History: Reports: None Female Surgical History: Reports: None Endocrine Surgical History: Reports: None Neurological Surgical History: Reports: None Musculoskeletal Surgical History: Reports: None Oncologic Surgical History: Reports: Biopsy of Breast Dermatological Surgical History: Reports: None Social & Family History - Family History Family Medical History: Noncontributory - Tobacco Use Smoking Status *Q: Former Smoker Used Tobacco, but Quit: Yes Month/Year Tobacco Last Used: 1998 Second Hand Smoke Exposure: No - Caffeine Use Caffeine Use: Reports: Coffee - Recreational Drug Use Recreational Drug Use: No - Living Situation & Occupation Living situation: Reports: , with Significant Other Occupation: Retired H&P Review of Systems - Review of Systems: Review Of Systems: See Below General: Reports: Malaise, Weakness, Fatigue, Decreased Appetite. Denies: Fever , Chills HEENT: Reports: No Symptoms. Denies: Eye Pain, Headaches, Sinus Congestion, Visual Changes Pulmonary: Reports: Shortness of Breath (at baseline). Denies: Cough 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: Reports: Dyspnea on Exertion, Edema. Denies: Chest Pain, Palpitations Gastrointestinal: Reports: Abdominal Pain, Diarrhea, Decreased Appetite, Nausea , Stool Incontinence, Vomiting. Denies: Black Stool, Bloody Stool Genitourinary: Reports: No Symptoms. Denies: Dysuria, Frequency, Burning, Pain Musculoskeletal: Reports: No Symptoms Skin: Reports: Wound (Left lower leg and now heals after beeing hospitalized previously) Neurological: Reports: No Symptoms Hematologic/Lymphatic: Reports: No Symptoms Immunologic: Reports: No Symptoms Exam - Exam Exam: See Below - Vital Signs Vital Signs: Last Vital Signs Temp 97.5 F 11/11/18 13:40 Pulse 95 11/11/18 13:40 Resp 18 11/11/18 13:40 BP 131/96 H 11/11/18 13:40 Pulse Ox 94 L 11/11/18 13:40 Weight: 52.934 kg - Exam Quality Assessment: Supplemental Oxygen General: Alert, Oriented, Cooperative HEENT: Conjunctiva Clear, Posterior Pharynx Clear, Pupils Reactive. No: Mucosa Moist & Kotlik (dry) Neck: Supple, Trachea Midline. No: JVD Lungs: Clear to Auscultation, Normal Respiratory Effort 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: Regular Rate, Irregular Rhythm. No: Normal S1, Normal S2 GI/Abdominal Exam: Normal Bowel Sounds, Soft, No Distention, No Mass, Tender ( RUQ) Extremities: Normal Range of Motion, Non-Tender, No Pedal Edema Skin: Wound (L heal and l posterior calf, dressings intact, no erythema noted.) Neuro Extensive - Mental Status: Alert, Oriented x3 Neuro Extensive - Motor, Sensory, Reflexes: CN II-XII Intact Psychiatric: Alert, Normal Affect, Normal Mood - Patient Data Lab Results Last 24 hrs: Laboratory Results - last 24 hr 11/11/18 11/11/18 11/11/18 Range/Units 09:34 09:34 09:34 WBC 10.95 (4.0-11.0) K/uL RBC 3.39 L (4.30-5.90) M/uL Hgb 10.1 L (12.0-16.0) g/dL Hct 32.9 L (36.0-46.0) % MCV 97.1 (80.0-98.0) fL MCH 29.8 (27.0-32.0) pg MCHC 30.7 L (31.0-37.0) g/dL RDW Std Deviation 60.1 (28.0-62.0) fl RDW Coeff of Erickson 17 H (11.0-15.0) % Plt Count 270 (150-400) K/uL MPV 11.10 (7.40-12.00) fL Neut % (Auto) 84.5 H (48.0-80.0) % Lymph % (Auto) 7.8 L (16.0-40.0) % [place] % (Auto) 7.6 (0.0-15.0) % Eos % (Auto) 0.0 (0.0-7.0) % Baso % (Auto) 0.1 (0.0-1.5) % Neut # (Auto) 9.3 H (1.4-5.7) K/uL Lymph # (Auto) 0.9 (0.6-2.4) K/uL [place] # (Auto) 0.8 (0.0-0.8) K/uL Eos # (Auto) 0.0 (0.0-0.7) K/uL Baso # (Auto) 0.0 (0.0-0.1) K/uL Nucleated RBC % 0.0 /100WBC Nucleated RBCs # 0 K/uL INR 1.56 Sodium 138 (136-145) mmol/L Potassium 5.6 H (3.5-5.1) mmol/L Chloride 103 (98-107) mmol/L Carbon Dioxide 20.3 L (21.0-32.0) mmol/L BUN 44 H (7.0-18.0) mg/dL Creatinine 2.4 H (0.6-1.0) mg/dL Est Cr Clr Drug Dosing 13.37 mL/min Estimated GFR (MDRD) 19.2 ml/min Glucose 131 H (74-106) mg/dL Calcium 9.0 (8.5-10.1) mg/dL Total Bilirubin 1.6 H (0.2-1.0) mg/dL AST 97 H (15-37) IU/L ALT 118 H (14-63) IU/L Alkaline Phosphatase 212 H (46-116) U/L Troponin I 0.055 (0.000-0.056) ng/mL B-Natriuretic Peptide (<100) PG/ML Total Protein 7.1 (6.4-8.2) g/dL Albumin 2.6 L (3.4-5.0) g/dL Globulin 4.5 H (2.6-4.0) g/dL Albumin/Globulin Ratio 0.6 L (0.9-1.6) Lipase 98 (73-393) U/L TSH 3rd Generation (0.36-3.74) uIU/mL 11/11/18 11/11/18 Range/Units 09:34 09:34 WBC (4.0-11.0) K/uL RBC (4.30-5.90) M/uL Hgb (12.0-16.0) g/dL Hct (36.0-46.0) % MCV (80.0-98.0) fL MCH (27.0-32.0) pg MCHC (31.0-37.0) g/dL RDW Std Deviation (28.0-62.0) fl RDW Coeff of Erickson (11.0-15.0) % Plt Count (150-400) K/uL MPV (7.40-12.00) fL Neut % (Auto) (48.0-80.0) % Lymph % (Auto) (16.0-40.0) % [place] % (Auto) (0.0-15.0) % Eos % (Auto) (0.0-7.0) % Baso % (Auto) (0.0-1.5) % Neut # (Auto) (1.4-5.7) K/uL Lymph # (Auto) (0.6-2.4) K/uL [place] # (Auto) (0.0-0.8) K/uL Eos # (Auto) (0.0-0.7) K/uL Baso # (Auto) (0.0-0.1) K/uL Nucleated RBC % /100WBC Nucleated RBCs # K/uL INR Sodium (136-145) mmol/L Potassium (3.5-5.1) mmol/L Chloride (98-107) mmol/L Carbon Dioxide (21.0-32.0) mmol/L BUN (7.0-18.0) mg/dL Creatinine (0.6-1.0) mg/dL Est Cr Clr Drug Dosing mL/min Estimated GFR (MDRD) ml/min Glucose (74-106) mg/dL Calcium (8.5-10.1) mg/dL Total Bilirubin (0.2-1.0) mg/dL AST (15-37) IU/L ALT (14-63) IU/L Alkaline Phosphatase (46-116) U/L Troponin I (0.000-0.056) ng/mL B-Natriuretic Peptide 2667 H (<100) PG/ML Total Protein (6.4-8.2) g/dL Albumin (3.4-5.0) g/dL Globulin (2.6-4.0) g/dL Albumin/Globulin Ratio (0.9-1.6) Lipase (73-393) U/L TSH 3rd Generation 4.36 H (0.36-3.74) uIU/mL Result Diagrams: 11/11/18 09:34 11/11/18 09:34 *Q Meaningful Use (ADM) - VTE *Q VTE Mechanical Contraindications *Q: At Risk for Falls VTE Pharmacological Contraindications *Q: High INR Value - Problem List (1) Cholecystitis SNOMED Code(s): 54782921 ICD Code: K81.9 - CHOLECYSTITIS, UNSPECIFIED Status: Suspected (2) Abdominal pain SNOMED Code(s): 82125876 ICD Code: R10.9 - UNSPECIFIED ABDOMINAL PAIN Status: Acute (3) Physical deconditioning SNOMED Code(s): 97856937367413 ICD Code: R53.81 - OTHER MALAISE Status: Acute (4) History of femoropopliteal bypass SNOMED Code(s): 507229447 ICD Code: Z98.890 - OTHER SPECIFIED POSTPROCEDURAL STATES Status: Chronic (5) Bilateral pleural effusion SNOMED Code(s): 960696609 ICD Code: J90 - PLEURAL EFFUSION, NOT ELSEWHERE CLASSIFIED Status: Acute (6) Afib SNOMED Code(s): 34023643 ICD Code: I48.91 - UNSPECIFIED ATRIAL FIBRILLATION Status: Chronic Qualifiers: Atrial fibrillation type: paroxysmal Qualified Code(s): I48.0 - Paroxysmal atrial fibrillation (7) [id number] kidney injury SNOMED Code(s): 203938694 ICD Code: N17.9 - ACUTE KIDNEY FAILURE, UNSPECIFIED; N18.9 - CHRONIC KIDNEY DISEASE, UNSPECIFIED Status: Chronic (8) CAD (coronary artery disease) SNOMED Code(s): 59078035 ICD Code: I25.10 - ATHSCL HEART DISEASE OF LIME CORONARY ARTERY W/O ANG PCTRS Status: Chronic (9) Chronic anticoagulation SNOMED Code(s): 929212705 ICD Code: 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.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 Status: Chronic Priority: High (10) Chronic kidney disease (CKD), stage III (moderate) SNOMED Code(s): 638200109 ICD Code: N18.3 - CHRONIC KIDNEY DISEASE, STAGE 3 (MODERATE) Status: Chronic Priority: High (11) Dyslipidemia SNOMED Code(s): 888009269 ICD Code: E78.5 - HYPERLIPIDEMIA, UNSPECIFIED Status: Chronic (12) Mitral valve regurgitation SNOMED Code(s): 78493794 ICD Code: I34.0 - NONRHEUMATIC MITRAL (VALVE) INSUFFICIENCY Status: Chronic Priority: High Problem Details: Severe mitral regurgitation Qualifiers: Cardiac valve disease etiology: nonrheumatic Qualified Code(s): I34.0 - Nonrheumatic mitral (valve) insufficiency (13) PVD (peripheral vascular disease) SNOMED Code(s): 358047081 ICD Code: I73.9 - PERIPHERAL VASCULAR DISEASE, UNSPECIFIED Status: Chronic (14) Hyperkalemia SNOMED Code(s): 55729403 ICD Code: E87.5 - HYPERKALEMIA Status: Acute Problem List Initiated/Reviewed/Updated: Yes Orders Last 24hrs: Active Orders 24 hr Category Date Time Status Patient Status [ADT] Stat ADT 11/11/18 12:07 Active Notify Provider Consults [RC] ASDIRECTED Care 11/11/18 12:11 Active Oxygen Therapy [RC] ASDIRECTED Care 11/11/18 09:18 Inactive Oxygen Therapy [RC] PRN Care 11/11/18 13:25 Active Telemetry Monitoring [Cardiac Monitoring] [RC] . Care 11/11/18 13:21 Active DIRECTED Up With Assistance [RC] ASDIRECTED Care 11/11/18 13:25 Active VTE/DVT Education [RC] PER UNIT ROUTINE Care 11/11/18 13:25 Active Vital Signs [RC] Q4H Care 11/11/18 13:25 Active Consult to Physician [CONS] Stat Cons 11/11/18 12:10 Active OT Evaluation and Treatment [CONS] Routine Cons 11/11/18 13:25 Active PT Evaluation and Treatment [CONS] Routine Cons 11/11/18 13:25 Active Nothing per Oral Now Diet [DIET] Diet 11/11/18 Dinner Active CBC WITH AUTO DIFF [HEME] AM Lab 11/12/18 05:11 Ordered CDIFF TOX A+B [OP] Routine Lab 11/11/18 13:25 Ordered COMPREHENSIVE METABOLIC PN,CMP [CHEM] AM Lab 11/12/18 05:11 Ordered MAGNESIUM [CHEM] AM Lab 11/12/18 05:11 Ordered Ondansetron [Zofran] Med 11/11/18 13:25 Active 4 mg IVPUSH Q4H PRN Sodium Chloride 0.9% [Normal Saline] 1,000 ml Med 11/11/18 09:15 Active IV ASDIRECTED Sodium Chloride 0.9% [Normal Saline] 1,000 ml Med 11/11/18 13:30 Active IV ASDIRECTED Sodium Chloride 0.9% [Saline Flush] Med 11/11/18 09:06 Active 10 ml FLUSH ASDIRECTED PRN Sodium Chloride 0.9% [Saline Flush] Med 11/11/18 09:06 Active 2.5 ml FLUSH ASDIRECTED PRN Temazepam [Restoril] Med 11/11/18 13:25 Active 15 mg PO BEDTIME PRN fentaNYL [Sublimaze] Med 11/11/18 11:36 Active 25 mcg IVPUSH Q5M PRN Saline Lock Insert [OM.PC] Stat Oth 11/11/18 09:06 Ordered VTE Mechanical Contraindications [AST] Per Unit Routine Oth 11/11/18 13:25 Ordered VTE Pharmacological Contraindications [AST] Per Unit Oth 11/11/18 13:25 Ordered Routine Resuscitation Status Routine Resus Stat 11/11/18 13:25 Ordered Medication Orders Fentanyl (Sublimaze) 25 mcg IVPUSH Q5M PRN PRN Reason: Pain Last Admin: 11/11/18 11:42 Dose: 25 mcg Sodium Chloride (Normal Saline) 1,000 mls @ 125 mls/hr IV ASDIRECTED YAKELIN Last Admin: 11/11/18 09:30 Dose: 125 mls/hr Sodium Chloride (Normal Saline) 1,000 mls @ 75 mls/hr IV ASDIRECTED YAKELIN Last Admin: 11/11/18 14:31 Dose: 75 mls/hr Ondansetron HCl (Zofran) 4 mg IVPUSH Q4H PRN PRN Reason: Vomiting Sodium Chloride (Saline Flush) 10 ml FLUSH ASDIRECTED PRN PRN Reason: Keep Vein Open Sodium Chloride (Saline Flush) 2.5 ml FLUSH ASDIRECTED PRN PRN Reason: Keep Vein Open Temazepam (Restoril) 15 mg PO BEDTIME PRN PRN Reason: Sleep Assessment/Plan Comment:: This 83 year old female admitted for abdominal pain , N/V. 1. Abdominal pain with N/V: Dr Wan consulted, recommended if Bilirubin and transaminitis increase tomorrow he would recommend transfer to a higher level of care due to her co-morbidities. Abdominal US ordered now. NPO with ice chips. 2. Dehydration: Gentle hydration, NS 75 overnight. Monitor fluid status closely due to CHF 3. CHF:Currently stable. Monitor very closely with hx of overload. Strict I/O and daily weights. Continue Home medications, except for Lasix for now. 4. HTN: Stable. will monitor. 5. Transaminitis: Upon review of [place] DC summary, she was noted to have hepatic dysfunction thought to be secondary to congestion. AST 774 ALT 772 but bilirubin was not elevated at that time. 6. A fib: Given Diltiazem in the ED for RVR. HR in low 100s now. Continue home Metoprolol. Monitor. Continue Eliquis. 7. Hyperkalemia: Was taking supplements. No peaked Ts on EKG, will recheck this evening. VTE prophylaxis: Eliquis Dispo: 1-2 days pending improvement. <Deondre Power - Last Filed: 11/12/18 06:40> H&P History of Present Illness - General Admit Problem/Dx: Admission Diagnosis/Problem Admission Diagnosis/Problem Atrial fibrillation with rapid ventricular response - History of Present Illness Initial Comments - Free Text/Narative: I have examined the patient independently of Jo Baker CNP. I have discussed the case with her. I have reviewed and agree with the plan of care as outlined by her. Please see orders. Exam - Vital Signs Vital Signs: Last Vital Signs Temp 36.3 C 11/11/18 18:00 Pulse 101 H 11/11/18 18:00 Resp 22 H 11/11/18 18:00 BP 109/36 L 11/11/18 18:00 Pulse Ox 96 11/11/18 18:00 - Patient Data Lab Results Last 24 hrs: Laboratory Results - last 24 hr 11/11/18 11/11/18 11/11/18 Range/Units 09:34 09:34 09:34 WBC 10.95 (4.0-11.0) K/uL RBC 3.39 L (4.30-5.90) M/uL Hgb 10.1 L (12.0-16.0) g/dL Hct 32.9 L (36.0-46.0) % MCV 97.1 (80.0-98.0) fL MCH 29.8 (27.0-32.0) pg MCHC 30.7 L (31.0-37.0) g/dL RDW Std Deviation 60.1 (28.0-62.0) fl RDW Coeff of Erickson 17 H (11.0-15.0) % Plt Count 270 (150-400) K/uL MPV 11.10 (7.40-12.00) fL Neut % (Auto) 84.5 H (48.0-80.0) % Lymph % (Auto) 7.8 L (16.0-40.0) % [place] % (Auto) 7.6 (0.0-15.0) % Eos % (Auto) 0.0 (0.0-7.0) % Baso % (Auto) 0.1 (0.0-1.5) % Neut # (Auto) 9.3 H (1.4-5.7) K/uL Lymph # (Auto) 0.9 (0.6-2.4) K/uL [place] # (Auto) 0.8 (0.0-0.8) K/uL Eos # (Auto) 0.0 (0.0-0.7) K/uL Baso # (Auto) 0.0 (0.0-0.1) K/uL Nucleated RBC % 0.0 /100WBC Nucleated RBCs # 0 K/uL INR 1.56 Sodium 138 (136-145) mmol/L Potassium 5.6 H (3.5-5.1) mmol/L Chloride 103 (98-107) mmol/L Carbon Dioxide 20.3 L (21.0-32.0) mmol/L BUN 44 H (7.0-18.0) mg/dL Creatinine 2.4 H (0.6-1.0) mg/dL Est Cr Clr Drug Dosing 13.37 mL/min Estimated GFR (MDRD) 19.2 ml/min Glucose 131 H (74-106) mg/dL Calcium 9.0 (8.5-10.1) mg/dL Total Bilirubin 1.6 H (0.2-1.0) mg/dL AST 97 H (15-37) IU/L ALT 118 H (14-63) IU/L Alkaline Phosphatase 212 H (46-116) U/L Troponin I 0.055 (0.000-0.056) ng/mL B-Natriuretic Peptide (<100) PG/ML Total Protein 7.1 (6.4-8.2) g/dL Albumin 2.6 L (3.4-5.0) g/dL Globulin 4.5 H (2.6-4.0) g/dL Albumin/Globulin Ratio 0.6 L (0.9-1.6) Lipase 98 (73-393) U/L TSH 3rd Generation (0.36-3.74) uIU/mL 11/11/18 11/11/18 11/11/18 Range/Units 09:34 09:34 17:12 WBC (4.0-11.0) K/uL RBC (4.30-5.90) M/uL Hgb (12.0-16.0) g/dL Hct (36.0-46.0) % MCV (80.0-98.0) fL MCH (27.0-32.0) pg MCHC (31.0-37.0) g/dL RDW Std Deviation (28.0-62.0) fl RDW Coeff of Erickson (11.0-15.0) % Plt Count (150-400) K/uL MPV (7.40-12.00) fL Neut % (Auto) (48.0-80.0) % Lymph % (Auto) (16.0-40.0) % [place] % (Auto) (0.0-15.0) % Eos % (Auto) (0.0-7.0) % Baso % (Auto) (0.0-1.5) % Neut # (Auto) (1.4-5.7) K/uL Lymph # (Auto) (0.6-2.4) K/uL [place] # (Auto) (0.0-0.8) K/uL Eos # (Auto) (0.0-0.7) K/uL Baso # (Auto) (0.0-0.1) K/uL Nucleated RBC % /100WBC Nucleated RBCs # K/uL INR Sodium (136-145) mmol/L Potassium 6.5 H (3.5-5.1) mmol/L Chloride (98-107) mmol/L Carbon Dioxide (21.0-32.0) mmol/L BUN (7.0-18.0) mg/dL Creatinine (0.6-1.0) mg/dL Est Cr Clr Drug Dosing mL/min Estimated GFR (MDRD) ml/min Glucose (74-106) mg/dL Calcium (8.5-10.1) mg/dL Total Bilirubin (0.2-1.0) mg/dL AST (15-37) IU/L ALT (14-63) IU/L Alkaline Phosphatase (46-116) U/L Troponin I (0.000-0.056) ng/mL B-Natriuretic Peptide 2667 H (<100) PG/ML Total Protein (6.4-8.2) g/dL Albumin (3.4-5.0) g/dL Globulin (2.6-4.0) g/dL Albumin/Globulin Ratio (0.9-1.6) Lipase (73-393) U/L TSH 3rd Generation 4.36 H (0.36-3.74) uIU/mL Result Diagrams: 11/11/18 09:34 11/11/18 17:12 - Problem List (1) Acalculous cholecystitis SNOMED Code(s): 43558792 ICD Code: K81.9 - CHOLECYSTITIS, UNSPECIFIED Status: Acute Priority: High (2) Abdominal pain SNOMED Code(s): 98906473 ICD Code: R10.9 - UNSPECIFIED ABDOMINAL PAIN Status: Acute Priority: High (3) Atrial fibrillation with RVR SNOMED Code(s): 695010023361947 ICD Code: I48.91 - UNSPECIFIED ATRIAL FIBRILLATION Status: Chronic Priority: High (4) Heart failure SNOMED Code(s): 94697547 ICD Code: I50.9 - HEART FAILURE, UNSPECIFIED Status: Acute Priority: High Qualifiers: Heart failure type: systolic Heart failure chronicity: acute on chronic Qualified Code(s): I50.23 - Acute on chronic systolic (congestive) heart failure (5) Anemia in stage 3 chronic kidney disease SNOMED Code(s): 067514561 ICD Code: N18.3 - CHRONIC KIDNEY DISEASE, STAGE 3 (MODERATE); D63.1 - ANEMIA IN CHRONIC KIDNEY DISEASE Status: Chronic Priority: High Problem Details: Consider transfusion if the patient's hemoglobin drops below 10.0 g/dL given the patient's cardiac disease. (6) Hyperkalemia SNOMED Code(s): 75308814 ICD Code: E87.5 - HYPERKALEMIA Status: Acute Priority: High (7) History of femoropopliteal bypass SNOMED Code(s): 073668277 ICD Code: Z98.890 - OTHER SPECIFIED POSTPROCEDURAL STATES Status: Chronic Priority: High Orders Last 24hrs: Active Orders 24 hr Category Date Time Status Patient Status [ADT] Stat ADT 11/11/18 12:07 Active Notify Provider Consults [RC] ASDIRECTED Care 11/11/18 12:11 Active Oxygen Therapy [RC] ASDIRECTED Care 11/11/18 09:18 Inactive Oxygen Therapy [RC] PRN Care 11/11/18 13:25 Active Ready for Discharge [RC] PER UNIT ROUTINE Care 11/11/18 17:22 Active Telemetry Monitoring [Cardiac Monitoring] [RC] Q8H Care 11/11/18 13:21 Active Up With Assistance [RC] ASDIRECTED Care 11/11/18 13:25 Active VTE/DVT Education [RC] PER UNIT ROUTINE Care 11/11/18 13:25 Active Vital Signs [RC] Q4H Care 11/11/18 13:25 Active Consult to Physician [CONS] Stat Cons 11/11/18 12:10 Active OT Evaluation and Treatment [CONS] Routine Cons 11/11/18 13:25 Active PT Evaluation and Treatment [CONS] Routine Cons 11/11/18 13:25 Active CDIFF TOX A+B [OP] Routine Lab 11/11/18 13:25 Ordered CULTURE STOOL + CAMPY+SHIGATOX [RM] Routine Lab 11/11/18 15:51 Ordered Saline Lock Insert [OM.PC] Stat Oth 11/11/18 09:06 Ordered VTE Mechanical Contraindications [AST] Per Unit Routine Oth 11/11/18 13:25 Ordered VTE Pharmacological Contraindications [AST] Per Unit Oth 11/11/18 13:25 Ordered Routine Resuscitation Status Routine Resus Stat 11/11/18 13:25 Ordered
--- NOTE | 2018-11-11 16:30 | PCM.SN ---
- Free Text/Narrative Note: pt seen, chart reviewed; pt is a vasculopathic, and in full blown CHF, tachypnea , B pleural effusion, home O2, HTN, severe MVR, albumen 2.6, pt is NOT a surgical candidate in our facility; pt would benefit from transfer to a higher level of care, especially when cholecystitis persisted, may be benefit to have cholecystotic tube placement to avoid gallbladder surgery; thanks for the consult; [id number]
--- NOTE | 2018-11-11 16:46 | US ---
EXAMINATION: Right upper quadrant ultrasound HISTORY: Pain COMPARISON: CT from the same day TECHNIQUE: Grayscale and color Doppler imaging obtained. FINDINGS: The visualized pancreas appears normal. The liver is normal in contour and echotexture. Adjacent pleural effusion is noted within the right lung base. The gallbladder wall is thickened and edematous measuring up to 7 mm. No gallstone or pericholecystic fluid is demonstrated. There is a small amount of sludge. The common bile duct measures 8 mm. The right renal cortex is mildly echogenic containing several small cysts. Otherwise the right kidney measures 9.3 cm [id number] without evidence of hydronephrosis. Negative sonographic Vincent sign. IMPRESSION: 1. The gallbladder wall is notably thickened and edematous. Etiology is uncertain, this could represent acalculous cholecystitis, however given the appearance of the heart this could be secondary to heart failure as well. 2. Increased renal cortical echotexture, correlate with chronic renal disease.
--- NOTE | 2018-11-11 17:26 | PCM.DCSUM1 ---
Discharge Summary - Hospital Course Free Text/Narrative:: The patient was admitted secondary to vague abdominal pain, Nausea, vomiting and diarrhea. Diagnosis: Stroke: No - Discharge Data Discharge Date: 11/11/18 Discharge Disposition: DC/Tfer to Acute Hospital 02 Condition: Serious - Discharge Diagnosis/Problem(s) (1) Acalculous cholecystitis SNOMED Code(s): 05196859 ICD Code: K81.9 - CHOLECYSTITIS, UNSPECIFIED Status: Acute Priority: High Current Visit: Yes (2) Abdominal pain SNOMED Code(s): 61748749 ICD Code: R10.9 - UNSPECIFIED ABDOMINAL PAIN Status: Acute Priority: High Current Visit: Yes (3) Atrial fibrillation with RVR SNOMED Code(s): 009984810055784 ICD Code: I48.91 - UNSPECIFIED ATRIAL FIBRILLATION Status: Chronic Priority: High Current Visit: Yes (4) Heart failure SNOMED Code(s): 25635373 ICD Code: I50.9 - HEART FAILURE, UNSPECIFIED Status: Acute Priority: High Current Visit: Yes Qualifiers: Heart failure type: systolic Heart failure chronicity: acute on chronic Qualified Code(s): I50.23 - Acute on chronic systolic (congestive) heart failure (5) 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 (6) Hyperkalemia SNOMED Code(s): 15997604 ICD Code: E87.5 - HYPERKALEMIA Status: Acute Priority: High Current Visit: Yes (7) History of femoropopliteal bypass SNOMED Code(s): 622773657 ICD Code: Z98.890 - OTHER SPECIFIED POSTPROCEDURAL STATES Status: Chronic Priority: High Current Visit: Yes - Patient Summary/Data Consults: Consultations 11/11/18 12:10 Consult to Physician [CONS] Stat 11/11/18 13:25 OT Evaluation and Treatment [CONS] Routine PT Evaluation and Treatment [CONS] Routine Hospital Course: The patient is an 83-year-old lady who had been admitted to acute hospitalization earlier today with dehydration along with nausea, vomiting and diarrhea. The patient also has comorbidities as acute on chronic heart failure, peripheral vascular disease with vascular occlusions and chronic kidney disease. The patient had presented with vague abdominal pain and a CT scan obtained to the emergency department had shown mild ascites with some perihepatic stranding. The patient had an ultrasound of her right upper quadrant and she was noted to have a an enlarged edematous gallbladder wall with stranding consistent with acalculous cholecystitis. Surgeon has evaluated the patient and thought that secondary to her comorbidities as well as likely consideration for decompensated CHF that she would be too high risk surgery here and recommended transfer to tertiary care center. I had a long discussion with the family and had recommended the patient be transferred to [facility] as she was just discharged from there approximately 8 days ago. The patient also has an appointment in [facility] in [place] for valve replacement for her severe mitral valve regurgitation. Dr. Peacock is accepting. - Patient Instructions Diet: NPO Activity: Bedrest - Discharge Plan *PRESCRIPTION DRUG MONITORING PROGRAM REVIEWED*: No *COPY OF PRESCRIPTION DRUG MONITORING REPORT IN PATIENT АЛЕКСАНДР: No Home Medications: Home Meds Calcium Carbonate [Calcium] 1,200 mg PO DAILY 04/27/17 [History] Levothyroxine [Synthroid] 125 mcg PO QAM 04/27/17 [History] Lutein 20 mg PO DAILY 04/27/17 [History] Multivitamin/Iron/Folic Acid [Centrum Adults Tablet] 1 tab PO DAILY 04/27/17 [ History] Rosuvastatin [Crestor] 20 mg PO MOWEFR@1200 04/27/17 [History] Rosuvastatin [Crestor] 10 mg PO SUTUTHSA@1200 09/28/18 [History] Apixaban [Eliquis] 2.5 mg PO BID 11/11/18 [History] Aspirin 40.5 mg PO DAILY 11/11/18 [History] Furosemide [Lasix] 20 mg PO .12 11/11/18 [History] Furosemide [Lasix] 80 mg PO DAILY 11/11/18 [History] Metoprolol Tartrate [Lopressor] 50 mg PO DAILY 11/11/18 [History] Potassium Chloride 20 meq PO TID 11/11/18 [History] hydrALAZINE HCl [Hydralazine HCl] 25 mg PO BID 11/11/18 [History] Oxygen Therapy Mode: Nasal Cannula Forms: ED Department Discharge Referrals: PCP,Unknown [Primary Care Provider] - - Discharge Summary/Plan Comment DC Time >30 min.: Yes - General Info Date of Service: 11/11/18 Admission Dx/Problem (Free Text: Admission Diagnosis/Problem Admission Diagnosis/Problem N/V, dehydration Functional Status: Reports: Pain Controlled - Review of Systems General: Reports: Weakness, Fatigue, Malaise HEENT: Reports: No Symptoms Pulmonary: Reports: No Symptoms 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: Reports: No Symptoms Gastrointestinal: Reports: Abdominal Pain, Diarrhea, Nausea, Vomiting Genitourinary: Reports: No Symptoms Musculoskeletal: Reports: No Symptoms Skin: Reports: No Symptoms Neurological: Reports: No Symptoms Psychiatric: Reports: No Symptoms - Patient Data Vitals - Most Recent: Last Vital Signs Temp 36.4 C 11/11/18 13:40 Pulse 95 11/11/18 13:40 Resp 18 11/11/18 13:40 BP 131/96 H 11/11/18 13:40 Pulse Ox 94 L 11/11/18 13:40 Weight - Most Recent: 52.934 kg I&O - Last 24 hours: Intake & Output 11/11/18 11/11/18 11/11/18 06:59 14:59 22:59 Intake Total 0 Output Total 0 Balance 0 Lab Results - Last 24 hrs: Laboratory Results - last 24 hr 11/11/18 11/11/18 11/11/18 Range/Units 09:34 09:34 09:34 WBC 10.95 (4.0-11.0) K/uL RBC 3.39 L (4.30-5.90) M/uL Hgb 10.1 L (12.0-16.0) g/dL Hct 32.9 L (36.0-46.0) % MCV 97.1 (80.0-98.0) fL MCH 29.8 (27.0-32.0) pg MCHC 30.7 L (31.0-37.0) g/dL RDW Std Deviation 60.1 (28.0-62.0) fl RDW Coeff of Erickson 17 H (11.0-15.0) % Plt Count 270 (150-400) K/uL MPV 11.10 (7.40-12.00) fL Neut % (Auto) 84.5 H (48.0-80.0) % Lymph % (Auto) 7.8 L (16.0-40.0) % Boyd % (Auto) 7.6 (0.0-15.0) % Eos % (Auto) 0.0 (0.0-7.0) % Baso % (Auto) 0.1 (0.0-1.5) % Neut # (Auto) 9.3 H (1.4-5.7) K/uL Lymph # (Auto) 0.9 (0.6-2.4) K/uL Boyd # (Auto) 0.8 (0.0-0.8) K/uL Eos # (Auto) 0.0 (0.0-0.7) K/uL Baso # (Auto) 0.0 (0.0-0.1) K/uL Nucleated RBC % 0.0 /100WBC Nucleated RBCs # 0 K/uL INR 1.56 Sodium 138 (136-145) mmol/L Potassium 5.6 H (3.5-5.1) mmol/L Chloride 103 (98-107) mmol/L Carbon Dioxide 20.3 L (21.0-32.0) mmol/L BUN 44 H (7.0-18.0) mg/dL Creatinine 2.4 H (0.6-1.0) mg/dL Est Cr Clr Drug Dosing 13.37 mL/min Estimated GFR (MDRD) 19.2 ml/min Glucose 131 H (74-106) mg/dL Calcium 9.0 (8.5-10.1) mg/dL Total Bilirubin 1.6 H (0.2-1.0) mg/dL AST 97 H (15-37) IU/L ALT 118 H (14-63) IU/L Alkaline Phosphatase 212 H (46-116) U/L Troponin I 0.055 (0.000-0.056) ng/mL B-Natriuretic Peptide (<100) PG/ML Total Protein 7.1 (6.4-8.2) g/dL Albumin 2.6 L (3.4-5.0) g/dL Globulin 4.5 H (2.6-4.0) g/dL Albumin/Globulin Ratio 0.6 L (0.9-1.6) Lipase 98 (73-393) U/L TSH 3rd Generation (0.36-3.74) uIU/mL 11/11/18 11/11/18 Range/Units 09:34 09:34 WBC (4.0-11.0) K/uL RBC (4.30-5.90) M/uL Hgb (12.0-16.0) g/dL Hct (36.0-46.0) % MCV (80.0-98.0) fL MCH (27.0-32.0) pg MCHC (31.0-37.0) g/dL RDW Std Deviation (28.0-62.0) fl RDW Coeff of Erickson (11.0-15.0) % Plt Count (150-400) K/uL MPV (7.40-12.00) fL Neut % (Auto) (48.0-80.0) % Lymph % (Auto) (16.0-40.0) % Boyd % (Auto) (0.0-15.0) % Eos % (Auto) (0.0-7.0) % Baso % (Auto) (0.0-1.5) % Neut # (Auto) (1.4-5.7) K/uL Lymph # (Auto) (0.6-2.4) K/uL Boyd # (Auto) (0.0-0.8) K/uL Eos # (Auto) (0.0-0.7) K/uL Baso # (Auto) (0.0-0.1) K/uL Nucleated RBC % /100WBC Nucleated RBCs # K/uL INR Sodium (136-145) mmol/L Potassium (3.5-5.1) mmol/L Chloride (98-107) mmol/L Carbon Dioxide (21.0-32.0) mmol/L BUN (7.0-18.0) mg/dL Creatinine (0.6-1.0) mg/dL Est Cr Clr Drug Dosing mL/min Estimated GFR (MDRD) ml/min Glucose (74-106) mg/dL Calcium (8.5-10.1) mg/dL Total Bilirubin (0.2-1.0) mg/dL AST (15-37) IU/L ALT (14-63) IU/L Alkaline Phosphatase (46-116) U/L Troponin I (0.000-0.056) ng/mL B-Natriuretic Peptide 2667 H (<100) PG/ML Total Protein (6.4-8.2) g/dL Albumin (3.4-5.0) g/dL Globulin (2.6-4.0) g/dL Albumin/Globulin Ratio (0.9-1.6) Lipase (73-393) U/L TSH 3rd Generation 4.36 H (0.36-3.74) uIU/mL Med Orders - Current: Current Medications Sodium Chloride (Normal Saline) 1,000 mls @ 75 mls/hr IV ASDIRECTED YAKELIN Last Admin: 11/11/18 14:31 Dose: 75 mls/hr Ondansetron HCl (Zofran) 4 mg IVPUSH Q4H PRN PRN Reason: Vomiting Sodium Chloride (Saline Flush) 10 ml FLUSH ASDIRECTED PRN PRN Reason: Keep Vein Open Sodium Chloride (Saline Flush) 2.5 ml FLUSH ASDIRECTED PRN PRN Reason: Keep Vein Open Temazepam (Restoril) 15 mg PO BEDTIME PRN PRN Reason: Sleep Discontinued Medications Diltiazem HCl (Diltiazem) 25 mg IVPUSH ONETIME ONE Stop: 11/11/18 09:17 Last Admin: 11/11/18 09:31 Dose: 25 mg Fentanyl (Sublimaze) 25 mcg IVPUSH Q5M PRN PRN Reason: Pain Last Admin: 11/11/18 11:42 Dose: 25 mcg Sodium Chloride (Normal Saline) 1,000 mls @ 125 mls/hr IV ASDIRECTED [facility] Last Admin: 11/11/18 09:30 Dose: 125 mls/hr Ondansetron HCl (Zofran) 4 mg IVPUSH ONETIME ONE Stop: 11/11/18 09:08 Last Admin: 11/11/18 09:30 Dose: 4 mg Ondansetron HCl (Zofran) 4 mg IVPUSH ONETIME ONE Stop: 11/11/18 11:36 Last Admin: 11/11/18 11:41 Dose: 4 mg - Exam Quality Assessment: Reports: Supplemental Oxygen General: Reports: Alert, Oriented, Cooperative, No Acute Distress HEENT: Reports: Pupils Equal, Pupils Reactive Neck: Reports: Supple, Trachea Midline Lungs: Reports: Clear to Auscultation, Normal Respiratory Effort 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: Reports: Regular Rate, Irregular Rhythm, Murmurs GI/Abdominal Exam: Soft, Non-Tender. No: Normal Bowel Sounds (Hypoactive) (Female) Exam: Deferred Rectal (Female) Exam: Deferred Back Exam: Denies: Full Range of Motion (Age-related changes) Extremities: No Pedal Edema Skin: Reports: Warm, Dry, Intact Neurological: Reports: No New Focal Deficit Psy/Mental Status: Reports: Alert, Normal Affect, Normal Mood *Q Meaningful Use (DIS) - VTE *Q VTE Mechanical Contraindications *Q: At Risk for Falls VTE Pharmacological Contraindications *Q: High INR Value
--- NOTE | 2018-11-11 18:00 | CONS ---
DATE OF CONSULTATION: 11/11/2018 DATE OF : 1935 PRIMARY CARE PHYSICIAN: Unknown PCP Consult was called, the patient was seen shortly after. CONCERNING QUESTION: Possible cholecystitis. 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 The patient complained of abdominal pain, was seen in the emergency room, and a CAT scan revealed pericholecystic fluid, and with elevated liver function tests, white count is normal, the patient was then admitted for further management. Surgery was consulted for assessment of elevated liver function tests. The patient was recently discharged from [facility] in [place] after being transferred from our facility because of exacerbation of congestive heart failure and acute kidney injury. Asked the patient how long it has been going on and I also tried to conduct a history and physical on her, not able to get a meaningful answer. Half the time, her eyes are closed and she can hardly carry on a complete sentence. Suffice to say, patient says she is not feeling well for about 2 years and she complained about the abdominal pain and poor appetite and also feeling nauseated. PAST MEDICAL HISTORY: Significant for vasculopathic disease including coronary artery disease, mitral valve regurgitation, peripheral vascular disease, and also occlusion of the SFA and femoral-popliteal bypass history. Denies CVA. ALLERGIES: Please refer to nursing for details. MEDICATION: Please refer to nursing for details. The patient is also on home oxygen. PHYSICAL EXAMINATION: GENERAL: On examination, cachectic appearance, frail, elderly, not able to even carry on a full complete sentence in conversation and most of the time with the eyes closed and using accessory muscle for breathing. HEENT: The patient is normocephalic, and sclera is icteric. LUNGS: Coarse breath sounds. HEART: Irregular rate. ABDOMEN: Soft. LABORATORY DATA: Upon consultation, white count is 10.95 and H and H of 10 and 33, platelets 270. INR is 1.56. Sodium is 138, potassium is 5.6, BUN is 44, creatinine is 2.4. Glucose is 131, A1c 6.5. Total bilirubin is 1.6 and AST and ALT are 97 and 118, alkaline phosphatase is 212. Troponin is normal. BNP is 2700. Albumin 2.6, lipase is 98. A CAT scan report, abdominal ascites, pericholecystic fluid, possible cholecystitis, kidney stone, nonobstructing diverticulosis, and also pleural effusion, left and right, moderate. IMPRESSION: Abdominal pain, although the patient is not able to locate or identify, and at the same time, some pericholecystic fluid with elevated liver function tests, possible passing a stone. 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 Plan has been discussed with medical attending and medical team. As always, thank you for the kind referral. BRANDIE / EDWIN /[id number]
[2018-11-11 18:23] VITALS: BP 109/36
== END 2018-11-11 18:15 ==
LOC: MW.ED 08:56 → MW.MS 12:35
PROVIDERS: ADMIT Internal Medicine; ATTEND Internal Medicine
DX: K81.9 Cholecystitis, unspecified (principal); I13.0 Hypertensive heart and chronic kidney disease with heart failure and stage 1 through stage 4 chronic kidney disease, or unspecified chronic kidney disease; I50.23 Acute on chronic systolic (congestive) heart failure; N18.3 Chronic kidney disease, stage 3 (moderate); D63.1 Anemia in chronic kidney disease; J44.9 Chronic obstructive pulmonary disease, unspecified; E78.00 Pure hypercholesterolemia, unspecified; E03.9 Hypothyroidism, unspecified; I48.0 Paroxysmal atrial fibrillation; E87.5 Hyperkalemia; J90 Pleural effusion, not elsewhere classified; I34.0 Nonrheumatic mitral (valve) insufficiency; Z87.891 Personal history of nicotine dependence; Z98.890 Other specified postprocedural states; Z79.890 Hormone replacement therapy; Z79.899 Other long term (current) drug therapy; Z79.01 Long term (current) use of anticoagulants; I25.10 Atherosclerotic heart disease of native coronary artery without angina pectoris; I73.9 Peripheral vascular disease, unspecified
CPT/HCPCS: 36415; 71045; 71045-26; 74176; 74176-26; 76705; 76705-26; 80053; 83690; 83880; 84132; 84443; 84484; 85025; 85610; 93005; 96361; 96374; 96375; 96376; 97165-GO; 99285-25; G0378; J2405; J3010; J3490; J7040